=== PATIENT | male | born 1945 | race Caucasian/White ===

== ENCOUNTER 2017-01-15 19:15 | Inpatient (IN) ==
[2017-01-15] MEDS ORDERED: 0.9 % Sodium Chloride 1,000 ML IVC ONE (19:32)
--- NOTE | 2017-01-15 19:32 | Emergency Department Note ---
Disposition Clinical Impression: Lower gastrointestinal hemorrhage Anemia Qualifiers: Anemia type: iron deficiency Iron deficiency anemia type: chronic blood loss Qualified Code(s): D50.0 - Iron deficiency anemia secondary to blood loss ( chronic) Disposition: Admitted As Inpatient Condition: Fair Referrals: Russel Felipe Jr, MD [Primary Care Provider] - Forms: ED Satisfaction Letter GI Bleed HPI - General Chief complaint: ED GI Bleed Stated complaint: rectal bleeding Time Seen by Provider: 01/15/17 19:29 Source: patient Mode of arrival: ambulatory Limitations: no limitations Nursing Notes Reviewed: Yes Vital Signs Reviewed: Yes - History of Present Illness Pt Subjective Complaint: gross bloody stools Onset (ago): week(s) (1) Consistency: intermittent Severity: moderate Improves with: nothing Worsens with: nothing Context: anticoagulant use Associated symptoms: Reports: weakness - Related Data Home Medications Medication Instructions Recorded Confirmed Aspirin [Lo-Dose Aspirin EC] 81 mg PO DAILY 12/13/16 12/13/16 Carvedilol [Coreg] 25 mg PO BID 12/13/16 12/13/16 Clopidogrel [Plavix] 75 mg PO DAILY 12/13/16 12/13/16 Furosemide [Lasix] 40 mg PO DAILY 12/13/16 12/13/16 Losartan [Cozaar] 100 mg PO DAILY 12/13/16 12/13/16 Metformin [Glucophage] 1,000 mg PO TID 12/13/16 12/13/16 Paroxetine [Paxil] 10 mg PO DAILY 12/13/16 12/13/16 Terazosin [Hytrin] 10 mg PO HS 12/13/16 12/13/16 Warfarin [Coumadin] 5 mg PO 1800 12/13/16 12/13/16 Previous Rx's Medication Instructions Recorded Doxycycline 100 mg PO BID #20 capsule 12/13/16 Sulfamethoxazole/Trimeth DS 1 each PO BID #20 tablet 12/13/16 [Bactrim DS] Allergies Allergy/AdvReac Type Severity Reaction Status Date / Time sotalol [From Betapace] AdvReac See Verified 01/15/17 19:22 Comments All systems ED: reviewed and negative except as stated. Constitutional: Denies: fever, chills, weakness Cardiovascular: Denies: chest pain Respiratory: Denies: cough Gastrointestinal: Denies: nausea, vomiting Past Medical History - Past Medical History Medical history: Reports: atrial fibrillation, hyperlipidemia, hypertension, myocardial infarction Psychiatric history: Reports: no psych history - Social History Smoking Status: Never smoker Alcohol use: Reports: none Drug use: Reports: none Physical Exam - General Limitations: no limitations General appearance: alert, in no apparent distress - Head Head exam: atraumatic, normocephalic, normal inspection - Eye Eye exam: Present: other (pale conjunctivae ) - Expanded Eye Exam Pupils: Left: reactive - ENT ENT exam: normal exam, normal oropharynx, mucous membranes moist - Expanded ENT Exam External ear exam: Present: normal external inspection Mouth exam: Present: normal external inspection Teeth exam: Present: normal inspection Throat exam: Present: normal inspection - Neck Neck exam: Present: normal inspection, full ROM, trachea midline - Chest Chest inspection: Present: normal inspection, symmetric chest wall rise - Respiratory Respiratory exam: Present: normal lung sounds bilaterally - Cardiovascular Cardiovascular exam: Present: irregular rhythm - Abdominal Exam Abdominal exam: Present: soft, Non-Tender. Absent: tenderness, distention, guarding, rebound, rigidity - Extremities Exam Extremities exam: Present: normal inspection, full ROM. Absent: tenderness, pedal edema - Expanded Upper Extremity Exam Shoulder exam: Present: normal inspection, full ROM Arm exam: Present: normal inspection, full ROM Elbow exam: Present: normal inspection, full ROM Forearm/Wrist exam: Present: normal inspection, full ROM Hand exam: Present: normal inspection, full ROM Vascular exam: Normal: capillary refill, radial pulse - Expanded Lower Extremity Exam Hip/Pelvis exam: Present: normal inspection, full ROM Upper leg exam: Present: normal inspection, full ROM Knee exam: Present: normal inspection, full ROM Lower leg exam: Present: normal inspection, full ROM Ankle exam: Present: normal inspection, full ROM Foot/toe exam: Present: normal inspection, full ROM Neurovascular/Tendon exam: Absent: motor deficit, sensory deficit, tendon deficit - Back Exam Back exam: Present: normal inspection, full ROM. Absent: tenderness - Neurological Exam Neurological exam: Present: alert, oriented X3 - Expanded Neurological Exam Patient oriented to: Present: person, place, time Coma Scale Eye Opening: Spontaneous Coma Scale Motor Response: Obeys Commands Coma Scale Verbal Response: Oriented Coma Scale Total: 15 - Psychiatric Psychiatric exam: Present: normal affect, normal mood - Skin Skin exam: Present: pallor Course Vital Signs Temperature 97.5 F L 01/15/17 19:17 Pulse Rate 99 01/15/17 19:17 Respiratory Rate 20 01/15/17 19:17 Blood Pressure 89/56 01/15/17 19:17 O2 Sat by Pulse Oximetry 93 L 01/15/17 19:17 Temperature 97.5 F L 01/15/17 19:17 Pulse Rate 99 01/15/17 20:02 Respiratory Rate 18 01/15/17 20:02 Blood Pressure 107/56 01/15/17 20:02 O2 Sat by Pulse Oximetry 96 01/15/17 20:02 Oxygen Delivery Oxygen Delivery Room Air GI Bleed - Differential Diagnosis Likely: hemorrhoids, Upper gastrointestinal hemorrhage, Lower gastrointestinal hemorrhage, hematochezia, coagulopathy - Medical Records Medical records reviewed: Yes I reviewed the patient's medical records. - Lab Data Lab results reviewed: Yes I reviewed the patient's lab results. Result diagrams: 01/15/17 19:52 01/15/17 19:52 Lab Results 01/15/17 01/15/17 01/15/17 Range/Units 19:52 19:52 19:52 WBC 9.4 (4.3-11.1) K/mcL RBC 2.56 L (4.19-5.50) M/mcL Hgb 6.7 L (12.9-16.9) g/dL Hct 21.2 L (37.5-50.1) % MCV 82.8 L (83.0-100.0) fL MCH 26.2 L (28.0-33.3) pg MCHC 31.6 (31.6-35.5) g/dL RDW 16.1 H (11.5-14.5) % Plt Count 230 (140-400) K/mcL MPV 10.5 (9.4-12.4) fL Immature Gran % 0.6 (0-4) % Seg Neutrophils % 81.5 % Lymphocytes % 11.3 % Monocytes % 6.2 % Eosinophils % 0.3 % Basophils % 0.1 % Neutrophils # 7.6 (1.6-8.9) K/mcL Lymphocytes # 1.1 (0.6-4.6) K/mcL Monocytes # 0.6 (0.0-1.3) K/mcL Eosinophils # 0.0 (0.0-0.6) K/mcL Basophils # 0.0 (0.0-0.2) K/mcL Immature Plt Fraction 4.9 (1.1-6.1) % PT 25.1 H (9.4-12.1) Seconds INR 2.3 APTT 32.1 (26.0-36.0) Seconds Sodium 135 L (136-145) mEq/L Potassium 4.8 H (3.5-4.5) mEq/L Chloride 100 (98-109) mEq/L Carbon Dioxide 25 (19-29) mEq/L BUN 25 (8-26) mg/dL Creatinine 1.69 H (0.72-1.25) mg/dL Est GFR ( Amer) 49 L (> 60) Est GFR (Non-Af Amer) 40 L (> 60) BUN/Creatinine Ratio 15 (6-26) Glucose 503 H* (70-99) mg/dL Calculated Osmolality 307 H (280-300) Calcium 9.0 (8.6-10.8) mg/dL Magnesium 1.4 L (1.6-2.6) mg/dL Blood Type Antibody Screen Crossmatch 01/15/17 Range/Units 19:52 WBC (4.3-11.1) K/mcL RBC (4.19-5.50) M/mcL Hgb (12.9-16.9) g/dL Hct (37.5-50.1) % MCV (83.0-100.0) fL MCH (28.0-33.3) pg MCHC (31.6-35.5) g/dL RDW (11.5-14.5) % Plt Count (140-400) K/mcL MPV (9.4-12.4) fL Immature Gran % (0-4) % Seg Neutrophils % % Lymphocytes % % Monocytes % % Eosinophils % % Basophils % % Neutrophils # (1.6-8.9) K/mcL Lymphocytes # (0.6-4.6) K/mcL Monocytes # (0.0-1.3) K/mcL Eosinophils # (0.0-0.6) K/mcL Basophils # (0.0-0.2) K/mcL Immature Plt Fraction (1.1-6.1) % PT (9.4-12.1) Seconds INR APTT (26.0-36.0) Seconds Sodium (136-145) mEq/L Potassium (3.5-4.5) mEq/L Chloride (98-109) mEq/L Carbon Dioxide (19-29) mEq/L BUN (8-26) mg/dL Creatinine (0.72-1.25) mg/dL Est GFR ( Amer) (> 60) Est GFR (Non-Af Amer) (> 60) BUN/Creatinine Ratio (6-26) Glucose (70-99) mg/dL Calculated Osmolality (280-300) Calcium (8.6-10.8) mg/dL Magnesium (1.6-2.6) mg/dL Blood Type O POSITIVE Antibody Screen NEGATIVE Crossmatch See Detail - Radiology Data Radiology results reviewed: Yes I reviewed the patient's radiology results. Critical Care Time Critical Care Time: Yes Total Critical Care Time: 40 Attestation: Critical care performed: Time is exclusive of separately billable procedures. Time includes: direct patient care, patient reassessment, coordination of patient care, interpretation of data (laboratory data, radiology data, and respiratory data), review of patient's medical records, medical consultation and documentation of patient care. Procedures included in critical care time: Procedures excluded from critical care time:
[2017-01-15 20:01] LABS: Basophils % 0.1 %; Eosinophils % 0.3 %; Hematocrit 21.2 % (37.5-50.1); Hemoglobin 6.7 g/dL (12.9-16.9); Immature Granulocytes % 0.6 % (0-4); Immature Platelets 4.9 % (1.1-6.1); Lymphocytes # 1.1 K/mcL (0.6-4.6); Lymphocytes % 11.3 %; Mean Corpuscular HGB Conc 31.6 g/dL (31.6-35.5); Mean Corpuscular Hemoglobin 26.2 pg (28.0-33.3); Mean Corpuscular Volume 82.8 fL (83.0-100.0); Mean Platelet Volume 10.5 fL (9.4-12.4); Monocytes # 0.6 K/mcL (0.0-1.3); Monocytes % 6.2 %; Neutrophils # 7.6 K/mcL (1.6-8.9); Platelet Count 230 K/mcL (140-400); Red Blood Count 2.56 M/mcL (4.19-5.50); Red Cell Distribution Width 16.1 % (11.5-14.5); Segmented Neutrophils % 81.5 %
[2017-01-15 20:09] LABS: INR 2.3; Prothrombin Time 25.1 Seconds (9.4-12.1)
[2017-01-15 20:11] LABS: Activated Partial Thrombo Time 32.1 Seconds (26.0-36.0)
[2017-01-15 20:16] LABS: Magnesium 1.4 mg/dL (1.6-2.6); Potassium 4.8 mEq/L (3.5-4.5)
[2017-01-15] MEDS ORDERED: Insulin LISPRO 300 UNITS/3 ML VIAL SQ STA (20:25)
[2017-01-15] MEDS ORDERED: *HR* Phytonadione 5 MG TABLET PO ONE (21:16)
[2017-01-15] MEDS ORDERED: 0.9 % Sodium Chloride 500 ML ONE (21:19)
[2017-01-15] MEDS ORDERED: Calcium Gluconate 1,000 MG in D5% in Water 100 ML IVPB ONE (21:59)
[2017-01-15] MEDS ORDERED: Pantoprazole 40 MG VIAL IVP ONE (21:59)
[2017-01-15] MEDS ORDERED: Ondansetron 4 MG/2 ML VIAL IVP PRN (22:13)
--- NOTE | 2017-01-15 22:19 | Internal Med History&Physical ---
Date of Encounter: 01/15/17 Time of Encounter: 22:13 Assessment and Plan (1) CAD (coronary artery disease) of artery bypass graft Current visit: Yes Status: Acute Patient denies any chest pain. When old aspirin. Hold beta blockers as he is relatively hypotensive. Qualifiers: [place] vs. transplanted heart: [place] heart Associated angina: without angina Qualified Code(s): I25.810 - Atherosclerosis of coronary artery bypass graft(s) without angina pectoris (2) Afib Current visit: Yes Status: Acute Will check EKG. Hold anticoagulation. Qualifiers: Atrial fibrillation type: chronic Qualified Code(s): I48.2 - Chronic atrial fibrillation (3) Lower gastrointestinal hemorrhage Current visit: Yes Status: Acute Suspect that this is a lower G.I. bleed. His bun is normal. Will follow H&H to 6 hours. Because he is having nausea I will start them on protonix drip. Patient systolic blood pressure is around 100s, slightly tachycardic. he will be receiving normal saline 125 mls an hour. Follow output (4) Acute on chronic kidney failure Current visit: Yes Status: Acute Hydrate. Maintain map more than 65 Internal Medicine - H&P: HPI Chief complaint: GI bleed History of present illness: Mr. Good is a 71 year old male with a history of coronary artery disease status post cabg, diabetes mellitus, atrial fibrillation on anticogalition with Coumadin presents to the emergency room today with bleading per rectum. For the past week patient has been having Bright Red Bleeding per Rectum approximately 3 bloody stools daily. He has seen his PCP a week ago found him hypotensive so blood pressure medications was decreased was also advised by his physician to discontinue Coumadin 3 days ago because of low blood count. Indeed patient has not taken any Coumadin the past 3 days. Patient continues to have bloody bowel movements. He mentioned stools is bright red or dark red color. He has not noticed black stools. However patient has nausea. He denies any hematemesis. He has been feeling lightheaded especially when standing up. He has been very weak and lethargic. He denies any fevers chills. He has never had a colonoscopy. He denies abdominal pain. He denies any chest pain. He takes aspirin. But he is not on any Plavix therapy. Past Med Surg Social Fam HX - Past Medical History Medical history: atrial fibrillation, hyperlipidemia, hypertension, myocardial infarction Psychiatric history: no psych history - Social History Smoking Status: Never smoker Alcohol use: none Drug use: none Internal Medicine - H&P: Meds Aspirin [Lo-Dose Aspirin EC] 81 mg PO DAILY 12/13/16 [History] Carvedilol [Coreg] 25 mg PO BID 12/13/16 [History] Clopidogrel [Plavix] 75 mg PO DAILY 12/13/16 [History] Furosemide [Lasix] 40 mg PO DAILY 12/13/16 [History] Losartan [Cozaar] 50 mg PO DAILY 12/13/16 [History] Metformin [Glucophage] 500 mg PO DAILY 12/13/16 [History] Paroxetine [Paxil] 10 mg PO DAILY 12/13/16 [History] Terazosin [Hytrin] 5 mg PO HS 12/13/16 [History] Warfarin [Coumadin] 5 mg PO 1800 12/13/16 [History] Metformin HCl [Glucophage] 1,000 mg PO HS 01/16/17 [History] Allergies sotalol [From Betapace] Adverse Reaction (Verified 01/16/17 07:35) See Comments "hair falls out" All Systems PM: A 10-system review of systems was performed and is negative for pertinent findings except as documented above in the HPI. Review of systems: 10 point review of systems is negative except for HPI - Constitutional Vitals: Temp Pulse Resp BP Pulse Ox 97.7 F 90 16 127/74 98 01/15/17 21:40 01/15/17 21:40 01/15/17 22:04 01/15/17 22:04 01/15/17 21:40 Exam: Gen.: patient is alert oriented not in distress. Cardiac: Normal S1 S2 no additional sounds or murmurs chest: clear to auscultation abdomen soft nontender nondistended normal bowel sounds lower extremity: lax calf muscles neuro no focal deficit Internal Med - H&P Results - Labs CBC & Chem 7: 01/16/17 09:37 01/16/17 04:19
[2017-01-15] MEDS ORDERED: 0.9 % Sodium Chloride 250 ML ONE (23:32)
[2017-01-16] MEDS: 0.9 % Sodium Chloride 1,000 ML IVC SCH ×2 (00:05→08:43)
[2017-01-16] MEDS: Pantoprazole 40 MG in 0.9 % Sodium Chloride Mini Bag 100 ML IVC SCH ×5 (01:55→17:18)
[2017-01-16] MEDS: Insulin LISPRO 300 UNITS/3 ML VIAL SQ SCH ×5 (02:20→17:17)
[2017-01-16 05:20] LABS: Basophils % 0.1 %; Eosinophils # 0.1 K/mcL (0.0-0.6); Eosinophils % 0.6 %; Hematocrit 19.9 % (37.5-50.1); Hemoglobin 6.3 g/dL (12.9-16.9); Immature Granulocytes % 0.5 % (0-4); Lymphocytes % 22.1 %; Mean Corpuscular HGB Conc 31.7 g/dL (31.6-35.5); Mean Corpuscular Hemoglobin 25.9 pg (28.0-33.3); Mean Corpuscular Volume 81.9 fL (83.0-100.0); Mean Platelet Volume 10.6 fL (9.4-12.4); Monocytes # 0.8 K/mcL (0.0-1.3); Platelet Count 197 K/mcL (140-400); Red Blood Count 2.43 M/mcL (4.19-5.50); Red Cell Distribution Width 15.9 % (11.5-14.5); Segmented Neutrophils % 67.7 %
[2017-01-16] MEDS ORDERED: 0.9 % Sodium Chloride 250 ML ONE ×2 (05:20→10:12)
[2017-01-16 05:21] LABS: INR 1.8; Prothrombin Time 19.3 Seconds (9.4-12.1)
[2017-01-16 05:35] LABS: BUN/Creatinine Ratio 17 (6-26); Blood Urea Nitrogen 23 mg/dL (8-26); Calcium 8.5 mg/dL (8.6-10.8); Carbon Dioxide 27 mEq/L (19-29); Chloride 105 mEq/L (98-109); Glucose 199 mg/dL (70-99); Magnesium 1.9 mg/dL (1.6-2.6); Osmolality,Calculated 295 (280-300); Sodium 138 mEq/L (136-145); eGFR For African Americans > 60 (> 60); eGFR For Non-African Americans 52 (> 60)
[2017-01-16 05:37] LABS: Potassium 3.7 mEq/L (3.5-4.5)
--- NOTE | 2017-01-16 09:06 | Gastroenterology Consult Note ---
<Marine Mg - Last Filed: 01/16/17 15:30> Date of Encounter: 01/16/17 Time of Encounter: 11:15 - Assessment and plan (1) Anemia Current Visit: Yes Status: Acute Assessment and plan: Anemia w/u - EGD/Colon tomorrow. Check Fe profile at time of presentation. Qualifiers: Anemia type: iron deficiency Iron deficiency anemia type: chronic blood loss Qualified Code(s): D50.0 - Iron deficiency anemia secondary to blood loss (chronic) (2) Lower gastrointestinal hemorrhage Current Visit: Yes Status: Acute Assessment and plan: Cscope to r/o tumor, polyp, AVMS, colitis, anorectal pathology - Time Spent With Patient Total time spent is greater than 50% in coordination of care (as documented) at patient's floor/unit and/or counseling patient: less than 15 minutes GI History of Present Illness - Data of Consult Patient: new to practice Consult date: 01/16/17 Requesting Physician: José Reyna MD - Consult Narrative Reason for consult: Anemia, rectal bleeding History of present illness: Mr. Good is a 71 year old male with a PMH of CAD s/p CABG, DM, a fib, PM. Patient uses coumadin for anticoagulation. For the past week patient has been having BRBPR approximately 3 bloody stools daily. He has seen his PCP a week ago found him hypotensive so blood pressure medications were decreased and he was also advised by his physician to discontinue Coumadin 3 days ago because of low blood count. Indeed patient has not taken any Coumadin the past 3 days. Patient continues to have bloody bowel movements. He mentioned stools is bright red or dark red color. He has not noticed black stools. However patient has nausea. He denies any hematemesis. He has been feeling lightheaded especially when standing up. He has been very weak and lethargic. He denies any fevers chills. He has never had a colonoscopy. He denies abdominal pain. He denies any chest pain. He takes aspirin, not on PLAVIX. Patient presented with hgb of 6.3. He is due to receive 2 units of PRBC and 2 units of plasma, although his INR is 1.8 today. Patient states initially he had a supratherapeutic INR of 5.8 several days ago when he was told to hold his blood thinner. Colonoscopy: None noted EGD: None noted Past Med Surg Social Fam HX - Past Medical History Medical history: atrial fibrillation, hyperlipidemia, hypertension, myocardial infarction Psychiatric history: no psych history - Social History Smoking Status: Never smoker Alcohol use: none Drug use: none - Gastrointestinal NSAID use: None noted Anticoagulation Use: Coumadin Number of BM Per Day: daily Gastrointestinal: Present: abdominal pain, hematochezia - Constitutional Constitutional: as per HPI - EENT Eyes: as per HPI Ears: Present: as per HPI Nose, mouth and throat: Present: as per HPI - Cardiovascular Cardiovascular ROS: Present: as per HPI - Respiratory Respiratory IM: Present: as per HPI - Neurological ROS Neurological GI: Present: as per HPI - Hematologic/Lymphatic Hematologic/Lymphatic pediatric: Present: as per HPI - Musculoskeletal Musculoskeletal ROS GI: Present: as per HPI - Integumentary Integumentary GI: Present: as per HPI - Psychiatric ROS Psychiatric GI: Present: as per HPI - Endocrine Endocrine IM: Present: as per HPI - Constitutional Vitals: Temp Pulse Resp BP Pulse Ox 99.4 F 89 16 129/80 94 L 01/16/17 08:12 01/16/17 08:12 01/16/17 08:12 01/16/17 08:12 01/16/17 08:49 General appearance: Present: cooperative, A&O X 3, no acute distress, answers questions appropriately - Head Head exam: Present: atraumatic, normocephalic - Eye Eye exam: Present: normal appearance, sclera anicteric - ENT ENT exam: Present: mucous membranes moist - Neck Neck exam general surgery: Present: normal inspection, trachea midline - Respiratory Respiratory exam: Present: CTAB - Cardiovascular Cardiovascular exam: Present: RRR, +S1, +S2 - GI/Abdominal GI/Abdominal exam: Present: normal bowel sounds, soft, no peritoneal signs - Rectal Rectal exam: Present: deferred - Extremities Exam Extremities exam: Present: warm - Neurological Exam Neurological exam: Present: no focal deficits - Psychiatric Psychiatric exam: Present: normal affect, normal mood - Skin Skin exam: Present: dry, intact, normal color, warm Results - Labs CBC & Chem 7: 01/16/17 09:37 01/16/17 04:19 Labs: Last Result Calcium 8.5 mg/dL (8.6-10.8) L 01/16/17 04:19 Entire Visit Hgb 6.3 g/dL (12.9-16.9) L 01/16/17 04:19 Hct 19.9 % (37.5-50.1) L 01/16/17 04:19 PT 19.3 Seconds (9.4-12.1) H 01/16/17 04:19 - ABG ABG results: PT/INR, D-dimer PT 19.3 Seconds (9.4-12.1) H 01/16/17 04:19 Consult Discharge Plan - Plan Referrals: Russel Felipe Jr, MD [Primary Care Provider] - <SondraJamel - Last Filed: 01/16/17 18:12> Time of Encounter: 14:00 - Time Spent With Patient Total time spent is greater than 50% in coordination of care (as documented) at patient's floor/unit and/or counseling patient: GI History of Present Illness - Data of Consult Requesting Physician: Emperatriz Tong - Consult Narrative History of present illness: Mr. Good is a 71 year old male - Constitutional Vitals: Temp Pulse Resp BP Pulse Ox 98.2 F 80 14 129/67 96 01/16/17 15:00 01/16/17 15:00 01/16/17 15:00 01/16/17 15:00 01/16/17 15:00 Results - Labs CBC & Chem 7: 01/16/17 09:37 01/16/17 04:19 Labs: Last Result Calcium 8.5 mg/dL (8.6-10.8) L 01/16/17 04:19 Iron 17 mcg/dL (65-175) L 01/16/17 04:19 % Saturation 6 % (20-55) L 01/16/17 04:19 Transferrin 210 mg/dL (174-364) 01/16/17 04:19 Stool Occult Blood Positive (Negative) A 01/15/17 16:30 Entire Visit Hgb 7.0 g/dL (12.9-16.9) L 01/16/17 09:37 Hct 21.1 % (37.5-50.1) L 01/16/17 09:37 PT 19.3 Seconds (9.4-12.1) H 01/16/17 04:19 - ABG ABG results: PT/INR, D-dimer PT 19.3 Seconds (9.4-12.1) H 01/16/17 04:19 - Attending Attestation I examined this patient and my medical decision-making was reviewed with the BACK WEDGER/PA/Advanced Practice Nurse/Resident Physician. I agree with the documented findings, disposition and treatment plan as described except to the extent set forth below.
[2017-01-16 09:48] LABS: % Iron Saturation 6 % (20-55); Iron 17 mcg/dL (65-175); Transferrin 210 mg/dL (174-364)
[2017-01-16 10:09] LABS: Hematocrit 21.1 % (37.5-50.1)
[2017-01-16] MEDS ORDERED: Dextrose Gel 15 GM PO PRN ×2 (11:54)
[2017-01-16] MEDS ORDERED: D5% in Water 1,000 ML IV PRN (11:54)
[2017-01-16] MEDS ORDERED: *HR* Dextrose 50 % in Water (Syg) 50 ML SYRINGE IVP PRN (11:54)
[2017-01-16] MEDS: Furosemide 40 MG TABLET PO SCH (12:41)
--- NOTE | 2017-01-16 15:17 | Internal Med Progress Note ---
Date of Encounter: 01/16/17 Time of Encounter: 15:13 - Assessment and plan (1) Afib Current Visit: Yes Status: Acute Assessment and plan: Continue home dose beta blockers, rate controlled. Anticoagulation has been held for now. Qualifiers: Atrial fibrillation type: chronic Qualified Code(s): I48.2 - Chronic atrial fibrillation (2) Anemia Current Visit: Yes Status: Acute Assessment and plan: Most likely secondary to acute bleed. Status post 2 units of blood transfusion and plasma Repeat hemoglobin today is 7.0. We will monitor CBC, transfuse as needed. Qualifiers: Anemia type: iron deficiency Iron deficiency anemia type: chronic blood loss Qualified Code(s): D50.0 - Iron deficiency anemia secondary to blood loss (chronic) (3) CAD (coronary artery disease) of artery bypass graft Current Visit: Yes Status: Acute Assessment and plan: Denies any chest pain, yesterday his home medications including beta blockers were held given relative hypotension. Has been restarted this morning, blood pressure seems to be stable. Qualifiers: [place] vs. transplanted heart: [place] heart Associated angina: without angina Qualified Code(s): I25.810 - Atherosclerosis of coronary artery bypass graft(s) without angina pectoris (4) Lower gastrointestinal hemorrhage Current Visit: Yes Status: Acute Assessment and plan: Denies any bowel movement today. Denies abdominal pain. Has been having GI bleed for the past week. GI has been consulted, will need possible EGD and colonoscopy. Will follow GI recommendations. Continue PPI drip (5) Acute on chronic kidney failure Current Visit: Yes Status: Acute Assessment and plan: possibel from hypotension/GI bleed currently getting better. will contiue to monitor - Time Spent With Patient 25 - 35 minutes - Subjective Interval history: seen at the bedside, denies any abdominal pain at [facility] admitted for GI bleed - Constitutional Vitals: Temp Pulse Resp BP Pulse Ox 98.0 F 87 16 157/82 97 01/16/17 13:10 01/16/17 13:10 01/16/17 13:10 01/16/17 13:10 01/16/17 13:10 General appearance: Present: A&O X 3 Exam: Cardiac: Normal S1 S2 no additional sounds or murmurs chest: clear to auscultation abdomen soft nontender nondistended normal bowel sounds lower extremity: lax calf muscles neuro no focal deficit Internal Medicine: Result - Labs CBC & Chem 7: 01/16/17 09:37 01/16/17 04:19 Labs: Short CBC 01/16/17 01/16/17 Range/Units 04:19 09:37 WBC 8.8 (4.3-11.1) K/mcL Hgb 6.3 L 7.0 L (12.9-16.9) g/dL Hct 19.9 L 21.1 L (37.5-50.1) % Plt Count 197 (140-400) K/mcL Neutrophils # 6.0 (1.6-8.9) K/mcL BMP 01/16/17 04:19 Sodium 138 Potassium 3.7 D Chloride 105 Carbon Dioxide 27 BUN 23 Creatinine 1.36 H Glucose 199 H Calcium 8.5 L - ABG Interpretation ABG results: PT/INR, D-dimer PT 19.3 Seconds (9.4-12.1) H 01/16/17 04:19 - VTE Documentation of Mechanical Device: Graduated compression elastic hosiery Consult Discharge Plan - Plan Referrals: Russel Felipe Jr, MD [Primary Care Provider] -
[2017-01-16] MEDS ORDERED: 0.9 % Sodium Chloride 1,000 ML IVC SCH (15:24)
[2017-01-16] MEDS ORDERED: SODIUM CHLORIDE/NAHCO3/KCL/PEG 4,000 ML SOLN.RECON PO ONE (19:00)
[2017-01-17] MEDS: Pantoprazole 40 MG in 0.9 % Sodium Chloride Mini Bag 100 ML IVC SCH ×2 (03:00→08:22)
[2017-01-17] MEDS: Insulin LISPRO 300 UNITS/3 ML VIAL SQ SCH ×3 (07:35→17:44)
[2017-01-17] MEDS: Aspirin Enteric Coated 81 MG Tablet PO SCH (09:00)
[2017-01-17] MEDS: Furosemide 40 MG TABLET PO SCH (09:00)
[2017-01-17 09:06] LABS: Basophils % 0.1 %; Eosinophils # 0.2 K/mcL (0.0-0.6); Eosinophils % 2.3 %; Hematocrit 19.7 % (37.5-50.1); Hemoglobin 6.4 g/dL (12.9-16.9); Immature Granulocytes % 0.4 % (0-4); Lymphocytes # 1.3 K/mcL (0.6-4.6); Lymphocytes % 15.8 %; Mean Corpuscular HGB Conc 32.5 g/dL (31.6-35.5); Mean Corpuscular Hemoglobin 26.7 pg (28.0-33.3); Mean Corpuscular Volume 82.1 fL (83.0-100.0); Mean Platelet Volume 9.8 fL (9.4-12.4); Monocytes # 0.8 K/mcL (0.0-1.3); Monocytes % 10.1 %; Neutrophils # 5.8 K/mcL (1.6-8.9); Platelet Count 166 K/mcL (140-400); Red Cell Distribution Width 16.7 % (11.5-14.5); Segmented Neutrophils % 71.3 %
[2017-01-17 09:19] LABS: BUN/Creatinine Ratio 11 (6-26); Blood Urea Nitrogen 14 mg/dL (8-26); Calcium 7.7 mg/dL (8.6-10.8); Carbon Dioxide 25 mEq/L (19-29); Chloride 104 mEq/L (98-109); Glucose 151 mg/dL (70-99); Osmolality,Calculated 289 (280-300); Potassium 3.6 mEq/L (3.5-4.5); Sodium 138 mEq/L (136-145); eGFR For African Americans > 60 (> 60); eGFR For Non-African Americans 58 (> 60)
[2017-01-17] MEDS ORDERED: 0.9 % Sodium Chloride 250 ML ONE (10:30)
[2017-01-17 12:21] LABS: Hemoglobin A1C 7.6 %
[2017-01-17] MEDS ORDERED: *HR* Midazolam HCl 5 MG/5 ML VIAL IVP ONE (12:24)
[2017-01-17] MEDS ORDERED: *HR* FentaNYL (PF) 100 MCG/2 ML VIAL ONE (12:25)
[2017-01-17] MEDS: *HR* Midazolam HCl 5 MG/5 ML VIAL IVP PRN ×2 (12:50→12:52)
[2017-01-17] MEDS: *HR* FentaNYL (PF) 100 MCG/2 ML VIAL IVP PRN ×2 (12:50→12:52)
[2017-01-17] MEDS ORDERED: Simethicone 40 MG/0.6 ML MLS IR ONE (12:51)
[2017-01-17] MEDS ORDERED: Tetracaine/Benzocaine/Butamben 200MG/SPRAY (100SPY/BOT) MM ONE (12:51)
--- NOTE | 2017-01-17 12:53 | Pre-Sedation Evaluation ---
Pre-sedation evaluation - Pre-sedation checklist Recent Vitals: Last Vital Signs Temp 98.7 F 01/17/17 10:54 Pulse 72 01/17/17 12:45 Resp 16 01/17/17 12:45 BP 139/81 01/17/17 12:45 Pulse Ox 97 01/17/17 12:45 ASA Classification *see protocol: CLASS III-Severe systemic disease, CLASS IV- Severe systemic disease/constant threat to pt's life Plan of Care: Pt appropriate candidate for procedure/moderate/conscious sedation , Risks/benefits of procedure/sedation discussed w/ patient/family
--- NOTE | 2017-01-17 13:27 | Procedure Note ---
Date of procedure: 01/17/17 Pre-op diagnosis: Rectal bleed Procedure: EGD: Normal Colon: One small AVM in the cecum status post APC. Few scattered diverticuli in the colon but no other obvious source of bleeding was seen few small polyps were resected Rec: If patient has bleeding recurrence then recommend bleeding scan to be done stat
--- NOTE | 2017-01-17 14:48 | Internal Med Progress Note ---
Date of Encounter: 01/17/17 Time of Encounter: 14:43 - Assessment and plan (1) Afib Current Visit: Yes Status: Acute Assessment and plan: Continue home dose beta blockers, rate controlled. Anticoagulation has been held for now. Qualifiers: Atrial fibrillation type: chronic Qualified Code(s): I48.2 - Chronic atrial fibrillation (2) Anemia Current Visit: Yes Status: Acute Assessment and plan: Most likely secondary to acute bleed. Status post 3 units of blood transfusion and plasma Repeat hemoglobin today is 6.4 We will monitor CBC, was transfused one unit this morning. Qualifiers: Anemia type: iron deficiency Iron deficiency anemia type: chronic blood loss Qualified Code(s): D50.0 - Iron deficiency anemia secondary to blood loss (chronic) (3) CAD (coronary artery disease) of artery bypass graft Current Visit: Yes Status: Acute Assessment and plan: Denies any chest pain, yesterday his home medications including beta blockers were held given relative hypotension. Blood pressure seems to be borderline today. We will hold the losartan today. Continue to monitor. Qualifiers: [place] vs. transplanted heart: [place] heart Associated angina: without angina Qualified Code(s): I25.810 - Atherosclerosis of coronary artery bypass graft(s) without angina pectoris (4) Lower gastrointestinal hemorrhage Current Visit: Yes Status: Acute Assessment and plan: Has not had any further bleeding episodes. Status post EGD and colonoscopy today with Dr. Beltre. Colonoscopy showed a single small localized angiectasia without bleeding in the cecum. Treated with APC. Diverticulosis in the entire examined colon. 2 sessile, nonbleeding polyps were found in the ascending colon that was removed. EGD did not show any pathology. will continue to monitor for GIB. if he has further bleeding episodes, will need a stat bleeding scan, discussed with GI. arabella cameron to hold the AC for now. (5) Acute on chronic kidney failure Current Visit: Yes Status: Acute Assessment and plan: possibel from hypotension/GI bleed currently improved. will contiue to monitor - Time Spent With Patient 25 - 35 minutes - Subjective Interval history: seen at the bedside, denies any abdominal pain at this time s/p EGD and colonoscopy today. - Constitutional Vitals: Temp Pulse Resp BP Pulse Ox 99.5 F 82 16 115/55 94 L 01/17/17 13:26 01/17/17 13:26 01/17/17 13:26 01/17/17 13:26 01/17/17 13:26 General appearance: Present: A&O X 3 Exam: Cardiac: Normal S1 S2 no additional sounds or murmurs chest: clear to auscultation abdomen soft nontender nondistended normal bowel sounds lower extremity: lax calf muscles neuro no focal deficit Internal Medicine: Result - Labs CBC & Chem 7: 01/17/17 08:55 01/17/17 08:55 Labs: Short CBC 01/17/17 Range/Units 08:55 WBC 8.1 (4.3-11.1) K/mcL Hgb 6.4 L (12.9-16.9) g/dL Hct 19.7 L (37.5-50.1) % Plt Count 166 (140-400) K/mcL Neutrophils # 5.8 (1.6-8.9) K/mcL BMP 01/17/17 08:55 Sodium 138 Potassium 3.6 Chloride 104 Carbon Dioxide 25 BUN 14 Creatinine 1.23 Glucose 151 H Calcium 7.7 L - ABG Interpretation ABG results: PT/INR, D-dimer PT 19.3 Seconds (9.4-12.1) H 01/16/17 04:19 - VTE Documentation of Mechanical Device: Graduated compression elastic hosiery Consult Discharge Plan - Plan Referrals: Russel Felipe Jr, MD [Primary Care Provider] - 02/03/17 9:30 am
[2017-01-17] MEDS: 0.9 % Sodium Chloride 1,000 ML IVC SCH ×3 (15:11→20:53)
[2017-01-17] MEDS: Pantoprazole 40 MG VIAL IVP SCH (17:44)
[2017-01-18] MEDS: Pantoprazole 40 MG VIAL IVP SCH ×2 (05:34→17:06)
[2017-01-18] MEDS: Aspirin Enteric Coated 81 MG Tablet PO SCH (07:49)
[2017-01-18] MEDS: Furosemide 40 MG TABLET PO SCH (07:49)
[2017-01-18] MEDS: 0.9 % Sodium Chloride 1,000 ML IVC SCH ×2 (07:50→20:07)
[2017-01-18] MEDS: Insulin LISPRO 300 UNITS/3 ML VIAL SQ SCH ×3 (07:51→17:07)
[2017-01-18 09:19] LABS: Basophils % 0.1 %; Eosinophils # 0.1 K/mcL (0.0-0.6); Eosinophils % 1.9 %; Hematocrit 21.6 % (37.5-50.1); Immature Granulocytes % 0.4 % (0-4); Lymphocytes # 1.1 K/mcL (0.6-4.6); Lymphocytes % 16.7 %; Mean Corpuscular HGB Conc 32.4 g/dL (31.6-35.5); Mean Corpuscular Hemoglobin 27.3 pg (28.0-33.3); Mean Corpuscular Volume 84.4 fL (83.0-100.0); Mean Platelet Volume 9.9 fL (9.4-12.4); Monocytes # 0.8 K/mcL (0.0-1.3); Monocytes % 11.9 %; Neutrophils # 4.7 K/mcL (1.6-8.9); Platelet Count 147 K/mcL (140-400); Red Blood Count 2.56 M/mcL (4.19-5.50); Red Cell Distribution Width 16.9 % (11.5-14.5)
[2017-01-18 09:32] LABS: BUN/Creatinine Ratio 10 (6-26); Blood Urea Nitrogen 12 mg/dL (8-26); Calcium 7.7 mg/dL (8.6-10.8); Carbon Dioxide 23 mEq/L (19-29); Chloride 107 mEq/L (98-109); Glucose 202 mg/dL (70-99); Osmolality,Calculated 292 (280-300); Potassium 3.7 mEq/L (3.5-4.5); Sodium 138 mEq/L (136-145); eGFR For African Americans > 60 (> 60); eGFR For Non-African Americans 59 (> 60)
[2017-01-18] MEDS ORDERED: 0.9 % Sodium Chloride 250 ML ONE (10:44)
--- NOTE | 2017-01-18 15:46 | Internal Med Progress Note ---
Date of Encounter: 01/18/17 Time of Encounter: 15:44 - Assessment and plan (1) Afib Current Visit: Yes Status: Acute Assessment and plan: Continue home dose beta blockers, rate controlled. Anticoagulation has been held for now. Qualifiers: Atrial fibrillation type: chronic Qualified Code(s): I48.2 - Chronic atrial fibrillation (2) Anemia Current Visit: Yes Status: Acute Assessment and plan: Most likely secondary to acute bleed. Status post 3 units of blood transfusion and plasma Repeat hemoglobin today is 7.0 and his baseline is 12. We will monitor CBC, will transfuse one unit again this morning. Qualifiers: Anemia type: iron deficiency Iron deficiency anemia type: chronic blood loss Qualified Code(s): D50.0 - Iron deficiency anemia secondary to blood loss (chronic) (3) CAD (coronary artery disease) of artery bypass graft Current Visit: Yes Status: Acute Assessment and plan: Denies any chest pain, yesterday his home medications including beta blockers were held given relative hypotension. Blood pressure seems to be borderline today. We will continue to hold the losartan today. Continue to monitor. Qualifiers: [place] vs. transplanted heart: [place] heart Associated angina: without angina Qualified Code(s): I25.810 - Atherosclerosis of coronary artery bypass graft(s) without angina pectoris (4) Lower gastrointestinal hemorrhage Current Visit: Yes Status: Acute Assessment and plan: Has not had any further bleeding episodes. Status post EGD and colonoscopy today with Dr. Beltre. Colonoscopy showed a single small localized angiectasia without bleeding in the cecum. Treated with APC. Diverticulosis in the entire examined colon. 2 sessile, nonbleeding polyps were found in the ascending colon that was removed. EGD did not show any pathology. will continue to monitor for GIB. if he has further bleeding episodes, will need a stat bleeding scan, discussed with GI. arabella cameron to hold the AC for now. (5) Acute on chronic kidney failure Current Visit: Yes Status: Acute Assessment and plan: possibel from hypotension/GI bleed currently improved. will contiue to monitor - Time Spent With Patient 25 - 35 minutes - Subjective Interval history: seen at the bedside, denies any abdominal pain at this time s/p EGD and colonoscopy , has not had any bowel movements today. repeat cbc today is 7, will transfuse one unit today. - Constitutional Vitals: Temp Pulse Resp BP Pulse Ox 98.1 F 79 17 147/63 94 L 01/18/17 15:19 01/18/17 15:19 01/18/17 15:19 01/18/17 15:19 01/18/17 15:19 General appearance: Present: A&O X 3 Exam: Cardiac: Normal S1 S2 no additional sounds or murmurs chest: clear to auscultation abdomen soft nontender nondistended normal bowel sounds lower extremity: lax calf muscles neuro no focal deficit Internal Medicine: Result - Labs CBC & Chem 7: 01/18/17 09:12 01/18/17 09:12 Labs: Short CBC 01/18/17 Range/Units 09:12 WBC 6.8 (4.3-11.1) K/mcL Hgb 7.0 L (12.9-16.9) g/dL Hct 21.6 L (37.5-50.1) % Plt Count 147 (140-400) K/mcL Neutrophils # 4.7 (1.6-8.9) K/mcL BMP 01/18/17 09:12 Sodium 138 Potassium 3.7 Chloride 107 Carbon Dioxide 23 BUN 12 Creatinine 1.22 Glucose 202 H Calcium 7.7 L - ABG Interpretation ABG results: PT/INR, D-dimer PT 19.3 Seconds (9.4-12.1) H 01/16/17 04:19 - VTE Documentation of Mechanical Device: Graduated compression elastic hosiery Consult Discharge Plan - Plan Referrals: Russel Felipe Jr, MD [Primary Care Provider] - 02/03/17 9:30 am
[2017-01-18] MEDS: Insulin DETEMIR 100 UNIT/ML X5UNITS SQ SCH (17:06)
[2017-01-19] MEDS: Pantoprazole 40 MG VIAL IVP SCH ×2 (05:47→17:50)
[2017-01-19] MEDS: Insulin LISPRO 300 UNITS/3 ML VIAL SQ SCH ×3 (10:02→17:49)
[2017-01-19] MEDS: Furosemide 40 MG TABLET PO SCH (10:03)
[2017-01-19] MEDS: Aspirin Enteric Coated 81 MG Tablet PO SCH (10:03)
[2017-01-19 10:05] LABS: Basophils % 0.3 %; Eosinophils # 0.1 K/mcL (0.0-0.6); Eosinophils % 1.5 %; Hematocrit 23.7 % (37.5-50.1); Hemoglobin 7.7 g/dL (12.9-16.9); Immature Granulocytes % 0.3 % (0-4); Lymphocytes % 13.8 %; Mean Corpuscular HGB Conc 32.5 g/dL (31.6-35.5); Mean Corpuscular Hemoglobin 27.1 pg (28.0-33.3); Mean Corpuscular Volume 83.5 fL (83.0-100.0); Mean Platelet Volume 10.2 fL (9.4-12.4); Monocytes # 0.8 K/mcL (0.0-1.3); Monocytes % 10.4 %; Neutrophils # 5.3 K/mcL (1.6-8.9); Platelet Count 165 K/mcL (140-400); Red Blood Count 2.84 M/mcL (4.19-5.50); Red Cell Distribution Width 16.7 % (11.5-14.5); Segmented Neutrophils % 73.7 %
[2017-01-19] MEDS: Insulin DETEMIR 100 UNIT/ML X5UNITS SQ SCH (10:07)
[2017-01-19 10:18] LABS: BUN/Creatinine Ratio 8 (6-26); Blood Urea Nitrogen 10 mg/dL (8-26); Calcium 7.8 mg/dL (8.6-10.8); Carbon Dioxide 23 mEq/L (19-29); Chloride 106 mEq/L (98-109); Glucose 196 mg/dL (70-99); Osmolality,Calculated 288 (280-300); Potassium 3.7 mEq/L (3.5-4.5); Sodium 137 mEq/L (136-145); eGFR For African Americans > 60 (> 60); eGFR For Non-African Americans 56 (> 60)
[2017-01-19] MEDS: 0.9 % Sodium Chloride 1,000 ML IVC SCH ×3 (10:25→21:32)
[2017-01-20] MEDS: Acetaminophen 325 MG TABLET PO PRN (05:10)
[2017-01-20] MEDS: Pantoprazole 40 MG VIAL IVP SCH (05:11)
[2017-01-20 08:42] LABS: Basophils % 0.3 %; Eosinophils # 0.1 K/mcL (0.0-0.6); Eosinophils % 1.8 %; Hematocrit 22.4 % (37.5-50.1); Immature Granulocytes % 0.5 % (0-4); Lymphocytes # 0.8 K/mcL (0.6-4.6); Mean Corpuscular HGB Conc 31.3 g/dL (31.6-35.5); Mean Corpuscular Hemoglobin 26.6 pg (28.0-33.3); Mean Corpuscular Volume 85.2 fL (83.0-100.0); Mean Platelet Volume 10.2 fL (9.4-12.4); Monocytes # 0.6 K/mcL (0.0-1.3); Monocytes % 10.2 %; Neutrophils # 4.4 K/mcL (1.6-8.9); Platelet Count 160 K/mcL (140-400); Red Blood Count 2.63 M/mcL (4.19-5.50); Red Cell Distribution Width 16.7 % (11.5-14.5); Segmented Neutrophils % 73.2 %
[2017-01-20 08:57] LABS: BUN/Creatinine Ratio 9 (6-26); Blood Urea Nitrogen 11 mg/dL (8-26); Calcium 7.7 mg/dL (8.6-10.8); Carbon Dioxide 23 mEq/L (19-29); Chloride 107 mEq/L (98-109); Glucose 157 mg/dL (70-99); Magnesium 1.1 mg/dL (1.6-2.6); Osmolality,Calculated 289 (280-300); Potassium 3.5 mEq/L (3.5-4.5); Sodium 138 mEq/L (136-145); eGFR For African Americans > 60 (> 60); eGFR For Non-African Americans 58 (> 60)
[2017-01-20] MEDS: Aspirin Enteric Coated 81 MG Tablet PO SCH (09:10)
[2017-01-20] MEDS: Insulin LISPRO 300 UNITS/3 ML VIAL SQ SCH ×3 (09:10→17:08)
[2017-01-20] MEDS: Insulin DETEMIR 100 UNIT/ML X5UNITS SQ SCH (09:12)
[2017-01-20] MEDS ORDERED: Magnesium Sulfate 3 GM in D5% in Water 100 ML IVPB STA (09:33)
--- NOTE | 2017-01-20 10:28 | Internal Med Progress Note ---
Date of Encounter: 01/20/17 Time of Encounter: 10:00 - Assessment and plan (1) Lower gastrointestinal hemorrhage Current Visit: Yes Status: Acute Assessment and plan: 01/15/17: admitted for 3 bloody stools daily while taking coumadin. transfused 4 units total of PRBC (last 01/18) and 2 FFP. 01/17: colonoscopy showed a [id number] colonic angioectasia, diverticulosis in the entire colon, a 3 mm non-bleeding polyp in the ascending colon removed with a cold biopsy forceps and a 5 mm, non-bleeding polyp in the transverse colon, removed with a hot snare. EGD was negative. No further bleeding in past 2 days; however, hemoglobin continues to drop (hgb 7 from 7.7 yesterday). repeat hgb in afternoon was 7.2. no gross bleeding. will transfuse 1 PRBC given symptomatic anemia (weakness and history of CABG). may dc tomorrow if hgb adequate. (2) Acute blood loss anemia Current Visit: Yes Status: Acute Assessment and plan: Most likely secondary to acute bleed. Status post 4 units of blood transfusion and plasma hemodynamically stable. transfuse 1 unit PRBC today. (3) Low grade fever Current Visit: Yes Status: Acute Assessment and plan: temp 100.3 since 7pm on 01/19/17. could be atelectasis vs contact dermatitis. UA negative. no cough. no diarrhea but creamy bowel movement. no headache. pt has a skin rash at his back likely contact dermatitis. continue to follow temp curve. no need for antibiotics at this time. vpt encouraged to sit in chair tid. (4) Acute worsening of stage 3 chronic kidney disease Current Visit: Yes Status: Acute Assessment and plan: resolved. prerenal secondary to hypovolemia due to GI bleed. avoid nephrotoxins as possible. close monitoring. (5) Afib Current Visit: Yes Status: Acute Assessment and plan: rate is adequate. Continue coreg. holding coumadin due to GI bleed. may resume as outpatient in 2 weeks if clinically stable. Qualifiers: Atrial fibrillation type: chronic Qualified Code(s): I48.2 - Chronic atrial fibrillation (6) CAD (coronary artery disease) of artery bypass graft Current Visit: Yes Status: Acute Assessment and plan: continue aspirin and coreg. stable. Qualifiers: [place] vs. transplanted heart: [place] heart Associated angina: without angina Qualified Code(s): I25.810 - Atherosclerosis of coronary artery bypass graft(s) without angina pectoris (7) Diabetes mellitus Current Visit: Yes Status: Acute Assessment and plan: continue levemir 5 units daily. sliding scale insulin. diabetic diet. Qualifiers: Diabetes mellitus type: type 2 Diabetes mellitus complication status: with kidney complications Diabetes mellitus complication detail: with chronic kidney disease Diabetes mellitus termite exterminator helper insulin use: without termite exterminator helper use Chronic kidney disease stage: stage 3 (moderate) Qualified Code(s): E11.22 - Type 2 diabetes mellitus with diabetic chronic kidney disease; N18.3 - Chronic kidney disease, stage 3 (moderate) (8) Hypomagnesemia Current Visit: Yes Status: Acute Assessment and plan: replete. - Subjective Interval history: no bleeding. small bowel movement this morning that was watery type. no abdominal pain. he is eating well. temp up to 100.3. no cough. pt has a rash at his back from sweating and laying down on the bed. no urinary complaints. - Constitutional Vitals: Temp Pulse Resp BP Pulse Ox 99.6 F 84 18 138/79 94 L 01/20/17 06:15 01/20/17 06:15 01/20/17 06:15 01/20/17 07:15 01/20/17 06:15 General appearance: Present: cooperative, A&O X 3, pleasant, no acute distress, answers questions appropriately - Eye Eye exam: Present: PERRL, sclera anicteric - Respiratory Respiratory exam: Present: CTAB - Cardiovascular Cardiovascular exam: Present: RRR - GI/Abdominal GI/Abdominal exam: Present: normal bowel sounds, soft. Absent: distended, tenderness - Extremities Exam Extremities exam: Absent: pedal edema - Back Exam Back exam: Absent: CVA tenderness (L), CVA tenderness (R) - Neurological Exam Neurological exam: Present: alert, oriented X3, no focal deficits. Absent: facial droop, speech deficit - Skin Skin exam: Present: rash (there are multiple small red papules at his back, no vesicles, no discharge.) Internal Medicine: Result - Labs CBC & Chem 7: 01/20/17 14:05 01/20/17 08:21 Labs: Short CBC 01/20/17 Range/Units 08:21 WBC 6.0 (4.3-11.1) K/mcL Hgb 7.0 L (12.9-16.9) g/dL Hct 22.4 L (37.5-50.1) % Plt Count 160 (140-400) K/mcL Neutrophils # 4.4 (1.6-8.9) K/mcL BMP 01/20/17 08:21 Sodium 138 Potassium 3.5 Chloride 107 Carbon Dioxide 23 BUN 11 Creatinine 1.23 Glucose 157 H Calcium 7.7 L - ABG Interpretation ABG results: PT/INR, D-dimer PT 19.3 Seconds (9.4-12.1) H 01/16/17 04:19 - VTE Documentation of Mechanical Device: Graduated compression elastic hosiery Consult Discharge Plan - Plan Referrals: Russel Felipe Jr, MD [Primary Care Provider] - 02/03/17 9:30 am
[2017-01-20 13:08] LABS: Bilirubin,Urine Small (Negative); Blood,Urine Negative (Negative); Clarity,Urine Clear (Clear); Color,Urine Dark Yellow (Yellow); Glucose,Urine (UA) >=1000 mg/dL (Normal); Ketones,Urine Trace mg/dL (Negative); Leukocyte Esterase,Urine Negative (Negative); Nitrite,Urine Negative (Negative); PH,Urine 5.5 pH Units (5.0-8.0); Protein,Urine 30 mg/dL (Neg-Trace); Specific Gravity,Urine 1.025 (1.010-1.025); Urobilinogen,Urine Normal (Normal)
[2017-01-20 13:10] LABS: Bacteria,Urine None Seen per hpf (None-Few); Hyaline Casts,Urine None Seen per lpf (None-Few); RBC,Urine 0-3 per hpf (0-3); Squamous Epithelial Cell,Urine Moderate per lpf (None-Few); WBC,Urine 0-3 per hpf (0-3)
[2017-01-20 14:37] LABS: Hematocrit 22.2 % (37.5-50.1); Hemoglobin 7.2 g/dL (12.9-16.9)
[2017-01-20] MEDS ORDERED: 0.9 % Sodium Chloride 250 ML ONE (19:56)
[2017-01-20] MEDS ORDERED: Furosemide 20 MG/2 ML VIAL IVP ONE (20:00)
[2017-01-21] MEDS: Acetaminophen 325 MG TABLET PO PRN (04:57)
[2017-01-21 05:50] LABS: Basophils % 0.4 %; Eosinophils # 0.2 K/mcL (0.0-0.6); Eosinophils % 2.4 %; Hemoglobin 8.2 g/dL (12.9-16.9); Immature Granulocytes % 0.1 % (0-4); Lymphocytes # 1.1 K/mcL (0.6-4.6); Lymphocytes % 15.6 %; Mean Corpuscular HGB Conc 32.8 g/dL (31.6-35.5); Mean Corpuscular Hemoglobin 27.4 pg (28.0-33.3); Mean Corpuscular Volume 83.6 fL (83.0-100.0); Mean Platelet Volume 10.5 fL (9.4-12.4); Monocytes # 0.6 K/mcL (0.0-1.3); Monocytes % 9.1 %; Neutrophils # 4.9 K/mcL (1.6-8.9); Platelet Count 187 K/mcL (140-400); Red Blood Count 2.99 M/mcL (4.19-5.50); Red Cell Distribution Width 15.8 % (11.5-14.5); Segmented Neutrophils % 72.4 %
[2017-01-21] MEDS ORDERED: Magnesium Sulfate 3 GM in D5% in Water 100 ML IVPB STA (07:39)
[2017-01-21] MEDS: Aspirin Enteric Coated 81 MG Tablet PO SCH (08:38)
[2017-01-21] MEDS: Insulin DETEMIR 100 UNIT/ML X5UNITS SQ SCH (08:38)
[2017-01-21] MEDS: Insulin LISPRO 300 UNITS/3 ML VIAL SQ SCH ×2 (08:39→13:17)
[2017-01-21 11:54] VITALS: BP 152/82
--- NOTE | 2017-01-21 13:01 | Discharge Summary ---
Date of Encounter: 01/21/17 Time of Encounter: 12:00 - Discharge Diagnosis (1) Lower gastrointestinal hemorrhage Priority: Primary Status: Acute (2) Acute blood loss anemia Priority: Primary Status: Acute (3) Low grade fever Priority: Primary Status: Acute (4) Acute worsening of stage 3 chronic kidney disease Priority: Primary Status: Acute (5) Afib Priority: Secondary Status: Chronic Qualifiers: Atrial fibrillation type: chronic Qualified Code(s): I48.2 - Chronic atrial fibrillation (6) CAD (coronary artery disease) of artery bypass graft Priority: Secondary Status: Chronic Qualifiers: [place] vs. transplanted heart: [place] heart Associated angina: without angina Qualified Code(s): I25.810 - Atherosclerosis of coronary artery bypass graft(s) without angina pectoris (7) Diabetes mellitus Priority: Secondary Status: Chronic Qualifiers: Diabetes mellitus type: type 2 Diabetes mellitus complication status: with kidney complications Diabetes mellitus complication detail: with chronic kidney disease Diabetes mellitus termite control servicer insulin use: without termite control servicer use Chronic kidney disease stage: stage 3 (moderate) Qualified Code(s): E11.22 - Type 2 diabetes mellitus with diabetic chronic kidney disease; N18.3 - Chronic kidney disease, stage 3 (moderate) (8) Hypomagnesemia Priority: Primary Status: Acute - Discharge Medications Prescriptions: Magnesium Oxide [Mag-Ox] 400 mg PO BID #60 tablet Home Medications: Aspirin [Lo-Dose Aspirin EC] 81 mg PO DAILY 12/13/16 [History] Carvedilol [Coreg] 25 mg PO BID 12/13/16 [History] Clopidogrel [Plavix] 75 mg PO DAILY 12/13/16 [History] Losartan [Cozaar] 50 mg PO DAILY 12/13/16 [History] Metformin [Glucophage] 500 mg PO DAILY 12/13/16 [History] Paroxetine [Paxil] 10 mg PO DAILY 12/13/16 [History] Terazosin [Hytrin] 5 mg PO HS 12/13/16 [History] Metformin HCl [Glucophage] 1,000 mg PO HS 01/16/17 [History] Magnesium Oxide [Mag-Ox] 400 mg PO BID #60 tablet 01/21/17 [Rx] Allergies/Adverse Reactions: Allergies sotalol [From Betapace] Adverse Reaction (Verified 01/16/17 07:35) See Comments "hair falls out" Date of admission: 01/15/17 22:08 Primary care physician: Russel Felipe Jr, MD Consults: 01/15/17 22:57 Consult to Nutrition [CONS] Routine Comment: Consulting Provider: NUTRITION Reason for Dietary Consult: MST Score - Patient Status Disposition: Home, Self-Care Condition: Good Functional capacity at discharge: independent ambulation Overall status at discharge: patient is progressing back to baseline - Ambulatory Orders Ambulatory Orders: Complete Blood Count [HEME] Time Frame: 01/25/17, Facility: [facility], Location: Lab - Discharge Instructions Follow Up With: Russel Felipe Jr, MD [Primary Care Provider] - 02/03/17 9:30 am Additional Instructions: Check your temperature daily in the morning. check your sugar levels twice daily. Follow up with PCP in 1 week for skin rash at back, DM, HTN. - Diet and Activity Activity: resume usual activities as tolerated Diet: diabetic diet, low fat, low cholesterol, low salt diet Interval History: patient feels a little tired. no chest pain. no shortness of breath. no cough. no diarrhea. no bowel movement today. his back rash is less itchy and better. Hospital course: Mr. Good is a 71 year old male with past medical history of atrial fibrillation on anticoagulation with coumadin, CAD on Plavix and aspirin, CKD 3 , DM and HTN who presented with hematochezia. Hgb dropped to 6.3 and remained at low 7s despite 4 units of red blood cell transfusion and 2 FFP. Colonoscopy showed a [id number] colonic angioectasia, diverticulosis in the entire colon, a 3 mm non-bleeding polyp in the ascending colon removed with a cold biopsy forceps and a 5 mm, non-bleeding polyp in the transverse colon, removed with a hot snare. EGD was negative. He received another 1 unit PRBC the day before discharge and Hgb this morning is 8.2. Patient had a low grade fever ( temp 100.3), could be atelectasis vs contact dermatitis (diffuse small papules at his back that were resolving at discharge). UA negative. no cough. no diarrhea. PLAN: check temp daily in the morning. CBC next week. f/u with PCP next week for contact dermatitis, HTN, DM. - Time Spent with Patient Total time spent providing and/or coordinating discharge services: - Constitutional Vitals: Temp Pulse Resp BP Pulse Ox 97.5 F L 68 16 152/82 95 01/21/17 11:22 01/21/17 11:22 01/21/17 11:22 01/21/17 11:22 01/21/17 11:22 General appearance: Present: cooperative, A&O X 3, pleasant, no acute distress, answers questions appropriately - Eye Eye exam: Present: PERRL, sclera anicteric - ENT ENT exam: Present: mucous membranes moist - Neck Neck exam general surgery: Present: supple, trachea midline. Absent: lymphadenopathy - Respiratory Respiratory exam: Present: CTAB - Cardiovascular Cardiovascular exam: Present: RRR - GI/Abdominal GI/Abdominal exam: Present: normal bowel sounds, soft. Absent: distended, tenderness - Extremities Exam Extremities exam: Absent: pedal edema - Back Exam Back exam: Absent: CVA tenderness (L), CVA tenderness (R) - Neurological Exam Neurological exam: Present: alert, oriented X3, strengths equal and symetr throughout. Absent: facial droop, speech deficit - Skin Skin exam: Present: rash (there are multiple small papules, erythematous base, no vesicles. no discharge.) - VTE Documentation of Mechanical Device: Graduated compression elastic hosiery
[2017-01-22] MEDS ORDERED: Magnesium Oxide 400 MG TABLET PO SCH (09:00)
== END 2017-01-21 13:55 | disposition home or self-care (01) | DRG 378 ==
LOC: EMEROO 19:15 → 3ANU 19:15 → SUATTDRO 22:08 → 3ANU 22:16
PROVIDERS: ADMIT Internal Medicine; ATTEND Internal Medicine

== ENCOUNTER 2017-09-04 08:49 | Inpatient (IN) ==
--- NOTE | 2017-09-03 21:43 | Discharge Summary ---
<YamiletcynthiaLeticia - Last Filed: 09/03/17 21:41> Date of Encounter: 09/03/17 - Discharge Diagnosis (1) Arthritis of knee, right Priority: Primary Status: Acute (2) Status post total knee replacement, right Priority: Primary Status: Acute (3) Chronic kidney disease Priority: Secondary Status: Chronic Qualifiers: Chronic kidney disease stage: stage 3 (moderate) Qualified Code(s): N18.3 - Chronic kidney disease, stage 3 (moderate) (4) GABBY on CPAP Priority: Secondary Status: Chronic (5) CAD (coronary artery disease) of artery bypass graft Priority: Secondary Status: Chronic Qualifiers: [place] vs. transplanted heart: [place] heart Associated angina: without angina Qualified Code(s): I25.810 - Atherosclerosis of coronary artery bypass graft(s) without angina pectoris (6) Afib Priority: Secondary Status: Chronic Qualifiers: Atrial fibrillation type: chronic (7) Diabetes mellitus Priority: Secondary Status: Chronic Qualifiers: Diabetes mellitus type: type 2 Diabetes mellitus complication status: without complication Diabetes mellitus halfway insulin use: unspecified oxyacetylene cutter insulin use status Qualified Code(s): E11.9 - Type 2 diabetes mellitus without complications (8) Anticoagulated Priority: Primary Status: Acute Comments: Will need a PT/INR and follow up with Coumadin clinic for bridging* - Discharge Medications Prescriptions: Enoxaparin [Lovenox] 30 mg SQ Q12HR 3 Days #6 syringe Home Medications: Aspirin [Lo-Dose Aspirin EC] 81 mg PO DAILY 12/13/16 [History] Clopidogrel [Plavix] 75 mg PO DAILY 12/13/16 [History] Losartan [Cozaar] 50 mg PO DAILY 12/13/16 [History] Paroxetine [Paxil] 10 mg PO DAILY 12/13/16 [History] Terazosin [Hytrin] 5 mg PO HS 12/13/16 [History] metFORMIN [Glucophage] 500 mg PO QAM 12/13/16 [History] Magnesium Oxide [Mag-Ox] 400 mg PO BID #60 tablet 01/21/17 [Rx] Ferrous Sulfate [Iron] 325 mg PO DAILY 05/17/17 [History] Multivitamin [Multi-Day Vitamins] 1 each PO DAILY 05/17/17 [History] Cyanocobalamin (Vitamin B-12) [Vitamin B12] 1,000 mcg PO DAILY #30 tab 06/23/17 [Rx] Aspirin Enteric Coated [Aspirin EC] 325 mg PO DAILY #21 tablet. 09/03/17 [Rx] OxyCODONE Immed Rel [Roxicodone 5 MG] 5 mg PO Q6HR PRN #28 tablet 09/03/17 [Rx] Carvedilol 12.5 mg PO BID 09/04/17 [History] Enoxaparin [Lovenox] 30 mg SQ Q12HR 3 Days #6 syringe 09/04/17 [Rx] Furosemide [Lasix] 40 mg PO DAILY 09/04/17 [History] Warfarin [Coumadin] 5 mg PO 1800 09/04/17 [History] metFORMIN [Glucophage] 1,000 mg PO QPM 09/04/17 [History] Allergies/Adverse Reactions: 3 Allergy/AdvReac Type Severity Reaction Status Date / Time sotalol [From Betapace] AdvReac See Verified 09/04/17 09:36 Comments Primary care physician: Russel Felipe Jr, MD - Patient Status Disposition: Transfer Inpatient Rehab Fac Condition: Good - Discharge Instructions Follow Up With: John Hernandez MD [Partnered Physician] - 10/04/17 5:30 pm Leticia Vigil PAC [Physician Scarfer Operator] - 09/14/17 9:30 am Russel Felipe Jr, MD [Primary Care Provider] - 09/13/17 11:00 am Won Broderick MD [Partnered Physician] - 10/11/17 1:30 pm - Hospital Course Hospital course: Mr. Good is a 71 year old male - Time Spent with Patient Total time spent providing and/or coordinating discharge services: <John Hernandez - Last Filed: 09/06/17 07:59> Date of Encounter: 09/06/17 Time of Encounter: 07:58 - Discharge Diagnosis (1) CAD (coronary artery disease) of artery bypass graft Status: Chronic Qualifiers: [place] vs. transplanted heart: [place] heart Associated angina: without angina Qualified Code(s): I25.810 - Atherosclerosis of coronary artery bypass graft(s) without angina pectoris (2) Afib Priority: Secondary Status: Chronic Qualifiers: Atrial fibrillation type: unspecified Qualified Code(s): I48.91 - Unspecified atrial fibrillation (3) Diabetes mellitus Priority: Secondary Status: Chronic Qualifiers: Diabetes mellitus type: type 2 Diabetes mellitus complication status: without complication Diabetes mellitus halfway insulin use: unspecified halfway insulin use status Qualified Code(s): E11.9 - Type 2 diabetes mellitus without complications (4) Arthritis of knee, right Priority: Primary Status: Acute (5) Status post total knee replacement, right Priority: Primary Status: Acute (6) Chronic kidney disease Priority: Secondary Status: Chronic Qualifiers: Chronic kidney disease stage: stage 3 (moderate) Qualified Code(s): N18.3 - Chronic kidney disease, stage 3 (moderate) (7) GABBY on CPAP Priority: Secondary Status: Chronic Labs on day of discharge: Labs from last 24 hours 09/04/17 09:04 PT 13.5 H INR 1.2 APTT 33.9 Primary care physician: Russel Felipe Jr, MD - Patient Status Functional capacity at discharge: uses cane/walker Overall status at discharge: patient is progressing back to baseline - Hospital Course Hospital course: Mr. Good is a 71 year old male is post right total knee replacement. Patient with a fall hospital hitting his head. Never loss consciousness. CT scan negative On discharge patient is awake and alert without complaints.The patient had an uneventful postoperative course. They received antibiotics and physical therapy and were discharged in stable condition. There will follow-up in the office in 2 weeks. . - Time Spent with Patient Total time spent providing and/or coordinating discharge services:
[2017-09-04] MEDS ORDERED: Dexamethasone 4 MG/ML VIAL ONE ×2 (08:55→09:40)
[2017-09-04] MEDS ORDERED: *HR* Propofol 200 MG/20 ML VIAL IVP ONE (08:55)
[2017-09-04] MEDS ORDERED: Lidocaine -MPF 2% 2 ML VIAL ONE (08:55)
[2017-09-04] MEDS ORDERED: *HR* FentaNYL (PF) 100 MCG/2 ML VIAL ONE (08:55)
[2017-09-04] MEDS ORDERED: *HR* Midazolam HCl 2 MG/2 ML VIAL ONE (08:55)
[2017-09-04] MEDS ORDERED: Ondansetron 4 MG/2 ML VIAL ONE (08:55)
[2017-09-04] MEDS ORDERED: Lidocaine -MPF 1% 2 ML VIAL ID ONE (09:10)
[2017-09-04] MEDS ORDERED: CeFAZolin Syr 2,000MG/20 ML 2,000 MG/20 ML SYRINGE IVPB ONE (09:10)
[2017-09-04 09:17] LABS: INR 1.2; Prothrombin Time 13.5 Seconds (9.4-12.1)
[2017-09-04 09:20] LABS: Activated Partial Thrombo Time 33.9 Seconds (26.0-36.0)
[2017-09-04] MEDS: Ringers Solution, Lactated 1,000 ML IVC SCH ×2 (09:29→13:14)
[2017-09-04] MEDS ORDERED: Bupivacaine-MPF 0.25% 10 ML VIAL ONE (09:37)
[2017-09-04] MEDS ORDERED: ROPIVACAINE HCL/PF 0.5% 30 ML VIAL ONE (09:41)
[2017-09-04] MEDS ORDERED: Famotidine 20 MG/2 ML VIAL IVP ONE (09:42)
[2017-09-04] MEDS ORDERED: *HR* Promethazine 25 MG/ML VIAL IVP PRN (09:42)
[2017-09-04] MEDS ORDERED: Metoclopramide 10 MG/2 ML VIAL IVP ONE (09:42)
--- NOTE | 2017-09-04 09:51 | Anesthesia Evaluation PreOp ---
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 PROFESSIONAL History: Other (Anxiety/Depression maintained on Paroxetine) Other Medical History: Renal (GFR = 52), Diabetes Type II (maintained on Metformin) Anesthesia History: No Prior Anesthetic Complications, Past Anesthesia (CABG 1996, Appy 2008, Pacemaker 2002/replacement 2010, R-knee scope 1983, AFib ablation, L-knee scope 05/2013) Alcohol Use: none Drug use: none Medications and Allergies Aspirin [Lo-Dose Aspirin EC] 81 mg PO DAILY 12/13/16 [History] Clopidogrel [Plavix] 75 mg PO DAILY 12/13/16 [History] Losartan [Cozaar] 50 mg PO DAILY 12/13/16 [History] Paroxetine [Paxil] 10 mg PO DAILY 12/13/16 [History] Terazosin [Hytrin] 5 mg PO HS 12/13/16 [History] metFORMIN [Glucophage] 500 mg PO QAM 12/13/16 [History] Magnesium Oxide [Mag-Ox] 400 mg PO BID #60 tablet 01/21/17 [Rx] Ferrous Sulfate [Iron] 325 mg PO DAILY 05/17/17 [History] Multivitamin [Multi-Day Vitamins] 1 each PO DAILY 05/17/17 [History] Cyanocobalamin (Vitamin B-12) [Vitamin B12] 1,000 mcg PO DAILY #30 tab 06/23/17 [Rx] Aspirin Enteric Coated [Aspirin EC] 325 mg PO DAILY #21 tablet 09/03/17 [Rx] OxyCODONE Immed Rel [Roxicodone 5 MG] 5 mg PO Q6HR PRN #28 tablet 09/03/17 [Rx] Carvedilol 12.5 mg PO BID 09/04/17 [History] Enoxaparin [Lovenox] 30 mg SQ Q12HR 09/04/17 [History] Furosemide [Lasix] 40 mg PO DAILY 09/04/17 [History] Warfarin [Coumadin] 5 mg PO 1800 09/04/17 [History] metFORMIN [Glucophage] 1,000 mg PO QPM 09/04/17 [History] 3 Allergy/AdvReac Type Severity Reaction Status Date / Time sotalol [From Betapace] AdvReac See Verified 09/04/17 09:36 Comments - Meds/Allergy Pre-op Review Medications Reviewed: Yes Allergies Reviewed: Yes Beta Blockers on Current Med List: Yes (Carvedilol) If Beta Blockers taken, Date/Time (Last Dose taken): 09/04/2017 @ 7050 Anesthesia Results - Labs Laboratory Tests 06/20/17 08/23/17 08/23/17 12:26 15:17 15:17 WBC 6.4 Hgb 14.1 Hct 41.9 Plt Count 243 PT INR APTT Sodium 138 Potassium 3.5 Chloride 100 Carbon Dioxide 27 BUN 20 Creatinine 1.35 H Est GFR (Non-Af Amer) 52 L Glucose 189 H Est Mean Plasma Glucose Hemoglobin A1c 08/23/17 09/04/17 15:17 09:04 WBC Hgb Hct Plt Count PT 13.5 H INR 1.2 APTT 33.9 Sodium Potassium Chloride Carbon Dioxide BUN Creatinine Est GFR (Non-Af Amer) Glucose Est Mean Plasma Glucose 163 Hemoglobin A1c 7.3 H - Imaging EKG: image reviewed (66bpm AFib, ST deviation & moderate T-wave abnormality, consider lateral ischemia) Anesthesia Exam O2 Sat Height 1.73 m Height 1.73 m Height 1.73 m Weight 107.501 kg Weight 107.501 kg Weight 107.501 kg O2 Sat by Pulse Oximetry 96 O2 Sat by Pulse Oximetry 96 Vital Signs Temp Pulse Resp BP Pulse Ox 98.2 F 76 18 184/98 96 09/04/17 09:15 09/04/17 09:15 09/04/17 09:15 09/04/17 09:15 09/04/17 09:15 Height: 5'8" Weight: 237# BMI = 36 NPO (# of Hours): MNoc Pain Scale Used: Numeric (1 - 10) - HEENT Pupil (Motor): Pupils equal, EOMI Mallampati: III Teeth: Normal Oral Opening: Greater than 3 - SOLUTION PROFESSIONAL LOC: Oriented SOLUTION PROFESSIONAL Motor: Normal RUE, Normal LUE, Normal RLE, Normal LLE, Normal Face SOLUTION PROFESSIONAL Sensory: Normal: RUE, LUE, RLE, LLE, Face - Cardiac Rhythm: Regular Murmur: None - Pulmonary Breath Sounds: bilateral Clear Respiratory Effort: Symmetrical Anesthesia Assess/Plan ASA Score: 3 (CAD, AFib, HTN, GABBY, DM, CRI) Anes Supervising Prov Stmt: Pt seen/evaluated, R&B Discussed, questions answered and consent obtained.Melody Bedolla MD
--- NOTE | 2017-09-04 09:56 | History & Physical Report ---
Date of Encounter: 09/04/17 Time of Encounter: 09:55 24 Hour HP Update - Instructions Instructions: If the History and Physical is less than 30 days old and was completed prior to A.M. admission and or procedure and has NOT been updated on calendar day of procedure please complete this update prior to performing procedure. - Update Patient reports changes in Medical Condition: No Changes in examination, assessment, or condition: No Changes in Medication: No Preop tests/diagnostics Reviewed: Yes Surgery Remains Indicated: Yes Consent for Planned Operative Procedure(s) Verified: Yes - Pre-Operative Checklist Preoperative Checklist Indicated: No Prophylactic Antibiotic Ordered: Yes Is VTE Prophylaxis Indicated?: Yes
[2017-09-04] MEDS ORDERED: Acetaminophen IV 1,000 MG/100 ML INFUS..BTL IVPB ONE (10:17)
[2017-09-04] MEDS ORDERED: Acetaminophen IV 1,000 MG/100 ML INFUS..BTL ONE (10:21)
[2017-09-04] MEDS ORDERED: Ethanol\\Acetic Acid\\Na Ace\\Ben 1,000 ML IRRIG.SOLN IR ONE (10:35)
--- NOTE | 2017-09-04 10:54 | Anesthesia Procedures ---
Date of Encounter: 09/04/17 Time of Encounter: 10:36 Procedures: Anesthesia - Nerve Block Procedure Date: 09/04/17 Time: 10:36 Surgical Procedure: right total knee Checklist: Correct Patient Identifier, Correct procedure, History checked Correct side: Right Blood Thinner: Yes Monitor Applied: BP, Pulse Oximetry Supplemental Oxygen via Nasal Cannula (L/min): 2 Sedation: Versed (mg): 1 Sedation: Fentanyl (mcg): 50 Indication: Post Op Analgesia Block Type: Femoral, Other (ipack) Catheter placed: No Sterile Technique: Yes Ultrasound used: Yes Anatomy identified: Yes Visual spread of Local: Yes Neuro Stimulation: No Blood on Needle Aspiration: No Smooth Injection of Local: Yes Pain with Injection of Local: No Prep: Chlorhexadine Needle: 22 x 50 mm Stimuplex, 21 x 100 mm Stimuplex Local: Ropivacaine (30ml 0.5% rop), Other (40ml of 1.7% bup plain) Volume (cc): 70 Number of Attempts: 1 Complications: None/effective block Vitals: vss though out, HTN, block per request of nileshn.
[2017-09-04] MEDS ORDERED: *HR* Succinylcholine 200 MG/10 ML VIAL IVP ONE (11:01)
[2017-09-04] MEDS ORDERED: Lidocaine -MPF 4% 5 ML AMPUL ONE (11:37)
--- NOTE | 2017-09-04 11:40 | Orthopedic Operative Note ---
Date of procedure: 09/04/17 Pre-op diagnosis: Right knee arthritis Post-op diagnosis: same Procedure: Procedure: Right Total knee replacement Estimated blood loss: 200 cc Hardware: Metal and polyethylene replacement. Arthrex Femur: 6 Tibia: 8 PS insert: 12 Patella: 40 Exam Under anesthesia: Loss of full extension 10 degrees full flexion known stability Procedural Notes: Grade 4 arthritic changes all 3 compartments. Operative procedure: The patient was brought to the operating room and placed on the operating room table. After general anesthesia was administered the operative knee was examined. Findings were noted in the exam under anesthesia. The operative extremity was prepped and draped in sterile surgical fashion. The patient received IV antibiotics prior to skin incision. A standard midline incision was made centered over the patella. The incision was made through the skin and subcutaneous tissue. A medial parapatellar tendon approach was performed. Care was taken to preserve tissue along the medial aspect of the patella. And to protect the patella tendon. The deep MCL was released off the medial tibia. The infra patella fat pad was excised. Knee was brought into flexion. Patient noted to have grade 4 arthritic changes all 3 compartments. The entry hole was made for the intramedullary femoral guide. The guide was seated in 6 degrees of valgus. Anterior cut was made followed by the distal cut. The ACL the PCL the medial and the lateral menisci were excised. The tibia was subluxed forward. The entry hole was made for the intramedullary tibial guide. Guide was seated to resect 2 mm off the more abnormal side. The knee was brought into flexion the distal femur was sized to a 6. The femoral guide was seated, the anterior cut was made followed by the posterior condylar cut, followed by the chamfer cuts. The finishing guide was seated the box cut was made and the lug holes were drilled. The tibia was sized to an 8, the tibial tray was seated and prepared with the large drill followed by the fin cutter. Trial reduction revealed full extension no varus valgus instability with the appropriate 12 PS Yulia. The patella was everted and cut was made at the level of the insertion of the quadriceps and patella tendon. The patella was sized to a 40 the guide was seated and the lug holes are drilled. Trial reduction revealed excellent patella tracking. All trial components were removed all bony surfaces were irrigated. The tibia was cemented first followed by the femur. The 12 PS Yulia was seated and the knee was brought into full extension. The patella was cemented and held in place with the patellar holding clamp. After the cement had hardened, the knee sat for 2 minutes with a Betadine saline solution. The PA closed the knee. The knee was then irrigated out with 2 L of pulse irrigation. The extensor mechanism was closed with #2 FiberWire suture and #2 PDS suture. The subcutaneous tissue was then irrigated and closed deep with #1 PDS suture superficially with 0 PDS suture and skin was closed with skin alan. The patient was then placed in a sterile dressing and a postoperative brace extubated and transferred to recovery room in stable condition. Anesthesia: GETA Surgeon: John Hernandez Condition: stable Disposition: PACU
[2017-09-04] MEDS ORDERED: Lacri-Lube 3.5 GM TUBE ONE (12:01)
[2017-09-04] MEDS: *HR* HYDROmorphone (PF) 1 MG/ML SYRINGE IVP PRN ×3 (12:40→13:03)
[2017-09-04 12:45] LABS: Hematocrit 35.6 % (37.5-50.1); Hemoglobin 12.1 g/dL (12.9-16.9)
[2017-09-04 12:58] LABS: INR 1.3
[2017-09-04] MEDS ORDERED: Ondansetron 4 MG/2 ML VIAL IVP PRN (13:41)
[2017-09-04] MEDS ORDERED: Sennosides 8.6 MG TABLET PO PRN (13:41)
[2017-09-04] MEDS ORDERED: D5% in Water 1,000 ML IVC PRN (13:41)
[2017-09-04] MEDS ORDERED: Dextrose Gel 15 GM PO PRN ×2 (13:41)
[2017-09-04] MEDS ORDERED: MOM Conc 10 ML UD.LIQ PO PRN (13:41)
[2017-09-04] MEDS ORDERED: Ringers Solution, Lactated 1,000 ML IVC SCH (13:41)
[2017-09-04] MEDS ORDERED: *HR* Dextrose 50 % in Water (Syg) 50 ML SYRINGE IVP PRN (13:41)
[2017-09-04] MEDS ORDERED: Temazepam 15 MG CAPSULE PO PRN (13:41)
[2017-09-04] MEDS ORDERED: Naloxone 0.4 MG/ML INJ IVP PRN (13:41)
--- NOTE | 2017-09-04 13:54 | Anesthesia Evaluation Post Op ---
Date of Encounter: 09/04/17 Time of Encounter: 13:52 - Vital Signs Vital Signs: vss - Lungs Lungs: Clear Ascult./Percussion - Airway Airway: Non-obstructed - Cardiovascular Baseline Rhythm - Mental Status Mental Status: Asleep with brisk response to light stimulation - Pain Pain Scale used: Tammy (Faces) - Nausea Vomiting Nausea Vomiting: Not Present - Hydration Hydration: Ice chips - Discharge PostOp Status: Transfer Patient to floor
[2017-09-04] MEDS: Insulin LISPRO 300 UNITS/3 ML VIAL SQ SCH ×3 (14:16→21:30)
[2017-09-04] MEDS: *HR* OxyCODONE Immed Rel 5 MG TABLET PO PRN (14:23)
[2017-09-04] MEDS ORDERED: ceFAZolin 2,000 MG in D5% in Water 100 ML IVPB SCH (16:00)
[2017-09-04] MEDS: *HR* Warfarin 5 MG TABLET PO SCH (17:12)
[2017-09-04] MEDS: *HR* Metformin 500 MG TABLET PO SCH (17:12)
[2017-09-04] MEDS: *HR* Enoxaparin 30 MG/0.3 ML SYRINGE SQ SCH (17:13)
--- NOTE | 2017-09-04 17:58 | Physician Discharge Referral ---
<Leticia Vigil L - Last Filed: 09/04/17 17:56> ExtendedCare Referral Info Transfer To: [facility] Provider in Charge: Provider in Charge after Transfer: PCP Institutional Level of Care: Skilled - Diagnosis (1) Arthritis of knee, right Priority: Primary Status: Acute (2) Status post total knee replacement, right Priority: Primary Status: Acute (3) Chronic kidney disease Priority: Secondary Status: Chronic (4) GABBY on CPAP Priority: Secondary Status: Chronic (5) CAD (coronary artery disease) of artery bypass graft Priority: Secondary Status: Chronic (6) Afib Priority: Secondary Status: Chronic (7) Diabetes mellitus Priority: Secondary Status: Chronic (8) Anticoagulated Priority: Secondary Status: Acute Expected Duration of Placement: < 30 days Prognosis: Good Aware of Diagnosis: Patient Aware of Prognosis: Patient - Transfer Medications Prescriptions: Enoxaparin [Lovenox] 30 mg SQ Q12HR 3 Days #6 syringe Home Medications: Aspirin [Lo-Dose Aspirin EC] 81 mg PO DAILY 12/13/16 [History] Clopidogrel [Plavix] 75 mg PO DAILY 12/13/16 [History] Losartan [Cozaar] 50 mg PO DAILY 12/13/16 [History] Paroxetine [Paxil] 10 mg PO DAILY 12/13/16 [History] Terazosin [Hytrin] 5 mg PO HS 12/13/16 [History] metFORMIN [Glucophage] 500 mg PO QAM 12/13/16 [History] Magnesium Oxide [Mag-Ox] 400 mg PO BID #60 tablet 01/21/17 [Rx] Ferrous Sulfate [Iron] 325 mg PO DAILY 05/17/17 [History] Multivitamin [Multi-Day Vitamins] 1 each PO DAILY 05/17/17 [History] Cyanocobalamin (Vitamin B-12) [Vitamin B12] 1,000 mcg PO DAILY #30 tab 06/23/17 [Rx] Aspirin Enteric Coated [Aspirin EC] 325 mg PO DAILY #21 tablet. 09/03/17 [Rx] OxyCODONE Immed Rel [Roxicodone 5 MG] 5 mg PO Q6HR PRN #28 tablet 09/03/17 [Rx] Carvedilol 12.5 mg PO BID 09/04/17 [History] Enoxaparin [Lovenox] 30 mg SQ Q12HR 3 Days #6 syringe 09/04/17 [Rx] Furosemide [Lasix] 40 mg PO DAILY 09/04/17 [History] Warfarin [Coumadin] 5 mg PO 1800 09/04/17 [History] metFORMIN [Glucophage] 1,000 mg PO QPM 09/04/17 [History] Allergies/Adverse Reactions: 3 Allergy/AdvReac Type Severity Reaction Status Date / Time sotalol [From Betapace] AdvReac See Verified 09/04/17 09:36 Comments - Respiratory Orders None Smoking Cessation: Smoking cessation has been advised. For more information, call the [place] Tobacco Quit Line at 2-020-ESWY-NOW. - Lab Orders Lab Orders: Other (include drug levels w/frequency) (PT/INR until INR 2-3 - Lovenox Bridge - Bridge back to Coumadin - Facility physician to resume care, or PCP needed for management*) - Ancillary Orders May use pressure relief devices daily prn, May go on MICHAEL w/family/respon republican w /meds at nurse discretion PRN, May consult with Dentist, Sales Representative Consultant, Personal Financial Counselor PRN - Mobility Orders Chair, Ambulate - Rehabiliation Orders Rehab Potential: Good Rehab Orders: ROM Exercises, Evaluation for Physical Therapy, Evaluation for Occupational Therapy - Treatments Skin tear care topically daily PRN per policy List/Other: Opsite dressing, leave intact until first post-operative visit. If dressing becomes >50% saturated, contact office, remove dressing and place appropriate dressing in its place. Do not allow for dressing to get wet. Anyi/Zipline dressing in place, plan to remove at POD#14-16. PT: Total Joint Precautions x 6 weeks Apply ICE/cold therapy wrap 3-6x/day for 20 minutes at a time. Encourage ambulation throughout the day and incentive spirometer 10x/hour. Elevate affected extremity above heart as tolerated. Brace: Knee immobilizer at night until first post-operative appointment. Chronic Atrial Fibrillation - Coumadin anticoagulated Patient resumed Coumadin POD#1, with Lovenox 30mg SUBQ for Bridge. Facility physician to take over management and bridge patient back to therapeutic PT/INR. Lovenox RX printed* PT/INR ordered. - Diet Orders Regular CERTIFICATION: I certify that the transfer of the above named patient to an Extended Care Facility is necessary for the continuing treatment of the diagnosis listed. The above information is true and accurate reflection of patient's current condition. Confidential - Redisclosure prohibited without a patient's written consent. <John Hernandez - Last Filed: 09/06/17 07:57> - Diagnosis (1) CAD (coronary artery disease) of artery bypass graft Status: Chronic (2) Afib Status: Chronic (3) Diabetes mellitus Status: Chronic (4) Arthritis of knee, right Status: Acute (5) Status post total knee replacement, right Status: Acute (6) Chronic kidney disease Status: Chronic (7) GABBY on CPAP Status: Chronic - Respiratory Orders Smoking Cessation: Smoking cessation has been advised. For more information, call the [place] Tobacco Quit Line at 0-338-QBQLNOW. CERTIFICATION: I certify that the transfer of the above named patient to an Extended Care Facility is necessary for the continuing treatment of the diagnosis listed. The above information is true and accurate reflection of patient's current condition. Confidential - Redisclosure prohibited without a patient's written consent.
[2017-09-04] MEDS ORDERED: *HR* Enoxaparin 30 MG/0.3 ML SYRINGE SQ SCH (18:00)
[2017-09-04] MEDS: ceFAZolin 2,000 MG in D5% in Water 100 ML IVPB SCH ×2 (18:23→23:50)
[2017-09-04] MEDS: Magnesium Oxide 400 MG TABLET PO SCH (21:27)
[2017-09-05] MEDS: *HR* OxyCODONE Immed Rel 5 MG TABLET PO PRN ×4 (03:19→21:14)
[2017-09-05] MEDS: *HR* Enoxaparin 30 MG/0.3 ML SYRINGE SQ SCH ×2 (04:55→16:20)
[2017-09-05 05:47] LABS: Hematocrit 31.3 % (37.5-50.1)
[2017-09-05 05:53] LABS: Hemoglobin 10.5 g/dL (12.9-16.9)
[2017-09-05 06:05] LABS: Calcium 8.5 mg/dL (8.6-10.8)
--- NOTE | 2017-09-05 06:35 | Orthopedics Progress Note ---
Date of Encounter: 09/05/17 Time of Encounter: 06:34 - Assessment and Plan (1) CAD (coronary artery disease) of artery bypass graft Current Visit: No Status: Chronic Qualifiers: [place] vs. transplanted heart: [place] heart Associated angina: without angina Qualified Code(s): I25.810 - Atherosclerosis of coronary artery bypass graft(s) without angina pectoris (2) Afib Current Visit: No Status: Chronic Qualifiers: Atrial fibrillation type: unspecified Qualified Code(s): I48.91 - Unspecified atrial fibrillation (3) Diabetes mellitus Current Visit: No Status: Chronic Qualifiers: Diabetes mellitus type: type 2 Diabetes mellitus complication status: without complication Diabetes mellitus prison insulin use: unspecified prison insulin use status Qualified Code(s): E11.9 - Type 2 diabetes mellitus without complications (4) Arthritis of knee, right Current Visit: No Status: Acute (5) Status post total knee replacement, right Current Visit: No Status: Acute (6) Chronic kidney disease Current Visit: No Status: Chronic Qualifiers: Chronic kidney disease stage: stage 3 (moderate) Qualified Code(s): N18.3 - Chronic kidney disease, stage 3 (moderate) (7) GABBY on CPAP Current Visit: No Status: Chronic Subjective Interval history: Patient was seen this morning doing well without complaints. Afebrile vital signs stable. Operative extremity: Neurovascularly intact Dressing clean dry and intact Calves nontender Assessment and plan: Continue with postoperative care Hematocrit 31 Objective Vital signs: Vital Signs Temp Pulse Resp BP Pulse Ox 09/05/17 06:21 98.6 F 87 17 135/83 94 09/05/17 00:47 98.1 F 87 16 120/62 95 09/04/17 19:08 98.3 F 81 18 106/70 96 09/04/17 17:06 98.3 F 73 16 104/73 93 09/04/17 16:12 98.2 F 72 16 127/75 93 09/04/17 15:20 97.8 F 76 16 114/75 95 09/04/17 14:35 97.8 F 77 16 119/83 95 09/04/17 14:09 95 09/04/17 14:05 98.1 F 80 14 110/71 95 09/04/17 13:54 97.2 F L 76 16 113/82 94 09/04/17 13:48 74 16 102/80 93 09/04/17 13:38 97.6 F 75 16 115/82 93 09/04/17 13:28 75 16 118/79 94 09/04/17 13:18 77 16 109/74 94 09/04/17 13:08 97.8 F 66 16 116/80 95 09/04/17 12:58 69 16 136/84 96 09/04/17 12:48 67 16 144/88 96 09/04/17 12:38 97.2 F L 76 16 143/82 97 09/04/17 12:28 70 16 130/97 98 09/04/17 12:18 68 16 146/100 97 09/04/17 12:08 98.1 F 66 14 151/95 96 09/04/17 10:45 67 178/108 97 09/04/17 10:35 77 191/116 97 09/04/17 09:16 98.2 F 76 18 184/98 96 09/04/17 09:15 98.2 F 76 18 184/98 96 Intake and Output 09/04/17 09/04/17 09/05/17 15:59 23:59 07:59 Intake Total 1020 / 1020 200 / 200 800 / 800 Output Total 200 / 200 850 / 850 Balance 820 / 820 200 / 200 -50 / -50 Intake: IV Fluids 1020 / 1020 100 / 100 100 / 100 Lactated Ringers 1,000 ML @ 25 1000 / 1000 mls/hr IVC .Q24H [facility] Rx#: [id number] Ancef Syringe 2,000 MG/20 ML 2, 20 / 20 000 mg In 20 ml @ 200 mls/hr IVPB PREOP ONE Rx#:[id number] Ancef 2,000 MG In Dextrose 5% 100 / 100 100 / 100 100 ML @ 200 mls/hr IVPB Q8HR [facility] Rx#:[id number] Oral 0 / 0 100 / 100 700 / 700 Output: Urine 0 / 0 850 / 850 Estimated Blood Loss 200 / 200 Other: Weight 107.501 kg Blood Glucose* 204 294 - Labs CBC & BMP: 09/05/17 04:25 09/05/17 04:25 Labs: Abnormal lab results Hgb 10.5 g/dL (12.9-16.9) L D 09/05/17 04:25 Hct 31.3 % (37.5-50.1) L 09/05/17 04:25 PT 14.0 Seconds (9.4-12.1) H 09/04/17 12:16 BUN 27 mg/dL (8-26) H 09/05/17 04:25 Creatinine 1.60 mg/dL (0.72-1.25) H 09/05/17 04:25 Est GFR ( Amer) 52 (> 60) L 09/05/17 04:25 Est GFR (Non-Af Amer) 43 (> 60) L 09/05/17 04:25 Glucose 188 mg/dL (70-99) H 09/05/17 04:25 POC Glucose 294 (58-89) H 09/04/17 20:15 Calcium 8.5 mg/dL (8.6-10.8) L 09/05/17 04:25 - VTE Documentation of Mechanical Device: Venous foot pump, device Consult Discharge Plan - Plan Referrals: Russel Felipe Jr, MD [Primary Care Provider] - Prescriptions: Enoxaparin [Lovenox] 30 mg SQ Q12HR 3 Days #6 syringe
[2017-09-05] MEDS: Cyanocobalamin (B-12) 1,000 MCG TABLET PO SCH (07:45)
[2017-09-05] MEDS: Magnesium Oxide 400 MG TABLET PO SCH ×2 (07:45→19:39)
[2017-09-05] MEDS: Furosemide 40 MG TABLET PO SCH (07:45)
[2017-09-05] MEDS: *HR* Metformin 500 MG TABLET PO SCH ×2 (07:45→16:20)
[2017-09-05] MEDS: Multivit/Ca/Min/Fe/FA 1 TAB TABLET PO SCH (07:45)
[2017-09-05] MEDS: Aspirin Enteric Coated 81 MG Tablet PO SCH (07:45)
[2017-09-05] MEDS: Insulin LISPRO 300 UNITS/3 ML VIAL SQ SCH ×4 (08:42→22:01)
[2017-09-05 13:00] LABS: INR 1.3; Prothrombin Time 14.4 Seconds (9.4-12.1)
[2017-09-05] MEDS: *HR* HYDROmorphone (PF) 1 MG/ML SYRINGE IVP PRN ×2 (14:23→19:39)
--- NOTE | 2017-09-05 14:48 | Event Note ---
Date of Encounter: 09/05/17 Time of Encounter: 14:46 PCR - Right TKR 09/05/17 POD#.1 *Bridging back to Coumadin - Continue Lovenox 30mg SQ q 12 hours, monitoring PT/ INR. Labs: Stable Patient seen at bedside. Pain control: Adequate Participating in PT. All questions and concerns addressed. Educated on use of incentive spirometer, ambulation, and hydration. Patient educated on post-operative restrictions and care. Addressed: See above D/C plan: ECF once approved, continuity placed
[2017-09-05] MEDS: *HR* Warfarin 5 MG TABLET PO SCH (16:20)
[2017-09-06] MEDS: *HR* HYDROmorphone (PF) 1 MG/ML SYRINGE IVP PRN (00:05)
[2017-09-06] MEDS: *HR* OxyCODONE Immed Rel 5 MG TABLET PO PRN ×5 (03:07→22:19)
[2017-09-06 04:38] LABS: Hematocrit 31.9 % (37.5-50.1); Hemoglobin 10.6 g/dL (12.9-16.9)
[2017-09-06 04:42] LABS: INR 1.3; Prothrombin Time 14.3 Seconds (9.4-12.1)
[2017-09-06 04:56] LABS: Potassium 3.8 mEq/L (3.5-4.5)
[2017-09-06] MEDS: *HR* Enoxaparin 30 MG/0.3 ML SYRINGE SQ SCH (05:00)
--- NOTE | 2017-09-06 08:01 | Orthopedics Progress Note ---
Date of Encounter: 09/06/17 Time of Encounter: 07:59 - Assessment and Plan (1) CAD (coronary artery disease) of artery bypass graft Current Visit: No Status: Chronic Qualifiers: [place] vs. transplanted heart: [place] heart Associated angina: without angina Qualified Code(s): I25.810 - Atherosclerosis of coronary artery bypass graft(s) without angina pectoris (2) Afib Current Visit: No Status: Chronic Qualifiers: Atrial fibrillation type: unspecified Qualified Code(s): I48.91 - Unspecified atrial fibrillation (3) Diabetes mellitus Current Visit: No Status: Chronic Qualifiers: Diabetes mellitus type: type 2 Diabetes mellitus complication status: without complication Diabetes mellitus senior care insulin use: unspecified senior care insulin use status Qualified Code(s): E11.9 - Type 2 diabetes mellitus without complications (4) Arthritis of knee, right Current Visit: No Status: Acute (5) Status post total knee replacement, right Current Visit: No Status: Acute (6) Chronic kidney disease Current Visit: No Status: Chronic Qualifiers: Chronic kidney disease stage: stage 3 (moderate) Qualified Code(s): N18.3 - Chronic kidney disease, stage 3 (moderate) (7) GABBY on CPAP Current Visit: No Status: Chronic Subjective Interval history: Patient was seen this morning doing well without complaints. status post fall last night hit his head. No loss of consciousness. CT scan negative. Afebrile vital signs stable. Operative extremity: Neurovascularly intact Dressing clean dry and intact Calves nontender Assessment and plan: Continue with postoperative care Hematocrit 31 Plan for discharge today. Objective Vital signs: Vital Signs Temp Pulse Resp BP Pulse Ox 09/06/17 07:00 99.1 F 100 20 192/93 93 09/06/17 04:48 97.9 F 95 15 124/80 95 09/05/17 23:40 98.8 F 96 16 159/81 92 09/05/17 20:22 98.9 F 77 15 126/75 92 09/05/17 19:30 97.4 F L 98 16 124/70 96 09/05/17 15:57 98.5 F 84 16 132/74 92 09/05/17 10:37 98.8 F 82 16 122/71 93 Intake and Output 09/05/17 09/05/17 09/06/17 15:59 23:59 07:59 Intake Total 240 / 240 245 / 245 100 / 100 Output Total 250 / 250 300 / 300 525 / 525 Balance -10 / -10 -55 / -55 -425 / -425 Intake: Oral 240 / 240 245 / 245 100 / 100 Output: Urine 250 / 250 300 / 300 525 / 525 Other: Meal Lunch Dinner Percent of Meal Consumed 100% 75% Blood Glucose* 192 159 214 - Labs CBC & BMP: 09/06/17 03:06 09/06/17 03:06 Labs: Abnormal lab results Hgb 10.6 g/dL (12.9-16.9) L 09/06/17 03:06 Hct 31.9 % (37.5-50.1) L 09/06/17 03:06 PT 14.3 Seconds (9.4-12.1) H 09/06/17 03:06 BUN 33 mg/dL (8-26) H 09/06/17 03:06 Creatinine 1.76 mg/dL (0.72-1.25) H 09/06/17 03:06 Est GFR ( Amer) 47 (> 60) L 09/06/17 03:06 Est GFR (Non-Af Amer) 39 (> 60) L 09/06/17 03:06 Glucose 191 mg/dL (70-99) H 09/06/17 03:06 POC Glucose 214 (58-89) H 09/06/17 07:07 - VTE Documentation of Mechanical Device: Venous foot pump, device Consult Discharge Plan - Plan Referrals: John Hernandez MD [Partnered Physician] - 10/04/17 5:30 pm Leticia Vigil PAC [Physician [employer]] - 09/14/17 9:30 am Russel Felipe Jr, MD [Primary Care Provider] - 09/13/17 11:00 am Won Broderick MD [Partnered Physician] - 10/11/17 1:30 pm Prescriptions: Enoxaparin [Lovenox] 30 mg SQ Q12HR 3 Days #6 syringe
[2017-09-06] MEDS: Multivit/Ca/Min/Fe/FA 1 TAB TABLET PO SCH (08:09)
[2017-09-06] MEDS: Cyanocobalamin (B-12) 1,000 MCG TABLET PO SCH (08:09)
[2017-09-06] MEDS: Furosemide 40 MG TABLET PO SCH (08:09)
[2017-09-06] MEDS: *HR* Metformin 500 MG TABLET PO SCH (08:09)
[2017-09-06] MEDS: Aspirin Enteric Coated 81 MG Tablet PO SCH (08:10)
[2017-09-06] MEDS: Magnesium Oxide 400 MG TABLET PO SCH ×2 (08:10→20:42)
[2017-09-06] MEDS: Insulin LISPRO 300 UNITS/3 ML VIAL SQ SCH ×3 (08:13→20:59)
--- NOTE | 2017-09-06 12:20 | Event Note ---
Date of Encounter: 09/06/17 Time of Encounter: 13:01 PCR - Right TKR 09/05/17 POD#2 *Bridging back to Coumadin - Continue Lovenox 30mg SQ q 12 hours, monitoring PT/ INR. 09/06: INR 1.3 Labs: Decline in renal function at this time - patient's blood sugar remaining elevated near 200 Baseline SCr 1.26, GFR 57 09/05: SCr 1.6, GFR 43 09/06: SCr 1.76, GFR 39 *BP elevated today and patient states he is short of breath. Patient seems to wheeze some and taking frequent pauses in breathing to take deep breath. Hospitalist consulted. Patient seen at bedside. Pain control: Adequate Participating in PT. All questions and concerns addressed. Educated on use of incentive spirometer, ambulation, and hydration. Patient educated on post-operative restrictions and care. Addressed: See above D/C plan: ECF once approved, continuity placed
[2017-09-06] MEDS ORDERED: *HR* Enoxaparin 30 MG/0.3 ML SYRINGE SQ SCH (13:51)
[2017-09-06] MEDS ORDERED: *HR* Morphine 2 MG/ML SYRINGE IVP PRN (16:07)
--- NOTE | 2017-09-06 16:13 | Internal Medicine Consult Note ---
Date of Encounter: 09/06/17 Time of Encounter: 16:10 - Assessment and Plan (1) Status post total knee replacement, right Current Visit: Yes Status: Acute Assessment and plan: Neurovascularly intact, incision dry and well approximated, and dressing CDI. Complaining of pain 06/15. RLE tight but non-tender. However, in the setting of new SOB I will obtain a RT LE venous doppler to r/o DVT. Discontinue Dilaudid Morphine 2 mg IV every 4 when necessary for severe pain Discontinue lovenox at weight based dose. Continue Warfarin with PT to dose. (2) [id number] kidney injury Current Visit: Yes Status: Acute Assessment and plan: Stage III renal disease. JANETT S/P right total knee. Preop baseline 1.35 creatinine today 1.76. 500 ML 0.9% normal saline at 50 mL per hour, recheck CMP in the morning Qualifiers: Acute renal failure type: unspecified Chronic kidney disease stage: stage 3 (moderate) Qualified Code(s): N17.9 - Acute kidney failure, unspecified; N18.3 - Chronic kidney disease, stage 3 (moderate); N18.3 - Chronic kidney disease, stage 3 (moderate) (3) CAD (coronary artery disease) of artery bypass graft Current Visit: Yes Status: Chronic Assessment and plan: h/o CAD, Continue coreg and losartan Qualifiers: [place] vs. transplanted heart: [place] heart Associated angina: without angina Qualified Code(s): I25.810 - Atherosclerosis of coronary artery bypass graft(s) without angina pectoris (4) Afib Current Visit: Yes Status: Chronic Assessment and plan: Continue coumadin with PT to dose Qualifiers: Atrial fibrillation type: unspecified Qualified Code(s): I48.91 - Unspecified atrial fibrillation (5) Diabetes mellitus Current Visit: Yes Status: Chronic Assessment and plan: On metformin at home however, at this time it was discontinued while inpatient. He is on medium sliding scale insulin coverage with each meal and I sliding scale at bedtime. Q4HR sliding scale insulin coverage low-dose with q4hr accuchecks Qualifiers: Diabetes mellitus type: type 2 Diabetes mellitus complication status: without complication Diabetes mellitus intermediate designer insulin use: unspecified [place] insulin use status Qualified Code(s): E11.9 - Type 2 diabetes mellitus without complications Internal Medicine - CN: HPI - Data of Consult Patient: new to practice Consult date: 09/06/17 Requesting Physician: John Hernandez MD - Consult Narrative Reason for consult: JANETT,Hyperglycemia, HTN, dyspnea History of present illness: Mr. Good is a 71 year old male with a PMH of atrial fibrillation, diabetes, CAD , GABBY on CPAP. CK D stage III, and arthritis. He is status post right total knee replacement per Dr. Hernandez on 09/04/17. Hospitalist consulted to help with management JANETT, Following surgery the patient creatinine has increased from baseline of 1.35-1.76. Additionally the patient is hypertensive systolic blood pressure in the 180s, hyperglycemic with blood glucose of around 200's, and has a new MS change. As always thank you for consulting hospitalists services. Past Med Surg Social Fam HX - Past Medical History Medical history: atrial fibrillation, diabetes, hyperlipidemia, hypertension, myocardial infarction Psychiatric history: depression - Past Surgical History Surgical History: cholecystectomy, pacemaker/AICD - Social History Smoking Status: Never smoker Smokeless Tobacco Status: No Alcohol use: none Drug use: none - Additional Family History Additional family history: Noncontributory - Constitutional Constitutional: fatigue, weakness, no chills, no fever(s) - Cardiovascular Cardiovascular ROS IM: chest pain, dyspnea, no claudication, no dyspnea on exertion, no edema, no irregular heart rhythm, no lightheadedness, no palpitations, no syncope - Respiratory Respiratory: dyspnea on exertion, no cough, no dyspnea, no hemoptysis, no wheezing, no snoring, no stridor, no chest congestion, no pain with cough - Gastrointestinal Gastrointestinal: constipation, no abdominal pain - Genitourinary Genitourinary ROS male: no difficulty urinating - Musculoskeletal Additional comments: Postoperative pain of right total knee - Psychiatric Psychiatric: confusion, difficulty concentrating Internal Medicine - CN: Meds Aspirin [Lo-Dose Aspirin EC] 81 mg PO DAILY 12/13/16 [History] Clopidogrel [Plavix] 75 mg PO DAILY 12/13/16 [History] Losartan [Cozaar] 50 mg PO DAILY 12/13/16 [History] Paroxetine [Paxil] 10 mg PO DAILY 12/13/16 [History] Terazosin [Hytrin] 5 mg PO HS 12/13/16 [History] metFORMIN [Glucophage] 500 mg PO QAM 12/13/16 [History] Magnesium Oxide [Mag-Ox] 400 mg PO BID #60 tablet 01/21/17 [Rx] Ferrous Sulfate [Iron] 325 mg PO DAILY 05/17/17 [History] Multivitamin [Multi-Day Vitamins] 1 each PO DAILY 05/17/17 [History] Cyanocobalamin (Vitamin B-12) [Vitamin B12] 1,000 mcg PO DAILY #30 tab 06/23/17 [Rx] Aspirin Enteric Coated [Aspirin EC] 325 mg PO DAILY #21 tablet. 09/03/17 [Rx] OxyCODONE Immed Rel [Roxicodone 5 MG] 5 mg PO Q6HR PRN #28 tablet 09/03/17 [Rx] Carvedilol 12.5 mg PO BID 09/04/17 [History] Enoxaparin [Lovenox] 30 mg SQ Q12HR 3 Days #6 syringe 09/04/17 [Rx] Furosemide [Lasix] 40 mg PO DAILY 09/04/17 [History] Warfarin [Coumadin] 5 mg PO 1800 09/04/17 [History] metFORMIN [Glucophage] 1,000 mg PO QPM 09/04/17 [History] 3 Allergy/AdvReac Type Severity Reaction Status Date / Time sotalol [From Betapace] AdvReac See Verified 09/04/17 09:36 Comments Internal Medicine - CN: Exam - Constitutional Vitals: Temp Pulse Resp BP Pulse Ox 99.0 F 88 20 171/104 93 09/06/17 16:00 09/06/17 16:00 09/06/17 16:00 09/06/17 16:00 09/06/17 16:00 General appearance IM: Present: cooperative, A&O X 2, mild distress. Absent: answers questions appropriately - Head Head exam: Present: atraumatic, normal inspection, normocephalic - Expanded Head Exam Head exam expanded IM: Absent: abrasion, Luis's sign, contusion, general tenderness, hematoma, laceration, raccoon eyes - Eye Eye exam: Present: EOMI, PERRL, conjuntiva pink, sclera anicteric Pupils: Present: PERRL - Respiratory Respiratory exam: Present: CTAB - Cardiovascular Cardiovascular exam IM: Present: irregular rhythm, +S1, +S2 - GI/Abdominal GI/Abdominal exam IM: Present: hypoactive bowel sounds. Absent: firm, tenderness - Expanded Lower Extremities Exam Lower Leg exam: Present: swelling (Status post right total knee), tenderness. Absent: erythema - Neurological Exam Neurological exam: Present: alert - Expanded Neurological Exam Patient oriented to: Present: person, place. Absent: time Internal Medicine - CN: Reslt - Labs CBC & Chem 7: 09/06/17 03:06 09/06/17 03:06 Labs: Short CBC 09/06/17 Range/Units 03:06 Hgb 10.6 L (12.9-16.9) g/dL Hct 31.9 L (37.5-50.1) % BMP 09/06/17 03:06 Sodium 138 Potassium 3.8 Chloride 103 Carbon Dioxide 23 BUN 33 H Creatinine 1.76 H Glucose 191 H Calcium 9.0 - ABG Interpretation ABG results: PT/INR, D-dimer PT 14.3 Seconds (9.4-12.1) H 09/06/17 03:06 - Impressions Impressions Head CT 09/05/17 18:30 IMPRESSION: No acute intracranial abnormality. D/ / Jayesh Montelongo MD / Jayesh Montelongo MD Interpreting Provider: Jayesh Montelongo MD Knee X-Ray 09/05/17 18:55 IMPRESSION: No acute complications found status post right total knee arthroplasty and status post fall today. Limited by overlying splint. D/ / Paras Luna MD / Paras Luna MD Interpreting Provider: Paras Luna MD - Diagnostic Studies CT scan - head Status: image reviewed by me Additional comments: CT of head s/P fall negative Consult Discharge Plan - Plan Additional Instructions: Discharge Instructions: Total Knee Replacement Please call [facility] ([phone]), your Primary Care Physician, or report to the Emergency Room if you have any of the following symptoms: Nausea, vomiting, fever greater that 101.5, swelling, chest pain, shortness of breath, increased pain/redness/drainage/odor for your incision site, numbness/ tingling, or any other concerning symptoms. ACTIVITY:Weight-bearing as tolerated. You may progress off support (crutches or walker) as tolerated. MEDICATIONS: Upon discharge resume your home medications. Take all the medications as prescribed. Take a stool softener if taking narcotic pain medications. Stool softeners are only effective if you drink enough fluids. Drink 6-8 glass of water or fluids a day, unless this is not allowed for another health problem. Despite using stool softeners, if you haven't had a bowel movement in 3 days, please switch to a gentle laxative. Gentle laxatives are sold over the counter. You should have a bowel movement within 24 hours, if not call the office. You will be discharged from the hospital with a prescription for pain medication. You are encouraged to decrease the use of narcotic pain medication as tolerated. Should you require a refill, please call the office. [facility] prescribes narcotic pain medication for only 4-6 weeks after surgery. If you require pain medication beyond this time period, you may be referred to your Primary Care Physician or to the Pain Clinic for further evaluation. Plan ahead for refills on pain medication as many narcotics either need to be picked up at the office or mailed. It is best to call 48-72 hours in advance of needing a prescription refill so you don't run out of medication. To help control the post-operative pain, you may take NSAIDs (Aleve,Advil, Motrin, Ibuprofen, Naprosyn) or Tylenol as prescribed on the bottle in addition to the pain medication. ANTICOAGULATION (blood thinners): Continue your Aspirin, Lovenox or Coumadin as prescribed to help prevent a blood clot in the leg or in the lungs. As long as your incision remains dry and you tolerate the NSAIDs (Aleve, Advil, Motrin, ibuprofen, naprosyn), it is OK to use the NSAIDS while you are taking your anticoagulation medication. Should your incision start to drain, stop the NSAID and contact our office. Common symptoms of blood clot in the legs include: localized pain, swelling, calf tenderness, redness or discoloration of the skin. Blood clot in the lung symptoms include: shortness of breath, rapid pulse, sweating, and chest pain that worsens with deep breathing, coughing up blood, lightheadedness, feelings of anxiety. If you experience any of these symptoms notify your physician immediately, go to the emergency room, or if having trouble breathing, call 911. WOUND CARE: Leave the dressing on for 7 to 10days. You may change the dressing if it becomes saturated greater than 50%. Do not get the dressing wet at anytime. Wash your hands with antibacterial soap, rinse and dry prior to any wound care. If you have alan the visiting nurse or rehab facility can remove the stapes 10-14 days after surgery and place steri-strips across the wound. Leave the steri-strips in place until they fall off on their won. You may let water from the shower run on top of the steri-strips. If you do not have a visiting nurse or rehab facility, you will need to return to the office at 10-14 days for the alan to be removed. If you have itching or redness around the dressing call the office. FOLLOW-UP: Please follow up with your surgeon in the orthopedic clinic in 4 weeks from the day of surgery. If you have alan that need to be removed, you will need to come back to the office in 10-14 days from the day of surgery. Referrals: John Hernandez MD [Partnered Physician] - 10/04/17 5:30 pm Leticia Vigil PAC [Physician Manager Knowledge] - 09/14/17 9:30 am Russel Felipe Jr, MD [Primary Care Provider] - 09/13/17 11:00 am Won Broderick MD [Partnered Physician] - 10/11/17 1:30 pm Prescriptions: Enoxaparin [Lovenox] 30 mg SQ Q12HR 3 Days #6 syringe
[2017-09-06] MEDS ORDERED: *HR* Dextrose 50 % in Water (Syg) 50 ML SYRINGE IVP PRN (16:31)
[2017-09-06] MEDS ORDERED: Dextrose Gel 15 GM PO PRN ×2 (16:31)
[2017-09-06] MEDS ORDERED: D5% in Water 1,000 ML IVC PRN (16:31)
[2017-09-06 17:05] LABS: Bilirubin,Urine Negative (Negative); Blood,Urine Trace (Negative); Clarity,Urine Clear (Clear); Color,Urine Yellow (Yellow); Glucose,Urine (UA) Normal (Normal); Ketones,Urine Negative (Negative); Leukocyte Esterase,Urine Negative (Negative); Nitrite,Urine Negative (Negative); PH,Urine 5.5 pH Units (5.0-8.0); Protein,Urine Negative (Neg-Trace); Specific Gravity,Urine 1.016 (1.010-1.025); Urobilinogen,Urine Normal (Normal)
[2017-09-06 17:15] LABS: Bacteria,Urine None Seen per hpf (None-Few); Hyaline Casts,Urine None Seen per lpf (None-Few); RBC,Urine 0-3 per hpf (0-3); Squamous Epithelial Cell,Urine None Seen per lpf (None-Few); WBC,Urine 0-3 per hpf (0-3)
[2017-09-06] MEDS: *HR* Warfarin 5 MG TABLET PO SCH (17:24)
[2017-09-06] MEDS ORDERED: 0.9 % Sodium Chloride 500 ML IVC SCH (17:45)
[2017-09-06] MEDS ORDERED: *HR* Enoxaparin 120 MG/0.8 ML SYRINGE SQ SCH (18:00)
--- NOTE | 2017-09-06 18:46 | Event Note ---
Date of Encounter: 09/06/17 Time of Encounter: 18:45 Patient seen and examined with nurse practitioner. Patient has right total knee replacement 2 days ago. Right knee is swollen warmer than left knee. Discussed with orthopedic PA who acknowledged that this is expected postsurgery. I have discussed with her that will hold anticoagulants today and she is agreeable. Patient has low-grade fever. Will check urinalysis and chest x-ray. Encouraged incentive spirometry. Gentle hydration. Sliding scale insulin Q4 hours.
[2017-09-07] MEDS: *HR* OxyCODONE Immed Rel 5 MG TABLET PO PRN ×3 (02:53→12:53)
[2017-09-07] MEDS: Insulin LISPRO 300 UNITS/3 ML VIAL SQ SCH ×6 (03:33→21:10)
--- NOTE | 2017-09-07 08:29 | Orthopedics Progress Note ---
Date of Encounter: 09/07/17 Time of Encounter: 08:28 - Assessment and Plan (1) CAD (coronary artery disease) of artery bypass graft Current Visit: Yes Status: Chronic Qualifiers: [place] vs. transplanted heart: [place] heart Associated angina: without angina Qualified Code(s): I25.810 - Atherosclerosis of coronary artery bypass graft(s) without angina pectoris (2) Afib Current Visit: Yes Status: Chronic Qualifiers: Atrial fibrillation type: unspecified Qualified Code(s): I48.91 - Unspecified atrial fibrillation (3) Diabetes mellitus Current Visit: Yes Status: Chronic Qualifiers: Diabetes mellitus type: type 2 Diabetes mellitus complication status: without complication Diabetes mellitus fdc insulin use: unspecified dietary manager insulin use status Qualified Code(s): E11.9 - Type 2 diabetes mellitus without complications (4) Arthritis of knee, right Current Visit: No Status: Acute (5) Status post total knee replacement, right Current Visit: Yes Status: Acute (6) Chronic kidney disease Current Visit: No Status: Chronic Qualifiers: Chronic kidney disease stage: stage 3 (moderate) Qualified Code(s): N18.3 - Chronic kidney disease, stage 3 (moderate) (7) GABBY on CPAP Current Visit: Yes Status: Chronic Subjective Interval history: Patient was seen this morning doing well without complaints. . Afebrile vital signs stable. Operative extremity: Neurovascularly intact Dressing clean dry and intact Calves nontender Assessment and plan: Continue with postoperative care Doing better this morning history of chronic renal disease, Plan for discharge today. Objective Vital signs: Vital Signs Temp Pulse Resp BP Pulse Ox 09/07/17 06:30 98.9 F 98 18 180/78 98 09/07/17 03:34 99.8 F H 109 14 157/82 98 09/06/17 23:44 99.1 F 100 14 137/82 95 09/06/17 20:17 100.4 F H 107 16 179/84 96 09/06/17 16:00 99.0 F 88 20 171/104 93 09/06/17 11:30 99.4 F 93 16 180/95 93 Intake and Output 09/06/17 09/07/17 09/07/17 23:59 07:59 15:59 Intake Total 500 / 500 Output Total 0 / 0 200 / 200 Balance 500 / 500 -200 / -200 Intake: Oral 500 / 500 Output: Urine 0 / 0 200 / 200 Other: # Voids 1 Blood Glucose* 206 152 - Labs CBC & BMP: 09/06/17 03:06 09/06/17 03:06 Labs: Abnormal lab results Hgb 10.6 g/dL (12.9-16.9) L 09/06/17 03:06 Hct 31.9 % (37.5-50.1) L 09/06/17 03:06 PT 14.3 Seconds (9.4-12.1) H 09/06/17 03:06 BUN 33 mg/dL (8-26) H 09/06/17 03:06 Creatinine 1.76 mg/dL (0.72-1.25) H 09/06/17 03:06 Est GFR ( Amer) 47 (> 60) L 09/06/17 03:06 Est GFR (Non-Af Amer) 39 (> 60) L 09/06/17 03:06 Glucose 191 mg/dL (70-99) H 09/06/17 03:06 POC Glucose 180 (58-89) H 09/07/17 05:33 Urine Blood Trace (Negative) H 09/06/17 15:47 - VTE Documentation of Mechanical Device: Venous foot pump, device Consult Discharge Plan - Plan Additional Instructions: Discharge Instructions: Total Knee Replacement Please call [facility] ([phone]), your Primary Care Physician, or report to the Emergency Room if you have any of the following symptoms: Nausea, vomiting, fever greater that 101.5, swelling, chest pain, shortness of breath, increased pain/redness/drainage/odor for your incision site, numbness/ tingling, or any other concerning symptoms. ACTIVITY:Weight-bearing as tolerated. You may progress off support (crutches or walker) as tolerated. MEDICATIONS: Upon discharge resume your home medications. Take all the medications as prescribed. Take a stool softener if taking narcotic pain medications. Stool softeners are only effective if you drink enough fluids. Drink 6-8 glass of water or fluids a day, unless this is not allowed for another health problem. Despite using stool softeners, if you haven't had a bowel movement in 3 days, please switch to a gentle laxative. Gentle laxatives are sold over the counter. You should have a bowel movement within 24 hours, if not call the office. You will be discharged from the hospital with a prescription for pain medication. You are encouraged to decrease the use of narcotic pain medication as tolerated. Should you require a refill, please call the office. [facility] prescribes narcotic pain medication for only 4-6 weeks after surgery. If you require pain medication beyond this time period, you may be referred to your Primary Care Physician or to the Pain Clinic for further evaluation. Plan ahead for refills on pain medication as many narcotics either need to be picked up at the office or mailed. It is best to call 48-72 hours in advance of needing a prescription refill so you don't run out of medication. To help control the post-operative pain, you may take NSAIDs (Aleve,Advil, Motrin, Ibuprofen, Naprosyn) or Tylenol as prescribed on the bottle in addition to the pain medication. ANTICOAGULATION (blood thinners): Continue your Aspirin, Lovenox or Coumadin as prescribed to help prevent a blood clot in the leg or in the lungs. As long as your incision remains dry and you tolerate the NSAIDs (Aleve, Advil, Motrin, ibuprofen, naprosyn), it is OK to use the NSAIDS while you are taking your anticoagulation medication. Should your incision start to drain, stop the NSAID and contact our office. Common symptoms of blood clot in the legs include: localized pain, swelling, calf tenderness, redness or discoloration of the skin. Blood clot in the lung symptoms include: shortness of breath, rapid pulse, sweating, and chest pain that worsens with deep breathing, coughing up blood, lightheadedness, feelings of anxiety. If you experience any of these symptoms notify your physician immediately, go to the emergency room, or if having trouble breathing, call 911. WOUND CARE: Leave the dressing on for 7 to 10days. You may change the dressing if it becomes saturated greater than 50%. Do not get the dressing wet at anytime. Wash your hands with antibacterial soap, rinse and dry prior to any wound care. If you have alan the visiting nurse or rehab facility can remove the stapes 10-14 days [address] surgery [address] steri-strips across the wound. Leave the steri-strips in place until they fall off on their won. You may let water from the shower run on top of the steri-strips. If you do not have a visiting nurse or rehab facility, you will need to return to the office at 10-14 days for the alan to be removed. If you have itching or redness around the dressing call the office. FOLLOW-UP: Please follow up with your surgeon in the orthopedic clinic in 4 weeks from the day of surgery. If you have alan that need to be removed, you will need to come back to the office in 10-14 days from the day of surgery. Referrals: John Hernandez MD [Partnered Physician] - 10/04/17 5:30 pm Leticia Vigil PAC [Physician Historian Dramatic Arts] - 09/14/17 9:30 am Russel Felipe Jr, MD [Primary Care Provider] - 09/13/17 11:00 am Won Broderick MD [Partnered Physician] - 10/11/17 1:30 pm Prescriptions: Enoxaparin [Lovenox] 30 mg SQ Q12HR 3 Days #6 syringe
[2017-09-07] MEDS: Furosemide 40 MG TABLET PO SCH (08:46)
[2017-09-07] MEDS: Magnesium Oxide 400 MG TABLET PO SCH ×2 (08:46→21:09)
[2017-09-07] MEDS: Aspirin Enteric Coated 81 MG Tablet PO SCH (08:46)
[2017-09-07] MEDS: Multivit/Ca/Min/Fe/FA 1 TAB TABLET PO SCH (08:48)
[2017-09-07] MEDS: Cyanocobalamin (B-12) 1,000 MCG TABLET PO SCH (08:48)
[2017-09-07 10:11] LABS: Basophils % 0.2 %; Eosinophils # 0.1 K/mcL (0.0-0.6); Eosinophils % 0.8 %; Hematocrit 27.6 % (37.5-50.1); Hemoglobin 9.4 g/dL (12.9-16.9); Immature Granulocytes % 0.4 % (0-4); Lymphocytes % 11.1 %; Mean Corpuscular HGB Conc 34.1 g/dL (31.6-35.5); Mean Corpuscular Hemoglobin 27.6 pg (28.0-33.3); Mean Corpuscular Volume 81.2 fL (83.0-100.0); Mean Platelet Volume 10.6 fL (9.4-12.4); Monocytes % 11.5 %; Neutrophils # 6.9 K/mcL (1.6-8.9); Platelet Count 149 K/mcL (140-400); Red Cell Distribution Width 15.2 % (11.5-14.5)
--- NOTE | 2017-09-07 10:18 | Internal Med Progress Note ---
Date of Encounter: 09/07/17 Time of Encounter: 10:19 - Assessment and plan (1) Hypokalemia Current Visit: Yes Status: Acute Assessment and plan: Replace (2) Hypomagnesemia Current Visit: Yes Status: Acute Assessment and plan: replace (3) Zdmvj-nn-soivzse kidney injury Current Visit: Yes Status: Acute Assessment and plan: resolved , D/C IV fluids , Ok to discharge from hospitalist stand point Qualifiers: Acute renal failure type: unspecified Chronic kidney disease stage: stage 3 (moderate) Qualified Code(s): N17.9 - Acute kidney failure, unspecified; N18.3 - Chronic kidney disease, stage 3 (moderate); N18.3 - Chronic kidney disease, stage 3 (moderate) (4) Status post total knee replacement, right Current Visit: Yes Status: Acute (5) Diabetes mellitus Current Visit: Yes Status: Chronic Assessment and plan: ISS adjust med Qualifiers: Diabetes mellitus type: type 2 Diabetes mellitus complication status: without complication Diabetes mellitus terminal operator insulin use: unspecified terminal operator insulin use status Qualified Code(s): E11.9 - Type 2 diabetes mellitus without complications - Subjective Interval history: Patient denies any chest pain or shortness of breath. Patient denies any dizziness or lightheadedness - Constitutional Vitals: Temp Pulse Resp BP Pulse Ox 98.9 F 98 18 180/78 98 09/07/17 06:30 09/07/17 06:30 09/07/17 06:30 09/07/17 06:30 09/07/17 06:30 General appearance: Present: cooperative, mild distress. Absent: answers questions appropriately - Head Head exam: Present: atraumatic, normocephalic - Neck Neck exam general surgery: Present: supple, trachea midline. Absent: lymphadenopathy - Respiratory Respiratory exam: Present: decreased breath sounds. Absent: accessory muscle use, rales, rhonchi, wheezes - Cardiovascular Cardiovascular exam: Present: RRR, +S1, +S2. Absent: diastolic murmur, gallop, rubs, systolic murmur - GI/Abdominal GI/Abdominal exam: Present: normal bowel sounds, soft, no peritoneal signs. Absent: distended, tenderness - Neurological Exam Neurological exam: Present: CN II-XII intact, no focal deficits. Absent: pronater drift, facial droop, speech deficit Internal Medicine: Result - Labs CBC & Chem 7: 09/07/17 10:05 09/07/17 10:05 Labs: Short CBC 09/07/17 Range/Units 10:05 WBC 9.1 (4.3-11.1) K/mcL Hgb 9.4 L (12.9-16.9) g/dL Hct 27.6 L (37.5-50.1) % Plt Count 149 (140-400) K/mcL Neutrophils # 6.9 (1.6-8.9) K/mcL Urine 09/06/17 Range/Units 15:47 Urine Color Yellow (Yellow) Urine Clarity Clear (Clear) Urine pH 5.5 (5.0-8.0) pH Units Ur Specific [place] 1.016 (1.010-1.025) Urine Protein Negative (Neg-Trace) mg/dL Urine Glucose (UA) Normal (Normal) mg/dL - ABG Interpretation ABG results: PT/INR, D-dimer PT 14.3 Seconds (9.4-12.1) H 09/06/17 03:06 - Impressions Impressions Chest X-Ray 09/06/17 15:47 IMPRESSION: No acute cardiopulmonary abnormality. D/ / Zack Arrieta MD / Zack Arrieta MD Interpreting Provider: Zack Arrieta MD - VTE Documentation of Mechanical Device: Venous foot pump, device Consult Discharge Plan - Plan Additional Instructions: Discharge Instructions: Total Knee Replacement Please call [facility] ([phone]), your Primary Care Physician, or report to the Emergency Room if you have any of the following symptoms: Nausea, vomiting, fever greater that 101.5, swelling, chest pain, shortness of breath, increased pain/redness/drainage/odor for your incision site, numbness/ tingling, or any other concerning symptoms. ACTIVITY:Weight-bearing as tolerated. You may progress off support (crutches or walker) as tolerated. MEDICATIONS: Upon discharge resume your home medications. Take all the medications as prescribed. Take a stool softener if taking narcotic pain medications. Stool softeners are only effective if you drink enough fluids. Drink 6-8 glass of water or fluids a day, unless this is not allowed for another health problem. Despite using stool softeners, if you haven't had a bowel movement in 3 days, please switch to a gentle laxative. Gentle laxatives are sold over the counter. You should have a bowel movement within 24 hours, if not call the office. You will be discharged from the hospital with a prescription for pain medication. You are encouraged to decrease the use of narcotic pain medication as tolerated. Should you require a refill, please call the office. [facility] prescribes narcotic pain medication for only 4-6 weeks after surgery. If you require pain medication beyond this time period, you may be referred to your Primary Care Physician or to the Pain Clinic for further evaluation. Plan ahead for refills on pain medication as many narcotics either need to be picked up at the office or mailed. It is best to call 48-72 hours in advance of needing a prescription refill so you don't run out of medication. To help control the post-operative pain, you may take NSAIDs (Aleve,Advil, Motrin, Ibuprofen, Naprosyn) or Tylenol as prescribed on the bottle in addition to the pain medication. ANTICOAGULATION (blood thinners): Continue your Aspirin, Lovenox or Coumadin as prescribed to help prevent a blood clot in the leg or in the lungs. As long as your incision remains dry and you tolerate the NSAIDs (Aleve, Advil, Motrin, ibuprofen, naprosyn), it is OK to use the NSAIDS while you are taking your anticoagulation medication. Should your incision start to drain, stop the NSAID and contact our office. Common symptoms of blood clot in the legs include: localized pain, swelling, calf tenderness, redness or discoloration of the skin. Blood clot in the lung symptoms include: shortness of breath, rapid pulse, sweating, and chest pain that worsens with deep breathing, coughing up blood, lightheadedness, feelings of anxiety. If you experience any of these symptoms notify your physician immediately, go to the emergency room, or if having trouble breathing, call 911. WOUND CARE: Leave the dressing on for 7 to 10days. You may change the dressing if it becomes saturated greater than 50%. Do not get the dressing wet at anytime. Wash your hands with antibacterial soap, rinse and dry prior to any wound care. If you have alan the visiting nurse or rehab facility can remove the stapes 10-14 days after surgery and place steri-strips across the wound. Leave the steri-strips in place until they fall off on their won. You may let water from the shower run on top of the steri-strips. If you do not have a visiting nurse or rehab facility, you will need to return to the office at 10-14 days for the alan to be removed. If you have itching or redness around the dressing call the office. FOLLOW-UP: Please follow up with your surgeon in the orthopedic clinic in 4 weeks from the day of surgery. If you have alan that need to be removed, you will need to come back to the office in 10-14 days from the day of surgery. Referrals: John Hernandez MD [Partnered Physician] - 10/04/17 5:30 pm Leticia Vigil PAC [Physician Business Continuity Specialist] - 09/14/17 9:30 am Russel Felipe Jr, MD [Primary Care Provider] - 09/13/17 11:00 am Won Broderick MD [Partnered Physician] - 10/11/17 1:30 pm Prescriptions: Enoxaparin [Lovenox] 30 mg SQ Q12HR 3 Days #6 syringe
[2017-09-07 10:23] LABS: BUN/Creatinine Ratio 19 (6-26); Calcium 8.8 mg/dL (8.6-10.8); Carbon Dioxide 27 mEq/L (19-29); Chloride 100 mEq/L (98-109); Glucose 220 mg/dL (70-99); Magnesium 1.3 mg/dL (1.6-2.6); Osmolality,Calculated 290 (280-300); Potassium 3.4 mEq/L (3.5-4.5); Sodium 135 mEq/L (136-145); eGFR For African Americans > 60 (> 60); eGFR For Non-African Americans > 60 (> 60)
[2017-09-07 10:24] LABS: Blood Urea Nitrogen 21 mg/dL (8-26)
[2017-09-07] MEDS: Insulin DETEMIR 100 UNIT/ML X5UNITS SQ SCH ×2 (11:47→22:50)
[2017-09-07] MEDS ORDERED: hydrALAZINE 10 MG TABLET PO PRN (12:07)
[2017-09-07] MEDS ORDERED: Potassium Chloride Elixir 20 MEQ/15 ML UDC PO ONE (12:09)
--- NOTE | 2017-09-07 12:35 | Event Note ---
Date of Encounter: 09/07/17 Time of Encounter: 12:33 PCR - Right TKR 09/05/17 POD#3 *Bridging back to Coumadin - Lovenox 30mg SQ q 12 hours was D/C'ed by hospitalist 09/06, monitoring PT/INR. 09/06: INR 1.3 09/07 INR Labs: renal function returned to baseline - hospitalist on board following. Baseline SCr 1.26, GFR 57 09/05: SCr 1.6, GFR 43 09/06: SCr 1.76, GFR 39 09/07: Normal labs Patient seen at bedside. Confusion improved but still not fully cognoscente. Pain control: Adequate Participating in PT. All questions and concerns addressed. Educated on use of incentive spirometer, ambulation, and hydration. Patient educated on post-operative restrictions and care. Addressed: See above D/C plan: ECF once approved, continuity placed D/C once stable from medical standpoint. UA - Negative, CXR - negative 09/06
[2017-09-07 13:31] LABS: INR 1.5; Prothrombin Time 15.9 Seconds (9.4-12.1)
[2017-09-07] MEDS: Thiamine (B-1) 100 MG TABLET PO SCH (18:06)
[2017-09-07] MEDS: *HR* Warfarin 5 MG TABLET PO SCH (18:06)
[2017-09-07] MEDS ORDERED: Acetaminophen IV 1,000 MG/100 ML INFUS..BTL IVPB ONE (22:17)
[2017-09-08] MEDS: Insulin LISPRO 300 UNITS/3 ML VIAL SQ SCH ×4 (00:28→12:35)
[2017-09-08 05:49] LABS: Magnesium 1.6 mg/dL (1.6-2.6); Phosphorous 2.6 mg/dL (2.3-4.7)
--- NOTE | 2017-09-08 06:51 | Orthopedics Progress Note ---
Date of Encounter: 09/08/17 Time of Encounter: 06:51 - Assessment and Plan (1) CAD (coronary artery disease) of artery bypass graft Current Visit: Yes Status: Chronic Qualifiers: [place] vs. transplanted heart: [place] heart Associated angina: without angina Qualified Code(s): I25.810 - Atherosclerosis of coronary artery bypass graft(s) without angina pectoris (2) Afib Current Visit: Yes Status: Chronic Qualifiers: Atrial fibrillation type: unspecified Qualified Code(s): I48.91 - Unspecified atrial fibrillation (3) Diabetes mellitus Current Visit: Yes Status: Chronic Qualifiers: Diabetes mellitus type: type 2 Diabetes mellitus complication status: without complication Diabetes mellitus fdc insulin use: unspecified adjunct faculty for medical terminology insulin use status Qualified Code(s): E11.9 - Type 2 diabetes mellitus without complications (4) Arthritis of knee, right Current Visit: No Status: Acute (5) Status post total knee replacement, right Current Visit: Yes Status: Acute (6) Chronic kidney disease Current Visit: No Status: Chronic Qualifiers: Chronic kidney disease stage: stage 3 (moderate) Qualified Code(s): N18.3 - Chronic kidney disease, stage 3 (moderate) (7) GABBY on CPAP Current Visit: Yes Status: Chronic Subjective Interval history: Patient was seen this morning doing well without complaints. . Afebrile vital signs stable. Operative extremity: Neurovascularly intact Dressing clean dry and intact Calves nontender Assessment and plan: Continue with postoperative care Doing better this morning alert and oriented 3, kidney function improving Plan for discharge today. Objective Vital signs: Vital Signs Temp Pulse Resp BP Pulse Ox 09/08/17 03:06 99.1 F 89 16 145/81 95 09/07/17 23:14 100.8 F H 91 14 139/77 93 09/07/17 19:23 100.1 F H 100 16 172/75 97 09/07/17 15:17 100.4 F H 96 16 159/79 95 09/07/17 11:36 99.0 F 95 16 165/94 92 09/07/17 09:00 98.9 F 111 16 164/79 95 Intake and Output 09/07/17 09/07/17 09/08/17 15:59 23:59 07:59 Intake Total 120 / 120 500 / 500 Output Total 500 / 500 75 / 75 125 / 125 Balance -380 / -380 -75 / -75 375 / 375 Intake: Oral 120 / 120 500 / 500 Output: Urine 500 / 500 75 / 75 125 / 125 Other: Meal Breakfast Percent of Meal Consumed 75% # Urine Diapers 2 Blood Glucose* 224 149 137 - Labs CBC & BMP: 09/07/17 10:05 09/07/17 10:05 Labs: Abnormal lab results RBC 3.40 M/mcL (4.19-5.50) L 09/07/17 10:05 Hgb 9.4 g/dL (12.9-16.9) L 09/07/17 10:05 Hct 27.6 % (37.5-50.1) L 09/07/17 10:05 MCV 81.2 fL (83.0-100.0) L 09/07/17 10:05 MCH 27.6 pg (28.0-33.3) L 09/07/17 10:05 RDW 15.2 % (11.5-14.5) H 09/07/17 10:05 PT 15.9 Seconds (9.4-12.1) H 09/07/17 13:14 Sodium 135 mEq/L (136-145) L 09/07/17 10:05 Potassium 3.4 mEq/L (3.5-4.5) L 09/07/17 10:05 Glucose 220 mg/dL (70-99) H 09/07/17 10:05 POC Glucose 279 (58-89) H 09/07/17 19:29 Urine Blood Trace (Negative) H 09/06/17 15:47 - VTE Documentation of Mechanical Device: Venous foot pump, device Consult Discharge Plan - Plan Additional Instructions: Discharge Instructions: Total Knee Replacement Please call [facility] ([phone]), your Primary Care Physician, or report to the Emergency Room if you have any of the following symptoms: Nausea, vomiting, fever greater that 101.5, swelling, chest pain, shortness of breath, increased pain/redness/drainage/odor for your incision site, numbness/ tingling, or any other concerning symptoms. ACTIVITY:Weight-bearing as tolerated. You may progress off support (crutches or walker) as tolerated. MEDICATIONS: Upon discharge resume your home medications. Take all the medications as prescribed. Take a stool softener if taking narcotic pain medications. Stool softeners are only effective if you drink enough fluids. Drink 6-8 glass of water or fluids a day, unless this is not allowed for another health problem. Despite using stool softeners, if you haven't had a bowel movement in 3 days, please switch to a gentle laxative. Gentle laxatives are sold over the counter. You should have a bowel movement within 24 hours, if not call the office. You will be discharged from the hospital with a prescription for pain medication. You are encouraged to decrease the use of narcotic pain medication as tolerated. Should you require a refill, please call the office. [facility] prescribes narcotic pain medication for only 4-6 weeks after surgery. If you require pain medication beyond this time period, you may be referred to your Primary Care Physician or to the Pain Clinic for further evaluation. Plan ahead for refills on pain medication as many narcotics either need to be picked up at the office or mailed. It is best to call 48-72 hours in advance of needing a prescription refill so you don't run out of medication. To help control the post-operative pain, you may take NSAIDs (Aleve,Advil, Motrin, Ibuprofen, Naprosyn) or Tylenol as prescribed on the bottle in addition to the pain medication. ANTICOAGULATION (blood thinners): Continue your Aspirin, Lovenox or Coumadin as prescribed to help prevent a blood clot in the leg or in the lungs. As long as your incision remains dry and you tolerate the NSAIDs (Aleve, Advil, Motrin, ibuprofen, naprosyn), it is OK to use the NSAIDS while you are taking your anticoagulation medication. Should your incision start to drain, stop the NSAID and contact our office. Common symptoms of blood clot in the legs include: localized pain, swelling, calf tenderness, redness or discoloration of the skin. Blood clot in the lung symptoms include: shortness of breath, rapid pulse, sweating, and chest pain that worsens with deep breathing, coughing up blood, lightheadedness, feelings of anxiety. If you experience any of these symptoms notify your physician immediately, go to the emergency room, or if having trouble breathing, call 911. WOUND CARE: Leave the dressing on for 7 to 10days. You may change the dressing if it becomes saturated greater than 50%. Do not get the dressing wet at anytime. Wash your hands with antibacterial soap, rinse and dry prior to any wound care. If you have alan the visiting nurse or rehab facility can remove the stapes 10-14 days after surgery and place steri-strips across the wound. Leave the steri-strips in place until they fall off on their won. You may let water from the shower run on top of the steri-strips. If you do not have a visiting nurse or rehab facility, you will need to return to the office at 10-14 days for the alan to be removed. If you have itching or redness around the dressing call the office. FOLLOW-UP: Please follow up with your surgeon in the orthopedic clinic in 4 weeks from the day of surgery. If you have alan that need to be removed, you will need to come back to the office in 10-14 days from the day of surgery. Referrals: John Hernandez MD [Partnered Physician] - 10/04/17 5:30 pm Leticia Vigil PAC [Physician Marketing Programs Manager] - 09/14/17 9:30 am Russel Felipe Jr, MD [Primary Care Provider] - 09/13/17 11:00 am Won Broderick MD [Partnered Physician] - 10/11/17 1:30 pm Prescriptions: Enoxaparin [Lovenox] 30 mg SQ Q12HR 3 Days #6 syringe
[2017-09-08] MEDS: Thiamine (B-1) 100 MG TABLET PO SCH (07:58)
[2017-09-08] MEDS: Furosemide 40 MG TABLET PO SCH (07:58)
[2017-09-08] MEDS: Aspirin Enteric Coated 81 MG Tablet PO SCH (07:58)
[2017-09-08] MEDS: Multivit/Ca/Min/Fe/FA 1 TAB TABLET PO SCH (07:58)
[2017-09-08] MEDS: Cyanocobalamin (B-12) 1,000 MCG TABLET PO SCH (07:58)
[2017-09-08] MEDS: Magnesium Oxide 400 MG TABLET PO SCH (07:58)
[2017-09-08 08:31] LABS: INR 1.5; Prothrombin Time 15.8 Seconds (9.4-12.1)
[2017-09-08] MEDS: *HR* OxyCODONE Immed Rel 5 MG TABLET PO PRN (10:16)
--- NOTE | 2017-09-08 11:40 | Event Note ---
Date of Encounter: 09/08/17 Time of Encounter: 11:45 PCR - Right TKR 09/05/17 POD#4 *Bridging back to Coumadin - Lovenox 30mg SQ q 12 hours was D/C'ed by hospitalist 09/06, monitoring PT/INR. Now doing once daily weight based Lovenox and Coumadin with continued INR checks. 09/06: INR 1.3 09/07: INR 1.5 09/08: INR 1.5 Labs: renal function returned to baseline - hospitalist on board following. Baseline SCr 1.26, GFR 57 09/05: SCr 1.6, GFR 43 09/06: SCr 1.76, GFR 39 09/07: Normal labs 09/08: K+ 3.3 Patient seen at bedside. Confusion resolving Pain control: Adequate Participating in PT. All questions and concerns addressed. Educated on use of incentive spirometer, ambulation, and hydration. Patient educated on post-operative restrictions and care. Addressed: See above D/C plan: [facility] TODAY UA - Negative, CXR - negative 09/06
[2017-09-08] MEDS ORDERED: traMADol 50 MG TABLET PO PRN (11:57)
[2017-09-08] MEDS ORDERED: Acetaminophen 325 MG TABLET PO SCH (12:00)
--- NOTE | 2017-09-08 12:01 | Internal Med Progress Note ---
Date of Encounter: 09/08/17 Time of Encounter: 10:30 - Assessment and plan (1) Hypokalemia Current Visit: Yes Status: Acute Assessment and plan: Add 40 mEq of potassium chloride (2) Hypomagnesemia Current Visit: Yes Status: Acute (3) Sdexa-vt-ynnxhwh kidney injury Current Visit: Yes Status: Acute Assessment and plan: resolved Qualifiers: Acute renal failure type: unspecified Chronic kidney disease stage: stage 3 (moderate) Qualified Code(s): N17.9 - Acute kidney failure, unspecified; N18.3 - Chronic kidney disease, stage 3 (moderate); N18.3 - Chronic kidney disease, stage 3 (moderate) (4) Status post total knee replacement, right Current Visit: Yes Status: Acute Assessment and plan: Add scheduled Tylenol, tramadol 50 mg 3 times a day as needed (5) Diabetes mellitus Current Visit: Yes Status: Chronic Assessment and plan: Insulin sliding scale Qualifiers: Diabetes mellitus type: type 2 Diabetes mellitus complication status: without complication Diabetes mellitus enrober insulin use: unspecified intermediate insulin use status Qualified Code(s): E11.9 - Type 2 diabetes mellitus without complications (6) Afib Current Visit: Yes Status: Chronic Assessment and plan: Add bridging dose of lovenox , Discharge on warfarin , cont magnesium , potasium on discharge , BMP ,INR next AM Qualifiers: Atrial fibrillation type: unspecified Qualified Code(s): I48.91 - Unspecified atrial fibrillation - Time Spent With Patient 25 - 35 minutes - Subjective Interval history: Patient is more alert today. stated he is back to his baseline. Patient complaining of severe pain right knee 9 out of 10 in severity. - Constitutional Vitals: Temp Pulse Resp BP Pulse Ox 98.8 F 89 16 165/87 96 09/08/17 06:56 09/08/17 06:56 09/08/17 06:56 09/08/17 06:56 09/08/17 06:56 General appearance: Present: cooperative, mild distress. Absent: answers questions appropriately - Head Head exam: Present: atraumatic, normocephalic - Respiratory Respiratory exam: Present: CTAB. Absent: accessory muscle use, rales, rhonchi, wheezes - Cardiovascular Cardiovascular exam: Present: RRR, +S1, +S2. Absent: diastolic murmur, gallop, rubs, systolic murmur - GI/Abdominal GI/Abdominal exam: Present: normal bowel sounds, soft, no peritoneal signs. Absent: distended, tenderness - Extremities Exam Extremities exam: Present: warm. Absent: calf tenderness, cyanotic - Neurological Exam Neurological exam: Present: CN II-XII intact, oriented X3, no focal deficits. Absent: pronater drift, facial droop, speech deficit Internal Medicine: Result - Labs CBC & Chem 7: 09/07/17 10:05 09/08/17 07:41 Labs: BMP 09/08/17 07:41 Potassium 3.3 L - ABG Interpretation ABG results: PT/INR, D-dimer PT 15.8 Seconds (9.4-12.1) H 09/08/17 08:19 - VTE Documentation of Mechanical Device: Venous foot pump, device Consult Discharge Plan - Plan Additional Instructions: Discharge Instructions: Total Knee Replacement Please call [facility] ([phone]), your Primary Care Physician, or report to the Emergency Room if you have any of the following symptoms: Nausea, vomiting, fever greater that 101.5, swelling, chest pain, shortness of breath, increased pain/redness/drainage/odor for your incision site, numbness/ tingling, or any other concerning symptoms. ACTIVITY:Weight-bearing as tolerated. You may progress off support (crutches or walker) as tolerated. MEDICATIONS: Upon discharge resume your home medications. Take all the medications as prescribed. Take a stool softener if taking narcotic pain medications. Stool softeners are only effective if you drink enough fluids. Drink 6-8 glass of water or fluids a day, unless this is not allowed for another health problem. Despite using stool softeners, if you haven't had a bowel movement in 3 days, please switch to a gentle laxative. Gentle laxatives are sold over the counter. You should have a bowel movement within 24 hours, if not call the office. You will be discharged from the hospital with a prescription for pain medication. You are encouraged to decrease the use of narcotic pain medication as tolerated. Should you require a refill, please call the office. [facility] prescribes narcotic pain medication for only 4-6 weeks after surgery. If you require pain medication beyond this time period, you may be referred to your Primary Care Physician or to the Pain Clinic for further evaluation. Plan ahead for refills on pain medication as many narcotics either need to be picked up at the office or mailed. It is best to call 48-72 hours in advance of needing a prescription refill so you don't run out of medication. To help control the post-operative pain, you may take NSAIDs (Aleve,Advil, Motrin, Ibuprofen, Naprosyn) or Tylenol as prescribed on the bottle in addition to the pain medication. ANTICOAGULATION (blood thinners): Continue your Aspirin, Lovenox or Coumadin as prescribed to help prevent a blood clot in the leg or in the lungs. As long as your incision remains dry and you tolerate the NSAIDs (Aleve, Advil, Motrin, ibuprofen, naprosyn), it is OK to use the NSAIDS while you are taking your anticoagulation medication. Should your incision start to drain, stop the NSAID and contact our office. Common symptoms of blood clot in the legs include: localized pain, swelling, calf tenderness, redness or discoloration of the skin. Blood clot in the lung symptoms include: shortness of breath, rapid pulse, sweating, and chest pain that worsens with deep breathing, coughing up blood, lightheadedness, feelings of anxiety. If you experience any of these symptoms notify your physician immediately, go to the emergency room, or if having trouble breathing, call 911. WOUND CARE: Leave the dressing on for 7 to 10days. You may change the dressing if it becomes saturated greater than 50%. Do not get the dressing wet at anytime. Wash your hands with antibacterial soap, rinse and dry prior to any wound care. If you have alan the visiting nurse or rehab facility can remove the stapes 10-14 days after surgery and place steri-strips across the wound. Leave the steri-strips in place until they fall off on their won. You may let water from the shower run on top of the steri-strips. If you do not have a visiting nurse or rehab facility, you will need to return to the office at 10-14 days for the alan to be removed. If you have itching or redness around the dressing call the office. FOLLOW-UP: Please follow up with your surgeon in the orthopedic clinic in 4 weeks from the day of surgery. If you have alan that need to be removed, you will need to come back to the office in 10-14 days from the day of surgery. Referrals: John Hernandez MD [Partnered Physician] - 10/04/17 5:30 pm Leticia Vigil PAC [Physician International Broadcast Music Librarian] - 09/14/17 9:30 am Russel Felipe Jr, MD [Primary Care Provider] - 09/13/17 11:00 am Won Broderick MD [Partnered Physician] - 10/11/17 1:30 pm Prescriptions: Enoxaparin [Lovenox] 30 mg SQ Q12HR 3 Days #6 syringe Phos-NaK [Neutra-Phos] 1 each PO DAILY 30 Days #30 [email or web address]
[2017-09-08 12:16] VITALS: BP 146/87
--- NOTE | 2017-09-09 11:29 | Electrocardiograph Report ---
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
== END 2017-09-08 13:35 | DRG 470 ==
LOC: SAMDAY 08:49 → 3NENU 13:57
PROVIDERS: ADMIT Orthopaedic Surgery; ATTEND Orthopaedic Surgery

== ENCOUNTER 2019-02-12 10:56 | Inpatient (IN) ==
--- NOTE | 2019-02-12 11:24 | Emergency Department Note ---
Disposition Clinical Impression: Anticoagulated, Anemia, CAD (coronary artery disease) of artery bypass graft, Atrial fibrillation, Weakness, Diabetes mellitus, Elevated troponin, Chronic kidney disease, CAD (coronary artery disease) Disposition: Admitted As Inpatient Referrals: Russel Felipe Jr, MD [Primary Care Provider] - Forms: ED Satisfaction Letter General Adult HPI - General Chief complaint: ED Weakness Stated complaint: Can't walk/Weakness Time Seen by Provider: 02/12/19 11:22 Source: patient Limitations: no limitations - History of Present Illness HPI Narrative: 73-year-old male comes in from home, there is concern for generalized weakness and sleepiness. The patient has a history of left knee surgery which left him somewhat debilitated, he has not been highly active since his surgery a few years ago. The patient is currently being treated for depression. He was evaluated by his neurologist in [facility] last week for increasing weakness. The patient's reports that he had a CT scan done and the results are pending. There is concern that the patient has been so weak over the last 5 days he has been able to get out of bed and has been very sleepy. There is no history of acute anxiety. Chronic depression is reported. No fever or chest pain noted. No vomiting diarrhea or abdominal pain. The patient's been somewhat short of breath. No acute leg swelling is reported. There is no history of unilateral arm leg weakness or numbness or speech or facial drooping. No headache or acute back pain no syncope or trauma. The patient is anticoagulated describes no bleeding. Pain Scale: 4 - Related Data Home Medications Medication Instructions Recorded Confirmed Aspirin [Lo-Dose Aspirin EC] 81 mg PO DAILY 12/13/16 03/14/18 Clopidogrel [Plavix] 75 mg PO DAILY 12/13/16 03/14/18 Losartan [Cozaar] 50 mg PO DAILY 12/13/16 03/14/18 Paroxetine [Paxil] 10 mg PO DAILY 12/13/16 03/14/18 Terazosin [Hytrin] 5 mg PO HS 12/13/16 03/14/18 metFORMIN [Glucophage] 500 mg PO QAM 12/13/16 03/14/18 Ferrous Sulfate [Iron] 325 mg PO DAILY 05/17/17 03/14/18 Multivitamin [Multi-Day Vitamins] 1 each PO DAILY 07/12/17 05/09/18 Carvedilol 12.5 mg PO BID 09/04/17 03/14/18 Furosemide [Lasix] 40 mg PO DAILY 09/04/17 03/14/18 Warfarin [Coumadin] 5 mg PO 1800 09/04/17 03/14/18 metFORMIN [Glucophage] 1,000 mg PO QPM 09/04/17 03/14/18 Previous Rx's Medication Instructions Recorded Magnesium Oxide [Mag-Ox] 400 mg PO BID #60 tablet 01/21/17 Cyanocobalamin (Vitamin B-12) 1,000 mcg PO DAILY #30 tab 06/23/17 [Vitamin B12] Enoxaparin [Lovenox] 30 mg SQ Q12HR 3 Days #6 syringe 09/04/17 Phos-NaK [Neutra-Phos] 1 each PO DAILY 30 Days #30 09/08/17 powd.pack OxyCODONE/APAP 5/325 [Percocet 1 each PO Q6HR PRN 7 Days #7 tablet 03/14/18 5/325 MG] Allergies Allergy/AdvReac Type Severity Reaction Status Date / Time sotalol [From Betapace] AdvReac See Verified 02/12/19 11:06 Comments All systems ED: reviewed and negative except as stated. Past Medical History - Past Medical History Medical history: Reports: other Psychiatric history: Reports: depression - Social History Smoking Status: Never smoker Smokeless Tobacco Status: No Alcohol use: Reports: none Drug use: Reports: none Physical Exam - General Limitations: no limitations General appearance: alert, in no apparent distress, other (The patient appears to somewhat depressed, he is slow to respond but does follow commands and answer questions properly.) - Head Head exam: atraumatic, normocephalic, normal inspection - Eye Eye exam: Present: normal appearance, PERRL, EOMI - ENT ENT exam: normal exam, normal oropharynx, mucous membranes moist, TM's normal bilaterally, normal external ear exam - Neck Neck exam: Present: normal inspection, full ROM, trachea midline - Chest Chest inspection: Present: normal inspection, symmetric chest wall rise. Absent: tenderness - Respiratory Respiratory exam: Present: normal lung sounds bilaterally. Absent: respiratory distress, wheezes, prolonged expiratory phase - Cardiovascular Cardiovascular exam: Present: regular rate, normal rhythm, normal heart sounds - Abdominal Exam Abdominal exam: Present: soft, Non-Tender, normal bowel sounds. Absent: tenderness, distention, guarding, rebound, rigidity - Extremities Exam Extremities exam: Present: normal inspection, full ROM, normal capillary refill. Absent: tenderness, pedal edema, joint swelling, calf tenderness - Expanded Lower Extremity Exam Lower leg exam: Absent: Homans' sign Neurovascular/Tendon exam: Present: normal capillary refill. Absent: motor deficit, sensory deficit, tendon deficit, extremity cold to touch, pallor - Back Exam Back exam: Present: normal inspection, full ROM. Absent: tenderness, CVA tenderness (R), CVA tenderness (L), vertebral tenderness - Neurological Exam Neurological exam: Present: alert, oriented X3, CN II-XII intact. Absent: motor sensory deficit - Psychiatric Psychiatric exam: Present: depressed - Skin Skin exam: Present: warm, dry, intact, normal color Course Vital Signs Temperature 97.4 F L 02/12/19 11:06 Pulse Rate 76 02/12/19 11:06 Respiratory Rate 18 02/12/19 11:06 Blood Pressure 110/59 02/12/19 11:06 O2 Sat by Pulse Oximetry 95 02/12/19 11:06 Temperature 97.4 F L 02/12/19 11:06 Pulse Rate 76 02/12/19 11:27 Respiratory Rate 18 02/12/19 11:27 Blood Pressure 126/69 02/12/19 11:27 O2 Sat by Pulse Oximetry 96 02/12/19 11:27 Oxygen Delivery Oxygen Delivery Room Air Medical Decision Making - [facility] Narrative Medical decision making narrative: The patient has been progressively weaker over the last several days. On secondary review, the family members reported blackened stool about a week ago. There has been no persistent black or bloody stool. The patient's hemoglobin is noted to be 6.0. INR 2.9. EKG atrial fibrillation without acute ST elevations. Troponin elevated glucose 309 renal insufficiency noted. Chest x-ray negative. CT scan of the head was ordered and is pending. Rectal exam good tone no masses no bloody or black material on the glove. Hemoccult sent and pending. B ased on the patient's age, multiple comorbidities including CAD, Atrial fibrillation anticoagulant status in conjunction with weakness and inability to get out of bed with hemoglobin of 6.0, I thought it would be appropriate to admit the patient. The patient does not describe chest pain. He takes Plavix aspirin and Coumadin. I discussed the case with the hospitalist who has accepted the patient to their care. The patient's current stable pending admission. He and his family are highly agreeable to admit. No active bleeding noted in the emergency department. Vitamin K by mouth ordered/hospitalist in agreement with reversal via this agent. Transfusion ordered. - Lab Data Lab results reviewed: Yes I reviewed the patient's lab results. Result diagrams: 02/12/19 11:43 02/12/19 11:43 Lab Results 02/12/19 02/12/19 02/12/19 Range/Units 11:43 11:43 11:43 WBC 8.1 (4.3-11.1) K/mcL RBC 2.33 L (4.19-5.50) M/mcL Hgb 6.0 L* (12.9-16.9) g/dL Hct 19.1 L (37.5-50.1) % MCV 82.0 L (83.0-100.0) fL MCH 25.8 L (28.0-33.3) pg MCHC 31.4 L (31.6-35.5) g/dL RDW 15.6 H (11.5-14.5) % Plt Count 332 (140-400) K/mcL MPV 10.6 (9.4-12.4) fL Immature Gran % 0.2 (0-4) % Seg Neutrophils % 82.5 % Lymphocytes % 7.9 % Monocytes % 7.7 % Eosinophils % 1.5 % Basophils % 0.2 % Neutrophils # 6.7 (1.6-8.9) K/mcL Lymphocytes # 0.6 (0.6-4.6) K/mcL Monocytes # 0.6 (0.0-1.3) K/mcL Eosinophils # 0.1 (0.0-0.6) K/mcL Basophils # 0.0 (0.0-0.2) K/mcL Nucleated RBCs/100 WBC 0.2 H (0) /100 WBC PT 32.6 H (9.4-12.1) Seconds INR 2.9 Sodium 138 (136-145) mEq/L Potassium 3.2 L (3.5-5.1) mEq/L Chloride 100 (98-107) mEq/L Carbon Dioxide 27 (23-29) mEq/L BUN 21 (8-23) mg/dL Creatinine 1.43 H (0.70-1.30) mg/dL Est GFR ( Amer) 59 L (> 60) Est GFR (Non-Af Amer) 49 L (> 60) BUN/Creatinine Ratio 15 (6-26) Glucose 309 H (70-105) mg/dL Calculated Osmolality 301 H (280-300) Lactic Acid (0.5-2.2) mmol/L Calcium 8.5 L (8.6-10.3) mg/dL Magnesium 1.5 L (1.6-2.6) mg/dL Total Bilirubin 0.8 (0.3-1.0) mg/dL AST 10 L (13-39) Units/L ALT 13 (7-52) Units/L Alkaline Phosphatase 72 (34-104) Units/L Troponin I 0.46 H* (< 0.04) ng/mL C-Reactive Protein 42 H (Less than 10) mg/L Serum Total Protein 5.9 L (6.4-8.9) g/dL Albumin 3.5 (3.5-5.7) g/dL Globulin 2.4 (2.4-3.5) g/dL Albumin/Globulin Ratio 1.5 (1.1-2.2) 02/12/19 Range/Units 11:43 WBC (4.3-11.1) K/mcL RBC (4.19-5.50) M/mcL Hgb (12.9-16.9) g/dL Hct (37.5-50.1) % MCV (83.0-100.0) fL MCH (28.0-33.3) pg MCHC (31.6-35.5) g/dL RDW (11.5-14.5) % Plt Count (140-400) K/mcL MPV (9.4-12.4) fL Immature Gran % (0-4) % Seg Neutrophils % % Lymphocytes % % Monocytes % % Eosinophils % % Basophils % % Neutrophils # (1.6-8.9) K/mcL Lymphocytes # (0.6-4.6) K/mcL Monocytes # (0.0-1.3) K/mcL Eosinophils # (0.0-0.6) K/mcL Basophils # (0.0-0.2) K/mcL Nucleated RBCs/100 WBC (0) /100 WBC PT (9.4-12.1) Seconds INR Sodium (136-145) mEq/L Potassium (3.5-5.1) mEq/L Chloride (98-107) mEq/L Carbon Dioxide (23-29) mEq/L BUN (8-23) mg/dL Creatinine (0.70-1.30) mg/dL Est GFR ( Amer) (> 60) Est GFR (Non-Af Amer) (> 60) BUN/Creatinine Ratio (6-26) Glucose (70-105) mg/dL Calculated Osmolality (280-300) Lactic Acid 2.1 (0.5-2.2) mmol/L Calcium (8.6-10.3) mg/dL Magnesium (1.6-2.6) mg/dL Total Bilirubin (0.3-1.0) mg/dL AST (13-39) Units/L ALT (7-52) Units/L Alkaline Phosphatase (34-104) Units/L Troponin I (< 0.04) ng/mL C-Reactive Protein (Less than 10) mg/L Serum Total Protein (6.4-8.9) g/dL Albumin (3.5-5.7) g/dL Globulin (2.4-3.5) g/dL Albumin/Globulin Ratio (1.1-2.2) - Radiology Data Radiology results reviewed: Yes I reviewed the patient's radiology results.
[2019-02-12 12:03] LABS: Basophils % 0.2 %; Mean Platelet Volume 10.6 fL (9.4-12.4); Red Cell Distribution Width 15.6 % (11.5-14.5)
[2019-02-12 12:04] LABS: Eosinophils # 0.1 K/mcL (0.0-0.6); Eosinophils % 1.5 %; Hematocrit 19.1 % (37.5-50.1); Immature Granulocytes % 0.2 % (0-4); Lymphocytes # 0.6 K/mcL (0.6-4.6); Lymphocytes % 7.9 %; Mean Corpuscular HGB Conc 31.4 g/dL (31.6-35.5); Mean Corpuscular Hemoglobin 25.8 pg (28.0-33.3); Monocytes # 0.6 K/mcL (0.0-1.3); Monocytes % 7.7 %; Neutrophils # 6.7 K/mcL (1.6-8.9); Nucleated Red Blood Cells 0.2 /100 WBC (0); Platelet Count 332 K/mcL (140-400); Red Blood Count 2.33 M/mcL (4.19-5.50); Segmented Neutrophils % 82.5 %
[2019-02-12 12:12] LABS: INR 2.9; Prothrombin Time 32.6 Seconds (9.4-12.1)
[2019-02-12 12:28] LABS: Albumin 3.5 g/dL (3.5-5.7); Albumin/Globulin Ratio 1.5 (1.1-2.2); Bilirubin,Total 0.8 mg/dL (0.3-1.0); Calcium 8.5 mg/dL (8.6-10.3); Globulin 2.4 g/dL (2.4-3.5); Magnesium 1.5 mg/dL (1.6-2.6); Potassium 3.2 mEq/L (3.5-5.1); Total Protein 5.9 g/dL (6.4-8.9); Troponin I 0.46 ng/mL (< 0.04)
[2019-02-12] MEDS ORDERED: *HR* Phytonadione 5 MG TABLET PO ONE (12:48)
[2019-02-12 13:12] LABS: Thyroid Stimulating Hormone 0.801 mcIU/mL (0.340-5.600)
--- NOTE | 2019-02-12 13:19 | Internal Med History&Physical ---
Date of Encounter: 02/12/19 Time of Encounter: 14:30 Internal Medicine - H&P: HPI Chief complaint: Generalized weakness, increased somnolence Admitted From: Emergency Dept Plans for Post Hospital Care: Home History of present illness: Mr. Good is a 73 year old male patient with a history of atrial fibrillation on chronic warfarin therapy for anticoagulation who was brought into the ER with complaints of increased generalized weakness and somnolence. Family present at bedside. They state that the patient has been feeling very weak for the past couple of weeks. He has had increasing shortness of breath and has not been able to ambulate even for short distances without taking. He denies any chest pain or palpitations. He reports that he had dark colored stools about a week back. He denies any nausea or vomiting. No fevers or chills. No cough or chest pain at this time. He had a cardiac stress test last month which did not show any reversible ischemia. He denies any hematochezia. Past Med Surg Social Fam HX - Past Medical History Attestation: Yes The following information was validated with the patient. Source: patient Medical history: GI bleed, other Additional medical history: sinusitis,acute,bronchitis,abdominal pain,meniscal tear,cough,snoring,joint pain/ankle and foot,leg/knee pain,sleep apnea,hyperglycemia,ischemic cardiomypathy, Psychiatric history: depression - Social History Smoking Status: Never smoker Smokeless Tobacco Status: No Alcohol use: none Drug use: none - Family History Mother History Unknown: Yes - Additional Family History Additional family history: Family history reviewed and found to be no ncontributory at this time Internal Medicine - H&P: Meds Aspirin [Lo-Dose Aspirin EC] 81 mg PO DAILY 12/13/16 [History] Losartan [Cozaar] 25 mg PO DAILY 12/13/16 [History] Terazosin [Hytrin] 5 mg PO HS 12/13/16 [History] metFORMIN [Glucophage] 500 mg PO QAM 12/13/16 [History] Multivitamin [Multi-Day Vitamins] 1 each PO DAILY 05/17/17 [History] Cyanocobalamin (Vitamin B-12) [Vitamin B12] 1,000 mcg PO DAILY #30 tab 06/23/17 [Rx] Carvedilol 12.5 mg PO BID 10/30/17 [History] Furosemide [Lasix] 40 mg PO DAILY 09/04/17 [History] Warfarin [Coumadin] 5 mg PO 1800 09/04/17 [History] metFORMIN [Glucophage] 1,000 mg PO QPM 09/04/17 [History] Escitalopram [Lexapro] 20 mg PO DAILY 02/12/19 [History] Allergy/AdvReac Type Severity Reaction Status Date / Time sotalol [From Betapace] AdvReac See Verified 02/12/19 11:06 Comments All Systems PM: A 10-system review of systems was performed and is negative for pertinent findings except as documented above in the HPI. - Constitutional Constitutional: malaise, weakness, no chills, no fever(s), no night sweats - EENT Eyes: no change in vision, no discharge, no pain, no photophobia Ears: no ear discharge, no ear pain, no tinnitus Nose, mouth and throat: no dysphagia, no nasal discharge, no neck pain, no sore throat - Cardiovascular Cardiovascular ROS IM: no chest pain, no diaphoresis, no dyspnea, no lightheadedness, no palpitations, no syncope - Respiratory Respiratory: no cough, no dyspnea, no wheezing, no excessive phlegm production - Gastrointestinal Gastrointestinal: melena, no abdominal pain, no diarrhea, no hematemesis, no hematochezia, no nausea, no vomiting - Musculoskeletal Musculoskeletal ROS IM: no numbness, no tingling - Integumentary Integumentary IM: no rash, no unusual bruising - Neurological Neurological ROS: no confusion, no convulsions, no focal weakness, no numbness, no tingling, no tremor(s) - Hematologic/Lymphatic Hematologic/Lymphatic: no easy bruising - Constitutional Vitals: Temp Pulse Resp BP Pulse Ox 97.4 F L 74 16 134/76 99 02/12/19 11:06 02/12/19 13:00 02/12/19 13:00 02/12/19 13:00 02/12/19 13:00 General appearance: Present: cooperative, A&O X 3, pleasant, answers questions appropriately Exam: General: Patient is alert, mild distress, oriented x 3 Head: atraumatic, normocephalic, ENT: Mucous membranes moist Eye: normal appearance, PERRL, no scleral icterus, no conjunctival injection, has conjunctival pallor Neck: normal inspection, trachea midline, full ROM, no carotid bruits Chest: normal inspection, symmetric chest rise Respiratory: Good respiratory effort. Normal breath sounds. No wheezing or crackles. Cardiovascular: Regular rate and rhythm. s1 and s2 normal No clicks, rubs, gallops, or murmurs. No pedal edema Abdomen: Abdomen is soft, nontender. Bowel sounds are present Musculoskeletal: Spontaneously moving all extremities Skin: warm, dry, intact. Pallor present Neuro: Alert oriented x 3 normal cranial nerves, no focal deficits Psych: Patient's affect is normal Internal Med - H&P Results - Labs CBC & Chem 7: 02/12/19 11:43 02/12/19 11:43 Labs: Short CBC 02/12/19 Range/Units 11:43 WBC 8.1 (4.3-11.1) K/mcL Hgb 6.0 L* (12.9-16.9) g/dL Hct 19.1 L (37.5-50.1) % Plt Count 332 (140-400) K/mcL Neutrophils # 6.7 (1.6-8.9) K/mcL BMP 02/12/19 11:43 Sodium 138 Potassium 3.2 L Chloride 100 Carbon Dioxide 27 BUN 21 Creatinine 1.43 H Glucose 309 H Calcium 8.5 L Cardiac Enzymes 02/12/19 Range/Units 11:43 Troponin I 0.46 H* (< 0.04) ng/mL Liver Function 02/12/19 Range/Units 11:43 Total Bilirubin 0.8 (0.3-1.0) mg/dL AST 10 L (13-39) Units/L ALT 13 (7-52) Units/L Alkaline Phosphatase 72 (34-104) Units/L Albumin 3.5 (3.5-5.7) g/dL - EKG Data -: EKG Interpreted by Myself - EKG Data EKG comments: 02/12/19 13:19 Atrial fibrillation with repolarization abnormality - Impressions ITS Impressions Chest X-Ray 02/12/19 11:22 IMPRESSION: No acute cardiopulmonary abnormality. D/ / Araseli Quezada MD / Araseli Quezada MD Interpreting Provider: Araseli Quezada MD Head CT 02/12/19 12:09 IMPRESSION: 1. No acute intracranial abnormality. 2. Diffuse cerebral atrophy with chronic small vessel ischemic disease. D/ / Valentin Palm MD / Valentin Palm MD Interpreting Provider: Valentin Palm MD - Assessment and Plan (1) Acute blood loss anemia Current Visit: Yes Status: Acute Assessment and plan: Patient has severe anemia with hemoglobin of 6. Will transfuse 1 unit PRBC. At high risk for complications given his prolonged INR. He received vitamin K in the ER. Will follow hemoglobin levels and check INR again later. Possible GI source of bleeding. Consult to GI. Will keep patient only on clears for now. IV PPI twice a day. Possible EGD and colonoscopy once INR at 1.5. (2) Afib Current Visit: Yes Status: Chronic Assessment and plan: Patient with chronic A. fib. Rate controlled. Hold Coumadin due to acute blood loss anemia Qualifiers: Atrial fibrillation type: chronic Qualified Code(s): I48.2 - Chronic atrial fibrillation (3) CAD (coronary artery disease) Current Visit: Yes Status: Chronic Assessment and plan: Patient on aspirin, losartan and carvedilol at home. We will hold aspirin for now. If no active bleeding and hemoglobin levels stable, may resume it at discharge. Qualifiers: Coronary Disease-Associated Artery/Lesion type: [place] artery [place] vs. transplanted heart: [place] heart Associated angina: without angina Qualified Code(s): I25.10 - Atherosclerotic heart disease of [place] coronary artery without angina pectoris (4) Chronic kidney disease Current Visit: Yes Status: Chronic Assessment and plan: Patient with chronic kidney disease stage III. Creatinine 1.43. Will monitor renal function. Baseline appears to be between 1.1 and 1.7 Qualifiers: Chronic kidney disease stage: stage 3 (moderate) Qualified Code(s): N18.3 - Chronic kidney disease, stage 3 (moderate) (5) Diabetes mellitus Current Visit: Yes Status: Chronic Assessment and plan: Sugars are elevated. Will place patient on sliding scale insulin coverage. Diabetic diet when patient is able to eat. Qualifiers: Diabetes mellitus type: type 2 Diabetes mellitus detention insulin use: without detention use Diabetes mellitus complication status: with hyperglycemia Qualified Code(s): E11.65 - Type 2 diabetes mellitus with hyperglycemia - Time Spent With Patient Total time spent is greater than 50% in coordination of care (as documented) at patient's floor/unit and/or counseling patient:
[2019-02-12 13:53] LABS: Bilirubin,Urine Negative (Negative); Blood,Urine Negative (Negative); Clarity,Urine Clear (Clear); Color,Urine Yellow (Yellow); Glucose,Urine (UA) Normal (Normal); Ketones,Urine Negative (Negative); Leukocyte Esterase,Urine Negative (Negative); Nitrite,Urine Negative (Negative); PH,Urine 5.5 pH Units (5.0-8.0); Protein,Urine Negative (Neg-Trace); Specific Gravity,Urine 1.013 (1.010-1.025); Urobilinogen,Urine Normal (Normal)
[2019-02-12] MEDS: Pantoprazole 40 MG VIAL IVP SCH ×2 (14:01→16:15)
[2019-02-12] MEDS ORDERED: Naloxone 0.4 MG/ML INJ IVP PRN (14:13)
[2019-02-12] MEDS ORDERED: 0.9 % Sodium Chloride 250 ML ONE ×2 (14:14→20:00)
[2019-02-12] MEDS ORDERED: D5% in Water 1,000 ML IVC PRN (15:06)
[2019-02-12] MEDS ORDERED: *HR* Dextrose 50 % in Water (Syg) 50 ML SYRINGE IVP PRN (15:06)
[2019-02-12] MEDS ORDERED: Dextrose Gel 15 GM/37.5 ML TUBE PO PRN ×2 (15:06)
[2019-02-12] MEDS: Insulin LISPRO 300 UNITS/3 ML VIAL SQ SCH ×2 (16:15→20:13)
--- NOTE | 2019-02-12 17:13 | Electrocardiograph Report ---
[address] [address] Test Date: 2019-02-12 Pat Name: Indra Stone Department: [id number] Room: 2A23 Gender: M Transportation Attendant: : 1945 Requested By: oRge Mtz Order Number: [id number] Reading MD: Tuan Paul Measurements Intervals [place] Rate: 83 P: [place]: QRS: 22 QRSD: 105 T: 218 QT: 403 QTc: 474 Interpretive Statements Atrial fibrillation Nonspecific ST-T abnormalities Electronically Signed On 02-12-2019 17:12:10 EDT by Tuan Paul
[2019-02-12 18:17] LABS: Hematocrit 21.4 % (37.5-50.1); Hemoglobin 6.8 g/dL (12.9-16.9)
[2019-02-12 18:38] LABS: Estimated Average Glucose 180 mg/dl; Hemoglobin A1C 7.9 %
[2019-02-12] MEDS ORDERED: Perflutren Lipid Microsphere 1.3 ML in 0.9 % Sodium Chloride 8.7 ML IVP ONE (19:45)
[2019-02-13 04:55] LABS: Basophils % 0.5 %; Eosinophils # 0.2 K/mcL (0.0-0.6); Eosinophils % 2.4 %; Hemoglobin 6.8 g/dL (12.9-16.9); Immature Granulocytes % 0.3 % (0-4); Lymphocytes # 1.3 K/mcL (0.6-4.6); Lymphocytes % 21.7 %; Mean Corpuscular HGB Conc 32.4 g/dL (31.6-35.5); Mean Corpuscular Hemoglobin 26.9 pg (28.0-33.3); Mean Platelet Volume 10.5 fL (9.4-12.4); Monocytes # 0.7 K/mcL (0.0-1.3); Monocytes % 10.8 %; Neutrophils # 3.9 K/mcL (1.6-8.9); Platelet Count 305 K/mcL (140-400); Red Blood Count 2.53 M/mcL (4.19-5.50); Segmented Neutrophils % 64.3 %
[2019-02-13 05:00] LABS: INR 2.7; Prothrombin Time 30.2 Seconds (9.4-12.1)
[2019-02-13 05:10] LABS: BUN/Creatinine Ratio 15 (6-26); Blood Urea Nitrogen 20 mg/dL (8-23); Carbon Dioxide 29 mEq/L (23-29); Chloride 100 mEq/L (98-107); Potassium 2.8 mEq/L (3.5-5.1); Sodium 139 mEq/L (136-145)
[2019-02-13 05:11] LABS: Calcium 8.2 mg/dL (8.6-10.3); Glucose 119 mg/dL (70-105); Osmolality,Calculated 292 (280-300); eGFR For Non-African Americans 53 (> 60)
[2019-02-13] MEDS: Pantoprazole 40 MG VIAL IVP SCH ×2 (06:13→16:14)
[2019-02-13] MEDS ORDERED: Potassium Chloride 40 MEQ, Lidocaine 1% 2 ML in D5% in Water 500 ML IVPB ONE (07:22)
[2019-02-13] MEDS: Insulin LISPRO 300 UNITS/3 ML VIAL SQ SCH ×4 (07:27→20:59)
[2019-02-13] MEDS: Cyanocobalamin (B-12) 1,000 MCG TABLET PO SCH (07:29)
[2019-02-13] MEDS: Multivit/Ca/Min/Fe/FA 1 TAB TABLET PO SCH (07:29)
[2019-02-13 07:55] LABS: Hematocrit 21.4 % (37.5-50.1)
[2019-02-13] MEDS ORDERED: 0.9 % Sodium Chloride 250 ML ONE (11:17)
--- NOTE | 2019-02-13 12:21 | Gastroenterology Consult Note ---
<Ace Watson - Last Filed: 02/13/19 12:19> Date of Encounter: 02/13/19 Time of Encounter: 09:35 - Assessment and plan (1) Anemia Current Visit: Yes Status: Acute Assessment and plan: On admission Hgb 6 with MCV 82 and INR 2.9. Patient received 2 units PRBC and Vitamin K 5mg. This AM Hgb 7 and INR 2.7. Continue to monitor CBC and transfuse PRBC as needed. Plan for EGD to r/o esophagitis, gastritis, duodenitis, PUD, MW tear, or AVM once INR less than 1.5. Qualifiers: Anemia type: unspecified type Qualified Code(s): D64.9 - Anemia, unspecified (2) Elevated INR Current Visit: Yes Status: Acute Assessment and plan: INR 2.9 on admission. Vitamin K 5mg given. INR 2.7 today. Need INR less than 1.5 for EGD. Recommend Vitamin K 10 mg IV. Consider FFP. (3) Elevated troponin Current Visit: Yes Status: Acute Assessment and plan: Troponin elevated 0.46 and 0.45. Recommend cardiac clearance prior to EGD. - Time Spent With Patient Total time spent is greater than 50% in coordination of care (as documented) at patient's floor/unit and/or counseling patient: GI History of Present Illness - Data of Consult Patient: new to practice Consult date: 02/13/19 Requesting Physician: Anitha Hercules - Consult Narrative Reason for consult: Anemia History of present illness: Mr. Good is a 73 year old male with PMHx of Afib on Coumadin who was admitted with weakness, somnolence, elevated troponin and anemia. He reports fatigue and shortness of breath with minimal exertion. We were consulted to evaluate his anemia. On admission Hgb 6 with MCV 82 and INR 2.9. Patient received 2 units PRBC and Vitamin K 5mg, and this AM Hgb 7 and INR 2.7. Patient reports dark stools at home for the past week. He denies any hematochezia. Procedures: No record NSAIDs: ASA Anticoagulation: Coumadin Past Med Surg Social Fam HX - Past Medical History Medical history: GI bleed, other Additional medical history: sinusitis,acute,bronchitis,abdominal pain,meniscal tear,cough,snoring,joint pain/ankle and foot,leg/knee pain,sleep apnea,hyperglycemia,ischemic cardiomypathy, Psychiatric history: depression - Social History Smoking Status: Never smoker Smokeless Tobacco Status: No Alcohol use: none Drug use: none - Family History Mother History Unknown: Yes - Gastrointestinal Gastrointestinal: Present: as per HPI - Constitutional Constitutional: as per HPI - EENT Eyes: as per HPI Ears: Present: as per HPI Nose, mouth and throat: Present: as per HPI - Cardiovascular Cardiovascular ROS: Present: as per HPI - Respiratory Respiratory IM: Present: as per HPI - Genitourinary Genitourinary: Absent: change in color, Urinary frequency - Neurological ROS Neurological GI: Present: as per HPI - Hematologic/Lymphatic Hematologic/Lymphatic pediatric: Present: as per HPI - Musculoskeletal Musculoskeletal ROS GI: Present: as per HPI - Integumentary Integumentary GI: Present: as per HPI - Psychiatric ROS Psychiatric GI: Present: as per HPI - Endocrine Endocrine IM: Present: as per HPI - Constitutional Vitals: Temp Pulse Resp BP Pulse Ox 98.8 F 71 17 154/93 93 02/13/19 11:12 02/13/19 11:12 02/13/19 11:12 02/13/19 11:12 02/13/19 11:12 General appearance: Present: cooperative, A&O X 3, no acute distress, answers questions appropriately - Head Head exam: Present: atraumatic, normocephalic - Eye Eye exam: Present: normal appearance, sclera anicteric - ENT ENT exam: Present: mucous membranes dry - Neck Neck exam general surgery: Present: normal inspection, trachea midline - Respiratory Respiratory exam: Present: CTAB. Absent: rales, rhonchi, wheezes - Cardiovascular Cardiovascular exam: Present: RRR, +S1, +S2 - GI/Abdominal GI/Abdominal exam: Present: soft, no peritoneal signs. Absent: distended, firm, guarding, tenderness - Rectal Rectal exam: Present: deferred - Extremities Exam Extremities exam: Present: warm - Neurological Exam Neurological exam: Present: no focal deficits - Psychiatric Psychiatric exam: Present: normal affect, normal mood - Skin Skin exam: Present: dry, intact, normal color, warm Results - Labs CBC & Chem 7: 02/13/19 07:40 02/13/19 04:13 Labs: Last Result Calcium 8.2 mg/dL (8.6-10.3) L 02/13/19 04:13 Troponin I 0.45 ng/mL (< 0.04) H* 02/12/19 17:52 C-Reactive Protein 42 mg/L (Less than 10) H 02/12/19 11:43 Entire Visit Hgb 7.0 g/dL (12.9-16.9) L 02/13/19 07:40 Hct 21.4 % (37.5-50.1) L 02/13/19 07:40 PT 30.2 Seconds (9.4-12.1) H 02/13/19 04:13 Total Bilirubin 0.8 mg/dL (0.3-1.0) 02/12/19 11:43 AST 10 Units/L (13-39) L 02/12/19 11:43 ALT 13 Units/L (7-52) 02/12/19 11:43 - ABG ABG results: PT/INR, D-dimer PT 30.2 Seconds (9.4-12.1) H 02/13/19 04:13 - Impressions Impressions Head CT 02/12/19 12:09 IMPRESSION: 1. No acute intracranial abnormality. 2. Diffuse cerebral atrophy with chronic small vessel ischemic disease. D/ / Valentin Palm MD / Valentin Palm MD Interpreting Provider: Valentin Palm MD Consult Discharge Plan - Plan Referrals: Russel Felipe Jr, MD [Primary Care Provider] - <Nazario Resendiz - Last Filed: 02/18/19 06:31> Date of Encounter: 02/13/19 - Time Spent With Patient Total time spent is greater than 50% in coordination of care (as documented) at patient's floor/unit and/or counseling patient: GI History of Present Illness - Data of Consult Requesting Physician: Anitha Hercules - Consult Narrative History of present illness: Mr. Good is a 73 year old male - Constitutional Vitals: Temp Pulse Resp BP Pulse Ox 98.3 F 67 16 161/84 95 02/18/19 04:33 02/18/19 04:33 02/18/19 04:33 02/18/19 04:33 02/18/19 04:33 Results - Labs CBC & Chem 7: 02/18/19 05:16 02/17/19 06:20 Labs: Last Result Calcium 8.6 mg/dL (8.6-10.3) 02/17/19 06:20 Troponin I 0.48 ng/mL (< 0.04) H* 02/13/19 04:13 C-Reactive Protein 42 mg/L (Less than 10) H 02/12/19 11:43 Entire Visit Hgb 7.9 g/dL (12.9-16.9) L 02/18/19 05:16 Hct 24.5 % (37.5-50.1) L 02/18/19 05:16 PT 19.0 Seconds (9.4-12.1) H 02/17/19 06:20 Total Bilirubin 0.8 mg/dL (0.3-1.0) 02/12/19 11:43 AST 10 Units/L (13-39) L 02/12/19 11:43 ALT 13 Units/L (7-52) 02/12/19 11:43 - ABG ABG results: PT/INR, D-dimer PT 19.0 Seconds (9.4-12.1) H 02/17/19 06:20 - Attending Attestation Agree. Plan EGD I have personally performed a face to face evaluation on this patient. I have reviewed and agree with the care plan. History and Exam by me shows:
[2019-02-13 12:23] LABS: Troponin I 0.48 ng/mL (< 0.04)
--- NOTE | 2019-02-13 12:38 | Internal Med Progress Note ---
Hospitalist Progress Note - Encounter Date of Encounter: 02/13/19 Time of Encounter: 12:36 - Subjective Interval History: Patient lying comfortably on bed. Had 2 unit blood transfusion. Review of the lab with no significant improvement in hemoglobin patient denies fever chills nausea vomiting headache dizziness chest pain short of breath urinary complaint. no active bleeding. - Exam Vitals: Temp Pulse Resp BP Pulse Ox 98.8 F 71 17 154/93 93 02/13/19 11:12 02/13/19 11:12 02/13/19 11:12 02/13/19 11:12 02/13/19 11:12 Exam: General: No acute distress Head: atraumatic, normocephalic, ENT: Mucous membranes moist Eye: PERRLA EOMI Neck: normal inspection, trachea midline, full ROM, no carotid bruits Chest: normal inspection, symmetric chest rise Respiratory: Good respiratory effort. Normal breath sounds. No wheezing or crackles. Cardiovascular: Regular rate and rhythm. s1 and s2 normal no heart murmur No pedal edema Abdomen: Abdomen is soft, nontender. Bowel sounds are present Musculoskeletal: Spontaneously moving all extremities Skin: warm, dry, intact. Pallor present Neuro: Alert oriented x 3 normal cranial nerves, no focal neurological deficits Psych: Patient's affect is normal - Assessment and Plan (1) Acute blood loss anemia Current Visit: Yes Status: Acute Assessment and Plan: Patient has severe anemia with hemoglobin of 6. Had 2 unit PRBC since admission and now hemoglobin 7.0. Third unit of PRC ordered. Stool occult positive. Consulted GI specialist and plan for upper GI endoscopy possibly tomorrow if INR around 1.5. Keep patient nothing by mouth. IV PPI twice daily. Hold warfarin and aspirin for now (2) Elevated troponin Current Visit: Yes Status: Acute Assessment and Plan: History of CAD. Trending up troponin. Could be due to demand ischemia. Echocardiogram ordered. Consulted planning manager and will follow his further recommendation. No active chest pain at this time. (3) Afib Current Visit: Yes Status: Chronic Assessment and Plan: Patient with chronic A. fib. Rate controlled. Hold Coumadin due to acute blood loss anemia. Monitor INR. (4) Diabetes mellitus Current Visit: Yes Status: Chronic Assessment and Plan: Better blood glucose level control. Continue sliding scale insulin. Diabetic diet when able to eat. Nothing by mouth right now . (5) Chronic kidney disease Current Visit: Yes Status: Chronic Assessment and Plan: Acute on CK D. Trending down creatinine level. Avoid nephrotoxic drug. Monitor BMP. Patient with chronic kidney disease stage III. Creatinine 1.43 on admission. (6) CAD (coronary artery disease) Current Visit: Yes Status: Chronic Assessment and Plan: Patient on aspirin, losartan and carvedilol at home. We will hold aspirin for now due to acute blood loss anemia. (7) Electrolyte imbalance Current Visit: Yes Status: Acute Assessment and Plan: Low potassium and magnesium. Replacement and close monitoring. (8) DVT prophylaxis Current Visit: Yes Status: Acute - Time Spent with Patient Total time spent is greater than 50% in coordination of care (as documented) at patient's floor/unit and/or counseling patient: 25 - 35 minutes Plan of Care Discussed with: patient Internal Medicine: Result - Labs CBC & Chem 7: 02/13/19 07:40 02/13/19 04:13 Labs: Short CBC 02/12/19 02/13/19 02/13/19 Range/Units 17:52 04:13 07:40 WBC 6.1 (4.3-11.1) K/mcL Hgb 6.8 L 6.8 L 7.0 L (12.9-16.9) g/dL Hct 21.4 L 21.0 L 21.4 L (37.5-50.1) % Plt Count 305 (140-400) K/mcL Neutrophils # 3.9 (1.6-8.9) K/mcL BMP 02/13/19 04:13 Sodium 139 Potassium 2.8 L Chloride 100 Carbon Dioxide 29 BUN 20 Creatinine 1.32 H Glucose 119 H Calcium 8.2 L Cardiac Enzymes 02/12/19 02/13/19 Range/Units 17:52 04:13 Troponin I 0.45 H* 0.48 H* (< 0.04) ng/mL Urine 02/12/19 Range/Units 13:43 Urine Color Yellow (Yellow) Urine Clarity Clear (Clear) Urine pH 5.5 (5.0-8.0) pH Units Ur Specific [place] 1.013 (1.010-1.025) Urine Protein Negative (Neg-Trace) mg/dL Urine Glucose (UA) Normal (Normal) mg/dL - ABG Interpretation ABG results: PT/INR, D-dimer PT 30.2 Seconds (9.4-12.1) H 02/13/19 04:13 - Impressions Impressions Head CT 02/12/19 12:09 IMPRESSION: 1. No acute intracranial abnormality. 2. Diffuse cerebral atrophy with chronic small vessel ischemic disease. D/ / Valentin Palm MD / Valentin Palm MD Interpreting Provider: Valentin Palm MD Consult Discharge Plan - Plan Referrals: Russel Felipe Jr, MD [Primary Care Provider] - (3) Afib Qualifiers: Atrial fibrillation type: chronic Qualified Code(s): I48.2 - Chronic atrial fibrillation (4) Diabetes mellitus Qualifiers: Diabetes mellitus type: type 2 Diabetes mellitus outsole skiver insulin use: without outsole skiver use Diabetes mellitus complication status: with hyperglycemia Qualified Code(s): E11.65 - Type 2 diabetes mellitus with hyperglycemia (5) Chronic kidney disease Qualifiers: Chronic kidney disease stage: stage 3 (moderate) Qualified Code(s): N18.3 - Chronic kidney disease, stage 3 (moderate) (6) CAD (coronary artery disease) Qualifiers: Coronary Disease-Associated Artery/Lesion type: [place] artery [place] vs. transplanted heart: [place] heart Associated angina: without angina Qualified Code(s): I25.10 - Atherosclerotic heart disease of [place] coronary artery w ithout angina pectoris
[2019-02-13 14:17] LABS: Hematocrit 24.1 % (37.5-50.1); Hemoglobin 7.7 g/dL (12.9-16.9)
[2019-02-13 14:22] LABS: BUN/Creatinine Ratio 14 (6-26); Blood Urea Nitrogen 18 mg/dL (8-23); Calcium 8.8 mg/dL (8.6-10.3); Carbon Dioxide 28 mEq/L (23-29); Chloride 98 mEq/L (98-107); Glucose 208 mg/dL (70-105); Magnesium 1.9 mg/dL (1.6-2.6); Osmolality,Calculated 294 (280-300); Potassium 3.3 mEq/L (3.5-5.1); Sodium 138 mEq/L (136-145); eGFR For Non-African Americans 55 (> 60)
--- NOTE | 2019-02-13 15:23 | Cardiology Consult Note ---
<Arnulfo Vázquez Shai - Last Filed: 02/13/19 15:33> Date of Encounter: 02/13/19 Time of Encounter: 15:20 Assessment and Plan (1) Elevated troponin Current Visit: Yes Status: Acute Troponin 0.46, 0.45, 0.48--flat and adynamic in setting of GI bleed, HGB 6.0, hemocccult positive. Suspect demand ischemia, nondiagnostic for ACS. Hx CABG and PCI. Nuclear stress test 01/2019 evidence of prior infarct, negative for ischemia. TTE 02/12/19 EF 50%, mid inferior and basal inferior merino hypokinetic. TTE reviewed from 01/2019 EF 50% and these wall motion abnormalities were present then as well. Not a new finding. Recommend continue BB and will start Statin. Currently not on ASA d/t GI bleed. No further cardiac testing warranted. Anticipate sign off once seen and evaluated by Dr. Vengeas with outpt follow-up. (2) Afib Current Visit: Yes Status: Chronic Known A-Fib. Rate controlled on BB. Previously anticoagulated on Coumadin. INR 2.7. Presented with HGB 6.0 and hemoccult positive--being transfused. GI following. Coumadin has been stopped. Recommend 81mg ASA daily once okay with GI. Pt and verbalize understanding that pt is at increased CVA risk not on AC. Qualifiers: Atrial fibrillation type: chronic Qualified Code(s): I48.2 - Chronic atrial fibrillation (3) CAD (coronary artery disease) Current Visit: Yes Status: Chronic Hx CABG and PCI remotely. Continue BB. Start Statin. No ASA d/t GI bleed. Qualifiers: Coronary Disease-Associated Artery/Lesion type: [place] artery [place] vs. transplanted heart: [place] heart Associated angina: without angina Qualified Code(s): I25.10 - Atherosclerotic heart disease of [place] coronary artery without angina pectoris Discussion w patient/family: The assessment and plan as outlined above was discussed with the patient and/or family members who expressed understanding and agreement. All questions were answered. Thank you for involving us in the care of your patient. Please call with any questions. I will discuss all the above with Dr. Venegas and make changes as necessary. History of Present Illness Consult date: 02/13/19 Requesting physician: Oksana Gee Consult reason: elevated troponin Chief complaint: weakness History of present illness: Mr. Good is a 73 year old male with PMH of atrial fibrillation on Coumadin, CAD s/p CABG and PCI, PPM that was brought into the ER with complaints of increased generalized weakness and somnolence. Family present at bedside. They state that the patient has been feeling very weak for the past couple of weeks. He has had increasing shortness of breath and chest pressure and has not been able to ambulate even for short distances without taking breaks. He reports that he had dark colored stools about a week back. HGB found to be 6.0 with hemoccult positive. GI following. Troponin 0.46, 0.45, 0.48. Cardiology consulted for further recs. Prior CV testing: Limited TTE 02/12/19: EF 50%, mild inferior and basal inferior merino hypokinetic. TTE 01/11/19 EF 50%. LVEF 50%. LV size upper limits of normal. Indeterminate diastolic function. Normal RV structure and function. Severely dilated left atrium. Mild prolapse of the anterior mitral valve leaflet. Mild-moderate somewhat eccentric mitral regurgitation. Mild TR. Mild ID. Borderline phtn. A d evice lead was visualized in the right atrium and right ventricle. Nuclear stress test 01/11/19: Negative for ischemia. Evidence of inferolateral infarct. Gated EF 47%. Past Med Surg Social Fam HX - Past Medical History Medical history: GI bleed, other Additional medical history: sinusitis,acute,bronchitis,abdominal pain,meniscal tear,cough,snoring,joint pain/ankle and foot,leg/knee pain,sleep apnea,hyperg lycemia,ischemic cardiomypathy, Psychiatric history: depression - Social History Smoking Status: Never smoker Smokeless Tobacco Status: No Alcohol use: none Drug use: none - Family History Mother History Unknown: Yes Medications and Allergies RX: Aspirin [Lo-Dose Aspirin EC] 81 mg PO DAILY 12/13/16 [History] RX: Losartan [Cozaar] 25 mg PO DAILY 12/13/16 [History] RX: Terazosin [Hytrin] 5 mg PO HS 12/13/16 [History] RX: metFORMIN [Glucophage] 500 mg PO QAM 12/13/16 [History] RX: Multivitamin [Multi-Day Vitamins] 1 each PO DAILY 05/17/17 [History] RX: Cyanocobalamin (Vitamin B-12) [Vitamin B12] 1,000 mcg PO DAILY #30 tab 06/23/17 [Rx] RX: Carvedilol 12.5 mg PO BID 09/04/17 [History] RX: Furosemide [Lasix] 40 mg PO DAILY 09/04/17 [History] RX: Warfarin [Coumadin] 5 mg PO 1800 09/04/17 [History] RX: metFORMIN [Glucophage] 1,000 mg PO QPM 09/04/17 [History] Escitalopram [Lexapro] 20 mg PO DAILY 02/12/19 [History] Allergy/AdvReac Type Severity Reaction Status Date / Time sotalol [From Betapace] AdvReac See Verified 02/12/19 11:06 Comments All Systems Review: The remainder of the systems were reviewed and are negative - Constitutional Constitutional: fatigue, weakness - Cardiovascular Cardiovascular: as per HPI, chest pain at rest, chest pain with exertion, dyspnea at rest, dyspnea on exertion - Respiratory Respiratory: dyspnea Physical Examination Vital Signs, Last 4 Hours Temp Pulse Resp BP Pulse Ox 02/13/19 14:09 99.2 F 73 18 129/71 99 02/13/19 14:06 98.1 F 71 18 130/76 99 Vital Signs Temp Pulse Resp BP Pulse Ox 02/13/19 14:09 99.2 F 73 18 129/71 99 02/13/19 14:06 98.1 F 71 18 130/76 99 02/13/19 11:12 98.8 F 71 17 154/93 93 02/13/19 07:29 98.9 F 73 16 139/74 94 02/13/19 03:52 98.6 F 62 17 116/65 93 02/12/19 23:13 98.6 F 86 18 127/72 02/12/19 20:20 98.5 F 70 18 154/70 02/12/19 20:17 97 02/12/19 20:05 98.5 F 75 18 132/79 02/12/19 18:53 97.8 F 82 16 116/70 97 02/12/19 17:09 98.5 F 69 14 132/73 98 02/12/19 16:10 98.2 F 80 18 128/77 97 Intake and Output 04/09/19 04/10/19 04/10/19 23:59 07:59 15:59 Intake Total 650 / 650 0 / 0 344 / 344 Output Total 200 / 200 300 / 300 200 / 200 Balance 450 / 450 -300 / -300 144 / 144 Intake: IV Fluids 104 / 104 Magnesium Sulfate 2 GM In 0.9 % 104 / 104 Sodium Chloride 100 ML @ 104 mls/hr IVPB ONCE ONE Rx#: [id number] Oral 0 / 0 0 / 0 240 / 240 Blood Product 650 / 650 0 / 0 Rbcs Leuko Poor As-1 Unit 350 / 350 [id number] Rbcs Leuko Poor As-1 Unit 0 / 0 [id number] Rbcs Leuko Poor As-3 Ph Unit 300 / 300 [id number] Output: Urine 200 / 200 300 / 300 200 / 200 Other: Meal Lunch Percent of Meal Consumed 20% # Voids 1 1 # Bowel Movements 1 Weight 102.1 kg Blood Glucose* 141 130 211 General: Conversant, No Apparent Distress HEENT: Atraumatic, Normocephaly, Mucus Membranes Moist Neck: No JVD, Normal carotid pulses Cardiac: Other (irregularly irregular) Lungs: Normal Breath Sounds, No Wheeze, Rales, Rhonchi Neuro: Alert and responsive, No focal deficits noted Abdomen: Soft, Non-Tender Skin: No rashes noted on visualized skin Musculoskeletal: No Chest Wall Tenderness Extremities: No Clubbing, No Cyanosis, No Edema, Normal Pulses Results 02/13/19 13:30 02/13/19 13:30 Lab Results 02/12/19 02/12/19 02/13/19 17:52 17:52 04:13 WBC 6.1 Hgb 6.8 L 6.8 L Hct 21.4 L 21.0 L Plt Count 305 INR Sodium Potassium Chloride Carbon Dioxide BUN Creatinine Glucose Calcium Magnesium Troponin I 0.45 H* 02/13/19 02/13/19 02/13/19 04:13 04:13 07:40 WBC Hgb 7.0 L Hct 21.4 L Plt Count INR 2.7 Sodium 139 Potassium 2.8 L Chloride 100 Carbon Dioxide 29 BUN 20 Creatinine 1.32 H Glucose 119 H Calcium 8.2 L Magnesium Troponin I 0.48 H* 02/13/19 02/13/19 13:30 13:30 WBC Hgb 7.7 L Hct 24.1 L Plt Count INR Sodium 138 Potassium 3.3 L Chloride 98 Carbon Dioxide 28 BUN 18 Creatinine 1.29 Glucose 208 H Calcium 8.8 Magnesium 1.9 Troponin I Short CBC 02/13/19 02/13/19 02/13/19 Range/Units 13:30 07:40 04:13 WBC 6.1 (4.3-11.1) K/mcL Hgb 7.7 L 7.0 L 6.8 L (12.9-16.9) g/dL Hct 24.1 L 21.4 L 21.0 L (37.5-50.1) % Plt Count 305 (140-400) K/mcL Neutrophils # 3.9 (1.6-8.9) K/mcL 02/12/19 Range/Units 17:52 WBC (4.3-11.1) K/mcL Hgb 6.8 L (12.9-16.9) g/dL Hct 21.4 L (37.5-50.1) % Plt Count (140-400) K/mcL Neutrophils # (1.6-8.9) K/mcL BMP 02/13/19 02/13/19 Range/Units 13:30 04:13 Sodium 138 139 (136-145) mEq/L Potassium 3.3 L 2.8 L (3.5-5.1) mEq/L Chloride 98 100 (98-107) mEq/L Carbon Dioxide 28 29 (23-29) mEq/L BUN 18 20 (8-23) mg/dL Creatinine 1.29 1.32 H (0.70-1.30) mg/dL Glucose 208 H 119 H (70-105) mg/dL Calcium 8.8 8.2 L (8.6-10.3) mg/dL Cardiac Enzymes 02/13/19 02/12/19 Range/Units 04:13 17:52 Troponin I 0.48 H* 0.45 H* (< 0.04) ng/mL Impressions Echocardiogram Limited Views 02/12/19 14:52 Impressions: LVEF 50%. Normal LV chamber size, wall thickness and overall function. Mild segmental left ventricular systolic dysfunction. Left Ventricular Wall Motion: Rest Echo Findings The mid inferior and basal inferior merino were hypokinetic. All other wall segments showed normal motion. Findings: Study Quality * Technically adequate exam. ECG Findings * Sinus rhythm with BBB. Left Ventricle * LVEF 50%. * Normal LV chamber size, wall thickness and overall function. * Mild segmental left ventricular systolic dysfunction. Right Ventricle * Normal right ventricular structure and function. Aorta * Normally sized aortic root. Pericardium * The pericardium appears normal. Active Medications Carvedilol (Coreg) 12.5 mg PO BIDWM [facility] Stop: 08/15/19 17:01 Cyanocobalamin (Vitamin B12) 1,000 mcg PO DAILY [facility] Stop: 08/15/19 09:01 Last Admin: 02/13/19 07:29 Dose: 1,000 mcg Dextrose/Water (Dextrose 50% (Syg)) 25 ml IVP AD PRN PRN Reason: Hypoglycemia Stop: 08/14/19 15:07 Escitalopram Oxalate (Lexapro) 20 mg PO DAILY [facility] Stop: 08/15/19 09:01 Last Admin: 02/13/19 07:29 Dose: 20 mg Glucagon (Glucagen) 1 mg IM ONCE PRN PRN Reason: Hypoglycemia Stop: 08/14/19 15:07 Glucose (Gluctose) 15 gm PO ONCE PRN PRN Reason: Hypoglycemia Stop: 08/14/19 15:07 Glucose (Gluctose) 30 gm PO ONCE PRN PRN Reason: Hypoglycemia Stop: 08/14/19 15:07 Dextrose (Dextrose 5%) 1,000 mls @ 100 mls/hr IVC .Q10H PRN PRN Reason: HYPOGLYCEMIA Stop: 08/14/19 15:07 Insulin Human Lispro (Humalog) 0 units SQ HS [facility]; Protocol Stop: 08/14/19 21:01 Last Admin: 02/12/19 20:13 Dose: 4 units Insulin Human Lispro (Humalog) 0 units SQ TIDAC [facility]; Protocol Stop: 08/14/19 16:31 Last Admin: 02/13/19 11:15 Dose: Not Given Multivitamins/Calcium (Thera M Plus) 1 tab PO DAILY [facility] Stop: 08/15/19 09:01 Last Admin: 02/13/19 07:29 Dose: 1 tab Naloxone HCl (Narcan) 0.4 mg IVP Q2M PRN PRN Reason: SEE COMMENTS Stop: 08/14/19 14:14 Pantoprazole Sodium (Protonix) 40 mg IVP Q12HR [facility] Stop: 08/14/19 13:18 Last Admin: 02/13/19 06:13 Dose: 40 mg Terazosin HCl (Hytrin) 5 mg PO HS [facility] Stop: 08/14/19 21:01 Last Admin: 02/12/19 20:09 Dose: 5 mg - Imaging and Cardiology Stress Test: report reviewed Echo: report reviewed - EKG Interpretation EKG results cardiology: personally reviewed (A-Fib), other (12 hr tele AVG HR 74, A-Fib) Consult Discharge Plan - Plan Referrals: Russel Felipe Jr, MD [Primary Care Provider] - <Azael Vengeas - Last Filed: 02/13/19 16:17> Date of Encounter: 02/13/19 - Attending Attestation I have personally performed a face to face evaluation on this patient. I have reviewed and agree with the care plan. History and Exam by me shows: 73-year-old male status post CABG late 90s status post-permanent pacemaker presents with HR in the 0.4, and 0.4. Vision has no chest pain however does have shortness of breath over the last few days noted to have black tarry stools found to have a hemoglobin of 6.0. Likely demand ischemia. Will obtain echocardiogram to evaluate for structural heart abnormalities as his baseline ejection fraction is 50%. Assessment and Plan Discussion w patient/family: The assessment and plan as outlined above was discussed with the patient and/or family members who expressed understanding and agreement. All questions were answered. Thank you for involving us in the care of your patient. Please call with any questions. History of Present Illness History of present illness: Mr. Good is a 73 year old male All Systems Review: The remainder of the systems were reviewed and are negative Physical Examination Vital Signs, Last 4 Hours Temp Pulse Resp BP Pulse Ox 02/13/19 15:46 97.7 F 69 18 152/91 96 02/13/19 14:09 99.2 F 73 18 129/71 99 02/13/19 14:06 98.1 F 71 18 130/76 99 Results 02/13/19 13:30 02/13/19 13:30 Lab Results 02/12/19 02/12/19 02/13/19 17:52 17:52 04:13 WBC 6.1 Hgb 6.8 L 6.8 L Hct 21.4 L 21.0 L Plt Count 305 INR Sodium Potassium Chloride Carbon Dioxide BUN Creatinine Glucose Calcium Magnesium Troponin I 0.45 H* 02/13/19 02/13/19 02/13/19 04:13 04:13 07:40 WBC Hgb 7.0 L Hct 21.4 L Plt Count INR 2.7 Sodium 139 Potassium 2.8 L Chloride 100 Carbon Dioxide 29 BUN 20 Creatinine 1.32 H Glucose 119 H Calcium 8.2 L Magnesium Troponin I 0.48 H* 02/13/19 02/13/19 13:30 13:30 WBC Hgb 7.7 L Hct 24.1 L Plt Count INR Sodium 138 Potassium 3.3 L Chloride 98 Carbon Dioxide 28 BUN 18 Creatinine 1.29 Glucose 208 H Calcium 8.8 Magnesium 1.9 Troponin I
[2019-02-13 19:25] LABS: Hematocrit 23.4 % (37.5-50.1); Hemoglobin 7.4 g/dL (12.9-16.9)
[2019-02-14] MEDS: Pantoprazole 40 MG VIAL IVP SCH ×2 (06:03→17:22)
[2019-02-14 06:20] LABS: Basophils % 0.3 %; Eosinophils # 0.2 K/mcL (0.0-0.6); Eosinophils % 3.5 %; Hematocrit 22.9 % (37.5-50.1); Hemoglobin 7.4 g/dL (12.9-16.9); Immature Granulocytes % 0.2 % (0-4); Lymphocytes # 1.2 K/mcL (0.6-4.6); Lymphocytes % 18.6 %; Mean Corpuscular HGB Conc 32.3 g/dL (31.6-35.5); Mean Corpuscular Hemoglobin 26.5 pg (28.0-33.3); Mean Corpuscular Volume 82.1 fL (83.0-100.0); Mean Platelet Volume 10.6 fL (9.4-12.4); Monocytes # 0.8 K/mcL (0.0-1.3); Neutrophils # 4.3 K/mcL (1.6-8.9); Platelet Count 296 K/mcL (140-400); Red Blood Count 2.79 M/mcL (4.19-5.50); Red Cell Distribution Width 15.1 % (11.5-14.5); Segmented Neutrophils % 65.4 %
[2019-02-14 06:42] LABS: BUN/Creatinine Ratio 12 (6-26); Blood Urea Nitrogen 15 mg/dL (8-23); Calcium 8.3 mg/dL (8.6-10.3); Carbon Dioxide 27 mEq/L (23-29); Chloride 100 mEq/L (98-107); Glucose 113 mg/dL (70-105); Magnesium 1.7 mg/dL (1.6-2.6); Osmolality,Calculated 286 (280-300); Potassium 3.1 mEq/L (3.5-5.1); Sodium 137 mEq/L (136-145); eGFR For Non-African Americans 59 (> 60)
[2019-02-14] MEDS ORDERED: Potassium Chloride 40 MEQ, Lidocaine 1% 2 ML in D5% in Water 500 ML IVPB ONE (07:12)
[2019-02-14] MEDS: Multivit/Ca/Min/Fe/FA 1 TAB TABLET PO SCH (07:43)
[2019-02-14] MEDS: Insulin LISPRO 300 UNITS/3 ML VIAL SQ SCH ×4 (08:39→21:42)
[2019-02-14] MEDS: Cyanocobalamin (B-12) 1,000 MCG TABLET PO SCH (09:03)
[2019-02-14 10:15] LABS: INR 1.9; Prothrombin Time 20.9 Seconds (9.4-12.1)
--- NOTE | 2019-02-14 13:24 | Internal Med Progress Note ---
Hospitalist Progress Note - Encounter Date of Encounter: 02/14/19 Time of Encounter: 13:21 - Subjective Interval History: Patient comfortably on bed. No bowel movement overnight. Only one bowel movement since admission. No active bleeding. Labs reviewed hemoglobin 7.4, INR 1.9, magnesium 1.7. Denies fever chills nausea vomiting chest pain short of breath - Exam Vitals: Temp Pulse Resp BP Pulse Ox 97.9 F 77 19 129/73 97 02/14/19 11:25 02/14/19 11:25 02/14/19 11:25 02/14/19 11:25 02/14/19 11:25 Exam: General: No acute distress ENT: Mucous membranes moist Eye: PERRLA EOMI Neck: supple Respiratory: CTAB. No wheezing or crackles. Cardiovascular: Regular rate and rhythm. s1 and s2 normal no heart murmur Abdomen: Abdomen is soft, mild diffuse tender. Bowel sounds are present Musculoskeletal: Spontaneously moving all extremities Skin: warm, dry, intact. Pallor present Neuro: Alert oriented x 3 normal cranial nerves, no focal neurological deficits Psych: Patient's affect is normal - Assessment and Plan (1) Acute blood loss anemia Current Visit: Yes Status: Acute Assessment and Plan: Patient has severe anemia with hemoglobin of 6. Had 3 unit PRBC since admission and now hemoglobin 7.4. Plan to transfuse 1 more unit of PRC today. Stool occult positive. Consulted GI specialist and plan for upper GI endoscopy possibly tomorrow if INR around 1.5. Keep patient nothing by mouth and continue IV fluid. Continue IV PPI twice daily. Hold warfarin and aspirin for now (2) Elevated troponin Current Visit: Yes Status: Acute Assessment and Plan: History of CAD status post CABG and PCI. Raised troponin but no chest pain. Nuclear stress test January 2019 with evidence of prior infarct negative for ischemia. Echocardiogram EF 50%, mild inferior and basal inferior merino hypokinetic. Not new finding. Lens Coater consulted and recommended to continue beta ct and a statin. Aspirin on hold due to GI bleed. No further cardiac workup and cardiology signed off. (3) Afib Current Visit: Yes Status: Chronic Assessment and Plan: Patient with chronic A. fib. Rate controlled. Hold Coumadin due to acute blood loss anemia. Monitor INR. (4) Diabetes mellitus Current Visit: Yes Status: Chronic Assessment and Plan: Better blood glucose level control. Continue sliding scale insulin. Diabetic diet when able to eat. Nothing by mouth right now . (5) Chronic kidney disease Current Visit: Yes Status: Chronic Assessment and Plan: Acute on CK D. Trending down creatinine level. Normal creatinine level now. Avoid nephrotoxic drug. Monitor BMP. Patient with chronic kidney disease stage III. Creatinine 1.43 on admission. (6) CAD (coronary artery disease) Current Visit: Yes Status: Chronic Assessment and Plan: Patient on aspirin, losartan and carvedilol at home. We will hold aspirin for now due to acute blood loss anemia. (7) Electrolyte imbalance Current Visit: Yes Status: Acute Assessment and Plan: Low potassium and magnesium. Replacement and close monitoring. (8) DVT prophylaxis Current Visit: Yes Status: Acute Assessment and Plan: SCDs - Time Spent with Patient Total time spent is greater than 50% in coordination of care (as documented) at patient's floor/unit and/or counseling patient: 25 - 35 minutes Internal Medicine: Result - Labs CBC & Chem 7: 02/14/19 04:56 02/14/19 04:56 Labs: Short CBC 02/13/19 02/13/19 02/14/19 Range/Units 13:30 19:07 04:56 WBC 6.6 (4.3-11.1) K/mcL Hgb 7.7 L 7.4 L 7.4 L (12.9-16.9) g/dL Hct 24.1 L 23.4 L 22.9 L (37.5-50.1) % Plt Count 296 (140-400) K/mcL Neutrophils # 4.3 (1.6-8.9) K/mcL BMP 02/13/19 02/14/19 13:30 04:56 Sodium 138 137 Potassium 3.3 L 3.1 L Chloride 98 100 Carbon Dioxide 28 27 BUN 18 15 Creatinine 1.29 1.21 Glucose 208 H 113 H Calcium 8.8 8.3 L - ABG Interpretation ABG results: PT/INR, D-dimer PT 20.9 Seconds (9.4-12.1) H 02/14/19 09:21 Consult Discharge Plan - Plan Referrals: Russel Felipe Jr, MD [Primary Care Provider] - (3) Afib Qualifiers: Atrial fibrillation type: chronic Qualified Code(s): I48.2 - Chronic atrial fibrillation (4) Diabetes mellitus Qualifiers: Diabetes mellitus type: type 2 Diabetes mellitus mcc insulin use: without mcc use Diabetes mellitus complication status: with hyperglycemia Qualified Code(s): E11.65 - Type 2 diabetes mellitus with hyperglycemia (5) Chronic kidney disease Qualifiers: Chronic kidney disease stage: stage 3 (moderate) Qualified Code(s): N18.3 - Chronic kidney disease, stage 3 (moderate) (6) CAD (coronary artery disease) Qualifiers: Coronary Disease-Associated Artery/Lesion type: [place] artery [place] vs. transplanted heart: [place] heart Associated angina: without angina Qualified Code(s): I25.10 - Atherosclerotic heart disease of [place] coronary artery without angina pectoris
[2019-02-14] MEDS ORDERED: 0.9 % Sodium Chloride 250 ML ONE (15:38)
[2019-02-15] MEDS: Pantoprazole 40 MG VIAL IVP SCH ×2 (05:45→16:44)
[2019-02-15 06:53] LABS: Basophils % 0.4 %; Eosinophils # 0.2 K/mcL (0.0-0.6); Eosinophils % 2.2 %; Hematocrit 25.9 % (37.5-50.1); Hemoglobin 8.4 g/dL (12.9-16.9); Immature Granulocytes % 0.4 % (0-4); Lymphocytes # 1.1 K/mcL (0.6-4.6); Lymphocytes % 13.6 %; Mean Corpuscular HGB Conc 32.4 g/dL (31.6-35.5); Mean Corpuscular Hemoglobin 26.8 pg (28.0-33.3); Mean Corpuscular Volume 82.5 fL (83.0-100.0); Mean Platelet Volume 10.4 fL (9.4-12.4); Monocytes # 0.8 K/mcL (0.0-1.3); Monocytes % 10.5 %; Neutrophils # 5.6 K/mcL (1.6-8.9); Platelet Count 274 K/mcL (140-400); Red Blood Count 3.14 M/mcL (4.19-5.50); Red Cell Distribution Width 14.8 % (11.5-14.5); Segmented Neutrophils % 72.9 %
[2019-02-15 07:10] LABS: BUN/Creatinine Ratio 10 (6-26); Blood Urea Nitrogen 12 mg/dL (8-23); Calcium 8.4 mg/dL (8.6-10.3); Carbon Dioxide 25 mEq/L (23-29); Chloride 100 mEq/L (98-107); Glucose 141 mg/dL (70-105); Osmolality,Calculated 284 (280-300); Potassium 3.4 mEq/L (3.5-5.1); Sodium 136 mEq/L (136-145); eGFR For Non-African Americans > 60 (> 60)
[2019-02-15] MEDS: Multivit/Ca/Min/Fe/FA 1 TAB TABLET PO SCH (07:34)
[2019-02-15] MEDS: Cyanocobalamin (B-12) 1,000 MCG TABLET PO SCH (07:35)
[2019-02-15] MEDS: Insulin LISPRO 300 UNITS/3 ML VIAL SQ SCH ×4 (07:35→21:05)
[2019-02-15] MEDS ORDERED: Potassium Chloride 20 MEQ, Lidocaine 1% 2 ML in D5% in Water 250 ML IVPB ONE (08:05)
--- NOTE | 2019-02-15 08:09 | Internal Med Progress Note ---
Hospitalist Progress Note - Encounter Date of Encounter: 02/15/19 Time of Encounter: 08:09 - Subjective Interval History: Gen. lying comfortably on bed. Appendectomy is slight and service and also dehydrated. Slight dark urine. Patient is nothing by mouth since midnight no IV fluid at this time. Labs reviewed with hemoglobin 8.4 after 40 unit of PRC. INR is still pending. Potassium 3.4. Slight elevated blood pressure. Denies fever chills nausea vomiting headache dizziness chest pain shortness of breath urinary complaint. Had only 1 bowel movement since admission. No melena hematochezia or hematemesis. Has ongoing diffuse abdominal discomfort - Exam Vitals: Temp Pulse Resp BP Pulse Ox 98.9 F 78 18 160/89 92 02/15/19 07:04 02/15/19 07:04 02/15/19 07:04 02/15/19 07:04 02/15/19 07:04 Exam: General: No acute distress ENT: Mucous membranes slightly dry Eye: PERRLA EOMI Neck: supple Respiratory: CTAB. No wheezing or crackles. Cardiovascular: Regular rate and rhythm. s1 and s2 normal no heart murmur Abdomen: Abdomen is soft, mild diffuse tender. Bowel sounds are present Musculoskeletal: Spontaneously moving all extremities Skin: warm, dry, intact. Pallor present Neuro: Alert oriented x 3 normal cranial nerves, no focal neurological deficits Psych: Patient's affect is normal - Assessment and Plan (1) Acute blood loss anemia Current Visit: Yes Status: Acute Assessment and Plan: Patient has severe anemia with hemoglobin of 6. Now hemoglobin 8.4 after 4 unit PRC transfusion. Stool occult positive. On board GI specialist and plan for upper GI endoscopy today if INR around 1.5. Continue IV fluid Normal saline 75 mL per hour started Continue IV PPI twice daily. Hold warfarin and aspirin for now (2) Elevated troponin Current Visit: Yes Status: Acute Assessment and Plan: History of CAD status post CABG and PCI. Raised troponin but no chest pain. Nuclear stress test January 2019 with evidence of prior infarct negative for ischemia. Echocardiogram EF 50%, mild inferior and basal inferior merino hypokinetic. Not new finding. Order To Delivery Supervisor consulted and recommended to continue beta ct and a statin. Aspirin on hold due to GI bleed. No further cardiac workup and cardiology signed off. (3) Afib Current Visit: Yes Status: Chronic Assessment and Plan: Patient with chronic A. fib. Rate controlled. Hold Coumadin due to acute blood loss anemia. Monitor INR. (4) Diabetes mellitus Current Visit: Yes Status: Chronic Assessment and Plan: Better blood glucose level control. Continue sliding scale insulin. Diabetic diet when able to eat. Nothing by mouth right now . (5) Chronic kidney disease Current Visit: Yes Status: Chronic Assessment and Plan: Acute on CK D. Trending down creatinine level. Normal creatinine level now. Avoid nephrotoxic drug. Monitor BMP. Patient with chronic kidney disease stage III. Creatinine 1.43 on admission. (6) CAD (coronary artery disease) Current Visit: Yes Status: Chronic Assessment and Plan: Patient on aspirin, losartan and carvedilol at home. We will hold aspirin for now due to acute blood loss anemia. (7) Electrolyte imbalance Current Visit: Yes Status: Acute Assessment and Plan: Replacement and close monitoring. (8) DVT prophylaxis Current Visit: Yes Status: Acute Assessment and Plan: SCDs (9) Hypertension Current Visit: Yes Status: Acute Assessment and Plan: Slight elevated. Increase Coreg 25 mg by mouth twice a day. Close monitoring. - Time Spent with Patient Total time spent is greater than 50% in coordination of care (as documented) at patient's floor/unit and/or counseling patient: 25 - 35 minutes Plan of Care Discussed with: patient Internal Medicine: Result - Labs CBC & Chem 7: 02/15/19 06:03 02/15/19 06:03 Labs: Short CBC 02/15/19 Range/Units 06:03 WBC 7.7 (4.3-11.1) K/mcL Hgb 8.4 L (12.9-16.9) g/dL Hct 25.9 L (37.5-50.1) % Plt Count 274 (140-400) K/mcL Neutrophils # 5.6 (1.6-8.9) K/mcL BMP 02/15/19 06:03 Sodium 136 Potassium 3.4 L Chloride 100 Carbon Dioxide 25 BUN 12 Creatinine 1.18 Glucose 141 H Calcium 8.4 L - ABG Interpretation ABG results: PT/INR, D-dimer PT 20.9 Seconds (9.4-12.1) H 02/14/19 09:21 Consult Discharge Plan - Plan Referrals: Russel Felipe Jr, MD [Primary Care Provider] - (3) Afib Qualifiers: Atrial fibrillation type: chronic Qualified Code(s): I48.2 - Chronic atrial fibrillation (4) Diabetes mellitus Qualifiers: Diabetes mellitus type: type 2 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 transplanted heart: [place] heart Associated angina: without angina Qualified Code(s): I25.10 - Atherosclerotic heart disease of [place] coronary artery without angina pectoris (9) Hypertension Qualifiers: Hypertension type: essential hypertension Qualified Code(s): I10 - Essential (primary) hypertension
[2019-02-15] MEDS: 0.9 % Sodium Chloride 1,000 ML IVC SCH ×2 (09:00→22:02)
[2019-02-15 14:33] LABS: INR 1.8; Prothrombin Time 20.1 Seconds (9.4-12.1)
[2019-02-16] MEDS: Pantoprazole 40 MG VIAL IVP SCH ×2 (04:56→16:31)
[2019-02-16] MEDS: Multivit/Ca/Min/Fe/FA 1 TAB TABLET PO SCH (10:49)
[2019-02-16] MEDS: Cyanocobalamin (B-12) 1,000 MCG TABLET PO SCH (10:50)
[2019-02-16] MEDS: Insulin LISPRO 300 UNITS/3 ML VIAL SQ SCH ×4 (11:41→20:30)
[2019-02-16 11:53] LABS: Basophils % 0.5 %; Eosinophils # 0.2 K/mcL (0.0-0.6); Eosinophils % 4.2 %; Hematocrit 26.1 % (37.5-50.1); Hemoglobin 8.4 g/dL (12.9-16.9); Immature Granulocytes % 0.2 % (0-4); Lymphocytes # 0.7 K/mcL (0.6-4.6); Lymphocytes % 11.9 %; Mean Corpuscular HGB Conc 32.2 g/dL (31.6-35.5); Mean Corpuscular Hemoglobin 26.8 pg (28.0-33.3); Mean Corpuscular Volume 83.1 fL (83.0-100.0); Mean Platelet Volume 10.1 fL (9.4-12.4); Monocytes # 0.7 K/mcL (0.0-1.3); Neutrophils # 3.9 K/mcL (1.6-8.9); Platelet Count 263 K/mcL (140-400); Red Blood Count 3.14 M/mcL (4.19-5.50); Red Cell Distribution Width 14.8 % (11.5-14.5); Segmented Neutrophils % 71.2 %
[2019-02-16 12:04] LABS: INR 1.8; Prothrombin Time 20.1 Seconds (9.4-12.1)
--- NOTE | 2019-02-16 15:54 | Internal Med Progress Note ---
Hospitalist Progress Note - Encounter Date of Encounter: 02/16/19 Time of Encounter: 15:54 - Subjective Interval History: Comfortably on bed. at bedside. Review the lab with hemoglobin 8.4. INR 1.8 Denies fever chills nausea vomiting headache dizziness chest pain shortness of breath. No hematochezia or hematemesis or melena - Exam Vitals: Temp Pulse Resp BP Pulse Ox 98.6 F 69 18 159/81 95 02/16/19 11:32 02/16/19 11:32 02/16/19 11:32 02/16/19 11:32 02/16/19 11:32 Exam: General: No acute distress ENT: Mucous membranes moist Eye: PERRLA EOMI Neck: supple Respiratory: CTAB. Cardiovascular: Regular rate and rhythm. s1 and s2 normal no heart murmur Abdomen: Abdomen is soft, mild diffuse tender. Bowel sounds are present Musculoskeletal: Spontaneously moving all extremities Skin: warm, dry, intact. Neuro: Alert oriented x 3 normal cranial nerves, no focal neurological deficits Psych: Patient's affect is normal - Assessment and Plan (1) Acute blood loss anemia Current Visit: Yes Status: Acute Assessment and Plan: Patient has severe anemia with hemoglobin of 6. Now hemoglobin 8.4 after 4 unit PRC transfusion. Stool occult positive. On board GI specialist and plan for upper GI endoscopy once INR around 1.5. Continue IV PPI twice daily. Hold warfarin and aspirin for now INR 1.8 today. Endoscope E will be on Monday not over the weekend. Will give patient clear diet or soft diet as tolerated over the weekend but will keep nothing by mouth after Monday midnight. Will start IV fluid on Monday midnight when nothing by mouth. A stop IV fluid now (2) Elevated troponin Current Visit: Yes Status: Acute Assessment and Plan: History of CAD status post CABG and PCI. Raised troponin but no chest pain. Nuclear stress test January 2019 with evidence of prior infarct negative for ischemia. Echocardiogram EF 50%, mild inferior and basal inferior merino hypokinetic. Not new finding. Felt Pad Cutter consulted and recommended to continue beta ct and a statin. Aspirin on hold due to GI bleed. No further cardiac workup and cardiology signed off. (3) Afib Current Visit: Yes Status: Chronic Assessment and Plan: Patient with chronic A. fib. Rate controlled. Hold Coumadin due to acute blood loss anemia. Monitor INR. Subtherapeutic INR. Talk to music teacher's on phone about the possibility of bridging with heparin but it was advised not to start any anticoagulation until cleared by GI specialist after performing endoscopy. (4) Diabetes mellitus Current Visit: Yes Status: Chronic Assessment and Plan: Better blood glucose level control. Continue sliding scale insulin. Diabetic diet (5) Chronic kidney disease Current Visit: Yes Status: Chronic Assessment and Plan: Acute on CK D. Normal creatinine level now. Avoid nephrotoxic drug. Monitor BMP. Patient with chronic kidney disease stage III. Creatinine 1.43 on admission. (6) CAD (coronary artery disease) Current Visit: Yes Status: Chronic Assessment and Plan: History of CABG and PCI. Patient on aspirin, losartan and carvedilol at home. We will hold aspirin for now due to acute blood loss anemia. (7) Electrolyte imbalance Current Visit: Yes Status: Acute Assessment and Plan: Replacement and close monitoring. (8) DVT prophylaxis Current Visit: Yes Status: Acute Assessment and Plan: SCDs (9) Hypertension Current Visit: Yes Status: Acute Assessment and Plan: Slight elevated. Increase Coreg 25 mg by mouth twice a day. Close monitoring. - Time Spent with Patient Total time spent is greater than 50% in coordination of care (as documented) at patient's floor/unit and/or counseling patient: 25 - 35 minutes Plan of Care Discussed with: family Internal Medicine: Result - Labs CBC & Chem 7: 02/16/19 11:23 02/15/19 06:03 Labs: Short CBC 02/16/19 Range/Units 11:23 WBC 5.5 (4.3-11.1) K/mcL Hgb 8.4 L (12.9-16.9) g/dL Hct 26.1 L (37.5-50.1) % Plt Count 263 (140-400) K/mcL Neutrophils # 3.9 (1.6-8.9) K/mcL - ABG Interpretation ABG results: PT/INR, D-dimer PT 20.1 Seconds (9.4-12.1) H 02/16/19 11:23 Consult Discharge Plan - Plan Referrals: Russel Felipe Jr, MD [Primary Care Provider] - (3) Afib Qualifiers: Atrial fibrillation type: chronic Qualified Code(s): I48.2 - Chronic atrial fibrillation (4) Diabetes mellitus Qualifiers: Diabetes mellitus type: type 2 Diabetes mellitus correction insulin use: wi thout marine oil terminal superintendent use Diabetes mellitus complication status: with hyperglycemia Qualified Code(s): E11.65 - Type 2 diabetes mellitus with hyperglycemia (5) Chronic kidney disease Qualifiers: Chronic kidney disease stage: stage 3 (moderate) Qualified Code(s): N18.3 - Chronic kidney disease, stage 3 (moderate) (6) CAD (coronary artery disease) Qualifiers: Coronary Disease-Associated Artery/Lesion type: [place] artery [place] vs. transplanted heart: [place] heart Associated angina: without angina Qualified Code(s): I25.10 - Atherosclerotic heart disease of [place] coronary artery with out angina pectoris (9) Hypertension Qualifiers: Hypertension type: essential hypertension Qualified Code(s): I10 - Essential (primary) hypertension
[2019-02-16] MEDS: 0.9 % Sodium Chloride 1,000 ML IVC SCH (16:18)
[2019-02-17] MEDS: Pantoprazole 40 MG VIAL IVP SCH ×2 (05:17→17:03)
[2019-02-17] MEDS: 0.9 % Sodium Chloride 1,000 ML IVC SCH (05:20)
[2019-02-17 07:47] LABS: Hemoglobin 8.3 g/dL (12.9-16.9); Mean Corpuscular HGB Conc 31.9 g/dL (31.6-35.5); Mean Corpuscular Hemoglobin 26.4 pg (28.0-33.3); Mean Corpuscular Volume 82.8 fL (83.0-100.0); Mean Platelet Volume 10.6 fL (9.4-12.4); Platelet Count 258 K/mcL (140-400); Red Blood Count 3.14 M/mcL (4.19-5.50); Red Cell Distribution Width 14.8 % (11.5-14.5)
[2019-02-17 07:53] LABS: INR 1.7
[2019-02-17 07:56] LABS: Activated Partial Thrombo Time 34.3 Seconds (26.0-36.0)
[2019-02-17] MEDS: Multivit/Ca/Min/Fe/FA 1 TAB TABLET PO SCH (08:32)
[2019-02-17] MEDS: Insulin LISPRO 300 UNITS/3 ML VIAL SQ SCH ×4 (08:32→21:22)
[2019-02-17] MEDS: Cyanocobalamin (B-12) 1,000 MCG TABLET PO SCH (08:32)
[2019-02-17 08:51] LABS: BUN/Creatinine Ratio 10 (6-26); Blood Urea Nitrogen 11 mg/dL (8-23); Calcium 8.6 mg/dL (8.6-10.3); Carbon Dioxide 23 mEq/L (23-29); Chloride 107 mEq/L (98-107); Glucose 113 mg/dL (70-105); Magnesium 1.7 mg/dL (1.6-2.6); Osmolality,Calculated 288 (280-300); Potassium 3.5 mEq/L (3.5-5.1); Sodium 139 mEq/L (136-145); eGFR For Non-African Americans > 60 (> 60)
--- NOTE | 2019-02-17 15:11 | Internal Med Progress Note ---
Hospitalist Progress Note - Encounter Date of Encounter: 02/17/19 Time of Encounter: 15:09 - Subjective Interval History: Laying comfortably in bed. Reviewed lobe hemoglobin 8.3, INR 1.7. Denies fever chills nausea vomiting headache dizziness chest pain shortness of breath abdominal pain. Had one bowel movement this morning with no melena hematochezia. Denies hematemesis - Exam Vitals: Temp Pulse Resp BP Pulse Ox 97.9 F 84 18 158/90 93 02/17/19 11:16 02/17/19 11:16 02/17/19 11:16 02/17/19 11:16 02/17/19 11:16 Exam: General: No acute distress ENT: Mucous membranes moist Eye: PERRLA EOMI Neck: supple Respiratory: CTAB. Cardiovascular: Regular rate and rhythm. s1 and s2 normal no heart murmur Abdomen: Abdomen is soft, mild diffuse tender. Bowel sounds are present Musculoskeletal: Spontaneously moving all extremities Neuro: Alert oriented x 3 normal cranial nerves, no focal neurological deficits Psych: Patient's affect is normal - Assessment and Plan (1) Acute blood loss anemia Current Visit: Yes Status: Acute Assessment and Plan: Patient has severe anemia with hemoglobin of 6. Now hemoglobin 8.4 after 4 unit PRC transfusion. Stool occult positive. On board GI specialist and plan for upper GI endoscopy once INR around 1.5. Continue IV PPI twice daily. Hold warfarin and aspirin for now INR 1.7 today. Endoscope will be on Monday not over the weekend. Will give patient soft diet as tolerated over the weekend but will keep nothing by mouth after Monday midnight. Will start IV fluid on Monday midnight when nothing by mouth. (2) Elevated troponin Current Visit: Yes Status: Acute Assessment and Plan: History of CAD status post CABG and PCI. Raised troponin but no chest pain. Nuclear stress test January 2019 with evidence of prior infarct negative for ischemia. Echocardiogram EF 50%, mild inferior and basal inferior merino hypokinetic. Not new finding. Hatch Supervisor consulted and recommended to continue beta ct and a statin. Aspirin on hold due to GI bleed. No further cardiac workup and cardiology signed off. (3) Afib Current Visit: Yes Status: Chronic Assessment and Plan: Patient with chronic A. fib. Rate controlled. Hold Coumadin due to acute blood loss anemia. Monitor INR. Subtherapeutic INR. Talked to technology architect's on phone about the possibility of bridging with heparin but it was advised not to start any anticoagulation until cleared by GI specialist after performing endoscopy. (4) Diabetes mellitus Current Visit: Yes Status: Chronic Assessment and Plan: Better blood glucose level control. Continue sliding scale insulin. Diabetic diet (5) Chronic kidney disease Current Visit: Yes Status: Chronic Assessment and Plan: Acute on CK D. Normal creatinine level now. Avoid nephrotoxic drug. Monitor BMP. Patient with chronic kidney disease stage III. Creatinine 1.43 on admission. (6) CAD (coronary artery disease) Current Visit: Yes Status: Chronic Assessment and Plan: History of CABG and PCI. Patient on aspirin, losartan and carvedilol at home. We will hold aspirin for now due to acute blood loss anemia. (7) Electrolyte imbalance Current Visit: Yes Status: Acute Assessment and Plan: Replacement and close monitoring. (8) DVT prophylaxis Current Visit: Yes Status: Acute Assessment and Plan: SCDs (9) Hypertension Current Visit: Yes Status: Acute Assessment and Plan: Slight elevated. Increased losartan 50 mg by mouth daily. Increase Coreg 25 mg by mouth twice a day. Close monitoring. - Time Spent with Patient Total time spent is greater than 50% in coordination of care (as documented) at patient's floor/unit and/or counseling patient: 25 - 35 minutes Plan of Care Discussed with: patient Internal Medicine: Result - Labs CBC & Chem 7: 02/17/19 06:20 02/17/19 06:20 Labs: Short CBC 02/17/19 Range/Units 06:20 WBC 4.8 (4.3-11.1) K/mcL Hgb 8.3 L (12.9-16.9) g/dL Hct 26.0 L (37.5-50.1) % Plt Count 258 (140-400) K/mcL BMP 02/17/19 06:20 Sodium 139 Potassium 3.5 Chloride 107 Carbon Dioxide 23 BUN 11 Creatinine 1.12 Glucose 113 H Calcium 8.6 - ABG Interpretation ABG results: PT/INR, D-dimer PT 19.0 Seconds (9.4-12.1) H 02/17/19 06:20 Consult Discharge Plan - Plan Referrals: Russel Felipe Jr, MD [Primary Care Provider] - (3) Afib Qualifiers: Atrial fibrillation type: chronic Qualified Code(s): I48.2 - Chronic atrial fibrillation (4) Diabetes mellitus Qualifiers: Diabetes mellitus type: type 2 Diabetes mellitus halfway insulin use: without halfway use Diabetes mellitus complication status: with hyperglycemia Qualified Code(s): E11.65 - Type 2 diabetes mellitus with hyperglycemia (5) Chronic kidney disease Qualifiers: Chronic kidney disease stage: stage 3 (moderate) Qualified Code(s): N18.3 - Chronic kidney disease, stage 3 (moderate) (6) CAD (coronary artery disease) Qualifiers: Coronary Disease-Associated Artery/Lesion type: [place] artery [place] vs. transplanted heart: [place] heart Associated angina: without angina Qualified Code(s): I25.10 - Atherosclerotic heart disease of [place] coronary artery without angina pectoris (9) Hypertension Qualifiers: Hypertension type: essential hypertension Qualified Code(s): I10 - Essential (primary) hypertension
[2019-02-18] MEDS: Pantoprazole 40 MG VIAL IVP SCH ×2 (06:20→18:18)
[2019-02-18 06:24] LABS: Hematocrit 24.5 % (37.5-50.1); Hemoglobin 7.9 g/dL (12.9-16.9); Mean Corpuscular HGB Conc 32.2 g/dL (31.6-35.5); Mean Corpuscular Volume 80.6 fL (83.0-100.0); Mean Platelet Volume 10.3 fL (9.4-12.4); Platelet Count 256 K/mcL (140-400); Red Blood Count 3.04 M/mcL (4.19-5.50); Red Cell Distribution Width 14.7 % (11.5-14.5)
[2019-02-18 06:47] LABS: BUN/Creatinine Ratio 11 (6-26); Blood Urea Nitrogen 14 mg/dL (8-23); Calcium 8.6 mg/dL (8.6-10.3); Carbon Dioxide 25 mEq/L (23-29); Chloride 106 mEq/L (98-107); Glucose 116 mg/dL (70-105); Osmolality,Calculated 287 (280-300); Potassium 3.4 mEq/L (3.5-5.1); Sodium 138 mEq/L (136-145); eGFR For Non-African Americans 58 (> 60)
[2019-02-18 07:46] LABS: INR 1.7; Prothrombin Time 19.6 Seconds (9.4-12.1)
[2019-02-18] MEDS: Cyanocobalamin (B-12) 1,000 MCG TABLET PO SCH (08:53)
[2019-02-18] MEDS: Multivit/Ca/Min/Fe/FA 1 TAB TABLET PO SCH (08:53)
[2019-02-18] MEDS: Insulin LISPRO 300 UNITS/3 ML VIAL SQ SCH ×4 (08:54→20:13)
[2019-02-18 10:21] LABS: INR 1.7
--- NOTE | 2019-02-18 12:21 | Internal Med Progress Note ---
Hospitalist Progress Note - Encounter Date of Encounter: 02/18/19 Time of Encounter: 12:19 - Subjective Interval History: Sitting comfortably on bed. Reviewed the lab with slight trending down hemoglobin, low potassium. INR 1.7 Patient is nothing by mouth at this time Denies fever chills nausea vomiting headache dizziness chest pain short of breath abdominal pain hematemesis hematochezia melena - Exam Vitals: Temp Pulse Resp BP Pulse Ox 98.0 F 75 18 153/77 93 02/18/19 11:44 02/18/19 11:44 02/18/19 11:44 02/18/19 11:44 02/18/19 11:44 Exam: General: No acute distress ENT: Mucous membranes moist Eye: PERRLA EOMI Neck: supple Respiratory: CTAB. Cardiovascular: Regular rate and rhythm. s1 and s2 normal no heart murmur Abdomen: Abdomen is soft, mild diffuse tender. Bowel sounds are present Musculoskeletal: Spontaneously moving all extremities Neuro: Alert oriented x 3 normal cranial nerves, no focal neurological deficits Psych: Patient's affect is normal - Assessment and Plan (1) Acute blood loss anemia Current Visit: Yes Status: Acute Assessment and Plan: Patient has severe anemia with hemoglobin of 6. Now hemoglobin 8.4 after 4 unit PRC transfusion. Stool occult positive. On board GI specialist and plan for upper GI endoscopy once INR around 1.5. Continue IV PPI twice daily. Hold warfarin and aspirin for now INR 1.7 today. Informed GI team about lab in a waiting to hear back for further plan. Slight trending down hemoglobin therefore needs close monitoring. No active bleeding. (2) Elevated troponin Current Visit: Yes Status: Acute Assessment and Plan: History of CAD status post CABG and PCI. Raised troponin but no chest pain. Nuclear stress test January 2019 with evidence of prior infarct negative for ische alexey. Echocardiogram EF 50%, mild inferior and basal inferior merino hypokinetic. Not new finding. Plaster And Stucco Worker consulted and recommended to continue beta ct and a statin. Aspirin on hold due to GI bleed. No further cardiac workup and cardiology signed off. (3) Afib Current Visit: Yes Status: Chronic Assessment and Plan: Patient with chronic A. fib. Rate controlled. Hold Coumadin due to acute blood loss anemia. Monitor INR. Subtherapeutic INR. Talked to animal husbandry manager's on phone about the possibility of bridging with heparin but it was advised not to start any anticoagulation until cleared by GI specialist after performing endoscopy. (4) Diabetes mellitus Current Visit: Yes Status: Chronic Assessment and Plan: Better blood glucose level control. Continue sliding scale insulin. Diabetic diet (5) Chronic kidney disease Current Visit: Yes Status: Chronic Assessment and Plan: Acute on CK D. Normal creatinine level now. Avoid nephrotoxic drug. Monitor BMP. Patient with chronic kidney disease stage III. Creatinine 1.43 on admission. (6) CAD (coronary artery disease) Current Visit: Yes Status: Chronic Assessment and Plan: History of CABG and PCI. Patient on aspirin, losartan and carvedilol at home. We will hold aspirin for now due to acute blood loss anemia. (7) Electrolyte imbalance Current Visit: Yes Status: Acute Assessment and Plan: Replacement and close monitoring. (8) DVT prophylaxis Current Visit: Yes Status: Acute Assessment and Plan: SCDs (9) Hypertension Current Visit: Yes Status: Acute Assessment and Plan: Increased losartan 50 mg by mouth daily. Increase Coreg 25 mg by mouth twice a day. Close monitoring. - Time Spent with Patient Total time spent is greater than 50% in coordination of care (as documented) at patient's floor/unit and/or counseling patient: 25 - 35 minutes Plan of Care Discussed with: patient Internal Medicine: Result - Labs CBC & Chem 7: 02/18/19 05:16 02/18/19 05:16 Labs: Short CBC 02/18/19 Range/Units 05:16 WBC 5.7 (4.3-11.1) K/mcL Hgb 7.9 L (12.9-16.9) g/dL Hct 24.5 L (37.5-50.1) % Plt Count 256 (140-400) K/mcL BMP 02/18/19 05:16 Sodium 138 Potassium 3.4 L Chloride 106 Carbon Dioxide 25 BUN 14 Creatinine 1.23 Glucose 116 H Calcium 8.6 - ABG Interpretation ABG results: PT/INR, D-dimer PT 19.0 Seconds (9.4-12.1) H 02/18/19 09:33 Consult Discharge Plan - Plan Referrals: Russel Felipe Jr, MD [Primary Care Provider] - 02/28/19 10:00 am (Please follow up as schedule) (3) Afib Qualifiers: Atrial fibrillation type: chronic Qualified Code(s): I48.2 - Chronic atrial fibrillation (4) Diabetes mellitus Qualifiers: Diabetes mellitus type: type 2 Diabetes mellitus chcf insulin use: without chcf use Diabetes mellitus complication status: with hyperglycemia Qualified Code(s): E11.65 - Type 2 diabetes mellitus with hyperglycemia (5) Chronic kidney disease Qualifiers: Chronic kidney disease stage: stage 3 (moderate) Qualified Code(s): N18.3 - Chronic kidney disease, stage 3 (moderate) (6) CAD (coronary artery disease) Qualifiers: Coronary Disease-Associated Artery/Lesion type: [place] artery [place] vs. transplanted heart: [place] heart Associated angina: without angina Qualified Code(s): I25.10 - Atherosclerotic heart disease of [place] coronary artery without angina pectoris (9) Hypertension Qualifiers: Hypertension type: essential hypertension Qualified Code(s): I10 - Essential (primary) hypertension
[2019-02-18] MEDS ORDERED: *HR* FentaNYL (PF) 100 MCG/2 ML VIAL ONE (15:00)
[2019-02-18] MEDS ORDERED: *HR* Midazolam HCl 5 MG/5 ML VIAL IVP ONE ×2 (15:00→15:10)
[2019-02-18] MEDS ORDERED: *HR* FentaNYL (PF) 100 MCG/2 ML VIAL IVP ONE (15:10)
[2019-02-18] MEDS ORDERED: Tetracaine/Benzocaine/Butamben 1 SPRAY AEROSOL MM ONE (15:10)
[2019-02-18] MEDS ORDERED: Simethicone 40 MG/0.6 ML MLS IR ONE (15:10)
--- NOTE | 2019-02-18 15:10 | Pre-Sedation Evaluation ---
Pre-sedation evaluation - Pre-sedation checklist Date of procedure: 02/18/19 Procedure: egd Recent Vitals: Last Vital Signs Temp 97.9 F 02/18/19 15:02 Pulse 70 02/18/19 15:02 Resp 16 02/18/19 15:02 BP 178/93 02/18/19 15:02 Pulse Ox 95 02/18/19 15:02 H&P (including ROS) documented in medical record: No Previous reaction to sedatives/anesthetics: No Dietary Status: NPO after Midnight Dentition: No loose teeth or bridges ASA Classification *see protocol: CLASS III-Severe systemic disease
[2019-02-18] MEDS ORDERED: SODIUM CHLORIDE/NAHCO3/KCL/PEG 4,000 ML SOLN.RECON PO ONE (17:00)
[2019-02-19] MEDS: Pantoprazole 40 MG VIAL IVP SCH (04:38)
[2019-02-19 05:28] LABS: Hematocrit 26.1 % (37.5-50.1); Hemoglobin 8.2 g/dL (12.9-16.9); Mean Corpuscular HGB Conc 31.4 g/dL (31.6-35.5); Mean Corpuscular Hemoglobin 26.1 pg (28.0-33.3); Mean Corpuscular Volume 83.1 fL (83.0-100.0); Mean Platelet Volume 10.4 fL (9.4-12.4); Platelet Count 247 K/mcL (140-400); Red Blood Count 3.14 M/mcL (4.19-5.50); Red Cell Distribution Width 14.6 % (11.5-14.5)
[2019-02-19 05:50] LABS: BUN/Creatinine Ratio 9 (6-26); Blood Urea Nitrogen 11 mg/dL (8-23); Calcium 8.6 mg/dL (8.6-10.3); Carbon Dioxide 22 mEq/L (23-29); Chloride 108 mEq/L (98-107); Glucose 131 mg/dL (70-105); Osmolality,Calculated 285 (280-300); Potassium 3.7 mEq/L (3.5-5.1); Sodium 137 mEq/L (136-145); eGFR For Non-African Americans > 60 (> 60)
[2019-02-19] MEDS: Insulin LISPRO 300 UNITS/3 ML VIAL SQ SCH ×4 (07:25→20:13)
[2019-02-19] MEDS: Cyanocobalamin (B-12) 1,000 MCG TABLET PO SCH (08:35)
[2019-02-19] MEDS: Multivit/Ca/Min/Fe/FA 1 TAB TABLET PO SCH (08:35)
--- NOTE | 2019-02-19 12:48 | Anesthesia Evaluation PreOp ---
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 History: Other (Anxiety/Depression) Other Medical History: Renal (Hx CKDz stage 3 but current GFR >60), Diabetes Type II, Other (GIB) Anesthesia History: No Prior Anesthetic Complications, Past Anesthesia Alcohol Use: none Drug use: none Medications and Allergies Aspirin [Lo-Dose Aspirin EC] 81 mg PO DAILY 12/13/16 [History] Losartan [Cozaar] 25 mg PO DAILY 12/13/16 [History] Terazosin [Hytrin] 5 mg PO HS 12/13/16 [History] metFORMIN [Glucophage] 500 mg PO QAM 12/13/16 [History] Multivitamin [Multi-Day Vitamins] 1 each PO DAILY 05/17/17 [History] Cyanocobalamin (Vitamin B-12) [Vitamin B12] 1,000 mcg PO DAILY #30 tab 06/23/17 [Rx] Carvedilol 12.5 mg PO BID 09/04/17 [History] Furosemide [Lasix] 40 mg PO DAILY 09/04/17 [History] Warfarin [Coumadin] 5 mg PO 1800 09/04/17 [History] metFORMIN [Glucophage] 1,000 mg PO QPM 09/04/17 [History] Escitalopram [Lexapro] 20 mg PO DAILY 02/12/19 [History] Allergy/AdvReac Type Severity Reaction Status Date / Time sotalol [From Betapace] AdvReac See Verified 02/12/19 11:06 Comments - Meds/Allergy Pre-op Review Medications Reviewed: Yes Allergies Reviewed: Yes Beta Blockers on Current Med List: Yes (Carvedilool) If Beta Blockers taken, Date/Time (Last Dose taken): 02/19/19 @ 0835 Anesthesia Results - Labs 02/19/19 04:38 02/19/19 04:38 Laboratory Results Impressions Chest X-Ray 02/12/19 11:22 IMPRESSION: No acute cardiopulmonary abnormality. D/ / Araseli Quezada MD / Araseli Quezada MD Interpreting Provider: Araseli Quezada MD Head CT 02/12/19 12:09 IMPRESSION: 1. No acute intracranial abnormality. 2. Diffuse cerebral atrophy with chronic small vessel ischemic disease. D/ / Valentin Palm MD / Valentin Palm MD Interpreting Provider: Valentin Palm MD Echocardiogram Limited Views 02/12/19 14:52 Impressions: LVEF 50%. Normal LV chamber size, wall thickness and overall function. Mild segmental left ventricular systolic dysfunction. Left Ventricular Wall Motion: Rest Echo Findings The mid inferior and basal inferior merino were hypokinetic. All other wall segments showed normal motion. Findings: Study Quality * Technically adequate exam. ECG Findings * Sinus rhythm with BBB. Left Ventricle * LVEF 50%. * Normal LV chamber size, wall thickness and overall function. * Mild segmental left ventricular systolic dysfunction. Right Ventricle * Normal right ventricular structure and function. Aorta * Normally sized aortic root. Pericardium * The pericardium appears normal. Laboratory Tests 02/12/19 02/12/19 02/13/19 11:43 17:52 04:13 PT INR Est GFR (Non-Af Amer) Est Mean Plasma Glucose 180 Hemoglobin A1c 7.9 H Troponin I 0.48 H* B-Natriuretic Peptide 295 H 02/18/19 02/19/19 09:33 04:38 PT 19.0 H INR 1.7 Est GFR (Non-Af Amer) > 60 Est Mean Plasma Glucose Hemoglobin A1c Troponin I B-Natriuretic Peptide - Imaging EKG: report reviewed Chest x-ray: report reviewed Anesthesia Exam Vital Signs Temp Pulse Resp BP Pulse Ox 02/19/19 11:30 97.6 F 74 17 145/77 95 02/19/19 08:38 95 02/19/19 07:18 97.7 F 71 18 148/69 95 02/19/19 04:02 98.1 F 75 16 195/93 93 02/18/19 23:35 97.5 F L 62 16 166/93 95 02/18/19 19:06 97.6 F 60 17 133/87 97 02/18/19 16:06 97 02/18/19 16:04 90 02/18/19 16:00 98.3 F 76 14 156/85 93 02/18/19 15:30 74 18 175/94 97 02/18/19 15:25 69 16 185/105 95 02/18/19 15:20 72 16 183/92 94 02/18/19 15:15 76 18 189/97 97 02/18/19 15:02 97.9 F 70 16 178/93 95 02/18/19 15:01 97.9 F 70 16 178/93 95 Intake and Output 02/18/19 02/19/19 02/19/19 23:59 07:59 15:59 Intake Total 240 / 240 0 / 0 0 / 0 Output Total 0 / 0 Balance 240 / 240 0 / 0 0 / 0 Intake: Oral 240 / 240 0 / 0 0 / 0 Output: Urine 0 / 0 Other: Meal Dinner NPO Percent of Meal Consumed 90% Stool Size Moderate Stool Consistency liquid Stool Color Yellow # Voids 1 # Bowel Movements 1 Blood Glucose* 180 129 119 Height: 5'8" Weight: 240# BMI = NPO (# of Hours): MNoc - HEENT Pupil (Motor): Pupils equal, EOMI - LAYOUT MECHANIC LOC: Oriented LAYOUT MECHANIC Motor: Normal RUE, Normal LUE, Normal RLE, Normal LLE, Normal Face LAYOUT MECHANIC Sensory: Normal: RUE, LUE, RLE, LLE, Face - Cardiac Rhythm: Regular Murmur: None - Pulmonary Breath Sounds: bilateral Clear Respiratory Effort: Symmetrical Anesthesia Assess/Plan ASA Score: 3 (AFib, HTN, DM, GIB)
--- NOTE | 2019-02-19 13:38 | Internal Med Progress Note ---
Hospitalist Progress Note - Encounter Date of Encounter: 02/19/19 Time of Encounter: 13:35 - Subjective Interval History: Pt seen and examined with family present at bedside earlier today. Pt denies any pain or acute bleeding. Reports of feeling weak but no headache, chest pain, sob reported. s/p endoscopy on 02/18/19 which reported normal esophagus, small hiatal hernia, and single non bleeding angioectasia in the duodenum which was treated with APC. Pt is scheduled for colonoscopy today. No overnight events reported. Ten point ROS is negative except as listed above - Exam Vitals: Temp Pulse Resp BP Pulse Ox 97.6 F 74 17 145/77 95 02/19/19 11:30 02/19/19 11:30 02/19/19 11:30 02/19/19 11:30 02/19/19 11:30 Exam: General: No acute distress, AAO x 3, obese HEENT: EOMI, PERRLA, NC/AT, no scleral icterus Respiratory: Clear to auscultate bilaterally, no wheezing, no rales Cardiovascular: Regular, Rate, Rhythm, No murmurs GI: Soft, Non tender, non distended, normal bowel sounds Ext: No edema, no tenderness, positive pulses Neuro: AAO x 3, no focal deficits - Assessment and Plan (1) Acute blood loss anemia Current Visit: Yes Status: Acute Assessment and Plan: s/p 4 unit PRBC transfusion since hospitalization repeat H&H within acceptable range no acute bleeding reported s/p endoscopy on 02/18 scheduled for colonoscopy today (02/19/19) GI input appreciated holding anticoagulation at this time continue PPI at this time (Protonix 40mg IV BID, if colonoscopy is negative, will change to Omeprazole 40mg PO qdaily) closely monitor H&H (2) Afib Current Visit: Yes Status: Chronic Assessment and Plan: Rate controlled with Carvedilol holding anticoagulation given concern for acute GI bleed will f/u with GI in regards to restarting anticoagulation (3) Diabetes mellitus Current Visit: Yes Status: Chronic Assessment and Plan: Sliding scale insulin algorithm monitor FS and BG ADA diet (4) Chronic kidney disease Current Visit: Yes Status: Chronic Assessment and Plan: renal function at baseline continue to monitor (5) Elevated troponin Current Visit: Yes Status: Acute Assessment and Plan: troponin elevation in the setting of acute blood loss anemia, therefore likely due to demand ischemia no chest pain reported Noted hx of CAD s/p CABG and PCI cardiology evaluated the patient and recommending continuation of beta ct and statin therapy holding aspirin at this time given acute GI bleed (6) CAD (coronary artery disease) Current Visit: Yes Status: Chronic Assessment and Plan: as listed above (7) Electrolyte imbalance Current Visit: Yes Status: Acute Assessment and Plan: resolved continue to closely monitor electrolytes and replace as needed (8) DVT prophylaxis Current Visit: Yes Status: Acute Assessment and Plan: SCDs (9) Hypertension Current Visit: Yes Status: Acute Assessment and Plan: BP within acceptable range continue current management will closely monitor BP - Time Spent with Patient Total time spent is greater than 50% in coordination of care (as documented) at patient's floor/unit and/or counseling patient: Plan of Care Discussed with: patient (patient/family/RN) Internal Medicine: Result - Labs CBC & Chem 7: 02/19/19 04:38 02/19/19 04:38 Labs: Short CBC 02/19/19 Range/Units 04:38 WBC 5.6 (4.3-11.1) K/mcL Hgb 8.2 L (12.9-16.9) g/dL Hct 26.1 L (37.5-50.1) % Plt Count 247 (140-400) K/mcL BMP 02/19/19 04:38 Sodium 137 Potassium 3.7 Chloride 108 H Carbon Dioxide 22 L BUN 11 Creatinine 1.16 Glucose 131 H Calcium 8.6 - ABG Interpretation ABG results: PT/INR, D-dimer PT 19.0 Seconds (9.4-12.1) H 02/18/19 09:33 Consult Discharge Plan - Plan Referrals: Russel Felipe Jr, MD [Primary Care Provider] - 02/28/19 10:00 am (Please follow up as schedule) ___ (2) Afib Qualifiers: Atrial fibrillation type: chronic Qualified Code(s): I48.2 - Chronic atrial fibrillation (3) Diabetes mellitus Qualifiers: Diabetes mellitus type: type 2 Diabetes mellitus retirement insulin use: without retirement use Diabetes mellitus complication status: with hyperglycemia Qualified Code(s): E11.65 - Type 2 diabetes mellitus with hyperglycemia (4) Chronic kidney disease Qualifiers: Chronic kidney disease stage: stage 3 (moderate) Qualified Code(s): N18.3 - Chronic kidney disease, stage 3 (moderate) (6) CAD (coronary artery disease) Qualifiers: Coronary Disease-Associated Artery/Lesion type: [place] artery [place] vs. transplanted heart: [place] heart Associated angina: without angina Qualified Code(s): I25.10 - Atherosclerotic heart disease of [place] coronary artery without angina pectoris (9) Hypertension Qualifiers: Hypertension type: essential hypertension Qualified Code(s): I10 - Essential (primary) hypertension
[2019-02-19] MEDS ORDERED: *HR* FentaNYL (PF) 100 MCG/2 ML VIAL ONE (13:39)
[2019-02-19] MEDS ORDERED: *HR* Midazolam HCl 5 MG/5 ML VIAL IVP ONE ×2 (13:39→14:07)
[2019-02-19] MEDS ORDERED: *HR* FentaNYL (PF) 100 MCG/2 ML VIAL IVP ONE (14:07)
[2019-02-19] MEDS ORDERED: Simethicone 40 MG/0.6 ML MLS IR ONE (14:07)
[2019-02-19] MEDS ORDERED: Pantoprazole 40 MG VIAL IVP SCH (18:00)
[2019-02-20 04:50] LABS: Basophils % 0.4 %; Eosinophils # 0.2 K/mcL (0.0-0.6); Eosinophils % 3.5 %; Hematocrit 25.5 % (37.5-50.1); Immature Granulocytes % 0.2 % (0-4); Lymphocytes # 0.9 K/mcL (0.6-4.6); Lymphocytes % 16.7 %; Mean Corpuscular HGB Conc 31.4 g/dL (31.6-35.5); Mean Corpuscular Hemoglobin 25.8 pg (28.0-33.3); Mean Corpuscular Volume 82.3 fL (83.0-100.0); Mean Platelet Volume 10.6 fL (9.4-12.4); Monocytes # 0.6 K/mcL (0.0-1.3); Neutrophils # 3.5 K/mcL (1.6-8.9); Platelet Count 222 K/mcL (140-400); Red Cell Distribution Width 14.7 % (11.5-14.5); Segmented Neutrophils % 68.2 %
[2019-02-20 05:10] LABS: BUN/Creatinine Ratio 8 (6-26); Blood Urea Nitrogen 10 mg/dL (8-23); Calcium 8.7 mg/dL (8.6-10.3); Carbon Dioxide 24 mEq/L (23-29); Chloride 108 mEq/L (98-107); Glucose 126 mg/dL (70-105); Magnesium 1.6 mg/dL (1.6-2.6); Osmolality,Calculated 289 (280-300); Phosphorous 2.9 mg/dL (2.7-4.5); Potassium 3.5 mEq/L (3.5-5.1); Sodium 139 mEq/L (136-145); eGFR For Non-African Americans 54 (> 60)
[2019-02-20] MEDS: Insulin LISPRO 300 UNITS/3 ML VIAL SQ SCH ×2 (08:05→11:38)
[2019-02-20] MEDS: Cyanocobalamin (B-12) 1,000 MCG TABLET PO SCH (08:06)
[2019-02-20] MEDS: Multivit/Ca/Min/Fe/FA 1 TAB TABLET PO SCH (08:06)
[2019-02-20] MEDS ORDERED: Aspirin Enteric Coated 81 MG Tablet PO SCH (09:00)
--- NOTE | 2019-02-20 13:25 | Physician Discharge Referral ---
Home Health/Hosp Referral Info Transfer to: Home Health Provider in Charge Post Discharge: PCP - Diagnosis (1) Acute blood loss anemia Priority: Primary Status: Acute (2) Afib Priority: Secondary Status: Chronic (3) Diabetes mellitus Priority: Secondary Status: Chronic (4) Chronic kidney disease Priority: Secondary Status: Chronic (5) Elevated troponin Priority: Secondary Status: Acute (6) CAD (coronary artery disease) Priority: Secondary Status: Chronic (7) Electrolyte imbalance Priority: Secondary Status: Acute (8) DVT prophylaxis Priority: Secondary Status: Acute (9) Hypertension Priority: Secondary Status: Acute - Respiratory Orders Smoking Cessation: Smoking cessation has been advised. For more information, call the [place] Tobacco Quit Line at 9-063-AETR-NOW. - Services Needed Following services are medically necessary services: Nursing, Home Health Aide, Physical Therapy, Occupational Therapy - Transfer Medications Prescriptions: Atorvastatin [Lipitor] 40 mg PO HS #30 tablet Losartan [Cozaar] 100 mg PO DAILY #30 tablet Omeprazole [PriLOSEC] 40 mg PO DAILY@0730 #15 capsule. Home Medications: Aspirin [Lo-Dose Aspirin EC] 81 mg PO DAILY 12/13/16 [History] Terazosin [Hytrin] 5 mg PO HS 12/13/16 [History] metFORMIN [Glucophage] 500 mg PO QAM 12/13/16 [History] Multivitamin [Multi-Day Vitamins] 1 each PO DAILY 05/17/17 [History] Cyanocobalamin (Vitamin B-12) [Vitamin B12] 1,000 mcg PO DAILY #30 tab 06/23/17 [Rx] Carvedilol 12.5 mg PO BID 09/04/17 [History] Furosemide [Lasix] 40 mg PO DAILY 09/04/17 [History] Warfarin [Coumadin] 5 mg PO 1800 09/04/17 [History] metFORMIN [Glucophage] 1,000 mg PO QPM 09/04/17 [History] Escitalopram [Lexapro] 20 mg PO DAILY 02/12/19 [History] Atorvastatin [Lipitor] 40 mg PO HS #30 tablet 02/20/19 [Rx] Losartan [Cozaar] 100 mg PO DAILY #30 tablet 02/20/19 [Rx] Omeprazole [PriLOSEC] 40 mg PO DAILY@0730 #15 capsule. 02/20/19 [Rx] Allergies/Adverse Reactions: Allergy/AdvReac Type Severity Reaction Status Date / Time sotalol [From Betapace] AdvReac See Verified 02/12/19 11:06 Comments Certification: Further, I certify that my clinical findings support that this patient is homebound (i.e. absences from home require considerable and taxing effort and are for medical reasons or adventist services or infrequently or short duration when for other reasons) because: Homebound Reason: Patient requires assistance of a person or device to safely leave home Attestation: My signature below is to certify that this patient is under my care and that I, or nurse practitioner, or a physician's assistant film editor working with me, has a [id number] encounter with this patient.
--- NOTE | 2019-02-20 13:28 | Discharge Summary ---
- NOTES TO OUTPATIENT PROVIDER Notes to Outpatient Provider: Please closely monitor patient's BP and adjust antihypertensive medications as necessary. His home dose of Losartan has been increased to 100mg once a day and Carvedilol is increased to 25mg BID. Please closely monitor patient's INR, his coumadin clinic appointment is set for Monday (February). Orders not resulted at time of discharge: Pending orders 02/19/19 14:24 Surgical Pathology [PTH] Routine 02/20/19 12:35 PT/INR [Prothrombin Time INR] [COAG] Stat 02/21/19 04:00 PT/INR [Prothrombin Time INR] [COAG] AM 0400 02/22/19 04:00 PT/INR [Prothrombin Time INR] [COAG] AM 0400 02/23/19 04:00 PT/INR [Prothrombin Time INR] [COAG] AM 0400 Date of Encounter: 02/20/19 Time of Encounter: 13:26 - Discharge Diagnosis (1) Acute blood loss anemia Priority: Primary Status: Acute (2) Afib Priority: Secondary Status: Chronic Qualifiers: Atrial fibrillation type: chronic Qualified Code(s): I48.2 - Chronic atrial fibrillation (3) Diabetes mellitus Priority: Secondary Status: Chronic Qualifiers: Diabetes mellitus type: type 2 Diabetes mellitus longterm insulin use: without longterm use Diabetes mellitus complication status: with hyperglycemia Qualified Code(s): E11.65 - Type 2 diabetes mellitus with hyperglycemia (4) Chronic kidney disease Priority: Secondary Status: Chronic Qualifiers: Chronic kidney disease stage: stage 3 (moderate) Qualified Code(s): N18.3 - Chronic kidney disease, stage 3 (moderate) (5) Elevated troponin Priority: Secondary Status: Acute (6) CAD (coronary artery disease) Priority: Secondary Status: Chronic Qualifiers: Coronary Disease-Associated Artery/Lesion type: [place] artery [place] vs. transplanted heart: [place] heart Associated angina: without angina Qualified Code(s): I25.10 - Atherosclerotic heart disease of [place] coronary artery without angina pectoris (7) Electrolyte imbalance Priority: Secondary Status: Acute (8) DVT prophylaxis Priority: Secondary Status: Acute (9) Hypertension Priority: Secondary Status: Acute Qualifiers: Hypertension type: essential hypertension Qualified Code(s): I10 - Essential (primary) hypertension Hospital course: Mr. Stone is a 73 year old male with past medical history of atrial fibrillation on anticoagulation, depression, diabetes, hypertension who was admitted for management of acute blood loss anemia. Patient's anticoagulation and aspirin was placed on hold and gastroenterology was consulted. Patient underwent upper endoscopy and colonoscopy. EGD and colonoscopy were negative for any acute bleed. As per GI clearance, patient was restarted on his home dose of aspirin and Coumadin. Patient's hospital course was further complicated by persistent hypertension due to which his home antihypertensives were readjusted. Patient initially refused physical therapy, however after further counseling and family's input, patient is in agreement to proceeding home physical therapy. Patient required PRBC transfusion during this hospitalization. His current H&H is within acceptable range. Patient denied any acute bleeding during this hospitalization. He is noted to be hypertensive this morning, his home dose of losartan has been increased further. Patient will be discharged to home later today pending improvement in his blood pressure. Patient was seen and examined with daughter present at bedside on the day of discharge. Patient and family demonstrated understanding of the diagnosis and agree with the discharge care and plan. All questions were answered. Discharge discussed with: patient, family, nurse, social work, case management - Time Spent with Patient Total time spent providing and/or coordinating discharge services: 35 minutes - Discharge Medications Prescriptions: New Atorvastatin [Lipitor] 40 mg PO HS #30 tablet Losartan [Cozaar] 100 mg PO DAILY #30 tablet Omeprazole [PriLOSEC] 40 mg PO DAILY@0730 #15 capsule. Carvedilol [Coreg] 25 mg PO BIDWM #60 tablet Continue Terazosin [Hytrin] 5 mg PO HS Aspirin [Lo-Dose Aspirin EC] 81 mg PO DAILY metFORMIN [Glucophage] 500 mg PO QAM Multivitamin [Multi-Day Vitamins] 1 each PO DAILY Cyanocobalamin (Vitamin B-12) [Vitamin B12] 1,000 mcg PO DAILY #30 tab Furosemide [Lasix] 40 mg PO DAILY metFORMIN [Glucophage] 1,000 mg PO QPM Warfarin [Coumadin] 5 mg PO 1800 Escitalopram [Lexapro] 20 mg PO DAILY Discontinued Losartan [Cozaar] 25 mg PO DAILY Carvedilol 12.5 mg PO BID Home Medications: Aspirin [Lo-Dose Aspirin EC] 81 mg PO DAILY 12/13/16 [History] Terazosin [Hytrin] 5 mg PO HS 12/13/16 [History] metFORMIN [Glucophage] 500 mg PO QAM 12/13/16 [History] Multivitamin [Multi-Day Vitamins] 1 each PO DAILY 05/17/17 [History] Cyanocobalamin (Vitamin B-12) [Vitamin B12] 1,000 mcg PO DAILY #30 tab 06/23/17 [Rx] Furosemide [Lasix] 40 mg PO DAILY 09/04/17 [History] Warfarin [Coumadin] 5 mg PO 1800 09/04/17 [History] metFORMIN [Glucophage] 1,000 mg PO QPM 09/04/17 [History] Escitalopram [Lexapro] 20 mg PO DAILY 02/12/19 [History] Atorvastatin [Lipitor] 40 mg PO HS #30 tablet 02/20/19 [Rx] Carvedilol [Coreg] 25 mg PO BIDWM #60 tablet 02/20/19 [Rx] Losartan [Cozaar] 100 mg PO DAILY #30 tablet 02/20/19 [Rx] Omeprazole [PriLOSEC] 40 mg PO DAILY@0730 #15 capsule. 02/20/19 [Rx] Allergies/Adverse Reactions: Allergy/AdvReac Type Severity Reaction Status Date / Time sotalol [From Betapace] AdvReac See Verified 02/12/19 11:06 Comments Date of admission: 02/12/19 16:04 Primary care physician: Russel Felipe Jr, MD Consults: 02/12/19 13:16 Consult to Gastroenterology [CONS] Stat Consulting Provider: [facility] Reason for Consult: Anemia, FOBT + Time Notified: 13:16 Call Completed: Yes 02/13/19 12:33 Consult to Cardiology [CONS] Routine Comment: Consulting Provider: [facility] [place] Reason for Consult: NSTEMI Call Completed: Yes Discharging clinician: Bernice Mcgee Anticipated date of discharge: 02/20/19 - Constitutional Vitals: Temp Pulse Resp BP Pulse Ox 98.2 F 67 16 156/88 94 02/20/19 10:51 02/20/19 10:51 02/20/19 10:51 02/20/19 10:51 02/20/19 10:51 General appearance: Present: cooperative, A&O X 3, pleasant, answers questions appropriately Exam: General: No acute distress, AAO x 3, obese HEENT: EOMI, PERRLA, NC/AT, no scleral icterus Respiratory: Clear to auscultate bilaterally, no wheezing, no rales Cardiovascular: Regular, Rate, Rhythm, No murmurs GI: Soft, Non tender, non distended, normal bowel sounds Ext: No edema, no tenderness, positive pulses Neuro: AAO x 3, no focal deficits - Patient Status Disposition: Home Health Service Condition: Good - Ambulatory Orders Ambulatory Orders: Prothrombin Time INR [COAG] Time Frame: 2 Days, Facility: [facility], Location: Lab - Discharge Instructions Follow Up With: Service, Anticoagulation Management [Other] - 02/26/19 3:30 pm Russel Felipe Jr, MD [Primary Care Provider] - 02/28/19 10:00 am (Please follow up as schedule) Additional Instructions: 1. Please follow up with your primary care physician within five days after your discharge from the hospital. Please ask your PCP about a referral to hematology. 2. Please obtain the prescribed lab work on monday (02/22/19) to monitor your INR levels. 3. Please follow up with Coumadin clinic on Monday02/26/19 4. Your home dose of Losartan has been increased to 100mg PO qdaily. Your home dose of Carvedilol has been increased to 25mg twice a day. Please closely monitor your blood pressure at home. Please keep a daily log of your blood pressure at home and take this with you to your PCP's appointment. 5. Please resume all your other home medications as prescribed by your primary care physician. - Diet and Activity Diet: diabetic diet, low fat, low cholesterol, low salt diet
[2019-02-20 13:34] LABS: INR 1.6; Prothrombin Time 18.2 Seconds (9.4-12.1)
[2019-02-20 13:50] VITALS: BP 149/74
[2019-02-20] MEDS ORDERED: Warfarin perPT PO PRN (18:00)
== END 2019-02-20 14:24 | disposition home health service (06) | DRG 378 ==
LOC: EMEROOARM 10:56 → 2ANU 10:56 → SUATTDRO 16:04 → 2ANU 16:18
PROVIDERS: ADMIT Internal Medicine; ATTEND Internal Medicine
PROC: ENDOCCB (2019-02-19 13:00)

== ENCOUNTER 2019-04-27 22:33 | Inpatient (IN) ==
--- NOTE | 2019-04-27 22:42 | Emergency Department Note ---
Disposition Clinical Impression: Shortness of breath Hypertension Qualifiers: Hypertension type: essential hypertension Qualified Code(s): I10 - Essential (primary) hypertension Headache Qualifiers: Headache type: unspecified Headache chronicity pattern: unspecified pattern Int ractability: not intractable Qualified Code(s): R51 - Headache Disposition: Still a Patient Referrals: NONE,PCP [Primary Care Provider] - Forms: ED Satisfaction Letter Time of Disposition: 01:00 General Adult HPI - General Chief complaint: ED Shortness of Breath/Dyspnea Stated complaint: HTN, SOB Time Seen by Provider: 04/27/19 22:39 Source: patient, family Limitations: no limitations Nursing Notes Reviewed: Yes Vital Signs Reviewed: Yes - History of Present Illness HPI Narrative: 73-year-old male who presents emergency Department with complaints of elevated blood pressure, headache and shortness of breath. The patient apparently took 200 mg of his losartan today when he is prescribed only 100. After the recognized the medication error he took his blood pressure and it was 190s systolic. He notes he has had a headache for approximately 1 hour and this is located in bilateral temporals. He has otherwise been feeling lightheaded and short of breath. He denies any chest pain, nausea, vomiting, visual changes. Pain Scale: 4 - Related Data Home Medications Medication Instructions Recorded Confirmed Aspirin [Lo-Dose Aspirin EC] 81 mg PO DAILY 12/13/16 04/05/19 Terazosin [Hytrin] 5 mg PO HS 12/13/16 04/05/19 metFORMIN [Glucophage] 500 mg PO QAM 12/13/16 04/05/19 Multivitamin [Multi-Day Vitamins] 1 each PO DAILY 05/17/17 04/05/19 Furosemide [Lasix] 40 mg PO DAILY 09/04/17 04/05/19 Warfarin [Coumadin] 4.5 mg PO 1800 09/04/17 04/05/19 metFORMIN [Glucophage] 1,000 mg PO QPM 09/04/17 04/05/19 Escitalopram [Lexapro] 20 mg PO DAILY 02/12/19 04/05/19 Previous Rx's Medication Instructions Recorded Cyanocobalamin (Vitamin B-12) 1,000 mcg PO DAILY #30 tab 06/23/17 [Vitamin B12] Atorvastatin [Lipitor] 40 mg PO HS #30 tablet 02/20/19 Carvedilol [Coreg] 25 mg PO BIDWM #60 tablet 02/20/19 Losartan [Cozaar] 100 mg PO DAILY #30 tablet 02/20/19 Ferrous Sulfate [Iron] 325 mg PO BID #60 tablet 04/05/19 Allergies Allergy/AdvReac Type Severity Reaction Status Date / Time sotalol [From Betapace] AdvReac See Verified 04/27/19 22:38 Comments Review of Systems: ROS per history of present illness, all other systems reviewed and negative or normal. All systems ED: reviewed and negative except as stated. Review of Systems: As Per HPI Past Medical History - Past Medical History Medical history: Reports: GI bleed, hypertension, other Surgical history: Reports: pacemaker Psychiatric history: Reports: depression - Social History Smoking Status: Never smoker Smokeless Tobacco Status: No Alcohol use: Reports: none Drug use: Reports: none Physical Exam General: Conversant. No apparent distress. Follow commands. Appears stated age. Neck: No JVD. Trachea midline. Neck supple. Eyes: PERRL. No scleral icterus. HENT: Normocephalic and atraumatic. Moist mucus membranes. Cardiovascular: Regular rate and rhythm. Normal S1 and S2. No murmurs appreciated. Normal capillary refill. Extremities well perfused with 2+ distal pulses bilaterally. No edema. Pulmonary: Normal and equal breath sounds bilaterally, anteriorly and posteriorly. No wheezes, rales, or rhonchi. Not in respiratory distress. Speaks in full sentences. Abdomen: Soft, nondistended, and tontender. No bruits or masses. No guarding. Neuro: Alert and oriented to person, place, and time. CN II-XII tested and grossly intact. No hemineglect. Speech is fluid and without slurring. Sensory: Sensation intact to light touch in all extremities. Motor: Normal tone and bulk. No pronator drift. 5/5 strength in LUE 5/5 strength in RUE 5/5 strength in LLE 5/5 strength in RLE Coordination: heel to hernandez testing intact bilaterally. Skin: No rashes noted on visualized skin. Musculoskeletal: No bony abnormalities visualized. Moves all extremities. Psych: Normal mood. Pleasant. Makes appropriate eye contact. - General Limitations: no limitations General appearance: alert, in no apparent distress Course Vital Signs Temperature 98.5 F 04/27/19 22:34 Pulse Rate 69 04/27/19 22:34 Respiratory Rate 20 06/22/19 22:34 Blood Pressure 191/102 04/27/19 22:34 O2 Sat by Pulse Oximetry 96 04/27/19 22:34 Temperature 98.5 F 04/27/19 22:34 Pulse Rate 66 04/28/19 00:55 Respiratory Rate 15 04/28/19 00:55 Blood Pressure 173/114 04/28/19 00:55 O2 Sat by Pulse Oximetry 95 04/28/19 00:55 Oxygen Delivery Oxygen Delivery Room Air Medical Decision Making - MDM Narrative Medical decision making narrative: 73-year-old male with history of A. fib on Coumadin, hypertension who presents emergency Department with complaints of headache, lightheadedness and elevated blood pressure along with shortness of breath. Patient was reportedly given accidental double dose of his losartan at home therefore patient's family chec ked the blood pressure was in the 190s. Given his headache, dizziness and shortness of breath they brought him in. On arrival the patient's blood pressure is in the 220s systolic. He otherwise has no neurologic deficits. EKG shows no acute ischemic changes. Patient's laboratory evaluation shows no significant anemia below the patient's baseline. Troponin 1 less than 0.03. Chest x-ray shows no acute findings. BMP shows no acute kidney injury. Given the patient's significant hypertension did give 10 mg IV labetalol. The patient had slight improvement down to 190s systolic but upon checking bilateral blood pressures With one side being 188/89 and the other being to 211/108. The danielle ent was given second dose of labetalol IV 10 mg and nitroglycerin. Given the patient's a symmetric blood pressure and continued headache and shortness of breath he did require evaluation for dissection and SAH. CT angiogram head as well as CTA dissection protocol were ordered. The patient was signed out to the night physicians, Drs. Castillo and Kody. Please see their detailed documentation for imaging results and final disposition. - Medical Records Medical records reviewed: Yes I reviewed the patient's medical records. - Lab Data Lab results reviewed: Yes I reviewed the patient's lab results. Result diagrams: 04/27/19 23:27 04/27/19 23:27 Lab Results 04/27/19 04/27/19 04/27/19 Range/Units 23:27 23:27 23:27 WBC 6.6 (4.3-11.1) K/mcL RBC 4.42 (4.19-5.50) M/mcL Hgb 11.4 L (12.9-16.9) g/dL Hct 35.5 L (37.5-50.1) % MCV 80.3 L (83.0-100.0) fL MCH 25.8 L (28.0-33.3) pg MCHC 32.1 (31.6-35.5) g/dL RDW 19.9 H (11.5-14.5) % Plt Count 212 (140-400) K/mcL MPV 10.2 (9.4-12.4) fL Immature Gran % 0.2 (0-4) % Seg Neutrophils % 65.1 % Lymphocytes % 22.3 % Monocytes % 8.2 % Eosinophils % 3.4 % Basophils % 0.8 % Neutrophils # 4.3 (1.6-8.9) K/mcL Lymphocytes # 1.5 (0.6-4.6) K/mcL Monocytes # 0.5 (0.0-1.3) K/mcL Eosinophils # 0.2 (0.0-0.6) K/mcL Basophils # 0.1 (0.0-0.2) K/mcL PT 16.9 H (9.4-12.1) Seconds INR 1.5 Sodium 138 (136-145) mEq/L Potassium 3.5 (3.5-5.1) mEq/L Chloride 103 (98-107) mEq/L Carbon Dioxide 29 (23-29) mEq/L BUN 21 (8-23) mg/dL Creatinine 1.14 (0.70-1.30) mg/dL Est GFR ( Amer) > 60 (> 60) Est GFR (Non-Af Amer) > 60 (> 60) BUN/Creatinine Ratio 18 (6-26) Glucose 185 H (70-105) mg/dL Calculated Osmolality 294 (280-300) Calcium 9.3 (8.6-10.3) mg/dL Magnesium 1.5 L (1.6-2.6) mg/dL Troponin I (< 0.04) ng/mL 04/27/19 Range/Units 23:27 WBC (4.3-11.1) K/mcL RBC (4.19-5.50) M/mcL Hgb (12.9-16.9) g/dL Hct (37.5-50.1) % MCV (83.0-100.0) fL MCH (28.0-33.3) pg MCHC (31.6-35.5) g/dL RDW (11.5-14.5) % Plt Count (140-400) K/mcL MPV (9.4-12.4) fL Immature Gran % (0-4) % Seg Neutrophils % % Lymphocytes % % Monocytes % % Eosinophils % % Basophils % % Neutrophils # (1.6-8.9) K/mcL Lymphocytes # (0.6-4.6) K/mcL Monocytes # (0.0-1.3) K/mcL Eosinophils # (0.0-0.6) K/mcL Basophils # (0.0-0.2) K/mcL PT (9.4-12.1) Seconds INR Sodium (136-145) mEq/L Potassium (3.5-5.1) mEq/L Chloride (98-107) mEq/L Carbon Dioxide (23-29) mEq/L BUN (8-23) mg/dL Creatinine (0.70-1.30) mg/dL Est GFR ( Amer) (> 60) Est GFR (Non-Af Amer) (> 60) BUN/Creatinine Ratio (6-26) Glucose (70-105) mg/dL Calculated Osmolality (280-300) Calcium (8.6-10.3) mg/dL Magnesium (1.6-2.6) mg/dL Troponin I < 0.03 (< 0.04) ng/mL - Radiology Data Radiology results reviewed: Yes I reviewed the patient's radiology results. Chest X-Ray 04/27/19 22:58 IMPRESSION: No acute disease. D/ / Arvind Mansfield MD / Arvind Mansfield MD Interpreting Provider: Arvind Mansfield MD - EKG Data EKG #1 EKG attestation: Yes I reviewed and interpreted this EKG. EKG results narrative: Atrial fibrillation rate of 66. Intermittent PVCs. There are no acute ischemic changes. When compared with prior from 02/12/19 there are no significant changes.
[2019-04-27] MEDS ORDERED: *HR* Labetalol 20 MG/4 ML SYRINGE IVP ONE (23:00)
[2019-04-27] MEDS ORDERED: Isovue-370 500 ML BOTTLE IVP ONE (23:00)
[2019-04-27 23:46] LABS: INR 1.5; Prothrombin Time 16.9 Seconds (9.4-12.1)
[2019-04-28 00:01] LABS: BUN/Creatinine Ratio 18 (6-26); Blood Urea Nitrogen 21 mg/dL (8-23); Calcium 9.3 mg/dL (8.6-10.3); Carbon Dioxide 29 mEq/L (23-29); Chloride 103 mEq/L (98-107); Glucose 185 mg/dL (70-105); Magnesium 1.5 mg/dL (1.6-2.6); Osmolality,Calculated 294 (280-300); Potassium 3.5 mEq/L (3.5-5.1); Sodium 138 mEq/L (136-145); eGFR For African Americans > 60 (> 60); eGFR For Non-African Americans > 60 (> 60)
[2019-04-28] MEDS ORDERED: Isovue-370 500 ML BOTTLE IVP ONE (00:06)
[2019-04-28] MEDS ORDERED: *HR* Labetalol 20 MG/4 ML SYRINGE IVP ONE (00:07)
[2019-04-28] MEDS ORDERED: Nitroglycerin 0.4 MG TAB.SUBL SL ONE (00:07)
[2019-04-28 00:08] LABS: Basophils # 0.1 K/mcL (0.0-0.2); Basophils % 0.8 %; Eosinophils # 0.2 K/mcL (0.0-0.6); Eosinophils % 3.4 %; Hematocrit 35.5 % (37.5-50.1); Hemoglobin 11.4 g/dL (12.9-16.9); Immature Granulocytes % 0.2 % (0-4); Lymphocytes # 1.5 K/mcL (0.6-4.6); Lymphocytes % 22.3 %; Mean Corpuscular HGB Conc 32.1 g/dL (31.6-35.5); Mean Corpuscular Hemoglobin 25.8 pg (28.0-33.3); Mean Corpuscular Volume 80.3 fL (83.0-100.0); Mean Platelet Volume 10.2 fL (9.4-12.4); Monocytes # 0.5 K/mcL (0.0-1.3); Monocytes % 8.2 %; Neutrophils # 4.3 K/mcL (1.6-8.9); Platelet Count 212 K/mcL (140-400); Red Blood Count 4.42 M/mcL (4.19-5.50); Red Cell Distribution Width 19.9 % (11.5-14.5); Segmented Neutrophils % 65.1 %; White Blood Count 6.6 K/mcL (4.3-11.1)
--- NOTE | 2019-04-28 00:33 | Emergency Department Note ---
Disposition Clinical Impression: Hypertension Qualifiers: Hypertension type: unspecified Qualified Code(s): I10 - Essential (primary) hypertension Disposition: Still a Patient Condition: Good Forms: ED Satisfaction Letter Time of Disposition: 00:33 General Adult HPI - General Chief complaint: ED Shortness of Breath/Dyspnea Stated complaint: HTN, SOB Time Seen by Provider: 04/27/19 22:39 Source: patient, family Limitations: no limitations - History of Present Illness Pain Scale: 4 - Related Data Home Medications Medication Instructions Recorded Confirmed Aspirin [Lo-Dose Aspirin EC] 81 mg PO DAILY 12/13/16 04/05/19 Terazosin [Hytrin] 5 mg PO HS 12/13/16 04/05/19 metFORMIN [Glucophage] 500 mg PO QAM 12/13/16 04/05/19 Multivitamin [Multi-Day Vitamins] 1 each PO DAILY 05/17/17 04/05/19 Furosemide [Lasix] 40 mg PO DAILY 09/04/17 04/05/19 Warfarin [Coumadin] 4.5 mg PO 1800 09/04/17 04/05/19 metFORMIN [Glucophage] 1,000 mg PO QPM 09/04/17 04/05/19 Escitalopram [Lexapro] 20 mg PO DAILY 02/12/19 04/05/19 Previous Rx's Medication Instructions Recorded Cyanocobalamin (Vitamin B-12) 1,000 mcg PO DAILY #30 tab 06/23/17 [Vitamin B12] Atorvastatin [Lipitor] 40 mg PO HS #30 tablet 02/20/19 Carvedilol [Coreg] 25 mg PO BIDWM #60 tablet 02/20/19 Losartan [Cozaar] 100 mg PO DAILY #30 tablet 02/20/19 Ferrous Sulfate [Iron] 325 mg PO BID #60 tablet 04/05/19 Allergies Allergy/AdvReac Type Severity Reaction Status Date / Time sotalol [From Betapace] AdvReac See Verified 04/27/19 22:38 Comments Past Medical History - Past Medical History Medical history: Reports: GI bleed, hypertension, other Surgical history: Reports: pacemaker Psychiatric history: Reports: depression - Social History Smoking Status: Never smoker Smokeless Tobacco Status: No Alcohol use: Reports: none Drug use: Reports: none Physical Exam - General Limitations: no limitations General appearance: alert, in no apparent distress Course Vital Signs Temperature 98.5 F 04/27/19 22:34 Pulse Rate 69 04/27/19 22:34 Respiratory Rate 20 04/27/19 22:34 Blood Pressure 191/102 04/27/19 22:34 O2 Sat by Pulse Oximetry 96 04/27/19 22:34 Temperature 98.5 F 04/27/19 22:34 Pulse Rate 66 04/28/19 00:02 Respiratory Rate 15 04/28/19 00:02 Blood Pressure 188/111 04/28/19 00:05 O2 Sat by Pulse Oximetry 97 04/28/19 00:02 Oxygen Delivery Oxygen Delivery Room Air Medical Decision Making - Lab Data Result diagrams: 04/27/19 23:27 04/27/19 23:27 Lab Results 04/27/19 04/27/19 04/27/19 Range/Units 23:27 23:27 23:27 WBC 6.6 (4.3-11.1) K/mcL RBC 4.42 (4.19-5.50) M/mcL Hgb 11.4 L (12.9-16.9) g/dL Hct 35.5 L (37.5-50.1) % MCV 80.3 L (83.0-100.0) fL MCH 25.8 L (28.0-33.3) pg MCHC 32.1 (31.6-35.5) g/dL RDW 19.9 H (11.5-14.5) % Plt Count 212 (140-400) K/mcL MPV 10.2 (9.4-12.4) fL Immature Gran % 0.2 (0-4) % Seg Neutrophils % 65.1 % Lymphocytes % 22.3 % Monocytes % 8.2 % Eosinophils % 3.4 % Basophils % 0.8 % Neutrophils # 4.3 (1.6-8.9) K/mcL Lymphocytes # 1.5 (0.6-4.6) K/mcL Monocytes # 0.5 (0.0-1.3) K/mcL Eosinophils # 0.2 (0.0-0.6) K/mcL Basophils # 0.1 (0.0-0.2) K/mcL PT 16.9 H (9.4-12.1) Seconds INR 1.5 Sodium 138 (136-145) mEq/L Potassium 3.5 (3.5-5.1) mEq/L Chloride 103 (98-107) mEq/L Carbon Dioxide 29 (23-29) mEq/L BUN 21 (8-23) mg/dL Creatinine 1.14 (0.70-1.30) mg/dL Est GFR ( Amer) > 60 (> 60) Est GFR (Non-Af Amer) > 60 (> 60) BUN/Creatinine Ratio 18 (6-26) Glucose 185 H (70-105) mg/dL Calculated Osmolality 294 (280-300) Calcium 9.3 (8.6-10.3) mg/dL Magnesium 1.5 L (1.6-2.6) mg/dL Troponin I (< 0.04) ng/mL 04/27/19 Range/Units 23:27 WBC (4.3-11.1) K/mcL RBC (4.19-5.50) M/mcL Hgb (12.9-16.9) g/dL Hct (37.5-50.1) % MCV (83.0-100.0) fL MCH (28.0-33.3) pg MCHC (31.6-35.5) g/dL RDW (11.5-14.5) % Plt Count (140-400) K/mcL MPV (9.4-12.4) fL Immature Gran % (0-4) % Seg Neutrophils % % Lymphocytes % % Monocytes % % Eosinophils % % Basophils % % Neutrophils # (1.6-8.9) K/mcL Lymphocytes # (0.6-4.6) K/mcL Monocytes # (0.0-1.3) K/mcL Eosinophils # (0.0-0.6) K/mcL Basophils # (0.0-0.2) K/mcL PT (9.4-12.1) Seconds INR Sodium (136-145) mEq/L Potassium (3.5-5.1) mEq/L Chloride (98-107) mEq/L Carbon Dioxide (23-29) mEq/L BUN (8-23) mg/dL Creatinine (0.70-1.30) mg/dL Est GFR ( Amer) (> 60) Est GFR (Non-Af Amer) (> 60) BUN/Creatinine Ratio (6-26) Glucose (70-105) mg/dL Calculated Osmolality (280-300) Calcium (8.6-10.3) mg/dL Magnesium (1.6-2.6) mg/dL Troponin I < 0.03 (< 0.04) ng/mL Attestation Statement - Attestation Attestation: I reviewed the residents documentation and agree with the residents assessment and plan of care. I have personally had face to face time with the patient. (Brief History, Brief Exam, and MDM) I personally supervised and was present for the cano/critical portions of the following procedures completed by the resident: EKG 73 year old male presnts to the ED with complaints of HTN and chest pain and headache and has had elevated blood pressures at home systolic >200. He presents with asymmeteric blood pressures in his arm. We have given him one dose of labetlol and it apeaprs it has impoved his blood pressure in one arm to 180 sy stolic but the other arm is still 211. We will dose again. CT pending. Concern is for dissection and subarachnoid rule out. This patinet will be signed out to Dr. Varela for followup on CT scans and braulio will require admission if he is symptomatic and blood pressure are otherwise diffcult to manage
--- NOTE | 2019-04-28 00:39 | Emergency Department Note ---
Disposition Clinical Impression: Shortness of breath Hypertension Qualifiers: Hypertension type: essential hypertension Qualified Code(s): I10 - Essential (primary) hypertension Headache Qualifiers: Headache type: unspecified Headache chronicity pattern: unspecified pattern Int ractability: not intractable Qualified Code(s): R51 - Headache Disposition: Admitted As Inpatient Condition: Good Time of Disposition: 06:24 General Adult HPI - General Chief complaint: ED Shortness of Breath/Dyspnea Stated complaint: HTN, SOB Time Seen by Provider: 04/27/19 22:39 Source: patient, family Limitations: no limitations - History of Present Illness HPI Narrative: Patient received in signout from Dr. Piedad Iqbal and Dr. Felisa Zamora, please see documentation by these physicians for initial evaluation, management. Patient is 73-year-old male presenting today due to elevated blood pressure, headache and shortness of breath. Patient has had negative workup. The ED however remains hypertensive despite labetalol and nitroglycerin. 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 Patient family members at bedside verbalized understanding and agreement this plan. Patient is hemodynamically stable time of admission. Pain Scale: 4 - Related Data Home Medications Medication Instructions Recorded Confirmed Aspirin [Lo-Dose Aspirin EC] 81 mg PO DAILY 12/13/16 04/28/19 Terazosin [Hytrin] 5 mg PO HS 12/13/16 04/28/19 metFORMIN [Glucophage] 500 mg PO QAM 12/13/16 04/28/19 Multivitamin [Multi-Day Vitamins] 1 each PO DAILY 05/17/17 04/28/19 Furosemide [Lasix] 40 mg PO DAILY 09/04/17 04/28/19 Warfarin [Coumadin] 5 mg PO 1800 09/04/17 04/28/19 metFORMIN [Glucophage] 1,000 mg PO QPM 09/04/17 04/28/19 Escitalopram [Lexapro] 20 mg PO DAILY 02/12/19 04/28/19 Carvedilol [Coreg] 25 mg PO BID 04/28/19 04/28/19 Previous Rx's Medication Instructions Recorded Cyanocobalamin (Vitamin B-12) 1,000 mcg PO DAILY #30 tab 06/23/17 [Vitamin B12] Atorvastatin [Lipitor] 40 mg PO HS #30 tablet 02/20/19 Losartan [Cozaar] 100 mg PO DAILY #30 tablet 02/20/19 Ferrous Sulfate [Iron] 325 mg PO BID #60 tablet 04/05/19 Allergies Allergy/AdvReac Type Severity Reaction Status Date / Time sotalol [From Betapace] AdvReac See Verified 04/27/19 22:38 Comments Past Medical History - Past Medical History Medical history: Reports: GI bleed, hypertension, other Surgical history: Reports: pacemaker Psychiatric history: Reports: depression - Social History Smoking Status: Never smoker Smokeless Tobacco Status: No Alcohol use: Reports: none Drug use: Reports: none Physical Exam - General Limitations: no limitations General appearance: alert, in no apparent distress Course Vital Signs Temperature 98.5 F 04/27/19 22:34 Pulse Rate 69 04/27/19 22:34 Respiratory Rate 20 04/27/19 22:34 Blood Pressure 191/102 04/27/19 22:34 O2 Sat by Pulse Oximetry 96 04/27/19 22:34 Temperature 97.7 F 04/28/19 04:16 Pulse Rate 72 04/28/19 05:31 Respiratory Rate 16 04/28/19 04:16 Blood Pressure 159/80 04/28/19 05:31 O2 Sat by Pulse Oximetry 98 04/28/19 04:16 Oxygen Delivery Oxygen Delivery Room Air Medical Decision Making - MDM Narrative Medical decision making narrative: Patient's imaging results show 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 Laboratory and imaging results are otherwise unremarkable for acute pathology. Patient be admitted to hospitalist medicine service for their evaluation and ma nagement of hypertensive urgency in the setting of stenosis of the inferior mesenteric artery. Patient blood pressures have improved with 2 separate doses of 10 mg labetalol as well as nitroglycerin tablet in the ED however he remains hypertensive. 5 mg amlodipine will be given at this time. Patient family members at bedside verbalized understanding and agreement with this plan. Patient is hemodynamically stable time of admission. Dr. Chavez accepting admission. - Lab Data Lab results reviewed: Yes I reviewed the patient's lab results. Result diagrams: 04/27/19 23:27 04/27/19 23:27 Lab Results 04/27/19 04/27/19 04/27/19 Range/Units 23:27 23:27 23:27 WBC 6.6 (4.3-11.1) K/mcL RBC 4.42 (4.19-5.50) M/mcL Hgb 11.4 L (12.9-16.9) g/dL Hct 35.5 L (37.5-50.1) % MCV 80.3 L (83.0-100.0) fL MCH 25.8 L (28.0-33.3) pg MCHC 32.1 (31.6-35.5) g/dL RDW 19.9 H (11.5-14.5) % Plt Count 212 (140-400) K/mcL MPV 10.2 (9.4-12.4) fL Immature Gran % 0.2 (0-4) % Seg Neutrophils % 65.1 % Lymphocytes % 22.3 % Monocytes % 8.2 % Eosinophils % 3.4 % Basophils % 0.8 % Neutrophils # 4.3 (1.6-8.9) K/mcL Lymphocytes # 1.5 (0.6-4.6) K/mcL Monocytes # 0.5 (0.0-1.3) K/mcL Eosinophils # 0.2 (0.0-0.6) K/mcL Basophils # 0.1 (0.0-0.2) K/mcL PT 16.9 H (9.4-12.1) Seconds INR 1.5 Sodium 138 (136-145) mEq/L Potassium 3.5 (3.5-5.1) mEq/L Chloride 103 (98-107) mEq/L Carbon Dioxide 29 (23-29) mEq/L BUN 21 (8-23) mg/dL Creatinine 1.14 (0.70-1.30) mg/dL Est GFR ( Amer) > 60 (> 60) Est GFR (Non-Af Amer) > 60 (> 60) BUN/Creatinine Ratio 18 (6-26) Glucose 185 H (70-105) mg/dL Calculated Osmolality 294 (280-300) Calcium 9.3 (8.6-10.3) mg/dL Magnesium 1.5 L (1.6-2.6) mg/dL Troponin I (< 0.04) ng/mL 04/27/19 Range/Units 23:27 WBC (4.3-11.1) K/mcL RBC (4.19-5.50) M/mcL Hgb (12.9-16.9) g/dL Hct (37.5-50.1) % MCV (83.0-100.0) fL MCH (28.0-33.3) pg MCHC (31.6-35.5) g/dL RDW (11.5-14.5) % Plt Count (140-400) K/mcL MPV (9.4-12.4) fL Immature Gran % (0-4) % Seg Neutrophils % % Lymphocytes % % Monocytes % % Eosinophils % % Basophils % % Neutrophils # (1.6-8.9) K/mcL Lymphocytes # (0.6-4.6) K/mcL Monocytes # (0.0-1.3) K/mcL Eosinophils # (0.0-0.6) K/mcL Basophils # (0.0-0.2) K/mcL PT (9.4-12.1) Seconds INR Sodium (136-145) mEq/L Potassium (3.5-5.1) mEq/L Chloride (98-107) mEq/L Carbon Dioxide (23-29) mEq/L BUN (8-23) mg/dL Creatinine (0.70-1.30) mg/dL Est GFR ( Amer) (> 60) Est GFR (Non-Af Amer) (> 60) BUN/Creatinine Ratio (6-26) Glucose (70-105) mg/dL Calculated Osmolality (280-300) Calcium (8.6-10.3) mg/dL Magnesium (1.6-2.6) mg/dL Troponin I < 0.03 (< 0.04) ng/mL - Radiology Data Radiology results reviewed: Yes I reviewed the patient's radiology results. Chest X-Ray 04/27/19 22:58 IMPRESSION: No acute disease. D/ / Arvind Mansfield MD / Arvind Mansfield MD Interpreting Provider: Arvind Mansfield MD Dissection 04/28/19 00:06 IMPRESSION: No evidence of aortic dissection or other acute vascular pathology. 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 No acute findings in the chest, abdomen, or pelvis. D/ / Ace Jamison MD / Ace Jamison MD Interpreting Provider: Ace Jamison MD Angiography CT 04/28/19 23:00 IMPRESSION: No acute intracranial hemorrhage. No cerebral aneurysm. Atherosclerosis throughout the bilateral middle and posterior cerebral arteries results in multifocal areas of moderate to severe stenosis. Atherosclerosis of the bilateral middle cerebral artery M1 segments without focal high-grade stenosis or occlusion. Chronic small vessel ischemic disease. 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 D/ / Tanner Javier / Tanner Javier Interpreting Provider: Tanner Javier Attestation Statement - Attestation Attestation: I, John Gates MD, personally evaluated this patient and discussed their management with the resident physician. I reviewed the resident's note and agree with the documented findings, medical decision making, and plan of care. This patient was signed out at shift change from Dr. Iqbal and Dr. Felisa Zamora. Please refer to their notes for complete details of the history and physical examination. Patient presented with headache and hypertension. At shift change patient is awaiting a CT angiogram of the brain as well as a dissection study prior to consult in the hospitalist for admission. The CT of the brain showed no acute hemorrhage or aneurysm. There was diffuse atherosclerosis with scattered areas of stenosis. Dissection study showed no aneurysm or dissection. No acute abnormality in the chest abdomen or pelvis. Some focal stenosis of the inferior mesenteric artery. On examination patient is a well-developed well-nourished well-appearing elderly male in no acute distress. He is alert and oriented. No cyanosis or diaphoresis. Breath sounds are clear and equal bilaterally. Heart irregularly irregular with a normal rate. Abdomen soft and nontender with normal bowel sounds. No gross focal neurological deficits. The hospitalist, Dr. Chavez, was consulted and accepted admission of the patient.
[2019-04-28] MEDS ORDERED: Naloxone 0.4 MG/ML INJ IVP PRN (03:32)
[2019-04-28] MEDS ORDERED: *HR* Dextrose 50 % in Water (Syg) 50 ML SYRINGE IVP PRN (03:32)
[2019-04-28] MEDS ORDERED: Dextrose Gel 15 GM/37.5 ML TUBE PO PRN ×2 (03:32)
[2019-04-28] MEDS ORDERED: *HR* OxyCODONE Immed Rel 5 MG TABLET PO PRN (03:32)
--- NOTE | 2019-04-28 03:51 | Internal Med History&Physical ---
Date of Encounter: 04/28/19 Time of Encounter: 03:48 Internal Medicine - H&P: HPI Chief complaint: headache Admitted From: Home Plans for Post Hospital Care: Home History of present illness: Indra Good is a 73 year old man with hypertension, diabetes, coronary artery disease, chronic kidney disease and peripheral vascular disease who presents emergency department with complaints of elevated blood pressure and headache. His states that she normally coordinates his medications and administers them to him daily however he decided to be of help and went to take a double dose of his medications taking 2 doses of 100 mg losartan tablets and 2 doses of 40 mg furosemide tablets. When his noted the error she contacted her home health nurse who advised that she take his blood pressure immediately to ensure it was not low. To her surprise it was elevated with a systolic in the 190s and that correlated with the period of time he was complaining of headaches and feeling lightheaded. On arrival here he remained hypertensive with a high systolic of 215 and diastolic high of 115. CT images demonstrated focal high- grade stenosis of the proximal inferior mesenteric artery, diffuse atherosclerosis of his intracranial arteries, chronic small vessel ischemic changes and multiple small pontine remote lacunar infarcts. He was given 20 mg of labetalol, 1 sublingual nitroglycerin and one oral 5 mg tablet of amlodipine. He remained hypertensive and symptomatic site is admitted for further care. Vitals: Reviewed General: Well-developed white man sliding in bed in no acute distress. Skin: Warm and supple. HEENT: Moist mucous membranes. No conjunctivae pallor. Neck: No lymphadenopathy. No JVD. No carotid bruits. No palpable thyroid. Chest: Normal thoracic expansion. Normal breath sounds. Clear to auscultation. Heart: Normal S1 & S2; rhythmic. No rubs or murmurs. Abdomen: Non-distended, soft and non-tender to palpation. No peritoneal reaction. Extremities: No clubbing, cyanosis or edema. No calf tenderness. Normal distal pulses. Neurological: Awake, alert and oriented to person, place and time. No focal deficits. Psych: Affect appropriate. Assessment/Plan 1. Hypertensive urgency: The patient seems to have rather rebellious hypertension that has been poor controlled as an outpatient and will require modifications of his therapy. He has evidence of end organ disease from the chronically elevated BPs as noted with the vascular anomalies on CT scan. Will admit for closer monitoring and therapeutic interventions. Plan to achieve no greater than a 25% reduction now and stabilize over the next 24 hours. 2. Atrial fibrillation: Rate controlled. INR currently subtherapeutic as it was discontinued transiently due to recent dental work but has now restarted. Will avoid bridging anticoagulation as he had a recent admission for blood loss anemia requiring blood transfusion. Warfarin to be dosed by pharmacy. 3. Coronary artery disease: S/p CABG. Continue aspirin and atorvastatin. Asymptomatic. 4. Peripheral vascular disease: He is at high risk of ischemic disease of his mesentery and brain based on the diffuse atherosclerotic changes seen on CT. Reinforcement was given on the continued need to keep his blood pressure stable, use antilipid agents and antiplatelets. 5. Chronic kidney disease: Stable. 6. Hypomagnesemia: Will supplement with 1gr MgSO4. Past Med Surg Social Fam HX - Past Medical History Medical history: GI bleed, hypertension, other Additional medical history: sinusitis,acute,bronchitis,abdominal pain,meniscal tear,cough,snoring,joint pain/ankle and foot,leg/knee pain,sleep apnea,hyperglycemia,ischemic cardiomypathy, Psychiatric history: depression - Past Surgical History Surgical History: pacemaker Additional surgical history: open heart 1996. Choley - open unsure date. pacemaker placement 2002. right knee scope 1983. A Fib ablation procedure 2008. pulmonary function test 2008. cath x2 stents unsure date. pacemaker replacement 2010. left knee scope partial medial menicectomy 2012. right TKR 2017 - Social History Smoking Status: Never smoker Smokeless Tobacco Status: No Alcohol use: none Drug use: none Internal Medicine - H&P: Meds Aspirin [Lo-Dose Aspirin EC] 81 mg PO DAILY 12/13/16 [History] Terazosin [Hytrin] 5 mg PO HS 12/13/16 [History] metFORMIN [Glucophage] 500 mg PO QAM 12/13/16 [History] Multivitamin [Multi-Day Vitamins] 1 each PO DAILY 05/17/17 [History] Cyanocobalamin (Vitamin B-12) [Vitamin B12] 1,000 mcg PO DAILY #30 tab 06/23/17 [Rx] Furosemide [Lasix] 40 mg PO DAILY 09/04/17 [History] Warfarin [Coumadin] 5 mg PO 1800 09/04/17 [History] metFORMIN [Glucophage] 1,000 mg PO QPM 10/30/17 [History] Escitalopram [Lexapro] 20 mg PO DAILY 02/12/19 [History] Atorvastatin [Lipitor] 40 mg PO HS #30 tablet 02/20/19 [Rx] Losartan [Cozaar] 100 mg PO DAILY #30 tablet 02/20/19 [Rx] Ferrous Sulfate [Iron] 325 mg PO BID #60 tablet 04/05/19 [Rx] Carvedilol [Coreg] 25 mg PO BID 04/28/19 [History] Allergy/AdvReac Type Severity Reaction Status Date / Time sotalol [From Betapace] AdvReac See Verified 04/27/19 22:38 Comments All Systems PM: A 10-system review of systems was performed and is negative for pertinent findings except as documented above in the HPI. Family history reviewed and found non-contributory. - Constitutional Vitals: Temp Pulse Resp BP Pulse Ox 98.5 F 64 18 181/91 96 04/27/19 22:34 04/28/19 03:42 04/28/19 03:42 04/28/19 03:42 04/28/19 03:42 Exam: . Internal Med - H&P Results - Labs CBC & Chem 7: 04/27/19 23:27 04/27/19 23:27 Labs: Short CBC 04/27/19 Range/Units 23:27 WBC 6.6 (4.3-11.1) K/mcL Hgb 11.4 L (12.9-16.9) g/dL Hct 35.5 L (37.5-50.1) % Plt Count 212 (140-400) K/mcL Neutrophils # 4.3 (1.6-8.9) K/mcL BMP 04/27/19 23:27 Sodium 138 Potassium 3.5 Chloride 103 Carbon Dioxide 29 BUN 21 Creatinine 1.14 Glucose 185 H Calcium 9.3 Cardiac Enzymes 04/27/19 Range/Units 23:27 Troponin I < 0.03 (< 0.04) ng/mL - Impressions ITS Impressions Chest X-Ray 04/27/19 22:58 IMPRESSION: No acute disease. D/ / Arvind Mansfield MD / Arvind Mansfield MD Interpreting Provider: Arvind Mansfield MD Dissection 04/28/19 00:06 IMPRESSION: No evidence of aortic dissection or other acute vascular pathology. 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 No acute findings in the chest, abdomen, or pelvis. D/ / Ace Jamison MD / Ace Jamison MD Interpreting Provider: Ace Jamison MD Angiography CT 04/28/19 23:00 IMPRESSION: No acute intracranial hemorrhage. No cerebral aneurysm. Atherosclerosis throughout the bilateral middle and posterior cerebral arteries results in multifocal areas of moderate to severe stenosis. Atherosclerosis of the bilateral middle cerebral artery M1 segments without focal high-grade stenosis or occlusion. Chronic small vessel ischemic disease. 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 D/ / Tanner Javier / Tanner Javier Interpreting Provider: Tanner Javier - Time Spent With Patient Total time spent is greater than 50% in coordination of care (as documented) at patient's floor/unit and/or counseling patient: Greater than 35 minutes
[2019-04-28] MEDS: Cyanocobalamin (B-12) 1,000 MCG TABLET PO SCH (07:30)
[2019-04-28] MEDS: Aspirin Enteric Coated 81 MG Tablet PO SCH (07:30)
[2019-04-28] MEDS: traMADol 50 MG TABLET PO PRN (07:31)
[2019-04-28] MEDS: amLODIPine 5 MG TABLET PO SCH (07:31)
[2019-04-28] MEDS: Multivit/Ca/Min/Fe/FA 1 TAB TABLET PO SCH (07:31)
[2019-04-28] MEDS: Insulin LISPRO 300 UNITS/3 ML VIAL SQ SCH ×4 (07:32→20:05)
[2019-04-28] MEDS: Furosemide 40 MG TABLET PO SCH (07:32)
--- NOTE | 2019-04-28 08:05 | Event Note ---
Date of Encounter: 04/28/19 Time of Encounter: 12:47 Mr Stone was placed in observation earlier today for hypertensive urgency. His blood pressure has decreased appropriately. He is feeling OK at this time. Exam alert Comfortable Not tachycardic Agree with assessment and plan as per H&P Continue current meds for now. Pt stated he has not slept in 37 hours. Will add PRN med tonight.
[2019-04-28] MEDS ORDERED: amLODIPine 5 MG TABLET PO SCH (09:00)
[2019-04-28 12:47] LABS: INR 1.5; Prothrombin Time 17.1 Seconds (9.4-12.1)
[2019-04-28] MEDS: Acetaminophen 325 MG TABLET PO PRN (15:17)
[2019-04-28] MEDS ORDERED: Warfarin perPT PO PRN (18:00)
[2019-04-28] MEDS ORDERED: *HR* Warfarin 5 MG TABLET PO ONE (18:00)
[2019-04-28] MEDS ORDERED: *HR* Promethazine 25 MG/ML VIAL IVP ONE (21:29)
[2019-04-29 04:10] LABS: INR 1.6; Prothrombin Time 18.2 Seconds (9.4-12.1)
[2019-04-29] MEDS: Multivit/Ca/Min/Fe/FA 1 TAB TABLET PO SCH (08:05)
[2019-04-29] MEDS: Furosemide 40 MG TABLET PO SCH (08:06)
[2019-04-29] MEDS: amLODIPine 5 MG TABLET PO SCH (08:06)
[2019-04-29] MEDS: Aspirin Enteric Coated 81 MG Tablet PO SCH (08:06)
[2019-04-29] MEDS: Insulin LISPRO 300 UNITS/3 ML VIAL SQ SCH ×4 (08:06→20:19)
[2019-04-29] MEDS: Cyanocobalamin (B-12) 1,000 MCG TABLET PO SCH (08:06)
--- NOTE | 2019-04-29 10:36 | Internal Med Progress Note ---
<Ozzy Mcconnell - Last Filed: 04/29/19 15:46> Hospitalist Progress Note - Encounter Date of Encounter: 04/29/19 - Exam Vitals: Temp Pulse Resp BP Pulse Ox 97.8 F 76 16 137/76 94 04/29/19 15:03 04/29/19 15:03 04/29/19 15:03 04/29/19 15:03 04/29/19 15:03 - Assessment and Plan (1) Hypertensive urgency Current Visit: Yes Status: Acute (2) CAD (coronary artery disease) of artery bypass graft Current Visit: No Status: Chronic (3) Afib Current Visit: No Status: Chronic (4) Diabetes mellitus Current Visit: No Status: Chronic (5) Chronic kidney disease Current Visit: No Status: Chronic - Time Spent with Patient Total time spent is greater than 50% in coordination of care (as documented) at patient's floor/unit and/or counseling patient: Internal Medicine: Result - Labs CBC & Chem 7: 04/27/19 23:27 04/27/19 23:27 - ABG Interpretation ABG results: PT/INR, D-dimer PT 18.2 Seconds (9.4-12.1) H 04/29/19 02:55 Consult Discharge Plan - Plan Referrals: Russel Felipe Jr, MD [Partnered Physician] - 05/08/19 10:00 am - Attending Attestation I examined this patient and my medical decision-making was reviewed with the Resident Physician on 04/29/19. I agree with the documented findings, disposition and treatment plan as described except to the extent set forth below. Mr Good is currently admitted for uncontrolled HTN. He remains moderate to high risk due to potential for worsening clinical status. Mr Good is doing OK. Had some headache today. BP slightly elevated. EKG - a fib. Will get renal artery duplex. Pt and family told by ED that cardiology would be consulted. Will discuss with family. Anticipate d/c in next 24-48 hours. <Misty Garcia - Last Filed: 04/29/19 20:27> Hospitalist Progress Note - Encounter Date of Encounter: 04/29/19 Time of Encounter: 10:36 - Subjective Interval History: Patient was seen and examined at bedside this morning. Vitals are hemodynamically stable. Blood pressure pressure has improved = 151/93 this morning. No acute distress. Currently managed with amlodipine, carvedilol twice a day, Lasix, losartan. We will consider adding Imdur to her regimen. Additionally will consider renal artery Doppler. - Exam Vitals: Temp Pulse Resp BP Pulse Ox 97.7 F 75 16 151/93 95 04/29/19 06:50 04/29/19 06:50 04/29/19 06:50 04/29/19 06:50 04/29/19 08:00 Exam: GEN: Pleasant 73-year-old male resting comfortably at bedside. Vitals stable. No acute distress. AAOx3 HEENT: Atraumatic, Normocephalic, PERRLA, EOMI NECK: Supple, no lymphadenopathy, no JVD CARDIAC: RRR, s1 and s2 present, no murmurs, rubs, gallops PULM: CTAB, not in respiratory distress, no wheezes, rales, crackles, rhonchi ABD: Soft, non-tender, non-distended, no guarding or rebound tenderness. Bowel sounds present EXT: No peripheral edema. No calf tenderness, cyanosis, clubbing NEURO: CN 2-12 grossly intact. No focal neurologic deficits. Follows commands PSYCH: Appropriate mood and affect - Assessment and Plan (1) Hypertension Current Visit: Yes Status: Acute Assessment and Plan: This is a 73-year-old male with history of hypertension, diabetes, coronary artery disease, chronic kidney disease, peripheral vascular disease who initially presented to the emergency department with complaints of elevated blood pressure with headache. - Patient did initially present after taking double dosage of 100 mg losartan tablets and 40 mg furosemide tablets. - At home, BP noted to be elevated with systolic = 190s. Associated with headache and lightheadedness - In the ED, BP = 215/115. 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 - In the ED, given 20 mg labetalol, 1 sublingual nitroglycerin, one 5 mg tablet of amlodipine - Admitted due to persistent hypertension - Seen and examined this morning. BP = 151/93 this morning. PLAN: Patient presents with hypertension. No end organ damage noted. Patient remained asymptomatic. - Continue to monitor blood pressures - To need to monitor on telemetry - Currently on 4 medications including amlodipine, carvedilol, furosemide, losartan - Consider addition of Imdur given persistently elevated blood pressures - Follow up renal artery ultrasound for evaluation of renal artery stenosis (2) Afib Current Visit: Yes Status: Chronic Assessment and Plan: History of atrial fibrillation - Currently not in atrial fibrillation - Managed with Coumadin and carvedilol - INR = 1.6 PLAN: - Continue to monitor on telemetry - Continue to monitor INR - Continue Coumadin for anticoagulation - Continue beta ct for rate control (3) CAD (coronary artery disease) of artery bypass graft Current Visit: No Status: Chronic Assessment and Plan: History of coronary artery disease status post CABG. PLAN: - Continue aspirin, statin, beta ct - Asymptomatic at this time - Continue telemetry - EKG as needed for chest pain (4) Chronic kidney disease Current Visit: No Status: Chronic Assessment and Plan: Stable - No evidence of further end organ damage PLAN: - Continue to monitor (5) Diabetes mellitus Current Visit: No Status: Chronic Assessment and Plan: Chronic PLAN: - Low-dose insulin sliding scale - Diabetic diet - Accu-Cheks before meals at bedtime (6) DVT prophylaxis Current Visit: No Status: Acute Assessment and Plan: PLAN: - Coumadin DVT Prophylaxis: Coumadin - Time Spent with Patient Total time spent is greater than 50% in coordination of care (as documented) at patient's floor/unit and/or counseling patient: less than 15 minutes Plan of Care Discussed with: patient Internal Medicine: Result - Labs CBC & Chem 7: 04/27/19 23:27 04/27/19 23:27 - ABG Interpretation ABG results: PT/INR, D-dimer PT 18.2 Seconds (9.4-12.1) H 04/29/19 02:55 <Ozzy Mcconnell - Last Filed: 04/29/19 15:46> (2) CAD (coronary artery disease) of artery bypass graft Qualifiers: [place] vs. transplanted heart: [place] heart Associated angina: without angina Qualified Code(s): I25.810 - Atherosclerosis of coronary artery bypass graft(s) without angina pectoris (3) Afib Qualifiers: Atrial fibrillation type: chronic Qualified Code(s): I48.2 - Chronic atrial fibrillation (4) Diabetes mellitus Qualifiers: Diabetes mellitus type: type 2 Diabetes mellitus intermediate teacher insulin use: without snf use Diabetes mellitus complication status: with hyperglycemia Qualified Code(s): E11.65 - Type 2 diabetes mellitus with hyperglycemia (5) Chronic kidney disease Qualifiers: Chronic kidney disease stage: stage 3 (moderate) Qualified Code(s): N18.3 - Chronic kidney disease, stage 3 (moderate) <Misty Garcia - Last Filed: 04/29/19 20:27> (1) Hypertension Qualifiers: Hypertension type: essential hypertension Qualified Code(s): I10 - Essential (primary) hypertension (2) Afib Qualifiers: Atrial fibrillation type: chronic Qualified Code(s): I48.2 - Chronic atrial fibrillation (3) CAD (coronary artery disease) of artery bypass graft Qualifiers: [place] vs. transplanted heart: [place] heart Associated angina: without angina Qualified Code(s): I25.810 - Atherosclerosis of coronary artery bypass graft(s) without angina pectoris (4) Chronic kidney disease Qualifiers: Chronic kidney disease stage: stage 3 (moderate) Qualified Code(s): N18.3 - Chronic kidney disease, stage 3 (moderate) (5) Diabetes mellitus Qualifiers: Diabetes mellitus type: type 2 Diabetes mellitus intermediate teacher insulin use: without intermediate teacher use Diabetes mellitus complication status: with hyperglycemia Qualified Code(s): E11.65 - Type 2 diabetes mellitus with hyperglycemia
[2019-04-29] MEDS: Acetaminophen 325 MG TABLET PO PRN (11:52)
[2019-04-29] MEDS: traMADol 50 MG TABLET PO PRN (15:22)
[2019-04-29] MEDS ORDERED: *HR* Warfarin 5 MG TABLET PO ONE (18:00)
[2019-04-30] MEDS: traMADol 50 MG TABLET PO PRN (03:40)
[2019-04-30 05:28] LABS: Basophils % 0.5 %; Eosinophils # 0.3 K/mcL (0.0-0.6); Eosinophils % 4.1 %; Hemoglobin 10.9 g/dL (12.9-16.9); Immature Granulocytes % 0.2 % (0-4); Lymphocytes # 1.4 K/mcL (0.6-4.6); Lymphocytes % 21.3 %; Mean Corpuscular HGB Conc 32.1 g/dL (31.6-35.5); Mean Corpuscular Hemoglobin 25.3 pg (28.0-33.3); Mean Corpuscular Volume 78.9 fL (83.0-100.0); Mean Platelet Volume 10.6 fL (9.4-12.4); Monocytes # 0.7 K/mcL (0.0-1.3); Monocytes % 9.9 %; Neutrophils # 4.2 K/mcL (1.6-8.9); Platelet Count 220 K/mcL (140-400); Red Blood Count 4.31 M/mcL (4.19-5.50); Red Cell Distribution Width 20.3 % (11.5-14.5); White Blood Count 6.6 K/mcL (4.3-11.1)
[2019-04-30 05:31] LABS: INR 1.7; Prothrombin Time 19.8 Seconds (9.4-12.1)
[2019-04-30 05:45] LABS: BUN/Creatinine Ratio 19 (6-26); Blood Urea Nitrogen 21 mg/dL (8-23); Calcium 9.1 mg/dL (8.6-10.3); Carbon Dioxide 27 mEq/L (23-29); Chloride 100 mEq/L (98-107); Glucose 146 mg/dL (70-105); Magnesium 1.8 mg/dL (1.6-2.6); Osmolality,Calculated 292 (280-300); Phosphorous 3.4 mg/dL (2.7-4.5); Potassium 3.3 mEq/L (3.5-5.1); Sodium 138 mEq/L (136-145); eGFR For African Americans > 60 (> 60); eGFR For Non-African Americans > 60 (> 60)
[2019-04-30] MEDS: Insulin LISPRO 300 UNITS/3 ML VIAL SQ SCH ×2 (08:20→12:05)
[2019-04-30] MEDS: Aspirin Enteric Coated 81 MG Tablet PO SCH (08:23)
[2019-04-30] MEDS: Cyanocobalamin (B-12) 1,000 MCG TABLET PO SCH (08:23)
[2019-04-30] MEDS: amLODIPine 5 MG TABLET PO SCH (08:23)
[2019-04-30] MEDS: Multivit/Ca/Min/Fe/FA 1 TAB TABLET PO SCH (08:23)
[2019-04-30] MEDS: Furosemide 40 MG TABLET PO SCH (08:23)
--- NOTE | 2019-04-30 08:53 | Internal Med Progress Note ---
Hospitalist Progress Note - Encounter Date of Encounter: 04/30/19 Time of Encounter: 08:52 - Subjective Interval History: Patient seen and examined at bedside this morning. No complaints at this time. Vitals hemodynamically stable. BP continues to be elevated this morning. Had been improving throughout the day yesterday. Added Imdur 15mg daily this morning. Additionally will split losartan dose to 50mg BID. Pending renal artery ultrasound today. - Exam Vitals: Temp Pulse Resp BP Pulse Ox 98.3 F 93 15 176/80 92 04/30/19 07:36 04/30/19 07:36 04/30/19 07:36 04/30/19 07:36 04/30/19 07:36 Exam: GEN: 73-year-old male resting comfortably in bed. Vitals stable. No acute distress. AAOx3 HEENT: Atraumatic, Normocephalic, PERRLA, EOMI NECK: Supple, no lymphadenopathy, no JVD CARDIAC: Irregularly irregular rhythm. s1 and s2 present, no murmurs, rubs, gallops PULM: CTAB, not in respiratory distress, no wheezes, rales, crackles, rhonchi ABD: Soft, non-tender, non-distended, no guarding or rebound tenderness. Bowel sounds present EXT: No peripheral edema. No calf tenderness, cyanosis, clubbing NEURO: CN 2-12 grossly intact. No focal neurologic deficits. Follows commands PSYCH: Appropriate mood and affect - Assessment and Plan (1) Hypertension Current Visit: Yes Status: Acute Assessment and Plan: This is a 73-year-old male with history of hypertension, diabetes, coronary artery disease, chronic kidney disease, peripheral vascular disease who initially presented to the emergency department with complaints of elevated blood pressure with headache. - Patient did initially present after taking double dosage of 100 mg losartan tablets and 40 mg furosemide tablets. - At home, BP noted to be elevated with systolic = 190s. Associated with headache and lightheadedness - In the ED, BP = 215/115. 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 - In the ED, given 20 mg labetalol, 1 sublingual nitroglycerin, one 5 mg tablet of amlodipine - Admitted due to persistent hypertension - Seen and examined this morning. BP improving PLAN: Patient presents with hypertension. No end organ damage noted. Patient remained asymptomatic. - Continue to monitor blood pressures - To need to monitor on telemetry - Currently on 4 medications including amlodipine, carvedilol, furosemide, losartan - Consider addition of Imdur given persistently elevated blood pressures - Follow up renal artery ultrasound for evaluation of renal artery stenosis (2) Afib Current Visit: Yes Status: Chronic Assessment and Plan: History of atrial fibrillation - Currently not in atrial fibrillation - Managed with Coumadin and carvedilol - INR = 1.7 today PLAN: - Continue to monitor on telemetry - Continue to monitor INR - Continue Coumadin for anticoagulation - Continue beta ct for rate control (3) CAD (coronary artery disease) of artery bypass graft Current Visit: No Status: Chronic Assessment and Plan: History of coronary artery disease status post CABG. PLAN: - Continue aspirin, statin, beta ct - Asymptomatic at this time - Continue telemetry - EKG as needed for chest pain (4) Chronic kidney disease Current Visit: No Status: Chronic Assessment and Plan: Stable - No evidence of further end organ damage PLAN: - Continue to monitor (5) Diabetes mellitus Current Visit: No Status: Chronic Assessment and Plan: Chronic PLAN: - Low-dose insulin sliding scale - Diabetic diet - Accu-Cheks before meals at bedtime (6) DVT prophylaxis Current Visit: No Status: Acute Assessment and Plan: PLAN: - Coumadin DVT Prophylaxis: Coumadin - Time Spent with Patient Total time spent is greater than 50% in coordination of care (as documented) at patient's floor/unit and/or counseling patient: less than 15 minutes Plan of Care Discussed with: patient Internal Medicine: Result - Labs CBC & Chem 7: 04/30/19 04:16 04/30/19 04:16 Labs: Short CBC 04/30/19 Range/Units 04:16 WBC 6.6 (4.3-11.1) K/mcL Hgb 10.9 L (12.9-16.9) g/dL Hct 34.0 L (37.5-50.1) % Plt Count 220 (140-400) K/mcL Neutrophils # 4.2 (1.6-8.9) K/mcL BMP 04/30/19 04:16 Sodium 138 Potassium 3.3 L Chloride 100 Carbon Dioxide 27 BUN 21 Creatinine 1.13 Glucose 146 H Calcium 9.1 - ABG Interpretation ABG results: PT/INR, D-dimer PT 19.8 Seconds (9.4-12.1) H 04/30/19 04:16 Consult Discharge Plan - Plan Referrals: Russel Felipe Jr, MD [Partnered Physician] - 05/08/19 10:00 am (1) Hypertension Qualifiers: Hypertension type: essential hypertension Qualified Code(s): I10 - Essential (primary) hypertension (2) Afib Qualifiers: Atrial fibrillation type: chronic Qualified Code(s): I48.2 - Chronic atrial fibrillation (3) CAD (coronary artery disease) of artery bypass graft Qualifiers: [place] vs. transplanted heart: [place] heart Associated angina: without angina Qualified Code(s): I25.810 - Atherosclerosis of coronary artery bypass graft(s) without angina pectoris (4) Chronic kidney disease Qualifiers: Chronic kidney disease stage: stage 3 (moderate) Qualified Code(s): N18.3 - Chronic kidney disease, stage 3 (moderate) (5) Diabetes mellitus Qualifiers: Diabetes mellitus type: type 2 Diabetes mellitus nursing home insulin use: without nursing home use Diabetes mellitus complication status: with hyperglycemia Qualified Code(s): E11.65 - Type 2 diabetes mellitus with hyperglycemia
[2019-04-30] MEDS ORDERED: Isosorbide MONOnitrate (24 HR) 30 MG TAB.ER.24H PO SCH ×2 (09:00)
[2019-04-30 11:32] VITALS: BP 129/75
--- NOTE | 2019-04-30 14:13 | Discharge Summary ---
- NOTES TO OUTPATIENT PROVIDER Notes to Outpatient Provider: - Patient will be discharged on five hypertension medications. He will require medication management and possible adjustments. We will discharge on amlodipine 10 mg daily, carvedilol 25 mg twice a day, Lasix 40 mg daily, Imdur 15 mg daily, and losartan 50 mg twice a day. - Additionally will require monitoring of INR. INR = 1.7 at time of discharge. - Potassium was replaced this morning. Recommend follow-up BMP within 1 week. Orders not resulted at time of discharge: Pending orders 05/01/19 04:00 PT/INR [Prothrombin Time INR] [COAG] AM 0400 Date of Encounter: 04/30/19 Time of Encounter: 14:13 - Discharge Diagnosis (1) Hypertension Priority: Primary Status: Acute Qualifiers: Hypertension type: essential hypertension Qualified Code(s): I10 - Essential (primary) hypertension (2) Afib Priority: Secondary Status: Chronic Qualifiers: Atrial fibrillation type: chronic Qualified Code(s): I48.2 - Chronic atrial fibrillation (3) CAD (coronary artery disease) of artery bypass graft Priority: Secondary Status: Chronic Qualifiers: [place] vs. transplanted heart: [place] heart Associated angina: without angina Qualified Code(s): I25.810 - Atherosclerosis of coronary artery bypass graft(s) without angina pectoris (4) Chronic kidney disease Priority: Secondary Status: Chronic Qualifiers: Chronic kidney disease stage: stage 3 (moderate) Qualified Code(s): N18.3 - Chronic kidney disease, stage 3 (moderate) (5) Diabetes mellitus Priority: Secondary Status: Chronic Qualifiers: Diabetes mellitus type: type 2 Diabetes mellitus intermediate insulin use: without emt intermediate use Diabetes mellitus complication status: with hyperglycemia Qualified Code(s): E11.65 - Type 2 diabetes mellitus with hyperglycemia (6) DVT prophylaxis Priority: Secondary Status: Acute Hospital course: Mr. Good is a 73 year old male with past medical history significant for hypertension, diabetes, coronary artery disease, chronic kidney disease, peripheral vascular disease who initially presented to the emergency department complaining of elevated blood pressure with headache. Patient had noted that he did take a double dosage of 100 mg losartan tabs and 40 mg Lasix tabs. However, when checking his BP at home, initial BP with systolic = 190s. Associated with headache and lightheadedness. In the emergency department, BP = 215/115. Patient was given 20 mg of labetalol, 1 sublingual nitroglycerin, one 5 mg tablet of amlodipine. He was admitted given persistent hypertension. CTA dissection study was done which showed no evidence of aortic dissection or other acute vascular pathology, but did show focal high-grade stenosis of the proximal inferior mesenteric artery. There were no other acute findings in the chest, abdomen, pelvis. EKG was done which did show atrial fibrillation, but did not show any acute ST changes or signs of infarction. Troponin was negative. Patient did not complain of any chest pain, difficulty breathing, palpitations, abdominal pain, nausea, vomiting, diarrhea. Given patient's persistent hypertension refractory to multiple blood pressure medications, renal artery ultrasound was done to evaluate for renal artery stenosis. Results pending. At time of discharge, patient is resting comfortably at bedside. He is in no acute distress. Vitals hemodynamically stable. Blood pressure has improved. Discharge discussed with: patient, family - Time Spent with Patient Total time spent providing and/or coordinating discharge services: Time spent: Less than 30 minutes, D/C greater than 8 hours after Admission - Discharge Medications Prescriptions: New Losartan [Cozaar] 50 mg PO BID 30 Days #60 tablet Isosorbide MONOnitrate (24 HR) [Imdur] 15 mg PO DAILY 30 Days #30 tab.er.24h amLODIPine [Norvasc] 10 mg PO DAILY 30 Days #30 tablet Continued Terazosin [Hytrin] 5 mg PO HS Aspirin [Lo-Dose Aspirin EC] 81 mg PO DAILY metFORMIN [Glucophage] 500 mg PO QAM Cyanocobalamin (Vitamin B-12) [Vitamin B12] 1,000 mcg PO DAILY #30 tab Furosemide [Lasix] 40 mg PO DAILY metFORMIN [Glucophage] 1,000 mg PO QPM Warfarin [Coumadin] 5 mg PO 1800 Escitalopram [Lexapro] 20 mg PO DAILY Atorvastatin [Lipitor] 40 mg PO HS #30 tablet Ferrous Sulfate [Iron] 325 mg PO BID #60 tablet Carvedilol [Coreg] 25 mg PO BID Multivitamin [Daily Multiple Vitamin] 1 each PO DAILY Discontinued Losartan [Cozaar] 100 mg PO DAILY #30 tablet Home Medications: Aspirin [Lo-Dose Aspirin EC] 81 mg PO DAILY 12/13/16 [History] Terazosin [Hytrin] 5 mg PO HS 12/13/16 [History] metFORMIN [Glucophage] 500 mg PO QAM 12/13/16 [History] Cyanocobalamin (Vitamin B-12) [Vitamin B12] 1,000 mcg PO DAILY #30 tab 06/23/17 [Rx] Furosemide [Lasix] 40 mg PO DAILY 09/04/17 [History] Warfarin [Coumadin] 5 mg PO 1800 09/04/17 [History] metFORMIN [Glucophage] 1,000 mg PO QPM 09/04/17 [History] Escitalopram [Lexapro] 20 mg PO DAILY 02/12/19 [History] Atorvastatin [Lipitor] 40 mg PO HS #30 tablet 02/20/19 [Rx] Ferrous Sulfate [Iron] 325 mg PO BID #60 tablet 04/05/19 [Rx] Carvedilol [Coreg] 25 mg PO BID 04/28/19 [History] Multivitamin [Daily Multiple Vitamin] 1 each PO DAILY 04/28/19 [History] Isosorbide MONOnitrate (24 HR) [Imdur] 15 mg PO DAILY 30 Days #30 tab.er.24h 04/30/19 [Rx] Losartan [Cozaar] 50 mg PO BID 30 Days #60 tablet 04/30/19 [Rx] amLODIPine [Norvasc] 10 mg PO DAILY 30 Days #30 tablet 04/30/19 [Rx] Allergies/Adverse Reactions: Allergy/AdvReac Type Severity Reaction Status Date / Time sotalol [From Betapace] AdvReac See Verified 04/28/19 15:23 Comments Date of admission: 04/28/19 16:18 Primary care physician: PCP NONE Discharging clinician: Misty Garcia Anticipated date of discharge: 04/30/19 - Constitutional Vitals: Temp Pulse Resp BP Pulse Ox 98.1 F 68 17 129/75 92 04/30/19 11:31 04/30/19 11:31 04/30/19 11:31 04/30/19 11:31 04/30/19 11:31 General appearance: Present: cooperative, A&O X 3, pleasant, no acute distress, answers questions appropriately Exam: Pleasant-appearing 73-year-old male who is resting comfortably at bedside in no acute distress. - Head Head exam: Present: atraumatic, normal inspection, normocephalic - Eye Eye exam: Present: EOMI - ENT ENT exam: Present: mucous membranes moist - Neck Neck exam general surgery: Present: full ROM, supple - Respiratory Respiratory exam: Present: CTAB. Absent: respiratory distress - Cardiovascular Cardiovascular exam: Present: RRR, +S1, +S2 - GI/Abdominal GI/Abdominal exam: Present: normal bowel sounds, soft - Extremities Exam Extremities exam: Present: normal inspection, warm, radial pulses palpable and symmetrical - Neurological Exam Neurological exam: Present: alert, oriented X3, strengths equal and symetr throughout - Psychiatric Psychiatric exam: Present: normal affect, normal mood - Skin Skin exam: Present: warm. Absent: rash - Patient Status Disposition: Home, Self-Care Condition: Good Functional capacity at discharge: independent ambulation Overall status at discharge: patient is progressing back to baseline - Ambulatory Orders Ambulatory Orders: Basic Metabolic Panel [CHEM] Time Frame: 1 Week, Facility: [facility], Location: Lab - Discharge Instructions Instructions: Chronic Hypertension (DC), Low Sodium Diet (DC) Follow Up With: Russle Felipe Jr, MD [Partnered Physician] - 05/08/19 10:00 am - Diet and Activity Activity: increase activity as tolerated Diet: low fat, low cholesterol, low salt diet
[2019-04-30] MEDS ORDERED: *HR* Warfarin 5 MG TABLET PO ONE (18:00)
--- NOTE | 2019-05-01 12:49 | Electrocardiograph Report ---
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
--- NOTE | 2019-05-01 17:32 | Electrocardiograph Report ---
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
== END 2019-04-30 17:03 | disposition home or self-care (01) | DRG 305 ==
LOC: 3BNU 22:33 → EMEROOARM 22:33 → SUATTDRO 04-28 03:09 → 3BNU 04-28 03:56
PROVIDERS: ADMIT Internal Medicine; ATTEND Internal Medicine

== ENCOUNTER 2021-12-15 14:08 | Inpatient (IN) ==
[2021-12-15 17:29] LABS: Basophils % 0.5 %; Eosinophils # 0.2 K/mcL (0.0-0.6); Eosinophils % 3.2 %; Hematocrit 29.2 % (37.5-50.1); Hemoglobin 9.9 g/dL (12.9-16.9); Immature Granulocytes % 0.4 % (0-4); Lymphocytes % 12.6 %; Mean Corpuscular HGB Conc 33.9 g/dL (31.6-35.5); Mean Corpuscular Hemoglobin 29.4 pg (28.0-33.3); Mean Corpuscular Volume 86.6 fL (83.0-100.0); Mean Platelet Volume 11.1 fL (9.4-12.4); Monocytes # 0.8 K/mcL (0.0-1.3); Neutrophils # 5.6 K/mcL (1.6-8.9); Platelet Count 186 K/mcL (140-400); Red Blood Count 3.37 M/mcL (4.19-5.50); Red Cell Distribution Width 15.9 % (11.5-14.5); Segmented Neutrophils % 73.3 %; White Blood Count 7.6 K/mcL (4.3-11.1)
[2021-12-15 17:47] LABS: Albumin 3.4 g/dL (3.5-5.7); Albumin/Globulin Ratio 1.2 (1.1-2.2); Bilirubin,Direct 0.3 mg/dL (0.0-0.2); Bilirubin,Indirect 1.5 mg/dL (0.0-1.0); Bilirubin,Total 1.8 mg/dL (0.3-1.0); Calcium 9.1 mg/dL (8.6-10.3); Globulin 2.8 g/dL (2.4-3.5); Potassium 3.3 mEq/L (3.5-5.1); Total Protein 6.2 g/dL (6.4-8.9); Troponin I 0.04 ng/mL (< 0.04)
[2021-12-15 17:57] LABS: Influenza A PCR Negative (Negative); Influenza B PCR Negative (Negative); Resp. Syncytial Virus PCR Negative (Negative)
[2021-12-15 17:58] LABS: SARS-CoV-2 by PCR (In House) Negative (Negative)
[2021-12-15 18:30] LABS: INR 2.4; Prothrombin Time 26.3 Seconds (9.4-12.1)
[2021-12-15 18:32] LABS: Activated Partial Thrombo Time 46.7 Seconds (26.0-36.0)
[2021-12-15 18:59] LABS: Magnesium 1.6 mg/dL (1.6-2.6)
[2021-12-15] MEDS ORDERED: Furosemide 40 MG/4 ML VIAL IVP ONE (19:07)
[2021-12-15] MEDS ORDERED: Potassium Chloride Elixir 20 MEQ/15 ML UDC PO ONE (20:49)
[2021-12-15] MEDS ORDERED: Dextrose Gel 15 GM/37.5 ML TUBE PO PRN ×2 (21:56)
[2021-12-15] MEDS ORDERED: D5% in Water 1,000 ML IVC PRN (21:56)
[2021-12-15] MEDS ORDERED: *HR* Dextrose 50 % in Water (Syg) 50 ML SYRINGE IVP PRN (21:56)
[2021-12-15] MEDS: Insulin LISPRO 300 UNITS/3 ML VIAL SUBQ SCH (22:06)
[2021-12-15] MEDS ORDERED: Acetaminophen 325 MG TABLET PO PRN (22:11)
[2021-12-15] MEDS ORDERED: Ondansetron 4 MG/2 ML VIAL IVP PRN (22:11)
[2021-12-15] MEDS ORDERED: Naloxone 0.4 MG/ML INJ IVP PRN (22:11)
[2021-12-15] MEDS ORDERED: Perflutren Lipid Microsphere 1.3 ML in 0.9 % Sodium Chloride 8.7 ML IVP PRN (22:16)
[2021-12-15 23:21] LABS: Bilirubin,Urine Negative (Negative); Blood,Urine Negative (Negative); Clarity,Urine Clear (Clear); Color,Urine Light-Yellow (Yellow); Glucose,Urine (UA) Normal (Normal); Hyaline Casts,Urine Few per lpf (None Seen); Ketones,Urine Negative (Negative); Leukocyte Esterase,Urine Negative (Negative); Mucus,Urine Few per lpf (None-Few); Nitrite,Urine Negative (Negative); Protein,Urine 100 mg/dL (Neg-Trace); RBC,Urine 0-3 per hpf (0-3); Squamous Epithelial Cell,Urine Few per hpf (None-Few); Urobilinogen,Urine Normal (Normal); WBC,Urine 0-3 per hpf (0-3)
[2021-12-15] MEDS ORDERED: Nitroglycerin 0.4 MG TAB.SUBL SL PRN (23:49)
[2021-12-16 05:07] LABS: Hematocrit 27.7 % (37.5-50.1); Hemoglobin 9.2 g/dL (12.9-16.9); Mean Corpuscular HGB Conc 33.2 g/dL (31.6-35.5); Mean Corpuscular Volume 87.4 fL (83.0-100.0); Mean Platelet Volume 11.1 fL (9.4-12.4); Platelet Count 160 K/mcL (140-400); Red Blood Count 3.17 M/mcL (4.19-5.50); Red Cell Distribution Width 15.9 % (11.5-14.5); White Blood Count 7.5 K/mcL (4.3-11.1)
[2021-12-16 05:16] LABS: INR 2.2; Prothrombin Time 24.9 Seconds (9.4-12.1)
[2021-12-16 05:18] LABS: Activated Partial Thrombo Time 39.9 Seconds (26.0-36.0)
[2021-12-16 05:25] LABS: Calcium 8.9 mg/dL (8.6-10.3); Chol/HDL Ratio 3.9 (0-4.9); Potassium 3.5 mEq/L (3.5-5.1)
[2021-12-16 05:26] LABS: % Iron Saturation 10 % (20-55); Iron 25 mcg/dL (65-175); Transferrin 177 mg/dL (203-362)
[2021-12-16 05:45] LABS: Ferritin 221 ng/mL (20-250)
[2021-12-16 05:49] LABS: Folate 16.9 ng/mL (3.0-16.0)
[2021-12-16 05:57] LABS: Estimated Average Glucose 157 mg/dl; Hemoglobin A1C 7.1 %
[2021-12-16] MEDS: Insulin LISPRO 300 UNITS/3 ML VIAL SUBQ SCH ×4 (07:54→20:10)
[2021-12-16] MEDS: carvediloL 25 MG TABLET PO SCH ×2 (07:57→17:37)
[2021-12-16] MEDS: Aspirin Enteric Coated 81 MG Tablet PO SCH (07:57)
[2021-12-16] MEDS: Isosorbide MONOnitrate (24 HR) 30 MG TAB.ER.24H PO SCH (07:58)
[2021-12-16] MEDS: Furosemide 20 MG/2 ML VIAL IVP SCH ×2 (07:58→19:49)
[2021-12-16] MEDS: Multivit/Ca/Min/Fe/FA 1 TAB TABLET PO SCH (07:58)
[2021-12-16] MEDS: (Preservision Areds 2) PO SCH (07:58)
[2021-12-16] MEDS ORDERED: Cyanocobalamin (B-12) 1,000 MCG TABLET PO SCH (09:00)
[2021-12-16 13:48] LABS: Protein/Creatinine Ratio,Urine 3.21 mg/mg (0.00-0.20)
[2021-12-16] MEDS ORDERED: *HR* Warfarin 5 MG TABLET PO ONE (18:00)
[2021-12-16] MEDS ORDERED: *HR* Warfarin 5 MG TABLET PO SCH (18:00)
[2021-12-16] MEDS ORDERED: Warfarin perPT PO PRN (18:00)
[2021-12-16] MEDS: PARoxetine 10 MG TABLET PO SCH (19:49)
[2021-12-17 01:55] LABS: Hematocrit 27.7 % (37.5-50.1); Hemoglobin 8.9 g/dL (12.9-16.9); Mean Corpuscular HGB Conc 32.1 g/dL (31.6-35.5); Mean Corpuscular Hemoglobin 28.3 pg (28.0-33.3); Mean Corpuscular Volume 88.2 fL (83.0-100.0); Mean Platelet Volume 11.4 fL (9.4-12.4); Platelet Count 178 K/mcL (140-400); Red Blood Count 3.14 M/mcL (4.19-5.50); Red Cell Distribution Width 15.9 % (11.5-14.5); White Blood Count 8.2 K/mcL (4.3-11.1)
[2021-12-17 02:04] LABS: INR 2.3; Prothrombin Time 25.5 Seconds (9.4-12.1)
[2021-12-17 02:06] LABS: Potassium 3.5 mEq/L (3.5-5.1)
[2021-12-17] MEDS: Aspirin Enteric Coated 81 MG Tablet PO SCH (09:52)
[2021-12-17] MEDS: Multivit/Ca/Min/Fe/FA 1 TAB TABLET PO SCH (09:52)
[2021-12-17] MEDS: Isosorbide MONOnitrate (24 HR) 30 MG TAB.ER.24H PO SCH (09:52)
[2021-12-17] MEDS: Insulin LISPRO 300 UNITS/3 ML VIAL SUBQ SCH ×4 (09:53→21:17)
[2021-12-17] MEDS: (Preservision Areds 2) PO SCH (09:54)
[2021-12-17] MEDS: Furosemide 20 MG/2 ML VIAL IVP SCH ×2 (09:54→22:54)
[2021-12-17] MEDS: carvediloL 25 MG TABLET PO SCH ×2 (09:56→16:39)
[2021-12-17] MEDS: Albumin 25% 25gram/100mL 25 GM/100 ML IV.SOLN IVPB SCH ×2 (14:22→21:05)
[2021-12-17 14:26] LABS: Uric Acid 9.2 mg/dL (2.3-7.6)
[2021-12-17] MEDS ORDERED: *HR* Warfarin 5 MG TABLET PO ONE (18:00)
[2021-12-17] MEDS: PARoxetine 10 MG TABLET PO SCH (21:16)
[2021-12-18 02:39] LABS: Basophils # 0.1 K/mcL (0.0-0.2); Basophils % 0.6 %; Eosinophils # 0.4 K/mcL (0.0-0.6); Eosinophils % 5.7 %; Hematocrit 27.7 % (37.5-50.1); Hemoglobin 9.3 g/dL (12.9-16.9); Immature Granulocytes % 0.3 % (0-4); Lymphocytes # 0.9 K/mcL (0.6-4.6); Lymphocytes % 11.3 %; Mean Corpuscular HGB Conc 33.6 g/dL (31.6-35.5); Mean Corpuscular Hemoglobin 29.2 pg (28.0-33.3); Mean Corpuscular Volume 86.8 fL (83.0-100.0); Mean Platelet Volume 11.6 fL (9.4-12.4); Monocytes # 0.7 K/mcL (0.0-1.3); Monocytes % 8.6 %; Neutrophils # 5.7 K/mcL (1.6-8.9); Platelet Count 182 K/mcL (140-400); Red Blood Count 3.19 M/mcL (4.19-5.50); Red Cell Distribution Width 15.9 % (11.5-14.5); Segmented Neutrophils % 73.5 %; White Blood Count 7.8 K/mcL (4.3-11.1)
[2021-12-18 02:46] LABS: Prothrombin Time 22.7 Seconds (9.4-12.1)
[2021-12-18 02:48] LABS: Calcium 9.6 mg/dL (8.6-10.3); Potassium 3.5 mEq/L (3.5-5.1)
[2021-12-18] MEDS: Furosemide 20 MG/2 ML VIAL IVP SCH ×2 (08:12→23:25)
[2021-12-18] MEDS: carvediloL 25 MG TABLET PO SCH ×2 (08:13→16:45)
[2021-12-18] MEDS: Multivit/Ca/Min/Fe/FA 1 TAB TABLET PO SCH (08:13)
[2021-12-18] MEDS: Isosorbide MONOnitrate (24 HR) 30 MG TAB.ER.24H PO SCH (08:13)
[2021-12-18] MEDS: Insulin LISPRO 300 UNITS/3 ML VIAL SUBQ SCH ×4 (08:13→20:06)
[2021-12-18] MEDS: Aspirin Enteric Coated 81 MG Tablet PO SCH (08:13)
[2021-12-18] MEDS: Albumin 25% 25gram/100mL 25 GM/100 ML IV.SOLN IVPB SCH ×2 (08:14→20:06)
[2021-12-18] MEDS: (Preservision Areds 2) PO SCH (08:28)
[2021-12-18] MEDS ORDERED: *HR* Warfarin 5 MG TABLET PO ONE (18:00)
[2021-12-18] MEDS: PARoxetine 10 MG TABLET PO SCH (20:05)
[2021-12-19 05:40] LABS: INR 2.7; Prothrombin Time 29.8 Seconds (9.4-12.1)
[2021-12-19 05:49] LABS: Basophils % 0.6 %; Eosinophils # 0.3 K/mcL (0.0-0.6); Eosinophils % 4.3 %; Hematocrit 26.1 % (37.5-50.1); Hemoglobin 8.6 g/dL (12.9-16.9); Immature Granulocytes % 0.3 % (0-4); Lymphocytes # 0.9 K/mcL (0.6-4.6); Lymphocytes % 12.2 %; Mean Corpuscular Hemoglobin 29.1 pg (28.0-33.3); Mean Corpuscular Volume 88.2 fL (83.0-100.0); Mean Platelet Volume 11.8 fL (9.4-12.4); Monocytes # 0.6 K/mcL (0.0-1.3); Monocytes % 8.8 %; Neutrophils # 5.2 K/mcL (1.6-8.9); Platelet Count 167 K/mcL (140-400); Red Blood Count 2.96 M/mcL (4.19-5.50); Red Cell Distribution Width 16.3 % (11.5-14.5); Segmented Neutrophils % 73.8 %; White Blood Count 7.1 K/mcL (4.3-11.1)
[2021-12-19 05:56] LABS: Calcium 9.7 mg/dL (8.6-10.3); Potassium 3.3 mEq/L (3.5-5.1)
[2021-12-19] MEDS ORDERED: Potassium Chloride Elixir 20 MEQ/15 ML UDC PO ONE (07:17)
[2021-12-19] MEDS: Multivit/Ca/Min/Fe/FA 1 TAB TABLET PO SCH (08:08)
[2021-12-19] MEDS: Aspirin Enteric Coated 81 MG Tablet PO SCH (08:08)
[2021-12-19] MEDS: Albumin 25% 25gram/100mL 25 GM/100 ML IV.SOLN IVPB SCH ×2 (08:08→20:36)
[2021-12-19] MEDS: Isosorbide MONOnitrate (24 HR) 30 MG TAB.ER.24H PO SCH (08:08)
[2021-12-19] MEDS: carvediloL 25 MG TABLET PO SCH ×2 (08:08→16:29)
[2021-12-19] MEDS: (Preservision Areds 2) PO SCH (08:09)
[2021-12-19] MEDS: Insulin LISPRO 300 UNITS/3 ML VIAL SUBQ SCH ×4 (08:09→20:38)
[2021-12-19] MEDS: Furosemide 20 MG/2 ML VIAL IVP SCH ×2 (08:09→23:46)
[2021-12-19] MEDS: PARoxetine 10 MG TABLET PO SCH (20:37)
[2021-12-20] MEDS: Melatonin 3 MG TABLET PO PRN (00:26)
[2021-12-20 05:46] LABS: Basophils # 0.1 K/mcL (0.0-0.2); Basophils % 0.7 %; Eosinophils # 0.3 K/mcL (0.0-0.6); Eosinophils % 3.7 %; Hemoglobin 8.4 g/dL (12.9-16.9); Immature Granulocytes % 0.4 % (0-4); Lymphocytes # 0.9 K/mcL (0.6-4.6); Lymphocytes % 12.6 %; Mean Corpuscular HGB Conc 33.6 g/dL (31.6-35.5); Mean Corpuscular Hemoglobin 29.9 pg (28.0-33.3); Monocytes # 0.6 K/mcL (0.0-1.3); Monocytes % 8.5 %; Neutrophils # 5.2 K/mcL (1.6-8.9); Nucleated Red Blood Cells 0.3 /100 WBC (0); Platelet Count 169 K/mcL (140-400); Red Blood Count 2.81 M/mcL (4.19-5.50); Segmented Neutrophils % 74.1 %; White Blood Count 7.1 K/mcL (4.3-11.1)
[2021-12-20 05:53] LABS: INR 2.8; Prothrombin Time 30.9 Seconds (9.4-12.1)
[2021-12-20 06:07] LABS: Calcium 9.7 mg/dL (8.6-10.3); Potassium 3.6 mEq/L (3.5-5.1)
[2021-12-20] MEDS: Furosemide 20 MG/2 ML VIAL IVP SCH (07:42)
[2021-12-20] MEDS: Albumin 25% 25gram/100mL 25 GM/100 ML IV.SOLN IVPB SCH ×2 (07:42→20:11)
[2021-12-20] MEDS: Aspirin Enteric Coated 81 MG Tablet PO SCH (07:43)
[2021-12-20] MEDS: Multivit/Ca/Min/Fe/FA 1 TAB TABLET PO SCH (07:43)
[2021-12-20] MEDS: Isosorbide MONOnitrate (24 HR) 30 MG TAB.ER.24H PO SCH (07:43)
[2021-12-20] MEDS: Insulin LISPRO 300 UNITS/3 ML VIAL SUBQ SCH ×4 (07:43→21:17)
[2021-12-20] MEDS: carvediloL 25 MG TABLET PO SCH ×2 (07:43→16:40)
[2021-12-20] MEDS: (Preservision Areds 2) PO SCH (07:43)
[2021-12-20] MEDS ORDERED: *HR* LORazepam 1 MG TABLET PO PRN (08:26)
[2021-12-20] MEDS: amLODIPine 5 MG TABLET PO SCH (16:40)
[2021-12-20] MEDS ORDERED: *HR* Warfarin 2.5 MG TABLET PO ONE (18:00)
[2021-12-20] MEDS: PARoxetine 10 MG TABLET PO SCH (19:58)
[2021-12-21 03:01] LABS: INR 2.4; Prothrombin Time 26.1 Seconds (9.4-12.1)
[2021-12-21] MEDS: (Preservision Areds 2) PO SCH ×2 (09:28→10:18)
[2021-12-21] MEDS: Albumin 25% 25gram/100mL 25 GM/100 ML IV.SOLN IVPB SCH ×2 (09:29→20:19)
[2021-12-21] MEDS: Aspirin Enteric Coated 81 MG Tablet PO SCH (09:30)
[2021-12-21] MEDS: Multivit/Ca/Min/Fe/FA 1 TAB TABLET PO SCH (09:30)
[2021-12-21] MEDS: carvediloL 25 MG TABLET PO SCH ×2 (09:30→16:52)
[2021-12-21] MEDS: Isosorbide MONOnitrate (24 HR) 30 MG TAB.ER.24H PO SCH (09:30)
[2021-12-21] MEDS: amLODIPine 5 MG TABLET PO SCH (09:30)
[2021-12-21] MEDS: Insulin LISPRO 300 UNITS/3 ML VIAL SUBQ SCH ×4 (09:31→20:22)
[2021-12-21 11:28] LABS: Basophils % 0.5 %; Eosinophils # 0.3 K/mcL (0.0-0.6); Eosinophils % 3.7 %; Hematocrit 25.1 % (37.5-50.1); Hemoglobin 8.3 g/dL (12.9-16.9); Immature Granulocytes % 0.4 % (0-4); Lymphocytes # 0.6 K/mcL (0.6-4.6); Mean Corpuscular HGB Conc 33.1 g/dL (31.6-35.5); Mean Corpuscular Hemoglobin 29.6 pg (28.0-33.3); Mean Corpuscular Volume 89.6 fL (83.0-100.0); Mean Platelet Volume 11.7 fL (9.4-12.4); Monocytes # 0.5 K/mcL (0.0-1.3); Monocytes % 5.7 %; Neutrophils # 6.7 K/mcL (1.6-8.9); Platelet Count 170 K/mcL (140-400); Red Cell Distribution Width 17.4 % (11.5-14.5); Segmented Neutrophils % 82.7 %; White Blood Count 8.1 K/mcL (4.3-11.1)
[2021-12-21] MEDS: Ipratropium/Albuterol Neb 3 ML IH SCH ×3 (11:33→19:46)
[2021-12-21 11:49] LABS: Calcium 9.5 mg/dL (8.6-10.3); Potassium 3.4 mEq/L (3.5-5.1)
[2021-12-21] MEDS: cephALEXin 500 MG CAPSULE PO SCH ×2 (16:32→20:19)
[2021-12-21] MEDS ORDERED: *HR* Warfarin 4 MG TABLET PO ONE (18:00)
[2021-12-21] MEDS: PARoxetine 10 MG TABLET PO SCH (20:19)
[2021-12-22] MEDS: Ipratropium/Albuterol Neb 3 ML IH SCH ×7 (00:07→23:43)
[2021-12-22 01:46] LABS: INR 2.8; Prothrombin Time 31.5 Seconds (9.4-12.1)
[2021-12-22 09:31] LABS: Calcium 9.9 mg/dL (8.6-10.3); Potassium 3.7 mEq/L (3.5-5.1)
[2021-12-22] MEDS: cephALEXin 500 MG CAPSULE PO SCH ×3 (09:59→21:18)
[2021-12-22] MEDS: Isosorbide MONOnitrate (24 HR) 30 MG TAB.ER.24H PO SCH (10:00)
[2021-12-22] MEDS: amLODIPine 5 MG TABLET PO SCH (10:00)
[2021-12-22] MEDS: Aspirin Enteric Coated 81 MG Tablet PO SCH (10:00)
[2021-12-22] MEDS: Multivit/Ca/Min/Fe/FA 1 TAB TABLET PO SCH (10:00)
[2021-12-22] MEDS: Insulin LISPRO 300 UNITS/3 ML VIAL SUBQ SCH ×4 (10:01→21:19)
[2021-12-22] MEDS: Albumin 25% 25gram/100mL 25 GM/100 ML IV.SOLN IVPB SCH ×2 (10:03→21:17)
[2021-12-22] MEDS: carvediloL 25 MG TABLET PO SCH ×2 (10:05→17:45)
[2021-12-22] MEDS: (Preservision Areds 2) PO SCH (10:06)
[2021-12-22] MEDS ORDERED: *HR* Warfarin 2.5 MG TABLET PO ONE (18:00)
[2021-12-22] MEDS: PARoxetine 10 MG TABLET PO SCH (21:18)
[2021-12-23] MEDS: Ipratropium/Albuterol Neb 3 ML IH SCH ×2 (04:12→07:22)
[2021-12-23 07:38] LABS: INR 2.5
[2021-12-23 07:45] LABS: Calcium 9.8 mg/dL (8.6-10.3); Potassium 3.5 mEq/L (3.5-5.1)
[2021-12-23] MEDS: Insulin LISPRO 300 UNITS/3 ML VIAL SUBQ SCH ×4 (07:59→20:37)
[2021-12-23] MEDS: carvediloL 25 MG TABLET PO SCH ×2 (08:00→16:36)
[2021-12-23] MEDS: Isosorbide MONOnitrate (24 HR) 30 MG TAB.ER.24H PO SCH (08:00)
[2021-12-23] MEDS: Aspirin Enteric Coated 81 MG Tablet PO SCH (08:00)
[2021-12-23] MEDS: cephALEXin 500 MG CAPSULE PO SCH ×3 (08:00→20:45)
[2021-12-23] MEDS: Multivit/Ca/Min/Fe/FA 1 TAB TABLET PO SCH (08:00)
[2021-12-23] MEDS: amLODIPine 5 MG TABLET PO SCH (08:00)
[2021-12-23] MEDS: Albumin 25% 25gram/100mL 25 GM/100 ML IV.SOLN IVPB SCH ×2 (08:00→20:44)
[2021-12-23] MEDS: (Preservision Areds 2) PO SCH (08:01)
[2021-12-23] MEDS ORDERED: Saline Nasal Spray 44 ML BOTTLE NS PRN (08:16)
[2021-12-23] MEDS ORDERED: Ipratropium/Albuterol Neb 3 ML IH PRN (10:12)
[2021-12-23] MEDS ORDERED: *HR* Warfarin 3 MG TABLET PO ONE (18:00)
[2021-12-23] MEDS: PARoxetine 10 MG TABLET PO SCH (20:44)
[2021-12-24] MEDS: Melatonin 3 MG TABLET PO PRN (02:56)
[2021-12-24 05:37] LABS: INR 2.5; Prothrombin Time 27.9 Seconds (9.4-12.1)
[2021-12-24 08:47] LABS: Calcium 10.1 mg/dL (8.6-10.3); Potassium 3.5 mEq/L (3.5-5.1)
[2021-12-24] MEDS: Insulin LISPRO 300 UNITS/3 ML VIAL SUBQ SCH ×4 (10:07→21:26)
[2021-12-24] MEDS: Albumin 25% 25gram/100mL 25 GM/100 ML IV.SOLN IVPB SCH ×2 (10:15→19:44)
[2021-12-24] MEDS ORDERED: Furosemide 40 MG TABLET PO SCH (10:15)
[2021-12-24] MEDS: cephALEXin 500 MG CAPSULE PO SCH ×3 (10:17→19:45)
[2021-12-24] MEDS: Multivit/Ca/Min/Fe/FA 1 TAB TABLET PO SCH (10:17)
[2021-12-24] MEDS: Aspirin Enteric Coated 81 MG Tablet PO SCH (10:17)
[2021-12-24] MEDS: Isosorbide MONOnitrate (24 HR) 30 MG TAB.ER.24H PO SCH (10:17)
[2021-12-24] MEDS: (Preservision Areds 2) PO SCH (10:18)
[2021-12-24] MEDS: amLODIPine 5 MG TABLET PO SCH (10:18)
[2021-12-24] MEDS: carvediloL 25 MG TABLET PO SCH ×2 (10:20→17:44)
[2021-12-24 16:51] LABS: Influenza A PCR Negative (Negative); Influenza B PCR Negative (Negative); Resp. Syncytial Virus PCR Negative (Negative)
[2021-12-24 16:52] LABS: SARS-CoV-2 by PCR (In House) Negative (Negative)
[2021-12-24] MEDS ORDERED: *HR* Warfarin 3 MG TABLET PO ONE (18:00)
[2021-12-24] MEDS: PARoxetine 10 MG TABLET PO SCH (19:45)
[2021-12-24 23:24] VITALS: BP 132/79; PULSE 68; TEMP 98.1; O2SAT 97
== END 2021-12-25 00:32 | disposition other institution (70) | DRG 291 ==
LOC: 2NENU 14:08 → EMEROOARM 14:08 → SUATTDRO 19:31 → 2NENU 20:03 → 3ANU 12-24 12:17
PROVIDERS: ADMIT General Practice; ATTEND Internal Medicine

== ENCOUNTER 2021-12-30 17:07 | Inpatient (IN) ==
[2021-12-31] MEDS ORDERED: Ondansetron 4 MG/2 ML VIAL IVP PRN (02:48)
[2021-12-31] MEDS ORDERED: Acetaminophen 325 MG TABLET PO PRN (02:48)
[2021-12-31] MEDS ORDERED: Naloxone 0.4 MG/ML INJ IVP PRN (02:48)
[2021-12-31 03:30] LABS: Bacteria,Urine Few per hpf (None-Few); Bilirubin,Urine Negative (Negative); Blood,Urine Negative (Negative); Clarity,Urine Clear (Clear); Color,Urine Light-Yellow (Yellow); Glucose,Urine (UA) Normal (Normal); Hyaline Casts,Urine Few per lpf (None Seen); Ketones,Urine Negative (Negative); Leukocyte Esterase,Urine Negative (Negative); Mucus,Urine Few per lpf (None-Few); Nitrite,Urine Negative (Negative); PH,Urine 5.5 pH Units (5.0-8.0); Protein,Urine 100 mg/dL (Neg-Trace); RBC,Urine 0-3 per hpf (0-3); Specific Gravity,Urine 1.015 (1.010-1.025); Squamous Epithelial Cell,Urine Few per hpf (None-Few); Urobilinogen,Urine Normal (Normal); WBC,Urine 0-3 per hpf (0-3)
[2021-12-31 05:00] LABS: Hematocrit 25.9 % (37.5-50.1); Hemoglobin 8.5 g/dL (12.9-16.9); Mean Corpuscular HGB Conc 32.8 g/dL (31.6-35.5); Mean Corpuscular Hemoglobin 30.2 pg (28.0-33.3); Mean Corpuscular Volume 92.2 fL (83.0-100.0); Mean Platelet Volume 11.6 fL (9.4-12.4); Platelet Count 153 K/mcL (140-400); Red Blood Count 2.81 M/mcL (4.19-5.50); White Blood Count 4.3 K/mcL (4.3-11.1)
[2021-12-31 05:14] LABS: Calcium 9.3 mg/dL (8.6-10.3); Chol/HDL Ratio 3.1 (0-4.9); Magnesium 2.2 mg/dL (1.6-2.6); Troponin I 0.03 ng/mL (< 0.04)
[2021-12-31 05:40] LABS: Folate > 22.3 ng/mL (3.0-16.0); Vitamin B12 > 1500 pg/mL (250-1100); Vitamin D 25 Hydroxy 33 ng/mL (30-80)
[2021-12-31] MEDS: PARoxetine 10 MG TABLET PO SCH (07:46)
[2021-12-31] MEDS: Cyanocobalamin (B-12) 1,000 MCG TABLET PO SCH (07:46)
[2021-12-31] MEDS: Isosorbide MONOnitrate (24 HR) 30 MG TAB.ER.24H PO SCH (07:46)
[2021-12-31] MEDS: Aspirin Enteric Coated 81 MG Tablet PO SCH (07:46)
[2021-12-31] MEDS: carvediloL 25 MG TABLET PO SCH ×2 (07:46→17:21)
[2021-12-31] MEDS ORDERED: amLODIPine 5 MG TABLET PO SCH (09:00)
[2021-12-31 10:05] LABS: Hepatitis B Surface Antibody < 3.10 mIU/mL
[2021-12-31 10:15] LABS: Hepatitis B Surface Antigen Nonreactive (Nonreactive)
[2021-12-31 10:22] LABS: INR 2.2; Prothrombin Time 24.6 Seconds (9.4-12.1)
[2021-12-31] MEDS ORDERED: 0.9 % Sodium Chloride 250 ML IVC PRN (10:29)
[2021-12-31] MEDS ORDERED: *HR* Heparin 10,000 UNIT/10 ML VIAL IV PRN (10:29)
[2021-12-31] MEDS ORDERED: 0.9 % Sodium Chloride 1,000 ML PRIME SCH (10:30)
[2021-12-31] MEDS ORDERED: D5% in Water 1,000 ML IVC PRN (11:19)
[2021-12-31] MEDS ORDERED: Dextrose Gel 15 GM/37.5 ML TUBE PO PRN ×2 (11:19)
[2021-12-31] MEDS ORDERED: *HR* Dextrose 50 % in Water (Syg) 50 ML SYRINGE IVP PRN (11:19)
[2021-12-31] MEDS: Insulin LISPRO 300 UNITS/3 ML VIAL SUBQ SCH ×3 (12:30→20:45)
[2021-12-31] MEDS ORDERED: Heparin 1,000 UNITS/500 mL 500 ML ONE (14:03)
[2021-12-31] MEDS ORDERED: *HR* Heparin 5,000 UNIT/ML VIAL ONE (14:59)
[2021-12-31] MEDS ORDERED: *HR* Warfarin 2.5 MG TABLET PO ONE (18:00)
[2021-12-31] MEDS ORDERED: Warfarin perPT PO PRN (18:00)
[2022-01-01 01:04] LABS: Hematocrit 24.7 % (37.5-50.1); Mean Corpuscular HGB Conc 32.4 g/dL (31.6-35.5); Mean Corpuscular Hemoglobin 30.1 pg (28.0-33.3); Mean Corpuscular Volume 92.9 fL (83.0-100.0); Mean Platelet Volume 11.9 fL (9.4-12.4); Platelet Count 149 K/mcL (140-400); Red Blood Count 2.66 M/mcL (4.19-5.50); Red Cell Distribution Width 19.1 % (11.5-14.5); White Blood Count 3.3 K/mcL (4.3-11.1)
[2022-01-01 01:23] LABS: Calcium 9.5 mg/dL (8.6-10.3); Potassium 3.8 mEq/L (3.5-5.1); Prothrombin Time 22.3 Seconds (9.4-12.1)
[2022-01-01 04:52] LABS: Hematocrit 24.8 % (37.5-50.1); Hemoglobin 8.1 g/dL (12.9-16.9)
[2022-01-01] MEDS ORDERED: *HR* Heparin 10,000 UNIT/10 ML VIAL IV PRN (07:52)
[2022-01-01] MEDS ORDERED: 0.9 % Sodium Chloride 250 ML IVC PRN (07:52)
[2022-01-01] MEDS: Insulin LISPRO 300 UNITS/3 ML VIAL SUBQ SCH ×4 (08:09→20:41)
[2022-01-01] MEDS: carvediloL 25 MG TABLET PO SCH ×2 (13:07→17:21)
[2022-01-01] MEDS: Aspirin Enteric Coated 81 MG Tablet PO SCH (15:32)
[2022-01-01] MEDS: Isosorbide MONOnitrate (24 HR) 30 MG TAB.ER.24H PO SCH (15:33)
[2022-01-01] MEDS: PARoxetine 10 MG TABLET PO SCH (15:33)
[2022-01-01] MEDS: Cyanocobalamin (B-12) 1,000 MCG TABLET PO SCH (15:33)
[2022-01-01] MEDS: Furosemide 40 MG TABLET PO SCH (17:21)
[2022-01-01] MEDS ORDERED: *HR* Warfarin 3 MG TABLET PO ONE (18:00)
[2022-01-02] MEDS: Insulin LISPRO 300 UNITS/3 ML VIAL SUBQ SCH ×4 (07:07→22:03)
[2022-01-02] MEDS: carvediloL 25 MG TABLET PO SCH ×2 (08:38→17:36)
[2022-01-02] MEDS: Isosorbide MONOnitrate (24 HR) 30 MG TAB.ER.24H PO SCH (08:38)
[2022-01-02] MEDS: Cyanocobalamin (B-12) 1,000 MCG TABLET PO SCH (08:38)
[2022-01-02] MEDS: Aspirin Enteric Coated 81 MG Tablet PO SCH (08:38)
[2022-01-02] MEDS: Furosemide 40 MG TABLET PO SCH ×2 (08:38→17:36)
[2022-01-02] MEDS: PARoxetine 10 MG TABLET PO SCH (08:38)
[2022-01-02 14:50] LABS: Calcium 9.4 mg/dL (8.6-10.3); Potassium 3.4 mEq/L (3.5-5.1)
[2022-01-02 14:53] LABS: Hematocrit 24.2 % (37.5-50.1); Hemoglobin 7.7 g/dL (12.9-16.9); Mean Corpuscular HGB Conc 31.8 g/dL (31.6-35.5); Mean Corpuscular Hemoglobin 29.8 pg (28.0-33.3); Mean Corpuscular Volume 93.8 fL (83.0-100.0); Mean Platelet Volume 11.5 fL (9.4-12.4); Platelet Count 140 K/mcL (140-400); Red Blood Count 2.58 M/mcL (4.19-5.50); Red Cell Distribution Width 18.9 % (11.5-14.5); White Blood Count 4.6 K/mcL (4.3-11.1)
[2022-01-02 15:01] LABS: INR 1.8; Prothrombin Time 20.1 Seconds (9.4-12.1)
[2022-01-02] MEDS ORDERED: Hydrocortisone 1% OINT 28 GM TUBE TP PRN (15:04)
[2022-01-02] MEDS ORDERED: *HR* Warfarin 4 MG TABLET PO ONE (18:00)
[2022-01-03 05:55] LABS: INR 1.6; Prothrombin Time 18.2 Seconds (9.4-12.1)
[2022-01-03 06:05] LABS: Albumin 3.9 g/dL (3.5-5.7); Calcium 9.7 mg/dL (8.6-10.3); Phosphorous 3.8 mg/dL (2.7-4.5); Potassium 3.9 mEq/L (3.5-5.1)
[2022-01-03] MEDS: Insulin LISPRO 300 UNITS/3 ML VIAL SUBQ SCH ×4 (07:18→21:45)
[2022-01-03] MEDS: Cyanocobalamin (B-12) 1,000 MCG TABLET PO SCH (08:40)
[2022-01-03] MEDS: Aspirin Enteric Coated 81 MG Tablet PO SCH (08:40)
[2022-01-03] MEDS: PARoxetine 10 MG TABLET PO SCH (08:40)
[2022-01-03] MEDS: Furosemide 40 MG TABLET PO SCH ×2 (09:33→16:46)
[2022-01-03] MEDS: Isosorbide MONOnitrate (24 HR) 30 MG TAB.ER.24H PO SCH (09:33)
[2022-01-03] MEDS: carvediloL 25 MG TABLET PO SCH ×2 (09:33→16:46)
[2022-01-03] MEDS ORDERED: Cefepime HCl 1,000 MG in 0.9 % Sodium Chloride 10 ML IVP ONE (12:00)
[2022-01-03] MEDS: hydrALAZINE 25 MG TABLET PO SCH ×2 (16:46→22:31)
[2022-01-03] MEDS ORDERED: *HR* Warfarin 3 MG TABLET PO ONE (18:00)
[2022-01-04 04:58] LABS: INR 1.8; Prothrombin Time 19.8 Seconds (9.4-12.1)
[2022-01-04] MEDS: Insulin LISPRO 300 UNITS/3 ML VIAL SUBQ SCH ×4 (07:26→20:06)
[2022-01-04 08:51] LABS: Calcium 9.8 mg/dL (8.6-10.3); Potassium 3.6 mEq/L (3.5-5.1)
[2022-01-04] MEDS: PARoxetine 10 MG TABLET PO SCH (09:13)
[2022-01-04] MEDS: Cyanocobalamin (B-12) 1,000 MCG TABLET PO SCH (09:13)
[2022-01-04] MEDS: hydrALAZINE 25 MG TABLET PO SCH ×4 (09:13→23:25)
[2022-01-04] MEDS: Isosorbide MONOnitrate (24 HR) 30 MG TAB.ER.24H PO SCH (09:13)
[2022-01-04] MEDS: carvediloL 25 MG TABLET PO SCH ×2 (09:13→17:17)
[2022-01-04] MEDS: Aspirin Enteric Coated 81 MG Tablet PO SCH (09:13)
[2022-01-04] MEDS: Furosemide 40 MG TABLET PO SCH ×2 (09:14→09:56)
[2022-01-04 09:45] LABS: Basophils % 0.8 %; Eosinophils # 0.3 K/mcL (0.0-0.6); Eosinophils % 8.7 %; Hematocrit 24.7 % (37.5-50.1); Hemoglobin 7.9 g/dL (12.9-16.9); Immature Granulocytes % 0.3 % (0-4); Lymphocytes # 0.5 K/mcL (0.6-4.6); Lymphocytes % 14.8 %; Mean Corpuscular Volume 93.9 fL (83.0-100.0); Mean Platelet Volume 11.8 fL (9.4-12.4); Monocytes # 0.4 K/mcL (0.0-1.3); Monocytes % 10.4 %; Neutrophils # 2.4 K/mcL (1.6-8.9); Platelet Count 137 K/mcL (140-400); Red Blood Count 2.63 M/mcL (4.19-5.50); Red Cell Distribution Width 18.7 % (11.5-14.5); White Blood Count 3.7 K/mcL (4.3-11.1)
[2022-01-04] MEDS: SODIUM CHLORIDE 0.9% IVP SCH (10:55)
[2022-01-04] MEDS: CEFEPIME HCL IVP SCH (10:55)
[2022-01-04] MEDS ORDERED: Albumin 25% 25gram/100mL 25 GM/100 ML IV.SOLN IVPB PRN (12:35)
[2022-01-04] MEDS ORDERED: *HR* Heparin 10,000 UNIT/10 ML VIAL IV PRN (12:35)
[2022-01-04] MEDS ORDERED: 0.9 % Sodium Chloride 250 ML IVC PRN (12:35)
[2022-01-04] MEDS ORDERED: *HR* Warfarin 3 MG TABLET PO ONE (18:00)
[2022-01-05 03:09] LABS: Prothrombin Time 22.4 Seconds (9.4-12.1)
[2022-01-05] MEDS ORDERED: 0.9 % Sodium Chloride 250 ML IVC PRN (07:53)
[2022-01-05] MEDS ORDERED: 0.9 % Sodium Chloride 1,000 ML PRIME SCH (08:00)
[2022-01-05] MEDS: Insulin LISPRO 300 UNITS/3 ML VIAL SUBQ SCH ×4 (09:03→19:40)
[2022-01-05] MEDS: carvediloL 25 MG TABLET PO SCH ×2 (09:09→16:34)
[2022-01-05] MEDS: Furosemide 40 MG TABLET PO SCH (09:10)
[2022-01-05] MEDS: Isosorbide MONOnitrate (24 HR) 30 MG TAB.ER.24H PO SCH (09:10)
[2022-01-05] MEDS: hydrALAZINE 25 MG TABLET PO SCH ×3 (09:10→23:37)
[2022-01-05] MEDS: Aspirin Enteric Coated 81 MG Tablet PO SCH (09:24)
[2022-01-05] MEDS: Cyanocobalamin (B-12) 1,000 MCG TABLET PO SCH (09:24)
[2022-01-05] MEDS: PARoxetine 10 MG TABLET PO SCH (09:24)
[2022-01-05 09:40] LABS: Eosinophils # 0.3 K/mcL (0.0-0.6); Eosinophils % 7.9 %; Hematocrit 28.1 % (37.5-50.1); Hemoglobin 8.9 g/dL (12.9-16.9); Immature Granulocytes % 0.3 % (0-4); Lymphocytes # 0.5 K/mcL (0.6-4.6); Lymphocytes % 13.6 %; Mean Corpuscular HGB Conc 31.7 g/dL (31.6-35.5); Mean Corpuscular Hemoglobin 30.3 pg (28.0-33.3); Mean Corpuscular Volume 95.6 fL (83.0-100.0); Mean Platelet Volume 11.6 fL (9.4-12.4); Monocytes # 0.4 K/mcL (0.0-1.3); Monocytes % 10.5 %; Neutrophils # 2.6 K/mcL (1.6-8.9); Platelet Count 170 K/mcL (140-400); Red Blood Count 2.94 M/mcL (4.19-5.50); Red Cell Distribution Width 19.2 % (11.5-14.5); Segmented Neutrophils % 66.7 %; White Blood Count 3.9 K/mcL (4.3-11.1)
[2022-01-05 09:56] LABS: Calcium 9.9 mg/dL (8.6-10.3); Phosphorous 3.4 mg/dL (2.7-4.5); Potassium 4.2 mEq/L (3.5-5.1)
[2022-01-05] MEDS: SODIUM CHLORIDE 0.9% IVP SCH (12:08)
[2022-01-05] MEDS: CEFEPIME HCL IVP SCH (12:08)
[2022-01-05] MEDS ORDERED: *HR* Warfarin 3 MG TABLET PO ONE (18:00)
[2022-01-06 04:37] LABS: Eosinophils % 6.2 %; Hematocrit 25.7 % (37.5-50.1); Immature Granulocytes % 0.2 % (0-4); Lymphocytes % 14.9 %; Mean Corpuscular HGB Conc 31.1 g/dL (31.6-35.5); Mean Corpuscular Hemoglobin 29.3 pg (28.0-33.3); Mean Corpuscular Volume 94.1 fL (83.0-100.0); Mean Platelet Volume 11.1 fL (9.4-12.4); Monocytes % 12.8 %; Platelet Count 157 K/mcL (140-400); Red Blood Count 2.73 M/mcL (4.19-5.50); Segmented Neutrophils % 65.2 %; White Blood Count 4.2 K/mcL (4.3-11.1)
[2022-01-06 04:38] LABS: Basophils % 0.7 %; Eosinophils # 0.3 K/mcL (0.0-0.6); Lymphocytes # 0.6 K/mcL (0.6-4.6); Monocytes # 0.5 K/mcL (0.0-1.3); Neutrophils # 2.8 K/mcL (1.6-8.9)
[2022-01-06 04:48] LABS: INR 2.1; Prothrombin Time 23.6 Seconds (9.4-12.1)
[2022-01-06 04:55] LABS: Calcium 9.5 mg/dL (8.6-10.3); Magnesium 1.8 mg/dL (1.6-2.6); Phosphorous 2.8 mg/dL (2.7-4.5); Potassium 3.6 mEq/L (3.5-5.1)
[2022-01-06] MEDS: Insulin LISPRO 300 UNITS/3 ML VIAL SUBQ SCH ×4 (07:50→19:27)
[2022-01-06] MEDS: Isosorbide MONOnitrate (24 HR) 30 MG TAB.ER.24H PO SCH (08:11)
[2022-01-06] MEDS: Cyanocobalamin (B-12) 1,000 MCG TABLET PO SCH (08:11)
[2022-01-06] MEDS: Aspirin Enteric Coated 81 MG Tablet PO SCH (08:11)
[2022-01-06] MEDS: PARoxetine 10 MG TABLET PO SCH (08:11)
[2022-01-06] MEDS: SODIUM CHLORIDE 0.9% IVP SCH (11:50)
[2022-01-06] MEDS: CEFEPIME HCL IVP SCH (11:50)
[2022-01-06] MEDS: hydrALAZINE 25 MG TABLET PO SCH ×2 (11:54→16:54)
[2022-01-06] MEDS: carvediloL 25 MG TABLET PO SCH ×2 (11:54→16:55)
[2022-01-06] MEDS: Furosemide 40 MG TABLET PO SCH (11:54)
[2022-01-06] MEDS ORDERED: *HR* Warfarin 3 MG TABLET PO ONE (18:00)
[2022-01-06] MEDS: Melatonin 3 MG TABLET PO PRN (19:31)
[2022-01-07] MEDS: hydrALAZINE 25 MG TABLET PO SCH ×4 (01:17→23:28)
[2022-01-07 02:15] LABS: Basophils % 0.8 %; Eosinophils # 0.1 K/mcL (0.0-0.6); Eosinophils % 2.8 %; Hematocrit 25.2 % (37.5-50.1); Hemoglobin 7.8 g/dL (12.9-16.9); Immature Granulocytes % 0.3 % (0-4); Lymphocytes # 0.4 K/mcL (0.6-4.6); Lymphocytes % 10.9 %; Mean Corpuscular Volume 93.7 fL (83.0-100.0); Mean Platelet Volume 11.3 fL (9.4-12.4); Monocytes # 0.5 K/mcL (0.0-1.3); Monocytes % 12.4 %; Neutrophils # 2.9 K/mcL (1.6-8.9); Platelet Count 149 K/mcL (140-400); Red Blood Count 2.69 M/mcL (4.19-5.50); Red Cell Distribution Width 18.9 % (11.5-14.5); Segmented Neutrophils % 72.8 %
[2022-01-07 02:25] LABS: Prothrombin Time 21.9 Seconds (9.4-12.1)
[2022-01-07 02:30] LABS: Calcium 9.5 mg/dL (8.6-10.3); Phosphorous 3.1 mg/dL (2.7-4.5); Potassium 3.7 mEq/L (3.5-5.1)
[2022-01-07] MEDS: Insulin LISPRO 300 UNITS/3 ML VIAL SUBQ SCH ×4 (08:11→20:21)
[2022-01-07] MEDS: Furosemide 40 MG TABLET PO SCH (08:12)
[2022-01-07] MEDS: Aspirin Enteric Coated 81 MG Tablet PO SCH (08:12)
[2022-01-07] MEDS: carvediloL 25 MG TABLET PO SCH ×2 (08:12→16:22)
[2022-01-07] MEDS: Isosorbide MONOnitrate (24 HR) 30 MG TAB.ER.24H PO SCH (08:12)
[2022-01-07] MEDS: PARoxetine 10 MG TABLET PO SCH (08:12)
[2022-01-07] MEDS: Cyanocobalamin (B-12) 1,000 MCG TABLET PO SCH (08:12)
[2022-01-07] MEDS: SODIUM CHLORIDE 0.9% IVP SCH (11:36)
[2022-01-07] MEDS: CEFEPIME HCL IVP SCH (11:36)
[2022-01-07] MEDS ORDERED: *HR* Warfarin 3 MG TABLET PO ONE (18:00)
[2022-01-08] MEDS: Melatonin 3 MG TABLET PO PRN ×2 (03:04→21:18)
[2022-01-08 05:51] LABS: Basophils % 0.6 %; Eosinophils # 0.1 K/mcL (0.0-0.6); Eosinophils % 2.4 %; Hemoglobin 8.1 g/dL (12.9-16.9); Immature Granulocytes % 0.3 % (0-4); Lymphocytes # 0.5 K/mcL (0.6-4.6); Lymphocytes % 13.2 %; Mean Corpuscular HGB Conc 32.4 g/dL (31.6-35.5); Mean Corpuscular Volume 92.6 fL (83.0-100.0); Mean Platelet Volume 10.7 fL (9.4-12.4); Monocytes # 0.4 K/mcL (0.0-1.3); Monocytes % 12.9 %; Neutrophils # 2.4 K/mcL (1.6-8.9); Platelet Count 123 K/mcL (140-400); Red Cell Distribution Width 18.6 % (11.5-14.5); Segmented Neutrophils % 70.6 %; White Blood Count 3.4 K/mcL (4.3-11.1)
[2022-01-08 05:59] LABS: INR 2.2; Prothrombin Time 24.2 Seconds (9.4-12.1)
[2022-01-08 06:16] LABS: Calcium 9.6 mg/dL (8.6-10.3); Phosphorous 3.3 mg/dL (2.7-4.5); Potassium 3.9 mEq/L (3.5-5.1)
[2022-01-08] MEDS: Insulin LISPRO 300 UNITS/3 ML VIAL SUBQ SCH ×4 (07:17→21:18)
[2022-01-08] MEDS ORDERED: 0.9 % Sodium Chloride 250 ML IVC PRN (07:57)
[2022-01-08] MEDS: Isosorbide MONOnitrate (24 HR) 30 MG TAB.ER.24H PO SCH (08:12)
[2022-01-08] MEDS: carvediloL 25 MG TABLET PO SCH ×2 (08:12→16:16)
[2022-01-08] MEDS: Furosemide 40 MG TABLET PO SCH (08:12)
[2022-01-08] MEDS: hydrALAZINE 25 MG TABLET PO SCH ×3 (08:12→23:57)
[2022-01-08] MEDS: Aspirin Enteric Coated 81 MG Tablet PO SCH (08:19)
[2022-01-08] MEDS: PARoxetine 10 MG TABLET PO SCH (08:19)
[2022-01-08] MEDS: Cyanocobalamin (B-12) 1,000 MCG TABLET PO SCH (08:19)
[2022-01-08] MEDS: Magnesium Oxide 400 MG TABLET PO SCH (08:19)
[2022-01-08] MEDS ORDERED: *HR* Heparin 10,000 UNIT/10 ML VIAL IV PRN (10:29)
[2022-01-08] MEDS: CEFEPIME HCL IVP SCH (13:46)
[2022-01-08] MEDS: SODIUM CHLORIDE 0.9% IVP SCH (13:46)
[2022-01-08] MEDS ORDERED: *HR* Warfarin 3 MG TABLET PO ONE (18:00)
[2022-01-09 05:41] LABS: INR 2.3; Prothrombin Time 25.1 Seconds (9.4-12.1)
[2022-01-09 05:53] LABS: Basophils % 0.8 %; Eosinophils # 0.2 K/mcL (0.0-0.6); Eosinophils % 4.7 %; Hemoglobin 8.3 g/dL (12.9-16.9); Immature Granulocytes % 0.3 % (0-4); Immature Platelets 5.9 % (1.1-6.1); Lymphocytes # 0.6 K/mcL (0.6-4.6); Lymphocytes % 14.8 %; Mean Corpuscular HGB Conc 31.9 g/dL (31.6-35.5); Mean Corpuscular Hemoglobin 29.5 pg (28.0-33.3); Mean Corpuscular Volume 92.5 fL (83.0-100.0); Monocytes # 0.6 K/mcL (0.0-1.3); Monocytes % 14.5 %; Neutrophils # 2.5 K/mcL (1.6-8.9); Platelet Count 125 K/mcL (140-400); Red Blood Count 2.81 M/mcL (4.19-5.50); Red Cell Distribution Width 18.6 % (11.5-14.5); Segmented Neutrophils % 64.9 %; White Blood Count 3.9 K/mcL (4.3-11.1)
[2022-01-09 06:29] LABS: Calcium 9.1 mg/dL (8.6-10.3); Phosphorous 3.1 mg/dL (2.7-4.5); Potassium 3.8 mEq/L (3.5-5.1)
[2022-01-09] MEDS: Insulin LISPRO 300 UNITS/3 ML VIAL SUBQ SCH ×4 (07:12→20:14)
[2022-01-09] MEDS: PARoxetine 10 MG TABLET PO SCH (08:41)
[2022-01-09] MEDS: Cyanocobalamin (B-12) 1,000 MCG TABLET PO SCH (08:41)
[2022-01-09] MEDS: Furosemide 40 MG TABLET PO SCH (08:41)
[2022-01-09] MEDS: hydrALAZINE 25 MG TABLET PO SCH ×2 (08:41→16:00)
[2022-01-09] MEDS: Isosorbide MONOnitrate (24 HR) 30 MG TAB.ER.24H PO SCH (08:41)
[2022-01-09] MEDS: carvediloL 25 MG TABLET PO SCH ×2 (08:41→16:01)
[2022-01-09] MEDS: Aspirin Enteric Coated 81 MG Tablet PO SCH (08:42)
[2022-01-09] MEDS: Magnesium Oxide 400 MG TABLET PO SCH (08:42)
[2022-01-09] MEDS: CEFEPIME HCL IVP SCH (11:20)
[2022-01-09] MEDS: SODIUM CHLORIDE 0.9% IVP SCH (11:20)
[2022-01-09] MEDS ORDERED: *HR* Warfarin 3 MG TABLET PO ONE (18:00)
[2022-01-09] MEDS: Melatonin 3 MG TABLET PO PRN (20:13)
[2022-01-10] MEDS: hydrALAZINE 25 MG TABLET PO SCH ×4 (00:54→23:04)
[2022-01-10 06:41] LABS: Basophils % 0.7 %; Eosinophils # 0.2 K/mcL (0.0-0.6); Eosinophils % 5.2 %; Hematocrit 24.5 % (37.5-50.1); Hemoglobin 7.9 g/dL (12.9-16.9); Immature Granulocytes % 0.5 % (0-4); Lymphocytes # 0.8 K/mcL (0.6-4.6); Lymphocytes % 18.4 %; Mean Corpuscular HGB Conc 32.2 g/dL (31.6-35.5); Mean Corpuscular Hemoglobin 29.7 pg (28.0-33.3); Mean Corpuscular Volume 92.1 fL (83.0-100.0); Mean Platelet Volume 11.3 fL (9.4-12.4); Monocytes # 0.7 K/mcL (0.0-1.3); Monocytes % 15.8 %; Neutrophils # 2.5 K/mcL (1.6-8.9); Platelet Count 114 K/mcL (140-400); Red Blood Count 2.66 M/mcL (4.19-5.50); Red Cell Distribution Width 18.2 % (11.5-14.5); Segmented Neutrophils % 59.4 %; White Blood Count 4.3 K/mcL (4.3-11.1)
[2022-01-10 06:47] LABS: INR 2.1; Prothrombin Time 23.4 Seconds (9.4-12.1)
[2022-01-10 07:04] LABS: Calcium 9.2 mg/dL (8.6-10.3); Phosphorous 3.7 mg/dL (2.7-4.5)
[2022-01-10] MEDS ORDERED: 0.9 % Sodium Chloride 250 ML IVC PRN (08:36)
[2022-01-10] MEDS: Insulin LISPRO 300 UNITS/3 ML VIAL SUBQ SCH ×4 (09:11→20:34)
[2022-01-10] MEDS: carvediloL 25 MG TABLET PO SCH ×2 (09:31→17:40)
[2022-01-10] MEDS: Aspirin Enteric Coated 81 MG Tablet PO SCH (09:32)
[2022-01-10] MEDS: Isosorbide MONOnitrate (24 HR) 30 MG TAB.ER.24H PO SCH (10:06)
[2022-01-10] MEDS: Furosemide 40 MG TABLET PO SCH (10:06)
[2022-01-10] MEDS: PARoxetine 10 MG TABLET PO SCH (10:07)
[2022-01-10] MEDS: Cyanocobalamin (B-12) 1,000 MCG TABLET PO SCH (10:07)
[2022-01-10] MEDS: Magnesium Oxide 400 MG TABLET PO SCH (10:07)
[2022-01-10] MEDS ORDERED: *HR* Warfarin 3 MG TABLET PO ONE (18:00)
[2022-01-10] MEDS: Melatonin 3 MG TABLET PO PRN (20:34)
[2022-01-11 04:43] LABS: Basophils # 0.1 K/mcL (0.0-0.2); Basophils % 1.1 %; Eosinophils # 0.4 K/mcL (0.0-0.6); Eosinophils % 7.9 %; Hematocrit 25.1 % (37.5-50.1); Hemoglobin 7.9 g/dL (12.9-16.9); Immature Granulocytes % 0.2 % (0-4); Lymphocytes # 0.9 K/mcL (0.6-4.6); Lymphocytes % 19.2 %; Mean Corpuscular HGB Conc 31.5 g/dL (31.6-35.5); Mean Corpuscular Hemoglobin 29.3 pg (28.0-33.3); Mean Platelet Volume 11.2 fL (9.4-12.4); Monocytes # 0.7 K/mcL (0.0-1.3); Monocytes % 15.6 %; Neutrophils # 2.6 K/mcL (1.6-8.9); Platelet Count 115 K/mcL (140-400); Red Cell Distribution Width 18.3 % (11.5-14.5); White Blood Count 4.7 K/mcL (4.3-11.1)
[2022-01-11 04:50] LABS: INR 1.8; Prothrombin Time 20.3 Seconds (9.4-12.1)
[2022-01-11 05:01] LABS: Calcium 9.1 mg/dL (8.6-10.3); Phosphorous 3.3 mg/dL (2.7-4.5); Potassium 3.7 mEq/L (3.5-5.1)
[2022-01-11] MEDS: Cyanocobalamin (B-12) 1,000 MCG TABLET PO SCH (08:34)
[2022-01-11] MEDS: PARoxetine 10 MG TABLET PO SCH (08:34)
[2022-01-11] MEDS: hydrALAZINE 25 MG TABLET PO SCH ×2 (08:34→17:40)
[2022-01-11] MEDS: Furosemide 40 MG TABLET PO SCH (08:35)
[2022-01-11] MEDS: Magnesium Oxide 400 MG TABLET PO SCH (08:35)
[2022-01-11] MEDS: carvediloL 25 MG TABLET PO SCH ×2 (08:35→17:41)
[2022-01-11] MEDS: Insulin LISPRO 300 UNITS/3 ML VIAL SUBQ SCH ×4 (08:35→20:51)
[2022-01-11] MEDS: Aspirin Enteric Coated 81 MG Tablet PO SCH (08:35)
[2022-01-11] MEDS: Isosorbide MONOnitrate (24 HR) 30 MG TAB.ER.24H PO SCH (08:35)
[2022-01-11] MEDS ORDERED: Heparin 1,000 UNITS/500 mL 500 ML ONE (09:33)
[2022-01-11] MEDS ORDERED: Lidocaine/EPI 1:100k 1% 50 ML VIAL ONE (09:33)
[2022-01-11] MEDS ORDERED: 0.9 % Sodium Chloride 250 ML ONE (09:53)
[2022-01-11] MEDS ORDERED: *HR* FentaNYL (PF) 100 MCG/2 ML VIAL ONE (10:48)
[2022-01-11] MEDS ORDERED: *HR* FentaNYL (PF) 100 MCG/2 ML VIAL IVP ONE (10:48)
[2022-01-11] MEDS ORDERED: *HR* Midazolam HCl 2 MG/2 ML VIAL ONE (10:48)
[2022-01-11] MEDS ORDERED: *HR* Heparin 5,000 UNIT/ML VIAL ONE (10:56)
[2022-01-11 14:24] LABS: INR 1.6; Prothrombin Time 18.3 Seconds (9.4-12.1)
[2022-01-11] MEDS ORDERED: *HR* Warfarin 3 MG TABLET PO ONE (18:00)
[2022-01-11] MEDS: Melatonin 3 MG TABLET PO PRN (20:51)
[2022-01-12] MEDS: hydrALAZINE 25 MG TABLET PO SCH ×3 (00:44→14:43)
[2022-01-12 00:59] LABS: Basophils % 0.9 %; Eosinophils # 0.3 K/mcL (0.0-0.6); Eosinophils % 6.6 %; Hematocrit 23.6 % (37.5-50.1); Hemoglobin 7.6 g/dL (12.9-16.9); Immature Granulocytes % 0.5 % (0-4); Immature Platelets 4.4 % (1.1-6.1); Lymphocytes % 19.2 %; Mean Corpuscular HGB Conc 32.2 g/dL (31.6-35.5); Mean Corpuscular Hemoglobin 29.6 pg (28.0-33.3); Mean Corpuscular Volume 91.8 fL (83.0-100.0); Monocytes # 0.6 K/mcL (0.0-1.3); Monocytes % 12.4 %; Neutrophils # 2.7 K/mcL (1.6-8.9); Platelet Count 118 K/mcL (140-400); Red Blood Count 2.57 M/mcL (4.19-5.50); Segmented Neutrophils % 60.4 %; White Blood Count 4.4 K/mcL (4.3-11.1)
[2022-01-12 01:00] LABS: Lymphocytes # 0.8 K/mcL (0.6-4.6)
[2022-01-12 01:05] LABS: INR 1.7; Prothrombin Time 18.6 Seconds (9.4-12.1)
[2022-01-12 03:18] LABS: Calcium 9.2 mg/dL (8.6-10.3); Phosphorous 4.1 mg/dL (2.7-4.5); Potassium 3.7 mEq/L (3.5-5.1)
[2022-01-12] MEDS: Insulin LISPRO 300 UNITS/3 ML VIAL SUBQ SCH ×3 (07:08→16:39)
[2022-01-12] MEDS ORDERED: 0.9 % Sodium Chloride 250 ML IVC PRN (08:15)
[2022-01-12] MEDS ORDERED: *HR* Heparin 10,000 UNIT/10 ML VIAL IV PRN ×2 (08:15)
[2022-01-12] MEDS: Furosemide 40 MG TABLET PO SCH (14:12)
[2022-01-12] MEDS: Cyanocobalamin (B-12) 1,000 MCG TABLET PO SCH (14:12)
[2022-01-12] MEDS: Isosorbide MONOnitrate (24 HR) 30 MG TAB.ER.24H PO SCH (14:12)
[2022-01-12] MEDS: Magnesium Oxide 400 MG TABLET PO SCH (14:12)
[2022-01-12] MEDS: carvediloL 25 MG TABLET PO SCH ×2 (14:12→16:32)
[2022-01-12] MEDS: Aspirin Enteric Coated 81 MG Tablet PO SCH (14:12)
[2022-01-12] MEDS: PARoxetine 10 MG TABLET PO SCH (14:12)
[2022-01-12 15:44] LABS: Adenovirus Not Detected (Not Detect); Bordetella Pertussis Not Detected (Not Detect); Chlamydophila pneumoniae Not Detected (Not Detect); Coronavirus 229E Not Detected (Not Detect); Coronavirus HKU1 Not Detected (Not Detect); Coronavirus NL63 Not Detected (Not Detect); Coronavirus OC43 Not Detected (Not Detect); Human Metapneumovirus Not Detected (Not Detect); Human Rhinovirus/Enterovirus Not Detected (Not Detect); Influenza A Subtype 2009 H1 Not Detected (Not Detect); Influenza B Not Detected (Not Detect); Mycoplasma pneumoniae Not Detected (Not Detect); Parainfluenza Virus 1 Not Detected (Not Detect); Parainfluenza Virus 2 Not Detected (Not Detect); Parainfluenza Virus 3 Not Detected (Not Detect); Parainfluenza Virus 4 Not Detected (Not Detect); Respiratory Syncytial Virus Not Detected (Not Detect); SARS-CoV-2 Not Detected (Not Detect)
[2022-01-12] MEDS ORDERED: *HR* Warfarin 3 MG TABLET PO ONE (18:00)
[2022-01-12 19:15] VITALS: BP 104/58; PULSE 64; TEMP 97.4; O2SAT 93
== END 2022-01-12 20:56 | DRG 682 ==
LOC: 2ANU → SUATTDRO 12-31 01:04
PROVIDERS: ADMIT Family Medicine; ATTEND General Practice
PROC: IRPERMA (2022-01-11 12:00)

== ENCOUNTER 2022-07-25 14:10 | Observation (INO) ==
[2022-07-25 17:40] LABS: Basophils # 0.1 K/mcL (0.0-0.2); Basophils % 0.6 %; Eosinophils # 0.1 K/mcL (0.0-0.6); Eosinophils % 0.9 %; Hematocrit 36.3 % (37.5-50.1); Hemoglobin 11.7 g/dL (12.9-16.9); Immature Granulocytes % 0.5 % (0-4); Lymphocytes # 1.2 K/mcL (0.6-4.6); Lymphocytes % 14.9 %; Mean Corpuscular HGB Conc 32.2 g/dL (31.6-35.5); Mean Corpuscular Hemoglobin 30.3 pg (28.0-33.3); Monocytes # 0.7 K/mcL (0.0-1.3); Monocytes % 9.1 %; Neutrophils # 5.7 K/mcL (1.6-8.9); Platelet Count 190 K/mcL (140-400); Red Blood Count 3.86 M/mcL (4.19-5.50); Red Cell Distribution Width 14.7 % (11.5-14.5); White Blood Count 7.7 K/mcL (4.3-11.1)
[2022-07-25 17:56] LABS: Calcium 9.6 mg/dL (8.6-10.3); Magnesium 1.8 mg/dL (1.6-2.6); Potassium 3.9 mEq/L (3.5-5.1)
[2022-07-25 17:58] LABS: Troponin I 0.03 ng/mL (< 0.04)
[2022-07-25 18:00] LABS: INR 1.6; Prothrombin Time 17.6 Seconds (9.4-12.1)
[2022-07-25 18:52] LABS: Influenza A PCR Negative (Negative); Influenza B PCR Negative (Negative); Resp. Syncytial Virus PCR Negative (Negative)
[2022-07-25 18:53] LABS: SARS-CoV-2 by PCR (In House) Negative (Negative)
[2022-07-25] MEDS ORDERED: Vancomycin 1,750 MG/517.5 ML IV.SOLN IVPB ONE (19:57)
[2022-07-25] MEDS ORDERED: Piperacillin/Tazobactam 3.375 GM in 0.9 % Sodium Chloride Mini Bag 100 ML IVPB ONE (19:58)
[2022-07-25] MEDS ORDERED: Melatonin 3 MG TABLET PO PRN (21:31)
[2022-07-25] MEDS ORDERED: Naloxone 0.4 MG/ML INJ IVP PRN (21:31)
[2022-07-25] MEDS ORDERED: Acetaminophen 325 MG TABLET PO PRN (21:31)
[2022-07-25] MEDS ORDERED: Ondansetron 4 MG/2 ML VIAL IVP PRN (21:31)
[2022-07-25] MEDS ORDERED: *HR* HYDROcodone/Acet 5/325 mg TABLET PO PRN (21:31)
[2022-07-26 03:21] LABS: Basophils # 0.1 K/mcL (0.0-0.2); Basophils % 0.8 %; Eosinophils # 0.1 K/mcL (0.0-0.6); Eosinophils % 2.1 %; Hematocrit 33.1 % (37.5-50.1); Hemoglobin 10.8 g/dL (12.9-16.9); Immature Granulocytes % 0.2 % (0-4); Lymphocytes # 1.2 K/mcL (0.6-4.6); Lymphocytes % 18.5 %; Mean Corpuscular HGB Conc 32.6 g/dL (31.6-35.5); Mean Corpuscular Hemoglobin 30.8 pg (28.0-33.3); Mean Corpuscular Volume 94.3 fL (83.0-100.0); Mean Platelet Volume 11.5 fL (9.4-12.4); Monocytes # 0.6 K/mcL (0.0-1.3); Monocytes % 9.3 %; Neutrophils # 4.5 K/mcL (1.6-8.9); Platelet Count 169 K/mcL (140-400); Red Blood Count 3.51 M/mcL (4.19-5.50); Red Cell Distribution Width 14.7 % (11.5-14.5); Segmented Neutrophils % 69.1 %; White Blood Count 6.5 K/mcL (4.3-11.1)
[2022-07-26 03:37] LABS: INR 1.6; Prothrombin Time 17.6 Seconds (9.4-12.1)
[2022-07-26 03:40] LABS: Activated Partial Thrombo Time 39.8 Seconds (26.0-36.0)
[2022-07-26 03:53] LABS: Albumin 3.4 g/dL (3.5-5.7); Albumin/Globulin Ratio 1.4 (1.1-2.2); Bilirubin,Total 0.8 mg/dL (0.3-1.0); Calcium 9.2 mg/dL (8.6-10.3); Globulin 2.5 g/dL (2.4-3.5); Magnesium 1.8 mg/dL (1.6-2.6); Phosphorous 4.4 mg/dL (2.7-4.5); Potassium 3.8 mEq/L (3.5-5.1); Total Protein 5.9 g/dL (6.4-8.9); Troponin I 0.03 ng/mL (< 0.04)
[2022-07-26 03:54] LABS: Thyroid Stimulating Hormone 1.344 mcIU/mL (0.340-5.600)
[2022-07-26] MEDS: Ipratropium/Albuterol Neb 3 ML IH SCH ×4 (03:59→22:51)
[2022-07-26] MEDS ORDERED: *HR* Dextrose 50 % in Water (Syg) 50 ML SYRINGE IVP PRN (04:16)
[2022-07-26] MEDS ORDERED: D5% in Water 1,000 ML IVC PRN (04:16)
[2022-07-26] MEDS ORDERED: Dextrose Gel 15 GM/37.5 ML TUBE PO PRN ×2 (04:16)
[2022-07-26] MEDS ORDERED: Azithromycin 500 MG in 0.9 % Sodium Chloride 250 ML IVPB SCH (08:00)
[2022-07-26] MEDS ORDERED: carvediloL 6.25 MG TABLET PO SCH (08:00)
[2022-07-26] MEDS ORDERED: Aspirin Enteric Coated 81 MG Tablet PO SCH (09:00)
[2022-07-26] MEDS ORDERED: cefTRIAXone 1,000 MG in 0.9 % Sodium Chloride Mini Bag 100 ML IVPB SCH (09:00)
[2022-07-26] MEDS ORDERED: Chlorhexidine Rinse 15 ML MOUTHWASH MM SCH (09:00)
[2022-07-26] MEDS: Aspirin Enteric Coated 81 MG Tablet PO SCH (09:16)
[2022-07-26] MEDS: Vitamin B Complex/Vit C/Vit E 1 EACH TABLET PO SCH (09:16)
[2022-07-26] MEDS: Cyanocobalamin (B-12) 1,000 MCG TABLET PO SCH (09:16)
[2022-07-26] MEDS: Renal Vitamin 1 CAP CAPSULE PO SCH (09:16)
[2022-07-26] MEDS: PARoxetine 10 MG TABLET PO SCH (09:17)
[2022-07-26] MEDS: Insulin DETEMIR 100 UNIT/ML X5UNITS SUBQ SCH (09:18)
[2022-07-26] MEDS: Insulin LISPRO 300 UNITS/3 ML VIAL SUBQ SCH ×3 (09:23→17:08)
[2022-07-26] MEDS: carvediloL 25 MG TABLET PO SCH ×2 (09:54→17:08)
[2022-07-26] MEDS ORDERED: *HR* Warfarin 2.5 MG TABLET PO ONE (18:00)
[2022-07-26] MEDS ORDERED: Warfarin perPT PO PRN (18:00)
[2022-07-26 20:08] LABS: Hepatitis B Surface Antibody < 3.10 mIU/mL
[2022-07-26 20:20] LABS: Hepatitis B Surface Antigen Nonreactive (Nonreactive)
[2022-07-27 02:45] LABS: Basophils # 0.1 K/mcL (0.0-0.2); Basophils % 0.8 %; Eosinophils # 0.2 K/mcL (0.0-0.6); Eosinophils % 3.3 %; Hematocrit 32.7 % (37.5-50.1); Hemoglobin 10.6 g/dL (12.9-16.9); Immature Granulocytes % 0.2 % (0-4); Lymphocytes # 1.5 K/mcL (0.6-4.6); Lymphocytes % 23.9 %; Mean Corpuscular HGB Conc 32.4 g/dL (31.6-35.5); Mean Corpuscular Volume 92.6 fL (83.0-100.0); Mean Platelet Volume 11.2 fL (9.4-12.4); Monocytes # 0.6 K/mcL (0.0-1.3); Monocytes % 9.9 %; Platelet Count 173 K/mcL (140-400); Red Blood Count 3.53 M/mcL (4.19-5.50); Red Cell Distribution Width 14.8 % (11.5-14.5); Segmented Neutrophils % 61.9 %; White Blood Count 6.5 K/mcL (4.3-11.1)
[2022-07-27 02:54] LABS: INR 1.6; Prothrombin Time 17.4 Seconds (9.4-12.1)
[2022-07-27 03:06] LABS: Calcium 9.3 mg/dL (8.6-10.3); Magnesium 1.9 mg/dL (1.6-2.6); Phosphorous 5.6 mg/dL (2.7-4.5); Potassium 4.1 mEq/L (3.5-5.1)
[2022-07-27 03:10] LABS: % Iron Saturation 20 % (20-55); Iron 57 mcg/dL (65-175); Transferrin 201 mg/dL (203-362)
[2022-07-27 03:24] LABS: Ferritin 619 ng/mL (20-250)
[2022-07-27 03:31] LABS: Folate > 22.3 ng/mL (3.0-16.0); Vitamin B12 954 pg/mL (250-1100)
[2022-07-27] MEDS: Ipratropium/Albuterol Neb 3 ML IH SCH ×3 (04:43→15:47)
[2022-07-27] MEDS ORDERED: *HR* Heparin 10,000 UNIT/10 ML VIAL IV PRN ×2 (08:14→14:29)
[2022-07-27] MEDS ORDERED: 0.9 % Sodium Chloride 250 ML IVC PRN ×2 (08:14→14:29)
[2022-07-27] MEDS ORDERED: 0.9 % Sodium Chloride 2,000 ML PRIME SCH (08:15)
[2022-07-27] MEDS: Insulin LISPRO 300 UNITS/3 ML VIAL SUBQ SCH ×3 (08:25→17:34)
[2022-07-27] MEDS: Cyanocobalamin (B-12) 1,000 MCG TABLET PO SCH (08:41)
[2022-07-27] MEDS: PARoxetine 10 MG TABLET PO SCH (08:41)
[2022-07-27] MEDS: Vitamin B Complex/Vit C/Vit E 1 EACH TABLET PO SCH (08:41)
[2022-07-27] MEDS: Aspirin Enteric Coated 81 MG Tablet PO SCH (08:41)
[2022-07-27] MEDS: carvediloL 25 MG TABLET PO SCH ×2 (08:41→18:07)
[2022-07-27] MEDS: Renal Vitamin 1 CAP CAPSULE PO SCH (08:41)
[2022-07-27] MEDS: Insulin DETEMIR 100 UNIT/ML X5UNITS SUBQ SCH (08:42)
[2022-07-27 11:52] VITALS: PULSE 79; O2SAT 96
[2022-07-27] MEDS ORDERED: *HR* Warfarin 2.5 MG TABLET PO ONE (18:00)
[2022-07-27] MEDS ORDERED: Flu Vac QV 22-23 (6MOS UP)/PF 0.5 ML SYRINGE IM ONE (18:15)
[2022-07-27 18:55] VITALS: BP 140/77; TEMP 97.9
== END 2022-07-27 19:07 | disposition home or self-care (01) ==
LOC: 2ANU 14:10 → EMEROOARM 14:10 → SUATTDRO 21:37 → 2ANU 22:15
PROVIDERS: ADMIT Internal Medicine; ATTEND Pharmacist